=== PATIENT | male | born 1940 | race Caucasian/White ===

== ENCOUNTER → 2019-09-29 12:09 | Outpatient (BNVA) | payer MEDICARE, MEDICAID, SELFPAY | PROVIDERS: Family Provider Nurse Practitioner; PCP Nurse Practitioner; Visit Provider Nurse Practitioner | DX: E11.9 Type 2 diabetes mellitus without complications (principal); F41.9 Anxiety disorder, unspecified; I10 Essential (primary) hypertension; R39.11 Hesitancy of micturition; E61.1 Iron deficiency; E03.8 Other specified hypothyroidism; I73.9 Peripheral vascular disease, unspecified; L03.90 Cellulitis, unspecified | CPT/HCPCS: 80053; 81003; 83036; 85025 ==

== ENCOUNTER 2019-10-03 17:46 | Observation (INO) | payer MEDICARE, MEDICAID, SELFPAY ==
[2019-10-03 18:02] VITALS: BP 163/80; PULSE 81; RESP 18; TEMP 36.2; O2SAT 100; BMI 29.2
--- NOTE | 2019-10-03 18:13 | W.ED.ABDPA2 ---
HPI - Abdominal Pain General: Chief Complaint: Abdominal Pain Stated Complaint: vomiting Time Seen by Provider: 10/03/19 18:11 Source: patient Mode of arrival: ambulatory Limitations: no limitations History of Present Illness: HPI narrative: Patient comes in today with 12-hour episode of nausea and vomiting with some centralized abdominal pain. Patient is bringing up bilious emesis. Patient reports no history of gallbladder issues. Patient has a history of diabetes and heart disease. Patient denies any chest pain or shortness of breath. Patient looks unwell. Patient looks and mild to moderate pain. Associated Symptoms: Reports nausea and vomiting (bile) Review of Systems General: Reports: 10 or more systems reviewed and unremarkable except in HPI and below GI: Reports: nausea and vomiting (bile) PFSH ED PFSH: Statuses (acute, chronic, etc) shown below reflect problem list status as previously entered and may not be historically accurate Medical History (Updated 10/03/19 @ 21:39 by KLAUS Smith) Adult onset hypothyroidism (Chronic) Anxiety and depression (Chronic) B12 deficiency (Acute) CKD (chronic kidney disease) (Acute) Controlled diabetes mellitus (Chronic) Cyst, dermoid, trunk (Chronic) HTN, goal below 130/80 (Chronic) Hyperlipidemia, unspecified (Chronic) Iron deficiency (Acute) PVD (peripheral vascular disease) (Chronic) Urinary hesitancy (Chronic) Vitamin D deficiency (Chronic) Surgical History (Updated 09/29/19 @ 12:07 by KLAUS Fortune-C) History of knee replacement (Acute) right 2014 History of knee surgery (Acute) right 2006 left 2002 History of rhinoplasty (Acute) 1973 History of shoulder surgery (Acute) Left 2016 S/P CABG (coronary artery bypass graft) (Acute) 2002 Social History Smoking and tobacco status: former smoker Smoking risk assessment/counseling performed?: No Alcohol intake: never Desire information about alcohol rehabilitation?: No Counseling given: No Desire information about substance/drug rehabilitation?: No Counseling given: No Adopted: No Caregiver/support person: No Lives independently: Yes Household members: none Housing: House Marital status: / service: Yes Current occupational status: retired Current occupational exposures/hazards: No Pets and animals: No History of recent travel: No Current gender identity: Male Physical Exam Const: COMMON NORMALS: no apparent distress and oriented x3 GENERAL APPEARANCE: cooperative HENMT: COMMON NORMALS: normocephalic, external ears normal, EAC's normal, TM's normal bilaterally and external nose normal HEAD & SCALP: normal to inspection and normocephalic FACE & SINUS: normal facial exam NOSE: external nose normal GENERAL EAR: hearing not grossly impaired EXTERNAL EAR: Yes external ears normal EXTERNAL AUDITORY CANAL: EAC's normal TYMPANIC MEMBRANE: TM's normal bilaterally MOUTH: oral and palatal mucosa normal THROAT: posterior oropharynx normal Eye: COMMON NORMALS: PERRL and EOMs intact bilaterally PUPIL: Yes PERRL Neck/C-Spine: COMMON NORMALS: full ROM and no lymphadenopathy Lymph: LYMPHATIC: no lymphedema noted Chest: COMMONS NORMALS: inspection of chest normal and palpation of chest normal Resp: COMMON NORMALS: normal respiratory effort and clear to auscultation bilaterally AUSCULTATION: clear to auscultation bilaterally Cardio: COMMON NORMALS: regular rate and regular rhythm RATE: regular rate RHYTHM: regular rhythm GI: COMMON NORMALS: normal to inspection, nondistended, normoactive bowel sounds PALPATION: Yes tender (diffuse, rotund, no guarding or rebound tenderness) : COMMON NORMALS: Yes no CVA tenderness BLADDER/KIDNEY EXAM: Yes no CVA tenderness Back/Pelvis: COMMON NORMALS: no CVA tenderness and thoracic and lumbar spine normal to inspection Extremity: COMMON NORMALS: normal to inspection GENERAL: No edema Neuro: COMMON NORMALS: oriented x3, moves all extremities and no focal motor deficits Psych: COMMON NORMALS: mental status grossly normal and cooperative Skin: COMMON NORMALS: no rashes or lesions noted GENERAL SKIN EXAM: no rashes or lesions noted Course ED course: 2044, Discussed with Dr. Allred about cholecystitis. and elevated lactate. agreed to plan will talk to Dr. Harrell surgeon about further treatment and probable admission. Vital Signs: Vital signs: Vital Signs Temperature 97.2 F L 10/03/19 18:02 Pulse Rate 82 10/03/19 23:56 Respiratory Rate 18 10/03/19 23:56 Blood Pressure 191/101 10/03/19 23:56 Pulse Oximetry 98 10/03/19 23:56 MDM - Abdominal Pain MDM Narrative: Medical decision making narrative: Patient came in tonight for complaints of persistent nausea and vomiting starting this morning. Patient was unable to hold down any medication for his blood pressure any of his other routine medicines. Patient reports chills last night. Exam notes abdomen is tender in the epigastric area. Respirations were even lungs were clear to auscultation. Skin was warm and dry color is pink. Differential diagnosis includes gastroenteritis, gastritis, cholecystitis, pancreatitis, bowel obstruction. Laboratory values were significant for some renal insufficiency at 1.8 creatinine, white blood cell count was 8.1, lactate was 3.0. Ultrasound of the gallbladder showed gallbladder wall thickening with sludge. CT scan noted no abnormalities. Patient was treated with IV fluids started on 4.[address] Allred was consulted who agreed to plan and recommended admission. Dr. Allred talk to Dr. Harrell surgeon cathodic protection technician who agreed to admission. Patient will be placed into med surgical floor for continuation of IV fluids and medication with consult for further treatment with surgery. Patient was agreeable to plan. Patient needs admission for IV fluids and antibiotics and further treatment with surgery. Lab Data: Labs: Lab Results 10/03/19 10/03/19 10/03/19 Range/Units 18:25 18:25 18:25 WBC 8.1 (4.0-10.0) 10^3/ uL RBC 3.96 L (4.1-5.3) 10^6/u L Hgb 11.4 L (11.7-16.6) g/dL Hct 36.3 L (42.0-52.0) % MCV 91.7 (80-94) fL MCH 28.8 (28.0-34.0) pg MCHC 31.4 (30.0-36.0) g/dL RDW 14.6 (12.1-15.1) % Plt Count 237 (130-400) 10^3/c mm MPV 11.5 H (7.4-10.4) fL Neut % (Auto) 88.4 % Lymph % (Auto) 7.4 % [place] % (Auto) 3.8 % Eos % (Auto) 0.1 % Baso % (Auto) 0.1 % Neut # (Auto) 7.2 (1.8-7.7) 10^3/u L Lymph # (Auto) 0.6 L (0.8-4.8) 10^3/u L [place] # (Auto) 0.3 (0.2-0.9) 10^3/u L Eos # (Auto) 0.0 (0.0-0.8) 10^3/u L Baso # (Auto) 0.0 (0.0-0.1) 10^3/u L Nucleated RBC % (a uto) 0 % Nucleated RBCs # 0.0 /100WBC Sodium 139 (136-145) mmol/L Potassium 4.1 (3.5-5.1) mmol/L Chloride 103 (98-107) mmol/L Carbon Dioxide 20 L (22-29) mmol/L Anion Gap 20.1 H (5-19) BUN 26 H (8-23) mg/dL Creatinine 1.8 H (0.7-1.2) mg/dL Glucose 158 H (74-106) mg/dL Lactic Acid 3.0 H (0.5-2.2) mmol/L Lactic Acid (Sepsi s) (0.5-2.2) mmol/L Calcium 10.1 (8.5-10.5) mg/dL Total Bilirubin 0.5 (0.15-1.2) mg/dL AST 19 (0-40) U/L ALT 12 (0-41) U/L Alkaline Phosphata se 84 (40-130) IU/L Total Protein 8.2 (6.6-8.7) g/dL Albumin 4.2 (3.5-5.2) g/dL Globulin 4.0 (1.3-4.6) g/dL Lipase 15 (13-60) U/L Urine Color (Yellow) Urine Appearance (CLEAR) Urine pH (5-7) Ur Specific Gravit y (1.005-1.030) Urine Protein (Negative) Urine Glucose (UA) (Normal) Urine Ketones (Negative) Urine Occult Blood (Negative) Urine Nitrate (Negative) Urine Bilirubin (NEGATIVE) Prot Sulfosalicyli c Acd Urine Urobilinogen (Negative) mg/dL Ur Leukocyte Jade ase (Negative) Urine RBC (0-2) /hpf Urine WBC (0-5) /hpf Ur Squamous Epith Cells (0-5) Urine Bacteria (NONE) Urine Mucus 10/03/19 10/03/19 Range/Units 20:10 21:16 WBC (4.0-10.0) 10^3/ uL RBC (4.1-5.3) 10^6/u L Hgb (11.7-16.6) g/dL Hct (42.0-52.0) % MCV (80-94) fL MCH (28.0-34.0) pg MCHC (30.0-36.0) g/dL RDW (12.1-15.1) % Plt Count (130-400) 10^3/c mm MPV (7.4-10.4) fL Neut % (Auto) % Lymph % (Auto) % [place] % (Auto) % Eos % (Auto) % Baso % (Auto) % Neut # (Auto) (1.8-7.7) 10^3/u L Lymph # (Auto) (0.8-4.8) 10^3/u L [place] # (Auto) (0.2-0.9) 10^3/u L Eos # (Auto) (0.0-0.8) 10^3/u L Baso # (Auto) (0.0-0.1) 10^3/u L Nucleated RBC % (a uto) % Nucleated RBCs # /100WBC Sodium (136-145) mmol/L Potassium (3.5-5.1) mmol/L Chloride (98-107) mmol/L Carbon Dioxide (22-29) mmol/L Anion Gap (5-19) BUN (8-23) mg/dL Creatinine (0.7-1.2) mg/dL Glucose (74-106) mg/dL Lactic Acid (0.5-2.2) mmol/L Lactic Acid (Sepsi s) 1.7 (0.5-2.2) mmol/L Calcium (8.5-10.5) mg/dL Total Bilirubin (0.15-1.2) mg/dL AST (0-40) U/L ALT (0-41) U/L Alkaline Phosphata se (40-130) IU/L Total Protein (6.6-8.7) g/dL Albumin (3.5-5.2) g/dL Globulin (1.3-4.6) g/dL Lipase (13-60) U/L Urine Color Yellow (Yellow) Urine Appearance Clear (CLEAR) Urine pH 8 H (5-7) Ur Specific Gravit y 1.010 (1.005-1.030) Urine Protein Trace (Negative) Urine Glucose (UA) Norm (Normal) Urine Ketones Negative (Negative) Urine Occult Blood Neg (Negative) Urine Nitrate Negative (Negative) Urine Bilirubin Neg (NEGATIVE) Prot Sulfosalicyli c Acd Trace Urine Urobilinogen Norm (Negative) mg/dL Ur Leukocyte Jade ase Negative (Negative) Urine RBC None (0-2) /hpf Urine WBC Rare (0-5) /hpf Ur Squamous Epith Cells None (0-5) Urine Bacteria Trace (NONE) Urine Mucus Trace Discharge Plan Discharge Patient Disposition: Admitted As Inpatient Admit Provider: Aaron Harrell Clinical Impression: Cholecystitis Condition: Stable Referrals: Mary Dior FNP-C [Primary Care Provider] - Discharge Date/Time: 10/03/19 23:57 Coding Level of Care Code ED Cushion Cover Inspector for Chg Fwd Exam Problem Focused
--- NOTE | 2019-10-03 18:25 | USR_ITS ---
PROCEDURE INFORMATION: Exam: US Abdomen Limited, Right Upper Quadrant Exam date and time: 10/03/2019 7:01 PM Age: 78 years old Clinical indication: Abdominal pain; Tenderness; Right upper quadrant (ruq); Patient HX: N/v since 5am today. Npo since then. ; Additional info: Bile emesis TECHNIQUE: Imaging protocol: Real-time ultrasound of the abdomen with image documentation. Examination was focused on the right upper quadrant. COMPARISON: US Renal Kidney Structu* [id number] 04/18/2017 2:52 PM FINDINGS: Liver: The liver is unremarkable measuring 16 cm in length. Gallbladder: The gallbladder wall is thickened measuring 3.4 mm. There is sludge in the gallbladder. No definite stones. There is a positive sonographic Song sign however the patient is tender throughout the entire abdomen. Common bile duct: The common bowel duct is dilated measuring 7.8 mm. Pancreas: Pancreatic duct is dilated measuring 3.5 mm. The visualized pancreas is otherwise unremarkable on the are most completely obscured by the bowel gas artifact. Right kidney: Two right renal cortical cysts are unchanged compared to the prior exam with a larger cyst measuring 5.1 x 5.5 cm in size. There is no hydronephrosis. Bladder: Urinary bladder is unremarkable with a volume of 263.5 mL. Bladder appears partially collapsed in the wall slightly thickened but otherwise unremarkable. US/US gall bladder [id number] IMPRESSION: Thick-walled gallbladder with dilated common bile duct and pancreatic duct concerning for early cholecystitis. There is sludge in the gallbladder.
[2019-10-03 18:32] LABS: Basophils % 0.1 %; Eosinophils % 0.1 %; Hematocrit 36.3 % (42.0-52.0); Hemoglobin 11.4 g/dL (11.7-16.6); Lymphocytes # 0.6 10^3/uL (0.8-4.8); Lymphocytes % 7.4 %; Mean Corpuscular HGB Conc 31.4 g/dL (30.0-36.0); Mean Corpuscular Hemoglobin 28.8 pg (28.0-34.0); Mean Corpuscular Volume 91.7 fL (80-94); Mean Platelet Volume 11.5 fL (7.4-10.4); Monocytes # 0.3 10^3/uL (0.2-0.9); Monocytes % 3.8 %; Neutrophils # 7.2 10^3/uL (1.8-7.7); Neutrophils % 88.4 %; Nucleated Red Blood Cells % 0 %; Platelet Count 237 10^3/cmm (130-400); Red Blood Count 3.96 10^6/uL (4.1-5.3); Red Cell Distribution Width 14.6 % (12.1-15.1); White Blood Count 8.1 10^3/uL (4.0-10.0)
[2019-10-03] MEDS: ondansetron 2 mg/ML SDV 2 mL 4 MG IVP ×2 (18:35→22:12)
[2019-10-03] MEDS: sodium chloride 0.9% 500 ML 999 ML IV (18:36)
[2019-10-03 18:39] VITALS: RESP 18; O2SAT 96
[2019-10-03] MEDS: morphine 4 mg/mL SDV 1 mL 2 MG IVP ×2 (18:39→22:05)
[2019-10-03 18:56] LABS: Alanine Aminotransferase 12 U/L (0-41); Albumin Level 4.2 g/dL (3.5-5.2); Alkaline Phosphatase 84 IU/L (40-130); Anion Gap 20.1 (5-19); Aspartate Amino Transferase 19 U/L (0-40); Blood Urea Nitrogen 26 mg/dL (8-23); Calcium 10.1 mg/dL (8.5-10.5); Carbon Dioxide 20 mmol/L (22-29); Chloride 103 mmol/L (98-107); Glucose 158 mg/dL (74-106); Lipase 15 U/L (13-60); Potassium 4.1 mmol/L (3.5-5.1); Sodium 139 mmol/L (136-145); Total Bilirubin 0.5 mg/dL (0.15-1.2); Total Protein 8.2 g/dL (6.6-8.7)
--- NOTE | 2019-10-03 19:50 | CTR_ITS ---
PROCEDURE INFORMATION: Exam: CT Abdomen And Pelvis Without Contrast Exam date and time: 10/03/2019 8:06 PM Age: 78 years old Clinical indication: Patient HX: Nausea and vomiting since 5 am; Additional info: N/v/d, renal insuff TECHNIQUE: Imaging protocol: Computed tomography of the abdomen and pelvis without contrast. Total DLP: 894.61 mGy-cm Radiation optimization: All CT scans at this facility use at least one of these dose optimization techniques: automated exposure control; mA and/or kV adjustment per patient size (includes targeted exams where dose is matched to clinical indication); or iterative reconstruction. COMPARISON: CT abdomen pelvis wo con [id number] 02/03/2019 7:02 PM FINDINGS: Lungs: There is subpleural atelectasis of the dependent portions of the lungs. Mediastinum: A small hiatal hernia is present. Liver: Unchanged hypodensities are noted in the liver with the largest measuring 1.5 cm in size image 12. This may be an unchanged cyst. Gallbladder and bile ducts: Normal. No calcified stones. No ductal dilation. Pancreas: Normal. No ductal dilation. Spleen: Normal. No splenomegaly. Adrenals: There is an unchanged 1.5 cm right adrenal nodule containing macroscopic fat compatible with a myelolipoma. The left adrenal gland is unremarkable. Kidneys and ureters: There is bilateral punctate nephrolithiasis. There is a unchanged 12 mm hyperdense lesion lower pole right kidney. Bilateral fluid density renal cysts are noted with the largest on the left measuring 3.8 cm in size and the largest on the right measuring 7.3 cm in size. No hydronephrosis. Stomach and bowel: Extensive diverticulosis is present in the distal colon. No bowel thickening or inflammatory changes. No ileus or obstruction. Appendix: A normal appendix is identified. Intraperitoneal space: Unremarkable. No free air. No significant fluid collection. Vasculature: Sternotomy wires and mediastinal surgical clips are present, consistent with previous coronary arterial bypass grafting. Moderate atherosclerotic changes are noted in the aorta. Lymph nodes: Unremarkable.No enlarged lymph nodes. Bladder: Unremarkable as visualized. Reproductive: The prostate demonstrates nonspecific parenchymal calcifications. The prostate demonstrates moderate nonspecific enlargement. The seminal vesicles are normal. Bones/joints: Unremarkable. No acute fracture. Soft tissues: There is a nonobstructing left inguinal hernia. CT/CT abdomen pelvis wo con [id number] IMPRESSION: 1. No acute abnormality or inflammatory changes. Probable liver cysts. Unchanged renal cysts and indeterminate hyperdense lesion lower pole right kidney. 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 Diverticulosis without diverticulitis. Additional incidental findings are noted as above. 2. Unchanged 12 mm hyperdense lesion lower pole right kidney.Recommend MR without and with contrast or CT without and with contrast within 6-12 months. MR is preferred for masses under 1.5 cm. Radiation Dose CTDIVOL = (mGy): DLP = 894.61 (mGy-cm)
[2019-10-03 20:16] LABS: Reflex Lactate Order REFLEX LACTIC ORDERD
[2019-10-03] MEDS: piperacillin-tazobactam 4.5 GM in sodium chloride 0.9% (plus) 50 ML IV (20:48)
[2019-10-03 21:16] LABS: Bilirubin Urine Neg (NEGATIVE); Blood Urine Neg (Negative); Glucose Urine UA Norm (Normal); Ketones Urine Negative (Negative); Nitrate Urine Negative (Negative); Protein Urine Trace (Negative); Urine Appearance Clear (CLEAR); Urine Color Yellow (Yellow); pH Urine 8 (5-7)
[2019-10-03 21:17] LABS: Add Urine Culture? No; Bacteria Urine TRACE; Leukocyte Esterase Urine Negative (Negative); Mucus Urine TRACE; Sulfosalicylic Acid Urine Trace; Urobilinogen Urine Norm (Negative); WBC Urine RARE /hpf (0-5)
[2019-10-03 21:45] LABS: Lactic Acid level (Lactate) 1.7 mmol/L (0.5-2.2)
[2019-10-03 22:05] VITALS: RESP 18; O2SAT 98
[2019-10-03] MEDS: sodium chloride 0.9% 1,000 ML 999 ML IV (22:12)
[2019-10-03] MEDS: cloNIDine 0.1 mg Tablet PO (22:12)
[2019-10-03 23:56] VITALS: BP 191/101; PULSE 82; RESP 18; O2SAT 98
[2019-10-04] VITALS (14 sets, daily range): BP systolic 125–196; BP diastolic 58–76; PULSE 59–79; RESP 18–20; TEMP 36.2–37.1; O2SAT 93–100
[2019-10-04 06:20] LABS: Basophils % 0.1 %; Eosinophils # 0.1 10^3/uL (0.0-0.8); Eosinophils % 0.6 %; Hematocrit 32.8 % (42.0-52.0); Hemoglobin 10.3 g/dL (11.7-16.6); Lymphocytes # 1.5 10^3/uL (0.8-4.8); Lymphocytes % 14.2 %; Mean Corpuscular HGB Conc 31.4 g/dL (30.0-36.0); Mean Corpuscular Hemoglobin 28.8 pg (28.0-34.0); Mean Corpuscular Volume 91.6 fL (80-94); Mean Platelet Volume 11.6 fL (7.4-10.4); Monocytes # 1.1 10^3/uL (0.2-0.9); Monocytes % 10.2 %; Neutrophils # 7.8 10^3/uL (1.8-7.7); Neutrophils % 74.7 %; Nucleated Red Blood Cells % 0 %; Platelet Count 222 10^3/cmm (130-400); Red Blood Count 3.58 10^6/uL (4.1-5.3); White Blood Count 10.5 10^3/uL (4.0-10.0)
[2019-10-04 06:50] LABS: Alanine Aminotransferase 10 U/L (0-41); Albumin Level 3.6 g/dL (3.5-5.2); Alkaline Phosphatase 71 IU/L (40-130); Anion Gap 13.5 (5-19); Aspartate Amino Transferase 21 U/L (0-40); Blood Urea Nitrogen 26 mg/dL (8-23); Calcium 9.3 mg/dL (8.5-10.5); Carbon Dioxide 25 mmol/L (22-29); Chloride 108 mmol/L (98-107); Globulin 3.3 g/dL (1.3-4.6); Glucose 109 mg/dL (74-106); Potassium 4.5 mmol/L (3.5-5.1); Sodium 142 mmol/L (136-145); Total Bilirubin 0.5 mg/dL (0.15-1.2); Total Protein 6.9 g/dL (6.6-8.7)
[2019-10-04 09:14] LABS: Basophils % 0.1 %; Eosinophils # 0.1 10^3/uL (0.0-0.8); Eosinophils % 0.5 %; Hematocrit 33.2 % (42.0-52.0); Hemoglobin 10.5 g/dL (11.7-16.6); Lymphocytes # 1.5 10^3/uL (0.8-4.8); Lymphocytes % 15.6 %; Mean Corpuscular HGB Conc 31.6 g/dL (30.0-36.0); Mean Corpuscular Volume 91.7 fL (80-94); Mean Platelet Volume 11.4 fL (7.4-10.4); Monocytes # 0.8 10^3/uL (0.2-0.9); Monocytes % 8.6 %; Neutrophils % 74.9 %; Nucleated Red Blood Cells % 0 %; Platelet Count 227 10^3/cmm (130-400); Red Blood Count 3.62 10^6/uL (4.1-5.3); Red Cell Distribution Width 15.1 % (12.1-15.1); White Blood Count 9.3 10^3/uL (4.0-10.0)
[2019-10-04 09:29] LABS: Alanine Aminotransferase 10 U/L (0-41); Albumin Level 3.8 g/dL (3.5-5.2); Alkaline Phosphatase 73 IU/L (40-130); Anion Gap 13.8 (5-19); Aspartate Amino Transferase 22 U/L (0-40); Blood Urea Nitrogen 25 mg/dL (8-23); Calcium 9.5 mg/dL (8.5-10.5); Carbon Dioxide 24 mmol/L (22-29); Chloride 108 mmol/L (98-107); Globulin 3.4 g/dL (1.3-4.6); Glucose 111 mg/dL (74-106); Lactic Acid 0.8 mmol/L (0.5-2.2); Osmolality Calculated 292 mOsm/kg (285-295); Potassium 3.8 mmol/L (3.5-5.1); Sodium 142 mmol/L (136-145); Total Bilirubin 0.6 mg/dL (0.15-1.2); Total Protein 7.2 g/dL (6.6-8.7)
--- NOTE | 2019-10-04 10:23 | P.HP_ITS ---
Providers/Chief Complaint Admitting Physician: Aaron Harrell MD Primary Care Provider: MILEY FortuneP-C Chief Complaint: acute cholecysitis History of Present Illness Abiel Andres is a 78 year old male who presented to the ER last night with severe abdominal pain associated nausea and vomiting. The pain is mainly localized in the right upper quadrant, no aggravating or relieving factors. Does not radiate. Patient states that he has had any similar episodes in the past. He has history of acid reflux but denies any peptic ulcer disease. Patient denies any constipation diarrhea, fevers or chills. 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 Review of Systems Const: Denies: fever, chills, change in weight or fatigue Eyes: Denies: change in vision ENMT: Denies: painful swallowing Card: Denies: chest pain Resp: Denies: shortness of breath : Denies: painful urination Skin/Breast: Denies: rash, nipple discharge or breast mass/lump Neuro: Denies: seizure-like activity [place]/Lymph: Denies: easy bruising Medications/Allergies Allergies Allergy/AdvReac Type Severity Reaction Status Date / Time fish oil Allergy rash Verified 09/29/19 11:03 PFSH Acute PFSH: Statuses (acute, chronic, etc) shown below reflect problem list status as previously entered and may not be historically accurate Medical History Adult onset hypothyroidism (Chronic) Anxiety and depression (Chronic) B12 deficiency (Acute) CKD (chronic kidney disease) (Acute) Controlled diabetes mellitus (Chronic) Cyst, dermoid, trunk (Chronic) Hyperlipidemia, unspecified (Chronic) Iron deficiency (Acute) PVD (peripheral vascular disease) (Chronic) Vitamin D deficiency (Chronic) Surgical History History of knee replacement (Acute) right 2014 History of knee surgery (Acute) right 2006 left 2002 History of rhinoplasty (Acute) 1973 History of shoulder surgery (Acute) Left 2016 S/p bilateral carotid endarterectomy (Acute) S/P CABG (coronary artery bypass graft) (Acute) 2002 Status post colonoscopy (Acute) Family History Other CAD (coronary artery disease) Heart disease Hypertension Social History Smoking and tobacco status: former smoker Smoking risk assessment/counseling performed?: No Alcohol intake: never Desire information about alcohol rehabilitation?: No Counseling given: No Desire information about substance/drug rehabilitation?: No Counseling given: No Adopted: No Caregiver/support person: No Lives independently: Yes Household members: none Housing: House Marital status: / service: Yes Current occupational status: retired Current occupational exposures/hazards: No Pets and animals: No History of recent travel: No Current gender identity: Male Vitals/I&O/Wt Last Vital Signs Temp 98.3 F 10/04/19 07:32 Pulse 68 10/04/19 07:32 Resp 18 10/04/19 07:32 BP 125/67 10/04/19 07:32 Pulse Ox 96 10/04/19 07:32 10/03/19 10/04/19 10/04/19 22:59 06:59 14:59 Output Total 200 / 200 250 / 250 Balance -200 / -200 -250 / -250 Weight last 48 hrs Weight 204 lb Physical Exam Narrative: EXAM NARRATIVE: HEENT: Normocephalic, bilateral well-healed carotid endarterectomy scar Eye: Sclera /conjunctiva normal Respiratory and chest: Bilateral clear breath sounds on auscultation Cardiovascular: Normal S1 and S2 heart sounds Abdomen: Soft to palpation, tender right upper quadrant, Song sign positive Neurological: Oriented to place person and time Skin: Intact, no lesions appreciated on gross exam Data : 10/04/19 08:54 10/04/19 08:54 Micro: Microbiology 10/03/19 18:25 Blood Culture - Preliminary Blood SPECIMEN COLLECTED US: Radiologist's impression: Thick-walled gallbladder with dilated common bile duct and pancreatic duct concerning for early cholecystitis. There is sludge in the gallbladder. A&P Assessment and plan (1) Acute cholecystitis: 78-year-old gentleman with right upper quadrant pain, positive Song sign and ultrasound showing findings suggestive of early acute cholecystitis. Plan for laparoscopic possible open cholecystectomy Procedure, risks, benefits and alternatives have been discussed with the patient who wishes to proceed with surgery. Status: Acute Code(s): K81.0 - Acute cholecystitis Attestations Medical Necessity Statement*: Acute cholecystitis requiring surgery Coding Level of Care Code Acute Research Animal Attendant for [facility] Fwd Diagnoses Acute cholecystitis K81.0
--- NOTE | 2019-10-04 10:23 | PC.NURSE ---
Pt to or via surgery cart.
--- NOTE | 2019-10-04 10:31 | P.ANESASSM_ITS ---
Pre-Anesthetic Assessment Pre-Anesthetic Assessment: Height/Weight: Height 1.78 m Weight 92.533 kg Temp Pulse Resp BP Pulse Ox 98.3 F 68 18 125/67 96 10/04/19 07:32 10/04/19 07:32 10/04/19 07:32 10/04/19 07:32 10/04/19 07:32 Preop Diagnosis: cholelithiasis Proposed Procedure: Operation Date: 10/04/19 11:20 Proposed Procedures p Laparoscopic Cholecystectomy(Not Applicable) - Aaron Harrell MD Familial anesthetic complications: Rivaroxaban 2 days ago No trouble Was Beta Cash taken within 24 hours: Yes Last intake: Social: Social History: No alcohol and No tobacco Exam: Pre-Anes Outpt Exam: alert, oriented x 3, clear to auscultation bilaterally and regular rate & rhythm Airway: Cervical ROM: WNL MP: 3 Additional comments: edntulous Pulmonary: Pulmonary: COPD CV/HEM: CV/HEM: HTN Comments: CABG 2002 : : Chronic renal Insufficiency Hepatic: Hepatic: None reported GI: GI: GERD Metabolic: Metabolic: DM and Hyperlipidemia Musc/skel: Musc/skel: OA/DJD Neuropsych: Neuropsych: TIA Comments: TIA 1999 - carotid surgeyr Anesthetic Plan: ASA status: III Anesthesia: General PFSH Anesthesia PFSH: Medical History (Updated 10/04/19 @ 10:26 by Aaron Harrell MD) Acute cholecystitis (Acute) Adult onset hypothyroidism (Chronic) Anxiety and depression (Chronic) B12 deficiency (Acute) CKD (chronic kidney disease) (Acute) Controlled diabetes mellitus (Chronic) Cyst, dermoid, trunk (Chronic) Hyperlipidemia, unspecified (Chronic) Iron deficiency (Acute) PVD (peripheral vascular disease) (Chronic) Vitamin D deficiency (Chronic) Surgical History History of knee replacement (Acute) right 2014 History of knee surgery (Acute) right 2006 left 2002 History of rhinoplasty (Acute) 1973 History of shoulder surgery (Acute) Left 2016 S/p bilateral carotid endarterectomy (Acute) S/P CABG (coronary artery bypass graft) (Acute) 2002 Status post colonoscopy (Acute) Family History Other CAD (coronary artery disease) Heart disease Hypertension Social History Smoking and tobacco status: former smoker Smoking risk assessment/counseling performed?: No Alcohol intake: never Desire information about alcohol rehabilitation?: No Counseling given: No Desire information about substance/drug rehabilitation?: No Counseling given: No Adopted: No Caregiver/support person: No Lives independently: Yes Household members: none Housing: House Marital status: / service: Yes Current occupational status: retired Current occupational exposures/hazards: No Pets and animals: No History of recent travel: No Current gender identity: Male Data Anesthesia CBC & Chem 7: 10/04/19 08:54 10/04/19 08:54 Other Labs: Laboratory Results - last 48 hr 10/03/19 10/03/19 10/03/19 18:25 18:25 18:25 WBC 8.1 RBC 3.96 L Hgb 11.4 L Hct 36.3 L MCV 91.7 MCH 28.8 MCHC 31.4 RDW 14.6 Plt Count 237 MPV 11.5 H Neut % (Auto) 88.4 Lymph % (Auto) 7.4 [place] % (Auto) 3.8 Eos % (Auto) 0.1 Baso % (Auto) 0.1 Neut # (Auto) 7.2 Lymph # (Auto) 0.6 L [place] # (Auto) 0.3 Eos # (Auto) 0.0 Baso # (Auto) 0.0 Nucleated RBC % (auto) 0 Nucleated RBCs # 0.0 Sodium 139 Potassium 4.1 Chloride 103 Carbon Dioxide 20 L Anion Gap 20.1 H BUN 26 H Creatinine 1.8 H Glucose 158 H Calculated Osmolality Lactic Acid 3.0 H Lactic Acid (Sepsis) Calcium 10.1 Total Bilirubin 0.5 Direct Bilirubin AST 19 ALT 12 Alkaline Phosphatase 84 Total Protein 8.2 Albumin 4.2 Globulin 4.0 Lipase 15 Urine Color Urine Appearance Urine pH Ur Specific [place] Urine Protein Urine Glucose (UA) Urine Ketones Urine Occult Blood Urine Nitrate Urine Bilirubin Prot Sulfosalicylic Acd Urine Urobilinogen Ur Leukocyte Esterase Urine RBC Urine WBC Ur Squamous Epith Cells Urine Bacteria Urine Mucus 10/03/19 10/03/19 10/04/19 20:10 21:16 05:51 WBC 10.5 H RBC 3.58 L Hgb 10.3 L Hct 32.8 L MCV 91.6 MCH 28.8 MCHC 31.4 RDW 15.0 Plt Count 222 MPV 11.6 H Neut % (Auto) 74.7 Lymph % (Auto) 14.2 [place] % (Auto) 10.2 Eos % (Auto) 0.6 Baso % (Auto) 0.1 Neut # (Auto) 7.8 H Lymph # (Auto) 1.5 [place] # (Auto) 1.1 H Eos # (Auto) 0.1 Baso # (Auto) 0.0 Nucleated RBC % (auto) 0 Nucleated RBCs # 0.0 Sodium Potassium Chloride Carbon Dioxide Anion Gap BUN Creatinine Glucose Calculated Osmolality Lactic Acid Lactic Acid (Sepsis) 1.7 Calcium Total Bilirubin Direct Bilirubin AST ALT Alkaline Phosphatase Total Protein Albumin Globulin Lipase Urine Color Yellow Urine Appearance Clear Urine pH 8 H Ur Specific [place] 1.010 Urine Protein Trace Urine Glucose (UA) Norm Urine Ketones Negative Urine Occult Blood Neg Urine Nitrate Negative Urine Bilirubin Neg Prot Sulfosalicylic Acd Trace Urine Urobilinogen Norm Ur Leukocyte Esterase Negative Urine RBC None Urine WBC Rare Ur Squamous Epith Cells None Urine Bacteria Trace Urine Mucus Trace 10/04/19 10/04/19 10/04/19 05:51 08:54 08:54 WBC 9.3 RBC 3.62 L Hgb 10.5 L Hct 33.2 L MCV 91.7 MCH 29.0 MCHC 31.6 RDW 15.1 Plt Count 227 MPV 11.4 H Neut % (Auto) 74.9 Lymph % (Auto) 15.6 [place] % (Auto) 8.6 Eos % (Auto) 0.5 Baso % (Auto) 0.1 Neut # (Auto) 7.0 Lymph # (Auto) 1.5 [place] # (Auto) 0.8 Eos # (Auto) 0.1 Baso # (Auto) 0.0 Nucleated RBC % (auto) 0 Nucleated RBCs # 0.0 Sodium 142 142 Potassium 4.5 3.8 Chloride 108 H 108 H Carbon Dioxide 25 24 Anion Gap 13.5 13.8 BUN 26 H 25 H Creatinine 1.7 H 1.6 H Glucose 109 H 111 H Calculated Osmolality 292 Lactic Acid Lactic Acid (Sepsis) Calcium 9.3 9.5 Total Bilirubin 0.5 0.6 Direct Bilirubin 0.20 AST 21 22 ALT 10 10 Alkaline Phosphatase 71 73 Total Protein 6.9 7.2 Albumin 3.6 3.8 Globulin 3.3 3.4 Lipase Urine Color Urine Appearance Urine pH Ur Specific [place] Urine Protein Urine Glucose (UA) Urine Ketones Urine Occult Blood Urine Nitrate Urine Bilirubin Prot Sulfosalicylic Acd Urine Urobilinogen Ur Leukocyte Esterase Urine RBC Urine WBC Ur Squamous Epith Cells Urine Bacteria Urine Mucus 10/04/19 08:54 WBC RBC Hgb Hct MCV MCH MCHC RDW Plt Count MPV Neut % (Auto) Lymph % (Auto) [place] % (Auto) Eos % (Auto) Baso % (Auto) Neut # (Auto) Lymph # (Auto) [place] # (Auto) Eos # (Auto) Baso # (Auto) Nucleated RBC % (auto) Nucleated RBCs # Sodium Potassium Chloride Carbon Dioxide Anion Gap BUN Creatinine Glucose Calculated Osmolality Lactic Acid 0.8 Lactic Acid (Sepsis) Calcium Total Bilirubin Direct Bilirubin AST ALT Alkaline Phosphatase Total Protein Albumin Globulin Lipase Urine Color Urine Appearance Urine pH Ur Specific [place] Urine Protein Urine Glucose (UA) Urine Ketones Urine Occult Blood Urine Nitrate Urine Bilirubin Prot Sulfosalicylic Acd Urine Urobilinogen Ur Leukocyte Esterase Urine RBC Urine WBC Ur Squamous Epith Cells Urine Bacteria Urine Mucus Micro: Microbiology 10/03/19 18:25 Blood Culture - Preliminary Blood SPECIMEN COLLECTED Cardiac Studies: No Data to Display
[2019-10-04] MEDS: amlodipine 5 mg Tablet PO (10:51)
[2019-10-04] MEDS: metoprolol tartrate 25 mg Tablet 12.5 MG PO (10:52)
[2019-10-04] MEDS: sodium chloride 0.9% 1,000 ML 30 ML IV (11:00)
--- NOTE | 2019-10-04 12:38 | SUR.PHASEI ---
1236 PT ON RA TRIAL TAKING OCC ICE CHIPS ABD SOFT WITH 4 SITES D/I
--- NOTE | 2019-10-04 12:41 | SUR.PHASEI ---
1236 PT SATS DOWN TO 94% PT PLACED ON 3LNC SAT UP TO 95% NO DISTRESS PT TAKING ICE CHIPS
--- NOTE | 2019-10-04 13:12 | P.OP_ITS ---
Operative Report Date of procedure: October 04, 2019 Pre-op Diagnosis: Acute cholecystitis Post-op diagnosis: same Procedure Done: Laparoscopic cholecystectomy Specimens removed/disposition: Gallbladder sent to pathology Surgeon: Aaron Harrell Anesthesia: General Estimated blood loss (mL): 10 Condition: stable Disposition: PACU Procedure: The patient was taken to the operating room and was intubated under general anesthesia. After the antibiotic had been administered, the abdomen was prepped and draped in a sterile manner. Using a #15 blade, a 1 centimeter infraumbilical curvilinear incision was made and using an open Hortencia technique the peritoneal cavity was entered. A 10 millimeter port was placed and 15 millimeters of pneumoperitoneum was created. A 10 millimeter, 30 degrees scope was then introduced. Three 5 millimeter ports were placed in the epigastric, midclavicular and the anterior axillary line two fingerbreadths below the costal margin on the right side under the direct visualization. The omentum was completely adherent to the body and fundus of the gallbladder and this was peeled away using electrocautery. Ratcheted forceps were introduced into the lateral most port and was used to retract the fundus of the gallbladder cephalad and using forceps the infundibulum of the gallbladder was retracted laterally. Using L-hook cautery the peritoneum overlying the Calot's triangle was opened m edially and laterally until the cystic duct and the cystic artery were skeletonized. Dissection was carried along the body of the gallbladder and after ensuring critical view of safety, 4 clips applied on the cystic duct and 3 clips applied on the cystic artery and cut leaving, 3 clips on the remaining portion of the duct and 2 clips on the remaining portion of the artery. The rest of the gallbladder was dissected off the liver using L-hook cautery. There was spillage of bile near the body of the gallbladder which was irrigated and suctioned out. There was no spillage of stones. There was no bleeding or bile leaking noted from the gallbladder fossa and the clips appeared to be in place. An EndoCatch bag was introduced to remove the gallbladder. All the ports were removed under direct visualization and there was no bleeding noted from the port sites. The fascia of the umbilicus was closed using [id number] 0 Vicryl sutures and the subcutaneous tissue was approximated using 3-0 Vicryl sutures. The skin at all four ports were closed using 4-0 Monocryl and Dermabond. A total of 10 millimeters of 0.5% Marcaine was infiltrated around the port sites. The patient was stable throughout the procedure.
--- NOTE | 2019-10-04 13:14 | P.DS_ITS ---
Discharge Providers Date of Admission: 10/03/19 22:28 Date of Discharge: Date of Discharge: October 04, 2019 Attending Provider at Admission: Aaron Harrell MD Attending Provider at Discharge: Aaron Harrell MD Primary Care Provider: CIERRA Fortune Diagnoses at Discharge Discharge Diagnosis (1) Acute cholecystitis: Status: Acute Reason for Visit Reason for Visit: Reason For Visit: acute cholecysitis Hospital Course Hospital Course: The patient was admitted to the hospital after he to the ER with abdominal pain nausea and vomiting and ultrasound showed acute cholecystitis. Patient underwent laparoscopic cholecystectomy. At time of discharge he was tolerating diet, his vital signs are stable and his pain was controlled with oral pain medications. Discharge Data Data Completed and Pending: Completed Studies During Hospitalization Category Date Time Status CT abdomen pelvis wo con [id number] Urge nt Cat Scan 10/03/19 19:50 Completed US gall bladder 7 [id number] Urgent Ultrasound 10/03/19 18:25 Completed Pending at discharge Category Date Time Status Blood Culture Sta t Lab 10/03/19 18:25 Results Labs from last 24 hours 10/04/19 10/04/19 10/04/19 08:54 08:54 08:54 WBC 9.3 RBC 3.62 L Hgb 10.5 L Hct 33.2 L MCV 91.7 MCH 29.0 MCHC 31.6 RDW 15.1 Plt Count 227 MPV 11.4 H Neut % (Auto) 74.9 Lymph % (Auto) 15.6 [place] % (Auto) 8.6 Eos % (Auto) 0.5 Baso % (Auto) 0.1 Neut # (Auto) 7.0 Lymph # (Auto) 1.5 [place] # (Auto) 0.8 Eos # (Auto) 0.1 Baso # (Auto) 0.0 Nucleated RBC % (a uto) 0 Nucleated RBCs # 0.0 Sodium 142 Potassium 3.8 Chloride 108 H Carbon Dioxide 24 Anion Gap 13.8 BUN 25 H Creatinine 1.6 H Glucose 111 H Calculated Osmolal ity 292 Lactic Acid 0.8 Lactic Acid (Sepsi s) Calcium 9.5 Total Bilirubin 0.6 Direct Bilirubin 0.20 AST 22 ALT 10 Alkaline Phosphata se 73 Total Protein 7.2 Albumin 3.8 Globulin 3.4 Lipase Urine Color Urine Appearance Urine pH Ur Specific [place] Urine Protein Urine Glucose (UA) Urine Ketones Urine Occult Blood Urine Nitrate Urine Bilirubin Prot Sulfosalicyli c Acd Urine Urobilinogen Ur Leukocyte Jade ase Urine RBC Urine WBC Ur Squamous Epith Cells Urine Bacteria Urine Mucus 10/04/19 10/04/19 10/03/19 05:51 05:51 21:16 WBC 10.5 H RBC 3.58 L Hgb 10.3 L Hct 32.8 L MCV 91.6 MCH 28.8 MCHC 31.4 RDW 15.0 Plt Count 222 MPV 11.6 H Neut % (Auto) 74.7 Lymph % (Auto) 14.2 [place] % (Auto) 10.2 Eos % (Auto) 0.6 Baso % (Auto) 0.1 Neut # (Auto) 7.8 H Lymph # (Auto) 1.5 [place] # (Auto) 1.1 H Eos # (Auto) 0.1 Baso # (Auto) 0.0 Nucleated RBC % (a uto) 0 Nucleated RBCs # 0.0 Sodium 142 Potassium 4.5 Chloride 108 H Carbon Dioxide 25 Anion Gap 13.5 BUN 26 H Creatinine 1.7 H Glucose 109 H Calculated Osmolal ity Lactic Acid Lactic Acid (Sepsi s) 1.7 Calcium 9.3 Total Bilirubin 0.5 Direct Bilirubin AST 21 ALT 10 Alkaline Phosphata se 71 Total Protein 6.9 Albumin 3.6 Globulin 3.3 Lipase Urine Color Urine Appearance Urine pH Ur Specific [place] Urine Protein Urine Glucose (UA) Urine Ketones Urine Occult Blood Urine Nitrate Urine Bilirubin Prot Sulfosalicyli c Acd Urine Urobilinogen Ur Leukocyte Jade ase Urine RBC Urine WBC Ur Squamous Epith Cells Urine Bacteria Urine Mucus 10/03/19 10/03/19 10/03/19 20:10 18:25 18:25 WBC RBC Hgb Hct MCV MCH MCHC RDW Plt Count MPV Neut % (Auto) Lymph % (Auto) [place] % (Auto) Eos % (Auto) Baso % (Auto) Neut # (Auto) Lymph # (Auto) [place] # (Auto) Eos # (Auto) Baso # (Auto) Nucleated RBC % (a uto) Nucleated RBCs # Sodium 139 Potassium 4.1 Chloride 103 Carbon Dioxide 20 L Anion Gap 20.1 H BUN 26 H Creatinine 1.8 H Glucose 158 H Calculated Osmolal ity Lactic Acid 3.0 H Lactic Acid (Sepsi s) Calcium 10.1 Total Bilirubin 0.5 Direct Bilirubin AST 19 ALT 12 Alkaline Phosphata se 84 Total Protein 8.2 Albumin 4.2 Globulin 4.0 Lipase 15 Urine Color Yellow Urine Appearance Clear Urine pH 8 H Ur Specific [place] 1.010 Urine Protein Trace Urine Glucose (UA) Norm Urine Ketones Negative Urine Occult Blood Neg Urine Nitrate Negative Urine Bilirubin Neg Prot Sulfosalicyli c Acd Trace Urine Urobilinogen Norm Ur Leukocyte Jade ase Negative Urine RBC None Urine WBC Rare Ur Squamous Epith Cells None Urine Bacteria Trace Urine Mucus Trace 10/03/19 18:25 WBC 8.1 RBC 3.96 L Hgb 11.4 L Hct 36.3 L MCV 91.7 MCH 28.8 MCHC 31.4 RDW 14.6 Plt Count 237 MPV 11.5 H Neut % (Auto) 88.4 Lymph % (Auto) 7.4 [place] % (Auto) 3.8 Eos % (Auto) 0.1 Baso % (Auto) 0.1 Neut # (Auto) 7.2 Lymph # (Auto) 0.6 L [place] # (Auto) 0.3 Eos # (Auto) 0.0 Baso # (Auto) 0.0 Nucleated RBC % (a uto) 0 Nucleated RBCs # 0.0 Sodium Potassium Chloride Carbon Dioxide Anion Gap BUN Creatinine Glucose Calculated Osmolal ity Lactic Acid Lactic Acid (Sepsi s) Calcium Total Bilirubin Direct Bilirubin AST ALT Alkaline Phosphata se Total Protein Albumin Globulin Lipase Urine Color Urine Appearance Urine pH Ur Specific [place] Urine Protein Urine Glucose (UA) Urine Ketones Urine Occult Blood Urine Nitrate Urine Bilirubin Prot Sulfosalicyli c Acd Urine Urobilinogen Ur Leukocyte Jade ase Urine RBC Urine WBC Ur Squamous Epith Cells Urine Bacteria Urine Mucus Vitals: Last Vital Signs Temp 98.1 F 10/04/19 12:45 Pulse 68 10/04/19 12:45 Resp 18 10/04/19 12:45 BP 173/66 10/04/19 12:45 Pulse Ox 99 10/04/19 12:45 Discharge Plan Discharge Patient Disposition: Home, Self-Care Condition: Stable Prescriptions: New [place] 5-325 mg tablet 1 tab PO Q6H 7 Days Qty: 28 RF: 0 docusate sodium [Colace] 100 mg capsule 100 mg PO BID Qty: 30 RF: 0 Continued aspirin 81 mg tablet,delayed release (DR/EC) 81 mg PO QDAY Qty: 30 RF: 2 chlorthalidone 25 mg tablet 25 mg PO QDAY Qty: 30 RF: 2 duloxetine [Cymbalta] 20 mg capsule,delayed release(DR/EC) 20 mg PO BID Qty: 60 RF: 2 ergocalciferol (vitamin D2) 50,000 unit capsule 50,000 unit PO .COMPLEX Qty: 2 RF: 2 famotidine 20 mg tablet 20 mg PO BID Qty: 60 RF: 2 ferrous sulfate 325 mg (65 mg iron) tablet 325 mg PO BID Qty: 60 RF: 2 levothyroxine 75 mcg capsule 75 mcg PO QDAY Qty: 30 RF: 2 lisinopril 40 mg tablet 40 mg PO QDAY Qty: 30 RF: 2 metoprolol succinate 25 mg tablet extended release 24 hr 12.5 mg PO QDAY Qty: 30 RF: 2 rosuvastatin [Crestor] 20 mg tablet 20 mg PO QDAY Qty: 30 RF: 2 Januvia 50 mg tablet 50 mg PO QDAY Qty: 30 RF: 2 tamsulosin 0.4 mg capsule 0.4 mg PO BID Qty: 60 RF: 2 dutasteride [Avodart] 0.5 mg capsule 0.5 mg PO QDAY Qty: 30 RF: 2 cephalexin [Keflex] 500 mg capsule 500 mg PO TID Qty: 30 RF: 0 amlodipine [Norvasc] 5 mg tablet 5 mg PO QDAY RF: 0 Held Xarelto 2.5 mg tablet 2.5 mg PO BID Qty: 60 RF: 2 Hold Instructions: Resume on 10/06/19. Restart on Sunday evening Discharge Orders: Discharge Order (Routine); Ordered 10/04/19 Ordered By: Aaron Harrell Referrals: Mary Dior FNP-C [Primary Care Provider] - Aaron Harrell MD [Physician] - 2 weeks Activity Restrictions/Additional Instructions: 1. Up and walking as tolerated. 2. Ok to shower in 48 hours after surgery. 3. Remove Dermabond dressing in 7-10 days. 4. Do not lift more than 10 pounds. 5. Do not operate heavy machinery or drive while using pain medications. 6. Advised to return to ER or contact my office if there are any signs of infection like, increasing pain, fevers, chills, redness or drainage of pus. Discharge Attestations Time Spent in Discharge Care*: less than 30 min Quality Metrics Clinical Quality Measures During this hospital stay, did patient experience: None Coding Level of Care Code Acute Windows Software Developer for Chg Fwd Diagnoses Acute cholecystitis K81.0
[2019-10-04] MEDS: HYDROcodone-acetaminophen 5-325 mg Tablet 1 TAB PO (13:55)
[2019-10-04] MEDS: sodium chloride 0.9% 1,000 ML 100 ML IV (13:57)
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
--- NOTE | 2019-10-04 15:09 | PC.CHAP ---
Pastoral Care Encounter/Spiritual Assessment Type of Contact [] Declined lead mobile developer visit [] Patient/Family/Request visit [] Outpatient visit [] Follow-up visit [] Physician referral [] Code/Alert [x] Routine visit [] Staff referral [] Actively dying [] Patient sleeping [] Family support [] [] Out of room [] Palliative care [] [] Receiving care in room [] Pre-surgical visit [] Trauma [] Long length of stay [] ICU visit [] Other: Relational/Emotional Strength [] Patient feels connected with others/family/visitors/staff [] Distress [] Loneliness/isolation [] Abandonment Spirituality of Patient [] Person of Rachel [] Attends Mormon of their Rachel [] Believes in Prayer [] Reads Bible or Pentecostal materials [] There are Spiritual issues to be addressed Title Checker Interventions [] Prayer [] Active listening [] Non-anxious presence [] Spiritual/emotional support [] Crisis/trauma care [] Spiritual counseling [] Bereavement support [] Provided bereavement packet [] Provided Bible/devotional materials [] Provided toy/stuffed animal, coloring book to patient or family member [] Provided Communion [] Anointing/[place] [] Salvation [] Completed spiritual assessment [] Other: Impact on Illness or Injury [] Angry [] Fearful [] Anxious [] Often cries [] Exhaustion [] Unable to work [] Unable to attend latter-day [] Unable to walk/stand [] Unable to read [] Unable to drive [] Unable to eat/drink [] Unable to sleep [] Unable to be with family [] Patient intubated [] Other: Summary Time spent with patient
--- NOTE | 2019-10-04 17:41 | SUR.PHASEI ---
1300 pt to floor moved self to bed pt alert family in room, abd soft bp 172/76, hr 85, resp 18, sats on 3lnc 98%
== END 2019-10-04 14:00 | disposition home or self-care (01) ==
LOC: ER 22:25 → MEDSURG 22:54
PROVIDERS: Nurse Practitioner Family; Admitting Provider Surgery; Emergency Provider Emergency Medicine; Family Provider Nurse Practitioner; PCP Nurse Practitioner; Visit Provider Surgery
PROC: 0FT44ZZ Resection of Gallbladder, Percutaneous Endoscopic Approach (ICD-10-PCS; CPT 47562; principal; 2019-10-04 11:00)
DX: K81.1 Chronic cholecystitis (principal); Z79.82 Long term (current) use of aspirin; Z79.4 Long term (current) use of insulin; J44.9 Chronic obstructive pulmonary disease, unspecified; Z95.1 Presence of aortocoronary bypass graft; K21.9 Gastro-esophageal reflux disease without esophagitis; E78.5 Hyperlipidemia, unspecified; M19.90 Unspecified osteoarthritis, unspecified site; Z86.73 Personal history of transient ischemic attack (TIA), and cerebral infarction without residual deficits; E03.9 Hypothyroidism, unspecified; F41.9 Anxiety disorder, unspecified; F32.9 Major depressive disorder, single episode, unspecified; E11.22 Type 2 diabetes mellitus with diabetic chronic kidney disease; I12.9 Hypertensive chronic kidney disease with stage 1 through stage 4 chronic kidney disease, or unspecified chronic kidney disease; N18.9 Chronic kidney disease, unspecified; Z82.49 Family history of ischemic heart disease and other diseases of the circulatory system
CPT/HCPCS: 47562; 12345; 36415; 74176; 76705; 80048; 80053; 80076; 81001; 83605; 83690; 85025; 87040; 88304; 96365; 96374; 96375; 96376; 99282; 99285; A9270; G0378; J0690; J2001; J2270; J2405; J2543; J2704; J2710; J3010; J3490; J7030; J7040

== ENCOUNTER → 2019-10-09 12:08 | Outpatient (BNVA) | payer MEDICARE, MEDICAID, SELFPAY | PROVIDERS: Family Provider Nurse Practitioner; PCP Nurse Practitioner; Visit Provider Nurse Practitioner | DX: J98.01 Acute bronchospasm (principal); E11.9 Type 2 diabetes mellitus without complications | CPT/HCPCS: 80048 ==

== ENCOUNTER → 2019-12-15 13:22 | Outpatient (BNVA) | payer MEDICARE, MEDICAID, SELFPAY | PROVIDERS: Family Provider Nurse Practitioner; PCP Nurse Practitioner; Visit Provider Nurse Practitioner | DX: E11.22 Type 2 diabetes mellitus with diabetic chronic kidney disease (principal); N18.2 Chronic kidney disease, stage 2 (mild); E03.8 Other specified hypothyroidism; E11.9 Type 2 diabetes mellitus without complications; I10 Essential (primary) hypertension; E61.1 Iron deficiency; I25.10 Atherosclerotic heart disease of native coronary artery without angina pectoris; R39.11 Hesitancy of micturition; F41.9 Anxiety disorder, unspecified | CPT/HCPCS: 80053; 83036; 84443 ==

== ENCOUNTER → 2020-04-15 09:07 | Outpatient (BNVA) | payer MEDICARE, MEDICAID, SELFPAY | PROVIDERS: Family Provider Nurse Practitioner; PCP Nurse Practitioner; Visit Provider Nurse Practitioner | DX: E11.22 Type 2 diabetes mellitus with diabetic chronic kidney disease (principal); E78.2 Mixed hyperlipidemia; N18.2 Chronic kidney disease, stage 2 (mild) | CPT/HCPCS: 80053; 80061; 83036; 85025 ==

== ENCOUNTER → 2020-06-17 12:18 | Outpatient (BNVA) | payer MEDICARE, MEDICAID, SELFPAY | PROVIDERS: Family Provider Nurse Practitioner; PCP Nurse Practitioner; Visit Provider Nurse Practitioner | DX: E11.22 Type 2 diabetes mellitus with diabetic chronic kidney disease (principal); N18.2 Chronic kidney disease, stage 2 (mild); Z23 Encounter for immunization; E55.9 Vitamin D deficiency, unspecified | CPT/HCPCS: 80053; 81000; 82607; 83036; 85025 ==

== ENCOUNTER → 2020-09-16 14:22 | Outpatient (BNVA) | payer MEDICARE, MEDICAID, SELFPAY | PROVIDERS: Family Provider Nurse Practitioner; PCP Nurse Practitioner; Visit Provider Nurse Practitioner | DX: E53.8 Deficiency of other specified B group vitamins (principal); E03.8 Other specified hypothyroidism; I10 Essential (primary) hypertension; F41.9 Anxiety disorder, unspecified; F32.9 Major depressive disorder, single episode, unspecified; M16.9 Osteoarthritis of hip, unspecified | CPT/HCPCS: 80053; 82607; 84443; 85025 ==

== ENCOUNTER → 2020-10-08 10:40 | Outpatient (BNVA) | payer MEDICARE, MEDICAID, SELFPAY | PROVIDERS: Family Provider Nurse Practitioner; PCP Nurse Practitioner; Visit Provider Nurse Practitioner | DX: D64.9 Anemia, unspecified (principal); I10 Essential (primary) hypertension | CPT/HCPCS: 85025 ==

== ENCOUNTER → 2020-12-06 13:44 | Outpatient (BNVA) | payer MEDICARE, MEDICAID, SELFPAY | PROVIDERS: Family Provider Nurse Practitioner; PCP Nurse Practitioner; Visit Provider Nurse Practitioner | DX: N18.2 Chronic kidney disease, stage 2 (mild) (principal); E11.22 Type 2 diabetes mellitus with diabetic chronic kidney disease; D64.9 Anemia, unspecified | CPT/HCPCS: 80053; 82270; 82607; 83036 ==

== ENCOUNTER 2020-12-22 11:40 | Emergency (ER) | payer MEDICARE, MEDICAID, SELFPAY ==
[2020-12-22 11:58] VITALS: BP 110/56; PULSE 114; RESP 16; TEMP 36.6; O2SAT 99; BMI 28.4
[2020-12-22 13:03] VITALS: BP 163/70; PULSE 68; RESP 18; O2SAT 100
--- NOTE | 2020-12-22 13:31 | ED_ITS ---
HPI - Extremity Problem General: Chief complaint: Extremity Problem,Nontraumatic Stated complaint: BACK AND LEG PAIN Time Seen by Provider: 12/22/20 13:03 History of Present Illness: HPI Narrative: Patient is an 80-year-old male comes to the ED with lower back pain. Symptoms started approximately 3 weeks ago when he says they have since progressed and gotten worse. He says his pain is a 10 out of 10 and he describes having sharp pain shooting down both right and left lower extremities. Denies any acute injury or trauma to cause pain. Patient says about 2-1/2 weeks ago he saw his primary care physician and they gave him a couple lidocaine shots to help with symptoms. He says it helped for a day and then his lower back pain and pain radiating down the legs progressed. Patient says he has been ambulating with a cane to help. He denies any bladder or bowel symptoms, pelvic anesthesia. Associated symptoms: Deny chest pain, fever(s) or rash Review of Systems Const: Denies: fever(s), chills or fatigue Eyes: Denies: change in vision or eye discomfort ENMT: Denies: throat pain, odynophagia, nasal discharge or nasal congestion Card: Denies: chest pain, palpitations, edema, swelling of feet/ankles, dyspnea on exertion or orthopnea Resp: Denies: dyspnea, productive cough or non-productive cough GI: Denies: abdominal pain, nausea, vomiting, diarrhea, constipation or hematochezia : Denies: flank pain, difficulty urinating, dysuria or hematuria Musc: Reports: back pain; Denies: neck pain or extremity swelling Skin/Breast: Denies: rash or new lesions Neuro: Denies: headache(s), numbness in extremities or weakness in extremities PFS ED PFSH: Medical History Adult onset hypothyroidism Anxiety and depression B12 deficiency BPH NOS w ur obs/LUTS Chronic progressive LUTS secondary to BPH/obstruction with good response to dual medical therapy. CAD (coronary artery disease) Carotid stenosis Chronic back pain CKD (chronic kidney disease) Controlled diabetes mellitus Cyst, dermoid, trunk Erectile dysfunction Multifactorial. 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 Declined Trimix Gastric reflux Hyperlipidemia, unspecified Iron deficiency OA (osteoarthritis) of hip PVD (peripheral vascular disease) Urolithiasis 6 mm RIGHT distal ureteral stone spontaneously passed 2017. Vitamin D deficiency Surgical History History of knee replacement right 2014 History of knee surgery right 2007 left 2003 History of rhinoplasty 1973 History of shoulder surgery Left 2016 S/p bilateral carotid endarterectomy S/P CABG (coronary artery bypass graft) 2003 Status post colonoscopy Status post laparoscopic cholecystectomy 10/04/2019 Family History Other CAD (coronary artery disease) Heart disease Hypertension Social History Smoking and tobacco status: former smoker Smoking risk assessment/counseling performed?: No Alcohol intake: never Desire information about alcohol rehabilitation?: No Counseling given: No Desire information about substance/drug rehabilitation?: No Counseling given: No Adopted: No Caregiver/support person: No Lives independently: Yes Household members: none Housing: House Marital status: / service: Yes status: Retired branch: [employer] Current occupational status: retired Current occupational exposures/hazards: No Pets and animals: No History of recent travel: No Current gender identity: Male Physical Exam Const: COMMON NORMALS: patient oriented x3 and alert GENERAL APPEARANCE: cooperative; not comfortable (Patient appears uncomfortable due to pain.) HENMT: COMMON NORMALS: normocephalic HEAD & SCALP: normocephalic MOUTH: Normal oral and palatal mucosa present THROAT: posterior oropharynx normal and uvula midline Neck/C-Spine: COMMON NORMALS: supple GENERAL: Yes normal visual inspection Resp: COMMON NORMALS: normal respiratory effort, No retractions, No use of accessory muscles and clear to auscultation bilaterally AUSCULTATION: clear to auscultation bilaterally Cardio: COMMON NORMALS: regular rate, regular rhythm, S1 normal heart sound present, S2 normal heart sound present, No gallops present (Cardio), No clicks present (Cardio), No murmurs present (Cardio) and Peripheral pulses 2+ throughout RATE: regular rate RHYTHM: regular rhythm HEART SOUNDS: S1 normal heart sound present and S2 normal heart sound present PERIPHERAL PULSES: Peripheral pulses 2+ throughout GI: COMMON NORMALS: Normal to inspection, nondistended, normoactive bowel sounds present, Soft to palpation, non-tender and no masses PALPATION: Yes Soft to palpation : COMMON NORMALS: Yes no CVA tenderness BLADDER/KIDNEY EXAM: Yes no CVA tenderness Back/Pelvis: COMMON NORMALS: no CVA tenderness LUMBAR SPINE/LOWER BACK: Yes pain with ROM, Yes paraspinal muscle tenderness, Yes straight leg raise positive right and Yes straight leg raise positive left Extremity: COMMON NORMALS: normal to inspection Neuro: COMMON NORMALS: patient oriented x3 and moves all extremities Skin: GENERAL SKIN EXAM: dry skin Course Vital Signs: Vital signs: Vital Signs Temperature 97.9 F 12/22/20 11:58 Pulse Rate 68 12/22/20 13:03 Respiratory Rate 18 12/22/20 13:03 Blood Pressure 163/70 12/22/20 13:03 Pulse Oximetry 100 12/22/20 13:03 MDM - Extremity (Nontraumatic) MDM Narrative: Medical decision making narrative: Patient is a an 80-year-old male comes to the ED with lower back pain that radiates down both right and left lower legs. Patient says symptoms have been going on for 3 weeks. Exam findings remarkable for a positive right and left straight leg test and lumbar paraspinal muscle tenderness. Patient denies any cauda equina symptoms. I placed an order with case management for patient be referred to Dr. Villafuerte the orthospine doctor for further evaluation. Patient was given a dose of Solu- Medrol while here in the ED. Patient diagnosed with lumbar radiculopathy and discharged home with Medrol Dosepak and a written prescription for hydrocodone as needed for any acute pain. Return to ED precautions given. I told patient correctional case manager will be contacting the next several days set up appoint with the orthospine doctor. Patient stood agree with plan. Discharge Plan Discharge Patient Disposition: Home Clinical Impression: Lumbar radiculopathy Condition: Stable Prescriptions: New methylprednisolone 4 mg tablets,dose pack See Rx Instructions .ROUTE .COMPLEX Qty: 21 RF: 0 No Action aspirin 81 mg tablet,delayed release (DR/EC) 81 mg PO QDAY Qty: 30 RF: 2 fenofibrate nanocrystallized 145 mg tablet 145 mg PO DAILY Qty: 30 RF: 2 Hold Instructions: Order Change acetaminophen [Tylenol 8 Hour] 650 mg tablet extended release 650 mg PO Q12H Qty: 60 RF: 0 duloxetine [Cymbalta] 60 mg capsule,delayed release(DR/EC) 60 mg PO BID Qty: 180 RF: 1 zonisamide 50 mg capsule 50 mg PO BID Qty: 180 RF: 1 amlodipine [Norvasc] 5 mg tablet 5 mg PO QDAY Qty: 90 RF: 1 chlorthalidone 25 mg tablet 25 mg PO QDAY Qty: 90 RF: 1 dutasteride [Avodart] 0.5 mg capsule 0.5 mg PO QDAY Qty: 90 RF: 1 ergocalciferol (vitamin D2) 1,250 mcg (50,000 unit) capsule 50,000 unit PO .COMPLEX Qty: 6 RF: 1 ferrous sulfate 325 mg (65 mg iron) tablet 325 mg PO BID Qty: 180 RF: 1 hydralazine 25 mg tablet 25 mg PO Q12H Qty: 180 RF: 1 levothyroxine 75 mcg tablet 75 mcg PO DAILY Qty: 90 RF: 1 lisinopril 40 mg tablet 40 mg PO QDAY Qty: 90 RF: 1 Xarelto 2.5 mg tablet 2.5 mg PO BID Qty: 180 RF: 1 Hold Instructions: Resume on 10/06/19. Restart on Sunday evening rosuvastatin [Crestor] 20 mg tablet 20 mg PO QDAY Qty: 90 RF: 1 Januvia 50 mg tablet 50 mg PO QDAY Qty: 90 RF: 1 sucralfate [Carafate] 1 gram tablet 1 g PO BID Qty: 180 RF: 1 tamsulosin 0.4 mg capsule 0.4 mg PO BID Qty: 180 RF: 1 cyanocobalamin (vitamin B-12) 1,000 mcg/mL solution 1,000 mcg IM .MONTHLY Qty: 1 RF: 2 Discharge Orders: Discharge ED (Routine); Ordered 12/22/20 Ordered By: Fausto Gomez Referrals: Mary Dior, [employer] [Primary Care Provider] - Discharge Diet: Regular Discharge Activity: Increase activity as tolerated Patient Instructions: Lumbar Radiculopathy (ED), Opioid Safety Activity Restrictions/Additional Instructions: Follow-up with medical provider as directed. Case management will be contacting you the next several days to set up an appointment with Dr. Villafuerte the orthopedic spine doctor. Take medications as prescribed. Return to the ER or your medical provider if condition worsens. Please read and understand discharge instructions. If any questions, please ask. Coding Level of Care Code ED Administrative Aide for Chg Fwd Exam Comprehensive
--- NOTE | 2020-12-22 14:35 | DCPLANNER ---
public events facilities rental manager was asked to schedule a follow up appointment for patient with Dr. Villafuerte at the ortho clinic. public events facilities rental manager called the ortho clinic, spoke with Carline, gave clinic patients information. public events facilities rental manager was told that patients information will be printed and reviewed. Clinic will call patient with appointment information.
--- NOTE | 2020-12-24 13:45 | DCPLANNER ---
Patient has a follow up appointment scheduled for Monday, December 28, 2020 at 1:[address] Villafuerte at ortho. Clinic will contact patient with appointment information.
--- NOTE | 2020-12-29 11:03 | DCPLANNER ---
Patient had a follow up appointment scheduled for 12.28.[address] Villafuerte at [facility] - patient did attend appointment.
== END 2020-12-22 13:56 | disposition home or self-care (01) ==
PROVIDERS: Emergency Provider Physician Assistant; PCP Nurse Practitioner
DX: M54.16 Radiculopathy, lumbar region (principal); Z79.82 Long term (current) use of aspirin; I25.10 Atherosclerotic heart disease of native coronary artery without angina pectoris; E11.9 Type 2 diabetes mellitus without complications; E78.5 Hyperlipidemia, unspecified; Z95.1 Presence of aortocoronary bypass graft; Z87.891 Personal history of nicotine dependence
CPT/HCPCS: 96372; 99283; J2930

== ENCOUNTER → 2020-12-28 13:05 | Outpatient (BNVA) | payer MEDICARE, MEDICAID, SELFPAY | PROVIDERS: PCP Nurse Practitioner; Visit Provider Orthopaedic Surgery | DX: M54.5 Low back pain (principal); M54.16 Radiculopathy, lumbar region | CPT/HCPCS: 72110 ==

== ENCOUNTER 2021-01-07 14:33 | Outpatient (CLI) | payer MEDICARE, MEDICAID, SELFPAY ==
--- NOTE | 2021-01-07 15:15 | MR_ITS ---
WS: [id number] MRI LUMBAR SPINE NONCONTRAST HISTORY: M54.16 - Radiculopathy, lumbar region COMPARISON: None available. TECHNIQUE: Sagittal and axial multisequence imaging is submitted. Partial fusion across the C3-4 disc spaces. Reversal of normal cervical lordosis. Increase in thoraci c kyphosis. Straightening of the normal lumbar lordosis. Severe degenerative disc disease and narrowing at L4-5. No fracture or marrow edema. Disc desiccation throughout the lumbar spine. Conus terminates normally at L1-2 disc level. L1-L2: Mild bilateral facet joint arthritis without stenosis. L2-L3: Mild annular disc bulging with facet and ligamentum flavum hypertrophy. L3-L4: Moderate annular disc bulging. There is also marked ligamentum flavum hypertrophy and facet ar thritis contributing to mild central with moderate bilateral subarticular recess stenosis. Mild bilat eral foraminal stenosis. L4-L5: Moderate annular disc bulging with osteophytic ridging. Asymmetric ligamentum flavum hypertrop hy greatest on the LEFT. There is disc osteophyte encroachment into the LEFT subarticular recess. Mil d central stenosis with moderate to severe bilateral subarticular recess stenosis, greatest on the LE FT. Mild LEFT foraminal stenosis. L5-S1: Mild asymmetric disc bulging and osteophytic ridging. There is a shallow central disc osteophy te complex. Mild bilateral subarticular recess and foraminal stenosis. There is very minimal disc ost eophyte encroachment upon the S1 nerve roots bilaterally, LEFT greater than RIGHT. Incompletely visualized bilateral renal cysts. Moderate atherosclerosis aorta. MR/MR lumbar spine wo con* [id number] IMPRESSION: 1. Multilevel stenoses throughout the lumbar spine. 2. Moderate to severe bilateral subarticular recess stenosis, greatest on the LEFT at L4-5. 3. Mild central and LEFT foraminal stenosis at L4-5. 4. Mild central with moderate bilateral subarticular recess and mild bilateral foraminal stenosis at L3-4. 5. Disc osteophyte encroachment centrally and into the subarticular recesses a nd foramina at L5-S1. Mild bilateral subarticular recess stenosis and foraminal stenosis. There is very mild disc osteophyte encroachment into the lateral rec esses contacting the S1 nerve roots.
== END 2021-01-07 14:34 | disposition home or self-care (01) ==
PROVIDERS: PCP Nurse Practitioner; Visit Provider Orthopaedic Surgery
DX: M54.16 Radiculopathy, lumbar region (principal); M48.061 Spinal stenosis, lumbar region without neurogenic claudication; M48.07 Spinal stenosis, lumbosacral region
CPT/HCPCS: 72148

== ENCOUNTER → 2021-02-18 10:43 | Outpatient (BNVA) | payer MEDICARE, MEDICAID, SELFPAY | PROVIDERS: PCP Nurse Practitioner; Visit Provider Orthopaedic Surgery | DX: Z01.812 Encounter for preprocedural laboratory examination (principal); Z20.822 Contact with and (suspected) exposure to COVID-19 | CPT/HCPCS: 87635 ==

== ENCOUNTER 2021-02-23 08:23 | Day surgery (SDC) | payer MEDICARE, MEDICAID, SELFPAY ==
[2021-02-22 17:07] VITALS: BMI 27.5
[2021-02-23] VITALS (12 sets, daily range): BP systolic 101–177; BP diastolic 51–98; PULSE 73–89; RESP 16–20; TEMP 36.1–36.6; O2SAT 95–100
--- NOTE | 2021-02-23 | XR_ITS ---
WS: [id number] Lumbar spine, C-arm fluoroscopy view, 02/23/2021 Clinical Data: Decompression. or pics Comparison: Lumbar spine, 12/28/2020. Findings: Dr. Villafuerte performed decompression of the L3-L4 and L4-L5 disks. XR/XR lumbar spine 1V [id number] Impression: L3-L4 and L4-L5 disc decompression.
[2021-02-23 09:10] LABS: Glucose Point of Care 117 mg/dL (70-110)
[2021-02-23] MEDS: sodium chloride 0.9% 1,000 ML 30 ML IV (09:10)
--- NOTE | 2021-02-23 09:11 | W.PM.OPSUD ---
Surgery/Procedure H&P Update DATE OF PROCEDURE: February 23, 2021 DATE H&P PERFORMED: 02/23/21 PREOP DIAGNOSIS: Acute cholecystitis PLANNED PROCEDURE: Operation Date: 02/23/21 10:10 Proposed Procedures p L3/4 4/5 Decompression [id number] M48.062(Not Applicable) - Kolby Villafuerte DO
--- NOTE | 2021-02-23 09:11 | ANES.PREANE2 ---
Pre-Anesthetic Assessment Pre-Anesthetic Assessment: Height/Weight: Height 1.78 m Weight 87.09 kg Temp Pulse Resp BP Pulse Ox 97.4 F L 81 16 149/98 100 02/23/21 08:53 02/23/21 08:53 02/23/21 08:53 02/23/21 08:53 02/23/21 08:53 Preop Diagnosis: Acute cholecystitis Proposed Procedure: Operation Date: 02/23/21 10:10 Proposed Procedures p L3/4 4/5 Decompression 21405 [id number] M48.062(Not Applicable) - DO Santos Isaacs anesthetic complications: none Was Beta Cash taken within 24 hours: N/A Was Clonidine taken within 24 hours: N/A Last intake: Intake Last Liquid Date 02/22/21 Last Liquid Time 17:30 Last Solid Date 02/22/21 Last Solid Time 17:30 Social: Social History: No alcohol and No tobacco Exam: Pre-Anes Outpt Exam: alert, oriented x 3, clear to auscultation bilaterally and regular rate & rhythm Airway: Cervical ROM: WNL MP: 2 Dentition: False Pulmonary: Pulmonary: COPD and [place] CV/HEM: CV/HEM: CAD (CABG 2002) : : Chronic renal Insufficiency Metabolic: Metabolic: DM and Hyperlipidemia Neuropsych: Neuropsych: CVA Comments: B/L CEAs Anesthetic Plan: ASA status: 4 PFSH Anesthesia PFSH: Medical History Adult onset hypothyroidism Anxiety and depression B12 deficiency BPH NOS w ur obs/LUTS Chronic progressive LUTS secondary to BPH/obstruction with good response to dual medical therapy. CAD (coronary artery disease) Carotid stenosis Chronic back pain CKD (chronic kidney disease) Controlled diabetes mellitus Cyst, dermoid, trunk Erectile dysfunction Multifactorial. 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 Declined Trimix Gastric reflux Hyperlipidemia, unspecified Iron deficiency OA (osteoarthritis) of hip PVD (peripheral vascular disease) Urolithiasis 6 mm RIGHT distal ureteral stone spontaneously passed 2016. Vitamin D deficiency Surgical History History of knee replacement right 2014 History of knee surgery right 2007 left 2003 History of rhinoplasty 1973 History of shoulder surgery Left 2016 S/p bilateral carotid endarterectomy S/P CABG (coronary artery bypass graft) 2003 Status post colonoscopy Status post laparoscopic cholecystectomy 10/04/2019 Family History Other CAD (coronary artery disease) Heart disease Hypertension Social History Smoking and tobacco status: former smoker Smoking risk assessment/counseling performed?: No Alcohol intake: never Desire information about alcohol rehabilitation?: No Counseling given: No Desire information about substance/drug rehabilitation?: No Counseling given: No Adopted: No Caregiver/support person: No Lives independently: Yes Household members: none Housing: House Marital status: / service: Yes status: Retired branch: [employer] Current occupational status: retired Current occupational exposures/hazards: No Pets and animals: No History of recent travel: No Current gender identity: Male Data Anesthesia Other Labs: Laboratory Results - last 48 hr 02/23/21 09:08 POC Glucose 117 H Cardiac Studies: No Data to Display
--- NOTE | 2021-02-23 09:13 | P.HP_ITS ---
Providers/Chief Complaint Primary Care Provider: CRYSTAL [employer] Chief Complaint: L3/4 4/5 Decompression [id number] History of Present Illness Abiel Andres is a 80 year old male Details: Established 80 year old male here to review MRI. He does not feel he would benefit from injections. He is using a walking cane at this visit. Onset: 11/29/20 No injury Duration:6 weeks ago Characteristics: Sharp, pain is getting worse Severity: 04/12 Location: Lumbar region Radiating symptoms:bilateral anterior lower extremities into to his feet, tingling to left foot Aggravating factors: moving from sit to stand positions, Alleviating factors: Sitting still, frequent position changes Neuro deficits: Patient weakness, incontinence of bowel/bladder, saddle anesthesia. Prior tx: [facility] Emergency room on 12/23/20, Trigger point injections Review of Systems Narrative: General ROS: negative for weight changes, fever ENT ROS: negative for nasal congestion, drainage or bleeding, sore throat, dysphagia or ear pain Eyes: PERRL Hematological and Lymphatic ROS: negative for swollen glands or abnormal bleeding Endocrine ROS: negative for polyuria/polydpsia or new changes in weight Respiratory ROS: negative for cough, shortness of breath, or wheezing Cardiovascular ROS: negative for chest pain or dyspnea on exertion Gastrointestinal ROS: negative for reflux, abdominal pain, change in bowel habits, or black or bloody stools Musculoskeletal ROS: negative for back pain, neck pain, or joint pain or swelling except for current problem Neurological ROS: negative for TIA or stoke symptoms Skin: no rashes Medications/Allergies Home Medications Medication Instructions Recorded Confirmed Last Taken Type aspirin 81 mg tablet,delayed 81 mg PO QDAY #30 tab 12/15/19 02/23/21 02/22/21 Rx release fenofibrate nanocrystallized 145 145 mg PO DAILY #30 tab 12/15/19 02/22/21 Unknown Rx mg tablet cyanocobalamin (vitamin B-12) 1,000 mcg IM .MONTHLY #1 ml 07/15/20 02/23/21 02/22/21 Rx 1,000 mcg/mL injection solution acetaminophen 650 mg 650 mg PO Q12H #60 tab 09/16/20 02/22/21 Unknown Rx tablet,extended release amlodipine 5 mg tablet 5 mg PO QDAY #90 tab 12/06/20 02/23/21 02/22/21 Rx chlorthalidone 25 mg tablet 25 mg PO QDAY #90 tab 12/06/20 02/23/21 02/22/21 Rx duloxetine 60 mg capsule,delayed 60 mg PO BID #180 cap 12/06/20 02/23/21 02/22/21 Rx release dutasteride 0.5 mg capsule 0.5 mg PO QDAY #90 cap 12/06/20 02/23/21 02/22/21 Rx ergocalciferol (vitamin D2) 1,250 50,000 unit PO .COMPLEX #6 cap 12/06/20 02/23/21 02/16/21 Rx mcg (50,000 unit) capsule ferrous sulfate 325 mg (65 mg 325 mg PO BID #180 tab 12/06/20 02/22/21 Unknown Rx iron) tablet hydralazine 25 mg tablet 25 mg PO Q12H #180 tab 12/06/20 02/22/21 Unknown Rx levothyroxine 75 mcg tablet 75 mcg PO DAILY #90 tab 12/06/20 02/22/21 Unknown Rx lisinopril 40 mg tablet 40 mg PO QDAY #90 tab 12/06/20 02/22/21 Unknown Rx rivaroxaban 2.5 mg tablet 2.5 mg PO BID #180 tab 12/06/20 02/23/21 02/21/21 Rx rosuvastatin 20 mg tablet 20 mg PO QDAY #90 tab 12/06/20 02/23/21 02/22/21 Rx sitagliptin 50 mg tablet 50 mg PO QDAY #90 tab 12/06/20 02/23/21 02/22/21 Rx sucralfate 1 gram tablet 1 g PO BID #180 tab 12/06/20 02/23/21 02/22/21 Rx tamsulosin 0.4 mg capsule 0.4 mg PO BID #180 cap 12/06/20 02/23/21 02/22/21 Rx zonisamide 50 mg capsule 50 mg PO BID #180 cap 12/06/20 02/23/21 02/22/21 Rx Allergies Allergy/AdvReac Type Severity Reaction Status Date / Time fish oil Allergy rash Verified 01/13/21 08:55 PFSH Acute PFSH: Medical History Adult onset hypothyroidism Anxiety and depression B12 deficiency BPH NOS w ur obs/LUTS Chronic progressive LUTS secondary to BPH/obstruction with good response to dual medical therapy. CAD (coronary artery disease) Carotid stenosis Chronic back pain CKD (chronic kidney disease) Controlled diabetes mellitus Cyst, dermoid, trunk Erectile dysfunction Multifactorial. 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 Declined Trimix Gastric reflux Hyperlipidemia, unspecified Iron deficiency OA (osteoarthritis) of hip PVD (peripheral vascular disease) Urolithiasis 6 mm RIGHT distal ureteral stone spontaneously passed 2016. Vitamin D deficiency Surgical History History of knee replacement right 2014 History of knee surgery right 2007 left 2003 History of rhinoplasty 1973 History of shoulder surgery Left 2016 S/p bilateral carotid endarterectomy S/P CABG (coronary artery bypass graft) 2002 Status post colonoscopy Status post laparoscopic cholecystectomy 10/04/2019 Family History Other CAD (coronary artery disease) Heart disease Hypertension Social History Smoking and tobacco status: former smoker Smoking risk assessment/counseling performed?: No Alcohol intake: never Desire information about alcohol rehabilitation?: No Counseling given: No Desire information about substance/drug rehabilitation?: No Counseling given: No Adopted: No Caregiver/support person: No Lives independently: Yes Household members: none Housing: House Marital status: / service: Yes status: Retired branch: [employer] Current occupational status: retired Current occupational exposures/hazards: No Pets and animals: No History of recent travel: No Current gender identity: Male Vitals/I&O/Wt Last Vital Signs Temp 97.4 F L 02/23/21 08:53 Pulse 81 02/23/21 08:53 Resp 16 02/23/21 08:53 BP 149/98 02/23/21 08:53 Pulse Ox 100 02/23/21 08:53 Weight last 48 hrs Weight 192 lb Physical Exam Narrative: EXAM NARRATIVE: CONSTITUTIONAL: The patient is a normal appearing [] in no apparent distress. GENERAL: Patient in no acute distress. CARDIAC: Regular rate and rhythm. CHEST: Normal inspiratory effort, normal respiratory rate. ABDOMEN: Soft and nontender. SKIN: Clear, warm and intact. NEURO?PSYCH: The patient is alert and oriented to person, place and time. Sensorv /SILT Motor StrengthShoulder abduction C5 5/5Wrist extension C6 5/5Elbow extension C7 5/5Hand Associate Professor Of Mathematics C8 5/5Finger abduction T15/5 Radial/ Ulnar/ Median n intact LowerSensory (SILT)Motor StrengthHin flexion L2/3Ant/inner thigh 5/5Hip adduction L2/3 5/5Knee extension L4 Lat thigh, 5/5Toe dorsiflexion L5 5/5Ankle dorsiflexion L5/ W27Hfvnqiv flexion S1 5/5 DTRBleeps 2+Triceps 2+Brachioradialis 2+Patellar 2+Achilles 2+ MUSCULOSKELETAL: [] UPPEREXTREMITIES: The patient had full active ROM in fingers, wrist, elbow, and shoulder. The patient demonstrated ability to fully flex/extend/abduct/adduct fingers, make ok sign, cross 2nd/3rd digits, extend 1st digit fully.. Radial pulse 2+, CR<2 seconds. LOWER EXTREMITIES: Pt has full, active ROM of toes, ankle, knee, and hip. Dorsalis pedis/posterior tibialis pulses 2+, CR<2 seconds. SPINE: Skin warm, dry, intact. A&P Assessment and plan (1) Lumbar pain with radiation down both legs: MIS decompression Status: Chronic Attestations Medical Necessity Statement*: failed conservative tx Coding Level of Care Code Acute Executive Pastry Chef for Chg Fwd Diagnoses Lumbar pain with radiation down both legs M54.5
--- NOTE | 2021-02-23 09:13 | ECG_ITS ---
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 Measurements Intervals [place] Rate: 66 P: 18 [place]: 199 QRS: -14 QRSD: 125 T: 29 QT: 419 QTc: 439 Interpretive Statements SINUS RHYTHM LEFT VENTRICULAR HYPERTROPHY AND ST-T CHANGE [VOLTAGE CRITERIA PLUS ST/T ABNORMALITY] Compared to ECG 02/09/2017 12:00:11 ST (T wave) deviation now present Sinus bradycardia no longer present Ventricular premature complex(es) no longer present Intraventricular conduction delay no longer present Electronically Signed On 02-23-2021 20:11:27 CDT by Jay Jay Sutherland M.D. [email or web address]
--- NOTE | 2021-02-23 11:00 | PM.OP ---
Operative Report Date of procedure: February 23, 2021 Pre-op Diagnosis: Lumbar stenosis Post-op diagnosis: same Procedure Done: 1. Bilateral L3/4 laminectomy with partial facetectomies 2. Bilateral L4/5 laminectomy with partial facetectomies Surgeon: Kolby Villafuerte Anesthesia: General Estimated blood loss (mL): 10 Condition: stable Disposition: PACU
--- NOTE | 2021-02-23 11:02 | P.OP_ITS ---
Operative Report Date of procedure: February 23, 2021 Pre-op Diagnosis: lumbar steosis Procedure Done: 1. Bilateral L3/4 laminectomy with partial facetectomies 2. Bilateral L4/5 laminectomy with partial facetectomies Surgeon: Kolby Villafuerte Anesthesia: General Estimated blood loss (mL): 10 Condition: stable Disposition: PACU Procedure: 1. Bilateral L3/4 laminectomy with partial facetectomies 2. Bilateral L4/5 laminectomy with partial facetectomies Patient is brought to the operative suite. After undergoing anesthesia they are placed in the supine position. All areas of impingement are well padded. Patient is then prepped and draped in the normal sterile fashion. A skin incision is made over the L4/5 level. This is confirmed under c-arm guidance. A series of dilators are passed and the tubular retractor is docked on the L4 lamina. A bovie is used to clear the soft tissue off the lamina and the L 4/5 facet joint. A high speed kaila is then used to perform the laminectomy and take down the medial aspect of the L 4/5 facet joint. A kerrison rongeure was then used to take down the remaining lamina and smooth the edged of the laminectomy up to the point where the ligamentum flavum attaches. Attention was then brought to the medial aspect of the facet joint. The remaining medial aspect of the superior and inferior aspect of the facet joint were taken down with the kerrison from the pedicle of L4 to L 5. The facet joint had significant hypertrophy. Attention was then brought to the Ligamentum Flavum. The ligament was taken down from the lamina of L4 to L5 and out medially to the remaining facet joint. The ligament was thick. The dura was then exposed. The dura was in good repair. The L4 nerve was then traced with a curette out the L4/5 foramen and found to be adequately decompressed. The L5 nerve was traced with a curette around the L5 pedicle. The lateral recess was opened with a kerrison helping to further decompress the L5 nerve. The tubular retractor was then tilted to the contralateral side. The bovie was used to take down the soft tissue on the spinous process. The high speed kaila was used to take down the spinous process and then the contralateral lamina of L4. The kerrison rongeur was used to take down the remaining lamina to the point where the ligamentum flavum attached and the ligamentum flavum was taken down from L4 to L5. The kerrison rongeur was then used to reach across and take down the medial aspect of the contralateral L4/5 facet joint.The currete was used to trace the contralateral L4 nerve out the L4/5 foramen to make sure it was decompressed adequatesly and the L5 was traced around the L5 pedicle. The lateral recess was opened further with the kerrison to ensure the L5 is adequately decompressed. Wound is then irrigated copiously with saline and surgiflo is used to stop any bleeding. The tubular retractor is removed A skin incision is made over the L3/4 level. This is confirmed under c-arm guidance. A series of dilators are passed and the tubular retractor is docked on the L3 lamina. A bovie is used to clear the soft tissue off the lamina and the L 3/4 facet joint. A high speed kaila is then used to perform the laminectomy and take down the medial aspect of the L 3/4 facet joint. A kerrison rongeure was then used to take down the remaining lamina and smooth the edged of the laminectomy up to the point where the ligamentum flavum attaches. Attention was then brought to the medial aspect of the facet joint. The remaining medial aspect of the superior and inferior aspect of the facet joint were taken down with the kerrison from the pedicle of L3 to L 4. The facet joint had significant hypertrophy. Attention was then brought to the Ligamentum Flavum. The ligament was taken down from the lamina of L3 to L4 and out medially to the remaining facet joint. The ligament was thicke. The dura was then exposed. The dura was in good repair. The L3 nerve was then traced with a curette out the L3/4 foramen and found to be adequately decompressed. The L4 nerve was traced with a curette around the L4 pedicle. The lateral recess was opened with a kerrison helping to further decompress the L4 nerve. The tubular retractor was then tilted to the contralateral side. The bovie was used to take down the soft tissue on the spinous process. The high speed kaila was used to take down the spinous process and then the contralateral lamina of L3. The kerrison rongeur was used to take down the remaining lamina to the point where the ligamentum flavum attached and the ligamentum flavum was taken down from L3 to L4. The kerrison rongeur was then used to reach across and take down the medial aspect of the contralateral L3/4 facet joint.The currete was used to trace the contralateral L3 nerve out the L3/4 foramen to make sure it was decompressed adequatesly and the L4 was traced around the L4 pedicle. The lateral recess was opened further with the kerrison to ensure the L4 is adequately decompressed. Wound is then irrigated copiously with saline and surgiflo is used to stop any bleeding. The tubular retractor is removed and the wound is closed with vicryl and monocryl suture. Glue is then used to protect the wound. A sterile dressing is then placed. Patient was then placed i n the supine position and transferred to the PACU in stable condition. L
[2021-02-23] MEDS: HYDROmorphone 1 mg/mL INJ 1 mL 0.5 MG IVP ×2 (11:03→11:13)
[2021-02-23] MEDS: HYDROcodone-acetaminophen 5-325 mg Tablet 1 TAB PO (11:55)
--- NOTE | 2021-02-23 15:43 | ANE.PACU2 ---
Inpatient post-anesthesia follow up: Airway intact: Yes Vital signs: Temperature 97.9 F Pulse Rate 75 Respiratory Rate 16 Blood Pressure 142/51 Pulse Oximetry 100 Oxygen Delivery Me thod Room Air Oxygen Flow Rate 8 Fraction of Inspir ed Oxygen Hydration adequate: Yes Nausea and vomiting: No Pain level: 3 Mental status: Baseline
== END 2021-02-23 12:35 | disposition home or self-care (01) ==
PROVIDERS: PCP Nurse Practitioner; Visit Provider Orthopaedic Surgery
PROC: (CPT 63005; principal; 2021-02-23 09:50)
DX: M48.061 Spinal stenosis, lumbar region without neurogenic claudication (principal); Z79.82 Long term (current) use of aspirin; E03.9 Hypothyroidism, unspecified; N40.1 Benign prostatic hyperplasia with lower urinary tract symptoms; N13.8 Other obstructive and reflux uropathy; E78.5 Hyperlipidemia, unspecified; E11.22 Type 2 diabetes mellitus with diabetic chronic kidney disease; N18.9 Chronic kidney disease, unspecified; M16.10 Unilateral primary osteoarthritis, unspecified hip; Z87.891 Personal history of nicotine dependence; J44.9 Chronic obstructive pulmonary disease, unspecified; Z95.1 Presence of aortocoronary bypass graft; E11.9 Type 2 diabetes mellitus without complications; Z86.73 Personal history of transient ischemic attack (TIA), and cerebral infarction without residual deficits
CPT/HCPCS: 63047; 63048; 36416; 72020; 82962; 93005; J0690; J1170; J2370; J2405; J2704; J2710; J3010; J3490; J7030

== ENCOUNTER → 2021-03-14 15:53 | Outpatient (BNVA) | payer MEDICARE, MEDICAID, SELFPAY | PROVIDERS: PCP Nurse Practitioner; Visit Provider Nurse Practitioner | DX: E55.9 Vitamin D deficiency, unspecified (principal); E61.1 Iron deficiency; E11.22 Type 2 diabetes mellitus with diabetic chronic kidney disease; E53.8 Deficiency of other specified B group vitamins; E03.8 Other specified hypothyroidism; N18.2 Chronic kidney disease, stage 2 (mild); M54.5 Low back pain | CPT/HCPCS: 80053; 80061; 82607; 83036; 83540; 84443; 85025 ==

== ENCOUNTER → 2021-03-30 12:55 | Outpatient (BNVA) | payer MEDICARE, MEDICAID, SELFPAY | PROVIDERS: PCP Nurse Practitioner; Visit Provider Nurse Practitioner Family | DX: N40.1 Benign prostatic hyperplasia with lower urinary tract symptoms (principal); N52.9 Male erectile dysfunction, unspecified | CPT/HCPCS: 81003 ==

== ENCOUNTER 2021-03-31 07:50 | Outpatient (CLI) | payer MEDICARE, MEDICAID, SELFPAY ==
[2021-03-31] MEDS: iohexol 300 mg/mL 50 mL Btl PO (08:35)
--- NOTE | 2021-03-31 09:30 | CT_ITS ---
WS: [id number] Exam: CT chest abd pel wo con Date/Time of Exam: 03/31/2021 9:30 AM Reason For Exam: D64.9 - Anemia, unspecified DLP: 1823.[address] scans at [facility] use at least one of these dose optimization techniques: automat ed exposure control; mA and/or kV adjustment per patient size (includes targeted exams where dose is matched to clinical indication); or iterative reconstruction. Comparison 10/03/2019. CT scan of the chest without contrast. The lungs are fully expanded. Mild emphysematous changes are n oted. No infiltrates. No pleural or pericardial effusion. The airway is patent. The thoracic aorta is normal in caliber. Triple vessel coronary artery calcifications are seen. Mild mediastinal lymphaden opathy. No nodes exceed 1 cm greatest short axis dimension. Signs of median sternotomy. No destructiv e bone lesions are seen. Mild cardiac enlargement. Bilateral shoulder prostheses. CT/CT chest abd pel wo con IMPRESSION: 1. Pulmonary hyperinflation with emphysematous changes. Mild cardiac enlargemen t. 2. No pulmonary mass. Mild mediastinal lymphadenopathy. No nodes exceed 1 cm gr eatest short axis dimension. 3. Additional nonacute findings as detailed above. CT scan of the abdomen and pelvis with oral contrast. Several small cysts in th e liver. The liver is otherwise unremarkable. The gallbladder surgically absent . Small hiatal hernia. There appears to be some gastric wall thickening which m ay indicate gastritis. The spleen is not enlarged. The pancreas is unremarkable . Extensive atherosclerotic plaquing of the abdominal aorta and iliac bifurcati on. No aortic aneurysm. The IVC is unremarkable in appearance. 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 Normal left adrenal gland. Stable bilateral renal cysts are noted. The largest cyst is at the lower pole the right kidney measures 7.2 cm at greatest diameter. There is also a stable appearing hyperdense cyst at the lower pole of the right kidn ey measuring slightly over a centimeter greatest diameter. This is probably a p roteinaceous or hemorrhagic cyst. There is also an exophytic indeterminate 12 m m nodule at the lower pole of the left kidney. This could be a solid nodule. Va scular calcifications in the left kidney. There may be a pinpoint nonobstructin g stone in the lower pole the right kidney. Small bowel loops are normal in brandon iber. No lymphadenopathy. No free air. No sign of acute appendix. There is mode rately advanced diverticulosis of the sigmoid and lower descending colon. No si gn of acute diverticulitis. No mass or adenopathy in the pelvis. The urinary bl adder is intact. Prostatomegaly. Small fat filled left inguinal hernia. Partial ly visualized hydrocele. No destructive bone lesions IMPRESSION: 1. Indeterminate exophytic nodule at the lower pole of the left kidney. This is probably a change since the previous study. Renal cell carcinoma not excluded. Ultrasound recommended for further workup. 2. Additional bilateral renal cysts which are otherwise stable in appearance 3. 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 4. Small hiatal hernia, small left inguinal hernia. 5. Diverticulosis Additional minor findings as above.
== END 2021-03-31 07:51 | disposition home or self-care (01) ==
PROVIDERS: PCP Nurse Practitioner; Visit Provider Nurse Practitioner
DX: D64.9 Anemia, unspecified (principal)
CPT/HCPCS: 71250; 74176; Q9967

== ENCOUNTER 2021-04-07 15:54 | Outpatient (CLI) | payer MEDICARE, MEDICAID, SELFPAY | END 2021-04-07 15:55 | disposition home or self-care (01) | LOC: LAB 16:00 | PROVIDERS: PCP Nurse Practitioner; Visit Provider Nurse Practitioner | DX: D64.9 Anemia, unspecified (principal) | CPT/HCPCS: 85025; 86850; 86900; 86920 ==

== ENCOUNTER → 2021-04-08 06:44 | Day surgery (SDC) | payer MEDICARE, MEDICAID, SELFPAY ==
[2021-04-08] VITALS (9 sets, daily range): BP systolic 135–202; BP diastolic 61–83; PULSE 64–72; RESP 18; TEMP 36.1–36.4; O2SAT 97–100
[2021-04-08] MEDS: sodium chloride 0.9% (100 ml) 100 ML 10 ML ×2 (07:37→09:30)
== END ==
LOC: OPS 06:47 → GILAB 06:48
PROVIDERS: PCP Nurse Practitioner; Visit Provider Nurse Practitioner
DX: D64.9 Anemia, unspecified (principal)
CPT/HCPCS: 36430; 86850; 86900; 86920; P9016

== ENCOUNTER 2021-04-15 07:36 | Outpatient (CLI) | payer MEDICARE, MEDICAID, SELFPAY ==
--- NOTE | 2021-04-15 08:00 | US_ITS ---
WS: [id number] RENAL ULTRASOUND HISTORY: N28.89 - Other specified disorders of kidney and ureter COMPARISON: 04/18/2017, CT 03/31/2021 TECHNIQUE: 2-D and color Doppler imaging of the kidney submitted. Right kidney: 11.0 cm x 4.9 cm x 5.3 cm. Normal size kidney. Mild diffuse cortical thinning. Large simple cyst exophytic from the lower pole m easures 6.4 x 7.3 x 5.6 cm. Additional smaller cysts within the kidney. No obstruction. Left kidney: 11.4 cm x 6.4 cm x 4.2 cm. Normal size kidney. Exophytic cyst from the upper pole measures 3.9 x 3.6 x 4.2 cm. Indeterminate mas s described at the lower pole on recent CT is not identified. Aorta: Normal. Urinary Bladder: Prostate gland is markedly enlarged encroaching into the urinary bladder. Mild diffu se thickening of the bladder wall. US/US renal BI* [id number] IMPRESSION: 1. Indeterminate LEFT renal mass recently described by CT is not identified by ultrasound. Consider six-month follow-up CT evaluation or MRI to document stab ility. With contrast examination would be most helpful. 2. Bilateral renal cysts. 3. Mild diffuse thinning of the RIGHT renal cortex. 4. Marked enlargement of prostate gland.
== END 2021-04-15 07:37 | disposition home or self-care (01) ==
PROVIDERS: PCP Nurse Practitioner; Visit Provider Nurse Practitioner
DX: N28.89 Other specified disorders of kidney and ureter (principal); N40.0 Benign prostatic hyperplasia without lower urinary tract symptoms; Q61.02 Congenital multiple renal cysts
CPT/HCPCS: 76770

== ENCOUNTER → 2021-04-21 10:18 | Outpatient (BNVA) | payer MEDICARE, MEDICAID, SELFPAY | PROVIDERS: PCP Nurse Practitioner; Visit Provider Nurse Practitioner | DX: D64.9 Anemia, unspecified (principal); K21.9 Gastro-esophageal reflux disease without esophagitis | CPT/HCPCS: 85025 ==

== ENCOUNTER → 2021-04-25 07:44 | Outpatient (BNVA) | payer MEDICARE, MEDICAID, SELFPAY | PROVIDERS: PCP Nurse Practitioner; Visit Provider Surgery | DX: Z01.812 Encounter for preprocedural laboratory examination (principal); Z20.822 Contact with and (suspected) exposure to COVID-19 | CPT/HCPCS: 87635 ==

== ENCOUNTER 2021-04-28 10:40 | Day surgery (SDC) | payer MEDICARE, MEDICAID, SELFPAY ==
[2021-04-27 12:11] VITALS: BMI 27.9
[2021-04-28 11:32] VITALS: BP 151/71; PULSE 79; RESP 18; TEMP 36.1; O2SAT 100
--- NOTE | 2021-04-28 11:34 | W.PM.OPSFHP ---
Same Day Surgery H&P Indication for Procedure/HPI DATE OF PROCEDURE: April 28, 2021 CHIEF COMPLAINT/INDICATIONFOR SURGICAL PROCEDURE: anemia PREOP DIAGNOSIS: panendoscopy PLANNED PROCEDRUE: Operation Date: 04/28/21 12:00 Proposed Procedures p EGD/colon 41670 03996 D50.9(Not Applicable) - Aaron Harrell MD s Colonoscopy(Not Applicable) - Aaron Harrell MD Medications/Allergies* Allergies/Adverse Reactions Allergy/AdvReac Type Severity Reaction Status Date / Time fish oil Allergy rash Verified 04/19/21 09:00 Pertinent History/Comorbid Conditions* Medical History (Updated 04/26/21 @ 08:21 by Harish Aguayo MD) Adult onset hypothyroidism Anxiety and depression B12 deficiency BPH NOS w ur obs/LUTS Chronic progressive LUTS secondary to BPH/obstruction with good response to dual medical therapy. CAD (coronary artery disease) Carotid stenosis Chronic back pain CKD (chronic kidney disease) Controlled diabetes mellitus Cyst, dermoid, trunk Erectile dysfunction Multifactorial. 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 Declined Trimix Gastric reflux Hyperlipidemia, unspecified Iron deficiency OA (osteoarthritis) of hip PVD (peripheral vascular disease) Urolithiasis 6 mm RIGHT distal ureteral stone spontaneously passed 2016. Vitamin D deficiency Surgical History (Updated 04/19/21 @ 09:23 by Aaron Harrell MD) History of back surgery History of knee replacement right 2014 History of knee surgery right 2007 left 2003 History of rhinoplasty 1973 History of shoulder surgery Left 2016 S/p bilateral carotid endarterectomy S/P CABG (coronary artery bypass graft) 2002 Status post colonoscopy Status post laparoscopic cholecystectomy 10/04/2019 Family History (Updated 03/30/21 @ 13:05 by Esther So LPN) Father, at age 75 Mother, at age 81 CAD (coronary artery disease) Father Heart disease Hypertension Stroke Mother Social History Second hand smoke exposure: No Smoking risk assessment/counseling performed?: No Alcohol intake: never Desire information about alcohol rehabilitation?: No Counseling given: No Desire information about substance/drug rehabilitation?: No Counseling given: No Adopted: No Caregiver/support person: No Lives independently: Yes Household members: none Housing: House Marital status: / service: Yes status: Retired branch: [employer] Current occupational status: retired Current occupational exposures/hazards: No Pets and animals: No History of recent travel: No Current gender identity: Male Special tommie needs: No Pertinent Exam Findings alert, oriented x 3 and regular rate & rhythm Recommendations Surgery/Procedure today Coding Level of Care Code Acute 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
--- NOTE | 2021-04-28 11:41 | ANES.PREANE2 ---
Pre-Anesthetic Assessment Pre-Anesthetic Assessment: Height/Weight: Height 1.78 m Weight 88.451 kg Temp Pulse Resp BP Pulse Ox 97 F L 79 18 151/71 100 04/28/21 11:32 04/28/21 11:32 04/28/21 11:32 04/28/21 11:32 04/28/21 11:32 Preop Diagnosis: panendoscopy Proposed Procedure: Operation Date: 04/28/21 12:00 Proposed Procedures p EGD/colon 21457 26210 D50.9(Not Applicable) - Aaron Harrell MD s Colonoscopy(Not Applicable) - Aaron Harrell MD Was Beta Cash taken within 24 hours: N/A Was Clonidine taken within 24 hours: N/A Last intake: Intake Last Liquid Date 04/27/21 Last Liquid Time 22:00 Last Solid Date 04/26/21 Last Solid Time 19:00 Social: Social History: No alcohol and No tobacco Exam: Pre-Anes Outpt Exam: alert, oriented x 3, clear to auscultation bilaterally and regular rate & rhythm Airway: Submandibular: WNL Cervical ROM: WNL MP: 2 Dentition: False CV/HEM: CV/HEM: Anemia, CAD (CABG), HTN and PVD : : Chronic renal Insufficiency Metabolic: Metabolic: DM and Hyperlipidemia Anesthetic Plan: ASA status: 3 Anesthesia: MAC Risk of > 500 ml blood loss (7ml/kg in children): No PFSH Anesthesia PFSH: Medical History (Updated 04/26/21 @ 08:21 by Harish Aguayo MD) Adult onset hypothyroidism Anxiety and depression B12 deficiency BPH NOS w ur obs/LUTS Chronic progressive LUTS secondary to BPH/obstruction with good response to dual medical therapy. CAD (coronary artery disease) Carotid stenosis Chronic back pain CKD (chronic kidney disease) Controlled diabetes mellitus Cyst, dermoid, trunk Erectile dysfunction Multifactorial. 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 Declined Trimix Gastric reflux Hyperlipidemia, unspecified Iron deficiency OA (osteoarthritis) of hip PVD (peripheral vascular disease) Urolithiasis 6 mm RIGHT distal ureteral stone spontaneously passed 2016. Vitamin D deficiency Surgical History History of back surgery History of knee replacement right 2014 History of knee surgery right 2007 left 2003 History of rhinoplasty 1973 History of shoulder surgery Left 2016 S/p bilateral carotid endarterectomy S/P CABG (coronary artery bypass graft) 2002 Status post colonoscopy Status post laparoscopic cholecystectomy 10/04/2019 Family History Father , at age 75 CAD (coronary artery disease) Mother , at age 81 Stroke Other Heart disease Hypertension Social History Second hand smoke exposure: No Smoking risk assessment/counseling performed?: No Alcohol intake: never Desire information about alcohol rehabilitation?: No Counseling given: No Desire information about substance/drug rehabilitation?: No Counseling given: No Adopted: No Caregiver/support person: No Lives independently: Yes Household members: none Housing: House Marital status: / service: Yes status: Retired branch: [employer] Current occupational status: retired Current occupational exposures/hazards: No Pets and animals: No History of recent travel: No Current gender identity: Male Special tommie needs: No Data Anesthesia Cardiac Studies: No Data to Display
[2021-04-28] MEDS: sodium chloride 0.9% 1,000 ML 30 ML IV (11:47)
[2021-04-28 11:48] LABS: Glucose Point of Care 106 mg/dL (70-110)
[2021-04-28 12:53] VITALS: BP 111/53; PULSE 64; RESP 16; TEMP 36.1; O2SAT 100
[2021-04-28 13:05] VITALS: BP 117/62; PULSE 74; RESP 18; O2SAT 99
--- NOTE | 2021-04-28 16:18 | ANE.PACU2 ---
Inpatient post-anesthesia follow up: Airway intact: Yes Vital signs: Temperature 97 F Pulse Rate 74 Respiratory Rate 18 Blood Pressure 117/62 Pulse Oximetry 99 Oxygen Delivery Me thod Room Air Oxygen Flow Rate 2 Fraction of Inspir ed Oxygen Hydration adequate: Yes Nausea and vomiting: No Pain level: 1 Mental status: Baseline
== END 2021-04-28 13:20 | disposition home or self-care (01) ==
PROVIDERS: PCP Nurse Practitioner; Visit Provider Surgery
PROC: 0DJ08ZZ Inspection of Upper Intestinal Tract, Via Natural or Artificial Opening Endoscopic (ICD-10-PCS; CPT 43235; principal; 2021-04-28 12:00)
PROC: 0DJD8ZZ Inspection of Lower Intestinal Tract, Via Natural or Artificial Opening Endoscopic (ICD-10-PCS; CPT 45378; 2021-04-28 12:00)
DX: D50.9 Iron deficiency anemia, unspecified (principal); Q27.33 Arteriovenous malformation of digestive system vessel; K22.2 Esophageal obstruction; K57.30 Diverticulosis of large intestine without perforation or abscess without bleeding; E03.9 Hypothyroidism, unspecified; F41.9 Anxiety disorder, unspecified; F32.9 Major depressive disorder, single episode, unspecified; N40.1 Benign prostatic hyperplasia with lower urinary tract symptoms; N13.8 Other obstructive and reflux uropathy; E78.5 Hyperlipidemia, unspecified; M19.90 Unspecified osteoarthritis, unspecified site; E55.9 Vitamin D deficiency, unspecified; I12.9 Hypertensive chronic kidney disease with stage 1 through stage 4 chronic kidney disease, or unspecified chronic kidney disease; E11.22 Type 2 diabetes mellitus with diabetic chronic kidney disease; N18.9 Chronic kidney disease, unspecified; I25.10 Atherosclerotic heart disease of native coronary artery without angina pectoris; Z95.1 Presence of aortocoronary bypass graft
CPT/HCPCS: 36416; 43255; 45378; 82962; 88305; J2704; J7030

== ENCOUNTER → 2021-05-23 12:51 | Outpatient (BNVA) | payer MEDICARE, MEDICAID, SELFPAY | PROVIDERS: PCP Nurse Practitioner; Visit Provider Nurse Practitioner | DX: D64.9 Anemia, unspecified (principal); I10 Essential (primary) hypertension | CPT/HCPCS: 80048; 85025 ==

== ENCOUNTER → 2021-05-30 09:23 | Outpatient (BNVA) | payer MEDICARE, MEDICAID, SELFPAY | PROVIDERS: PCP Nurse Practitioner; Visit Provider Nurse Practitioner | DX: D64.9 Anemia, unspecified (principal) | CPT/HCPCS: 80053; 85025 ==

== ENCOUNTER → 2021-06-13 09:05 | Outpatient (BNVA) | payer MEDICARE, MEDICAID, SELFPAY | PROVIDERS: PCP Nurse Practitioner; Visit Provider Nurse Practitioner | DX: E87.1 Hypo-osmolality and hyponatremia (principal) | CPT/HCPCS: 80048 ==

== ENCOUNTER → 2021-06-27 09:18 | Outpatient (BNVA) | payer MEDICARE, MEDICAID, SELFPAY | PROVIDERS: PCP Nurse Practitioner; Visit Provider Nurse Practitioner | DX: E03.8 Other specified hypothyroidism (principal); E11.22 Type 2 diabetes mellitus with diabetic chronic kidney disease; E55.9 Vitamin D deficiency, unspecified; N18.2 Chronic kidney disease, stage 2 (mild) | CPT/HCPCS: 80053; 80061; 82306; 83036; 84443; 85025 ==

== ENCOUNTER 2021-08-22 13:39 | Outpatient (CLI) | payer MEDICARE, MEDICAID, SELFPAY ==
[2021-08-22 14:10] LABS: Basophils % 0.4 %; Eosinophils # 0.2 10^3/uL (0.0-0.8); Eosinophils % 3.9 %; Hematocrit 29.3 % (42.0-52.0); Hemoglobin 9.2 g/dL (11.7-16.6); Lymphocytes # 1.2 10^3/uL (0.8-4.8); Lymphocytes % 20.6 %; Mean Corpuscular HGB Conc 31.4 g/dL (30.0-36.0); Mean Corpuscular Hemoglobin 30.4 pg (28.0-34.0); Mean Corpuscular Volume 96.7 fl (80-94); Mean Platelet Volume 10.5 fL (7.4-10.4); Monocytes # 0.6 10^3/uL (0.2-0.9); Neutrophils # 3.59 10^3/uL (1.8-7.7); Neutrophils % 63.9 %; Nucleated Red Blood Cells % 0 %; Platelet Count 237 10^3/cmm (130-400); Red Blood Count 3.03 10^6/uL (4.1-5.3); Red Cell Distribution Width 14.7 % (12.1-15.1); Reticulocyte % 1.8 % (0.5-2.0); White Blood Count 5.6 10^3/uL (4.0-10.0)
[2021-08-22 14:49] LABS: Ferritin 65 ng/mL (30-400); Iron 39 ug/dL (59-158); Total Iron Binding Capacity 277 mcg/dl; Unsaturated Iron Binding 238 ug/dL (112-347); Vitamin B12 197 pg/mL (232-1245)
--- NOTE | 2021-08-22 15:58 | ONC CON_ITS ---
Dr. Davila New Patient Note Patient: Abiel Andres Unit #: [id number]: [id number] Dicatated By: Amanda Davila M.D.Date of Visit: Aug 22, 2021 Onc MED New Patient/Consult Referring Physician: Nidia Robins History of Present Illness: Mr. 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 Patient was also found to have Schatzki's ring at GE junction and biopsy was was done and final pathology report came back squamocolumnar mucosa with chronic inflammation and reactive atypia consistent with Schatzki's ring. Patient was started on oral iron in April 2021, tolerating well except constipation. Denies any night sweats denies any recurrent fever but weight loss, generalized weakness and fatigue, dyspnea on exertion. 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 Denies any jaundice. Denies smoking or alcohol use Patient is noncompliant with oral iron, last dose he was taking about 2 weeks ago as he ran out of his medication, but has prescription sent to [facility], is planning to pick it up today Past Medical History: Mr. Andres's medical history consists of anxiety, BPH, carotid stenosis, chronic back pain, chronic kidney disease, coronary artery disease, depression, gastroesophageal reflux disease, hyperlipidemia, hypothyroidism, osteoarthritis, peripheral vascular disease, type II diabetes, urolithiasis, vitamin B12 deficiency, and vitamin D deficiency. Past Surgical History: Mr. Camacho surgical/procedural history consists of back surgery, bilateral carotid endarterecomy, coronary artery bypass, colonoscopy in 2020, cholecystectomy in 2019, left shoulder surgery in 2015, right knee replacement in 2013, right knee surgery in 2006, left knee surgery in 2002, and rhinoplasty in 1972. Medications: amLODIPine Besylate 1 Tablet (of 5 mg) Oral daily, Aspirin 1 Tablet (of 81 mg) Tablet, enteric coated Oral daily, Chlorthalidone 1 Tablet (of 25 mg) Oral daily, DULoxetine HCl 1 Capsule (of 60 mg) Capsule Delayed Release Particles Oral b.i.d., Dutasteride 1 Capsule (of 0.5 mg) Oral daily, Ergocalciferol 1 Capsule (of [address] International Unit(s)) Oral daily, Fenofibrate 1 Tablet (of 145 mg) Oral daily, Ferrous Sulfate 1 Tablet (of 325 (65 fe) mg) Oral b.i.d., hydrALAZINE HCl 1 Tablet (of 25 mg) Oral q 12 hours, HYDROcodone-Acetaminophen 1 - 2 Tablet (of 5-325 mg) Oral q 4 hours PRN, Levo-T 1 Tablet (of 75 mcg) Oral every am, Lisinopril 1 Tablet (of 40 mg) Oral daily, Pantoprazole Sodium 1 Tablet (of 20 mg) Tablet, enteric coated Oral daily, Rivaroxaban 1 Tablet (of 2.5 mg) Oral b.i.d., Rosuvastatin Calcium 1 Tablet (of 20 mg) Oral daily, SITagliptin Phosphate 1 Tablet Oral daily, Sucralfate 1 Tablet (of 1 g) Oral four times a day, Tamsulosin HCl 1 Capsule (of 0.4 mg) Oral b.i.d. Allergies: Fish Oil Social History: Mr. Andres is and he is a retired [employer]. Mr. Andres has never smoked. He has no history of drinking. Mr. Andres reports the following support systems: lives alone and lives in own house. Family History: Mr. Gómezs mother at age 81: stroke. Mr. Cook's father at age 75: coronary artery disease. Review Of Symptoms: Review of Systems is not available for this patient. Vital Signs: Performed on Aug 22, 2021 14:58: 5, 0, 26.75, 2.03 sq.m, 70 in, 97 %, 74 /min, 18 /min, 140/65 mm(hg), 98.3 F (LOW), and 186.4 lbs (HIGH). Performance Status: 1 - No physically strenuous activity, but ambulatory and able to carry out light or sedentary work (e.g. office work, light house work). (ECOG) Physical Examination: ENMT - No mouth sores, no thrush, no jaundice, no cervical lymphadenopathy, Respiratory - Lungs are clear to auscultation, Abdomen - Soft, bowel sounds present, Extremities - Trace edema bilaterally. Lab/Imaging: Most recent lab results are not available for this patient. Impression: Normocytic/normochromic anemia, etiology probably multifactorial including nutritional, combined iron/B12 deficiency, or due to chronic blood loss, or considering his age underlying myelodysplasia cannot be ruled out. History of hypothyroidism History of B12 deficiency Chronic back pain status post surgery for stenosis Peripheral vascular disease Chronic renal disease Plan: Discussed with patient regarding his labs white blood count 5.6 hemoglobin 9.2 hematocrit 29.3 platelets 237,000 iron saturation 14% ferritin 65 iron 39 TIBC 277 B12 197 normal being 232 to 1245 Clinically, patient is doing reasonably well follow-up CBC done today shows persistent mild/moderate anemia, mild symptoms related to anemia, patient is supposed to be on oral iron but did not take since last 2 weeks as he ran out of his prescription. Patient also has history of B12 deficiency, was on B12 supplement till about 9 months ago. As his lab work-up done today shows persistent B12 deficiency, will consider B12 supplement 1000 mcg IM weekly x4 days loading dose and then every month, patient was advised to continue with oral iron as recommended by PMD and then repeat CBC iron studies B12, folic acid in 1 month, if it shows progressive iron deficiency which could be due to chronic blood loss, may consider small bowel endoscopy to rule out small bowel AVM and other possibility could be iron malabsorption as sometime B12 deficiency coexist with iron malabsorption, in that case, we will may consider parenteral iron while continue with B12 supplement, He will return to clinic in 1 month with CBC, iron studies and B12 level and will plan accordingly, on the other hand if his follow-up CBC shows persistent anemia but normalization of B12 and iron supplement, then he may have underlying myelodysplasia, may consider bone marrow evaluation. Return to clinic in 1 month as mentioned above. Patient was advised to start taking oral iron and B12 supplement as planned. And be compliant Signed By: Amanda Davila M.D. <<Signature on File>>
[2021-08-22] MEDS: cyanocobalamin 1,000 mcg/mL SDV 1000 MCG SUBCUT (16:00)
== END 2021-08-22 13:40 | disposition home or self-care (01) ==
LOC: ONCMED 13:45
PROVIDERS: PCP Nurse Practitioner; Visit Provider Internal Medicine Hematology & Oncology
DX: E61.1 Iron deficiency (principal); D51.9 Vitamin B12 deficiency anemia, unspecified; K29.01 Acute gastritis with bleeding; Z48.89 Encounter for other specified surgical aftercare; N28.89 Other specified disorders of kidney and ureter; M16.9 Osteoarthritis of hip, unspecified; K21.9 Gastro-esophageal reflux disease without esophagitis; Z95.1 Presence of aortocoronary bypass graft; N52.9 Male erectile dysfunction, unspecified; N20.9 Urinary calculus, unspecified; N40.1 Benign prostatic hyperplasia with lower urinary tract symptoms; N18.9 Chronic kidney disease, unspecified; I65.29 Occlusion and stenosis of unspecified carotid artery; I25.10 Atherosclerotic heart disease of native coronary artery without angina pectoris; D23.5 Other benign neoplasm of skin of trunk; I10 Essential (primary) hypertension; E78.5 Hyperlipidemia, unspecified; E11.9 Type 2 diabetes mellitus without complications; I73.9 Peripheral vascular disease, unspecified; F41.9 Anxiety disorder, unspecified; E03.8 Other specified hypothyroidism
CPT/HCPCS: 36415; 82607; 82728; 83540; 83550; 85025; 85045; 96372; 99205; J3420

== ENCOUNTER → 2021-09-01 11:47 | Outpatient (BNVA) | payer MEDICARE, MEDICAID, SELFPAY | PROVIDERS: PCP Nurse Practitioner; Visit Provider Orthopaedic Surgery | DX: M47.817 Spondylosis without myelopathy or radiculopathy, lumbosacral region (principal) | CPT/HCPCS: 72100 ==

== ENCOUNTER 2021-09-22 08:50 | Outpatient (CLI) | payer MEDICARE, MEDICAID, SELFPAY ==
[2021-09-22 09:16] LABS: Basophils % 0.2 %; Eosinophils # 0.3 10^3/uL (0.0-0.8); Eosinophils % 4.8 %; Hematocrit 30.9 % (42.0-52.0); Hemoglobin 9.8 g/dL (11.7-16.6); Lymphocytes # 1.1 10^3/uL (0.8-4.8); Mean Corpuscular HGB Conc 31.7 g/dL (30.0-36.0); Mean Corpuscular Hemoglobin 30.7 pg (28.0-34.0); Mean Corpuscular Volume 96.9 fl (80-94); Mean Platelet Volume 11.4 fL (7.4-10.4); Monocytes # 0.6 10^3/uL (0.2-0.9); Monocytes % 10.4 %; Neutrophils # 3.92 10^3/uL (1.8-7.7); Neutrophils % 65.4 %; Nucleated Red Blood Cells % 0 %; Platelet Count 181 10^3/cmm (130-400); Red Blood Count 3.19 10^6/uL (4.1-5.3); Red Cell Distribution Width 14.9 % (12.1-15.1)
[2021-09-22 09:17] LABS: Reticulocyte % 1.6 % (0.5-2.0)
[2021-09-22 09:41] LABS: Ferritin 58 ng/mL (30-400); Iron 37 ug/dL (59-158); Percent Saturation 13.4 % (20-50); Total Iron Binding Capacity 276 mcg/dl; Unsaturated Iron Binding 239 ug/dL (112-347)
[2021-09-22 09:57] LABS: Folate Level 10.3 ng/mL (4.5-32.2)
[2021-09-22 09:58] LABS: Vitamin B12 890 pg/mL (232-1245)
--- NOTE | 2021-09-22 10:40 | ONC FU_ITS ---
Dr. Davila follow up note Patient: Abiel Andres Unit #: [id number]: [id number] Dicatated By: Amanda Davila M.D.Date of Visit:Sep 22, 2021 Onc Med Follow-up/Prog Note History of Present Illness: Mr. 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 Patient was also found to have Schatzki's ring at GE junction and biopsy was was done and final pathology report came back squamocolumnar mucosa with chronic inflammation and reactive atypia consistent with Schatzki's ring. Patient was started on oral iron in April 2021, tolerating well except constipation. Denies any night sweats denies any recurrent fever but weight loss, generalized weakness and fatigue, dyspnea on exertion. 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 Denies any jaundice. Denies smoking or alcohol use Came for follow-up, denies any specific complaint except generalized weakness and fatigue, off and on indigestion and mild nausea since on oral iron 2 tablets p.o. daily, as per patient he is compliant. Also taking B12 shots, tolerating well. As per patient he was recently found to have left kidney mass on CT scan of abdomen now MRI scan of the abdomen with special attention to kidneys pending. Denies any melena or hematochezia denies any hemoptysis hematemesis denies any jaundice, denies any palpitation or shortness of breath at rest Medications: amLODIPine Besylate 1 Tablet (of 5 mg) Oral daily, Aspirin 1 Tablet (of 81 mg) Tablet, enteric coated Oral daily, Chlorthalidone 1 Tablet (of 25 mg) Oral daily, DULoxetine HCl 1 Capsule (of 60 mg) Capsule Delayed Release Particles Oral b.i.d., Dutasteride 1 Capsule (of 0.5 mg) Oral daily, Ergocalciferol 1 Capsule (of 85697 International Unit(s)) Oral daily, Fenofibrate 1 Tablet (of 145 mg) Oral daily, Ferrous Sulfate 1 Tablet (of 325 (65 fe) mg) Oral b.i.d., hydrALAZINE HCl 1 Tablet (of 25 mg) Oral q 12 hours, HYDROcodone-Acetaminophen 1 - 2 Tablet (of 5-325 mg) Oral q 4 hours PRN, Levo-T 1 Tablet (of 75 mcg) Oral every am, Lisinopril 1 Tablet (of 40 mg) Oral daily, Pantoprazole Sodium 1 Tablet (of 20 mg) Tablet, enteric coated Oral daily, Rivaroxaban 1 Tablet (of 2.5 mg) Oral b.i.d., Rosuvastatin Calcium 1 Tablet (of 20 mg) Oral daily, SITagliptin Phosphate 1 Tablet Oral daily, Sucralfate 1 Tablet (of 1 g) Oral four times a day, Tamsulosin HCl 1 Capsule (of 0.4 mg) Oral b.i.d. Allergies: Fish Oil Review of Systems: Review of Systems is not available for this patient. Vital Signs: Performed on Sep 22, 2021 10:30 Height - 70.00 in Weight - 190.2 lbs (HIGH) BSA - 2.04 sq.m BMI - 27.29 Temperature - 98.9 F (HIGH) Pulse - 75 /min Respiration - 18 /min BP - 127/67 mm(hg) O2 Sat - 95 % (LOW) Pain - 0 Fatigue - 5 Performance Status: 1 - No physically strenuous activity, but ambulatory and able to carry out light or sedentary work (e.g. office work, light house work). (ECOG) Physical Examination: ENMT - No mouth sores, no thrush, no jaundice, Respiratory - Lungs are clear to auscultation, Cardiovascular - Regular rate and rhythm of heart, Abdomen - Soft, bowel sounds present, Extremities - No visible edema. Lab/Imaging: Most recent lab results are not available for this patient. Impression: Normocytic/normochromic anemia, etiology probably multifactorial including nutritional, combined iron/B12 deficiency, or due to chronic blood loss, or considering his age underlying myelodysplasia cannot be ruled out. History of hypothyroidism History of B12 deficiency Chronic back pain status post surgery for stenosis Peripheral vascular disease Chronic renal disease Plan: Discussed with patient regarding his labs white blood count 6 hemoglobin 9.8 compared to 9.2 previously hematocrit 30.9 platelets 181,000 iron saturation 13.4% iron 37, both are low and ferritin 58 compared to 65 previously TIBC 276 B12 890 compared to 197 prior to B12 supplement reticulocyte count 1.6 Clinically, patient doing reasonably well, his follow-up lab work-up shows persistent iron deficiency, patient is on oral iron, confirmed compliance, now it appears patient may may have iron malabsorption, which is common and B12 deficiency. Patient was advised to discontinue oral iron as his mild nausea and indigestion could be due to oral iron, moreover, as mentioned above, he may have iron malabsorption too., We will consider, parenteral iron, Injectafer 750 mg weekly x2, while continue with monthly B12 supplement and patient return to clinic in 1 month after second Injectafer infusion with CBC and iron studies., Signed By: Amanda Davila M.D. <<Signature on File>>
== END 2021-09-22 08:51 | disposition home or self-care (01) ==
LOC: ONCMED 08:53
PROVIDERS: PCP Nurse Practitioner; Visit Provider Internal Medicine Hematology & Oncology
DX: D51.3 Other dietary vitamin B12 deficiency anemia (principal); D50.9 Iron deficiency anemia, unspecified; E03.9 Hypothyroidism, unspecified; I73.9 Peripheral vascular disease, unspecified; N18.9 Chronic kidney disease, unspecified; Z79.899 Other long term (current) drug therapy
CPT/HCPCS: 36415; 82607; 82728; 82746; 83540; 83550; 85025; 85045; 99214

== ENCOUNTER → 2021-10-04 13:30 | Outpatient (BNVA) | payer MEDICARE, MEDICAID, SELFPAY | PROVIDERS: PCP Nurse Practitioner; Visit Provider Nurse Practitioner | DX: N18.2 Chronic kidney disease, stage 2 (mild) (principal); I10 Essential (primary) hypertension; E11.22 Type 2 diabetes mellitus with diabetic chronic kidney disease; N40.1 Benign prostatic hyperplasia with lower urinary tract symptoms; E55.9 Vitamin D deficiency, unspecified; E78.2 Mixed hyperlipidemia; E03.8 Other specified hypothyroidism; I73.9 Peripheral vascular disease, unspecified; N28.89 Other specified disorders of kidney and ureter | CPT/HCPCS: 80053; 82306; 83036 ==

== ENCOUNTER 2021-10-14 08:50 | Outpatient (CLI) | payer MEDICARE, MEDICAID, SELFPAY ==
[2021-10-14] MEDS: sodium chloride 0.9% 100 mL Bag IV (09:44)
[2021-10-14] MEDS: ferric carboxy (PYXIS) 750 mg/15 mL INJ IV (09:44)
[2021-10-14] MEDS: cyanocobalamin 1,000 mcg/mL SDV 1000 MCG SUBCUT (10:22)
== END 2021-10-14 08:51 | disposition home or self-care (01) ==
PROVIDERS: PCP Nurse Practitioner; Visit Provider Internal Medicine Hematology & Oncology
DX: D50.9 Iron deficiency anemia, unspecified (principal); E53.8 Deficiency of other specified B group vitamins
CPT/HCPCS: 96365; 96372; J1439; J3420

== ENCOUNTER 2021-10-21 08:44 | Outpatient (CLI) | payer MEDICARE, MEDICAID, SELFPAY ==
[2021-10-21] MEDS: ferric carboxy (IVPB) 750 MG in sodium chloride 0.9% (100 ml) 100 ML 345 MG IV (09:20)
== END 2021-10-21 08:45 | disposition home or self-care (01) ==
PROVIDERS: PCP Nurse Practitioner; Visit Provider Internal Medicine Medical Oncology
DX: D50.9 Iron deficiency anemia, unspecified (principal); Z79.899 Other long term (current) drug therapy
CPT/HCPCS: 96365; J1439

== ENCOUNTER 2021-10-25 08:08 | Outpatient (CLI) | payer MEDICARE, MEDICAID, SELFPAY ==
--- NOTE | 2021-10-25 08:25 | US_ITS ---
WS: [id number] ULTRASOUND RENAL TECHNIQUE: Ultrasound examination of both kidneys. CLINICAL INFORMATION: LEFT RENAL MASS COMPARISON: April 15, 2021 FINDINGS: Bilateral simple renal cysts are stable since April 15, 2021 RIGHT: Right kidney is normal in size and appearance. Echogenicity: Normal. Cortical thickness: 0.8 cm; Normal. Hydronephrosis: None. Perinephric fluid: None. Right kidney measures: 9.4 cm x 5.4 cm x 3.7 cm. LEFT: Left kidney is normal in size and appearance. Echogenicity: Normal. Cortical thickness: 0.6 cm; Normal. Hydronephrosis: None. Perinephric fluid: None. Left kidney measures: 10.9 cm x 5.3 cm x 4.1 cm. Normal visualized aorta. Prevoid bladder volume 137 cc. Mild diffuse bladder wall thickening likely d ue to bladder outlet obstruction. Enlarged prostate. Recommend correlation PSA. Prostate measures 4.6 x 4.9 x 4.3 cm US/US renal BI* [id number] IMPRESSION: 1. No hydronephrosis in either kidney. 2. Bilateral simple renal cysts largest RIGHT lower pole measuring 6.6 x 7.2 x 6.1 cm 3. Largest simple cyst LEFT kidney measures 3.7 x 3.1 x 4.4 cm 4. Previously described indeterminant small nodule lower pole LEFT kidney seen on the CT March 31, 2021 not identified on this study today likely due to small size. This can be followed up with contrast-enhanced CT or MRI. 5. Diffuse bladder wall thickening likely due to bladder outlet obstruction. 6. Enlarged prostate. Recommend correlation PSA.
== END 2021-10-25 08:09 | disposition home or self-care (01) ==
LOC: RAD 08:15
PROVIDERS: Visit Provider Urology
DX: N28.89 Other specified disorders of kidney and ureter (principal); Q61.02 Congenital multiple renal cysts; N40.0 Benign prostatic hyperplasia without lower urinary tract symptoms
CPT/HCPCS: 76770; 81003

== ENCOUNTER 2021-11-11 08:41 | Outpatient (CLI) | payer MEDICARE, MEDICAID, SELFPAY ==
[2021-11-11] MEDS: cyanocobalamin 1,000 mcg/mL SDV 1000 MCG SUBCUT (09:16)
[2021-11-11 09:19] LABS: Basophils % 0.4 %; Eosinophils # 0.3 10^3/uL (0.0-0.8); Eosinophils % 6.4 %; Hematocrit 32.6 % (42.0-52.0); Hemoglobin 10.2 g/dL (11.7-16.6); Lymphocytes # 0.9 10^3/uL (0.8-4.8); Lymphocytes % 17.9 %; Mean Corpuscular HGB Conc 31.3 g/dL (30.0-36.0); Mean Corpuscular Hemoglobin 29.9 pg (28.0-34.0); Mean Corpuscular Volume 95.6 fl (80-94); Mean Platelet Volume 11.3 fL (7.4-10.4); Monocytes # 0.6 10^3/uL (0.2-0.9); Monocytes % 11.7 %; Neutrophils # 3.26 10^3/uL (1.8-7.7); Neutrophils % 63.4 %; Nucleated Red Blood Cells % 0 %; Platelet Count 166 10^3/cmm (130-400); Red Blood Count 3.41 10^6/uL (4.1-5.3); Red Cell Distribution Width 15.9 % (12.1-15.1); White Blood Count 5.1 10^3/uL (4.0-10.0)
[2021-11-11 09:41] LABS: Ferritin 664 ng/mL (30-400); Iron 59 ug/dL (59-158); Percent Saturation 20.4 % (20-50); Total Iron Binding Capacity 289 mcg/dl; Unsaturated Iron Binding 230 ug/dL (112-347)
[2021-11-11 09:55] LABS: Vitamin B12 441 pg/mL (232-1245)
[2021-11-11 10:03] LABS: Folate Level 8.8 ng/mL (4.5-32.2)
--- NOTE | 2021-11-11 10:20 | ONC FU_ITS ---
Erica Us Progress Note Patient: Abiel Andres Unit #: [id number]: [id number] Dicatated By: Erica Us N.P.Date of Visit:Nov 11, 2021 Onc MED Follow-up/Prog Note Chief Complaint: Anemia History of Present Illness: Mr. 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 Patient was also found to have Schatzki's ring at GE junction and biopsy was was done and final pathology report came back squamocolumnar mucosa with chronic inflammation and reactive atypia consistent with Schatzki's ring. Patient was started on oral iron in April 2021, tolerating well except constipation. Denies any night sweats denies any recurrent fever but weight loss, generalized weakness and fatigue, dyspnea on exertion. 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 Denies any jaundice. Denies smoking or alcohol use Patient presents today for follow-up. He states he is feeling well. He denies weakness or fatigue. He denies fever, chills, night sweats his appetite has been fair. No shortness of breath, cough, chest pain. He had some nausea with his Injectafer infusion on October 14 and October 21 but otherwise no other GI symptoms. He denies joint or bone pain. No headache or dizziness. Review Of Symptoms:see above. Past Medical History: Anxiety BPH Carotid stenosis Chronic back pain Chronic kidney disease Coronary artery disease Depression Gastroesophageal reflux disease Hyperlipidemia Hypothyroidism Osteoarthritis Peripheral vascular disease Type II diabetes Urolithiasis Vitamin B12 deficiency Vitamin D deficiency Past Surgical History: Back surgery Bilateral carotid endarterecomy Coronary artery bypass Colonoscopy in 2020 Cholecystectomy in 2019 Left shoulder surgery in 2015 Right knee replacement in 2013 Right knee surgery in 2006 Left knee surgery in 2002 Rhinoplasty in 1972 Allergies: Fish Oil Medications: amLODIPine Besylate 1 Tablet (of 5 mg) Oral daily Aspirin 1 Tablet (of 81 mg) Tablet, enteric coated Oral daily Chlorthalidone 1 Tablet (of 25 mg) Oral daily DULoxetine HCl 1 Capsule (of 60 mg) Capsule Delayed Release Particles Oral b.i.d. Dutasteride 1 Capsule (of 0.5 mg) Oral daily Ergocalciferol 1 Capsule (of 71170 International Unit(s)) Oral daily Fenofibrate 1 Tablet (of 145 mg) Oral daily Ferrous Sulfate 1 Tablet (of 325 (65 fe) mg) Oral b.i.d. hydrALAZINE HCl 1 Tablet (of 25 mg) Oral q 12 hours HYDROcodone-Acetaminophen 1 - 2 Tablet (of 5-325 mg) Oral q 4 hours PRN Levo-T 1 Tablet (of 75 mcg) Oral every am Lisinopril 1 Tablet (of 40 mg) Oral daily Pantoprazole Sodium 1 Tablet (of 20 mg) Tablet, enteric coated Oral daily Rivaroxaban 1 Tablet (of 2.5 mg) Oral b.i.d. Rosuvastatin Calcium 1 Tablet (of 20 mg) Oral daily SITagliptin Phosphate 1 Tablet Oral daily Sucralfate 1 Tablet (of 1 g) Oral four times a day Tamsulosin HCl 1 Capsule (of 0.4 mg) Oral b.i.d. Family History: Mr. Andres's mother at age 81: stroke. Mr. Andres's father at age 75: coronary artery disease. Social History: Mr. Andres is and he is a retired [employer]. Mr. Andres has never smoked. He has no history of drinking. Mr. Andres reports the following support systems: lives alone and lives in own house. Physical Examination: Performed on Nov 11, 2021 09:50: Height - 70.00 in, Weight - 193.4 lbs (HIGH), BSA - 2.06 sq.m, BMI - 27.75, Temperature - 97.8 F (LOW), Pulse - 72 /min, Respiration - 16 /min, BP - 137/60 mm(hg), O2 Sat - 98 %, Pain - 0, and Fatigue - 5. Performance Status: 1 - No physically strenuous activity, but ambulatory and able to carry out light or sedentary work (e.g. office work, light house work). (ECOG) Constitutional Alert, cooperative, oriented. Mood and affect appropriate. Appears close to chronological age. Well nourished. Well developed. Head Normocephalic; no scars. Respiratory Lungs are clear to auscultation without rhonchi or wheezing. Cardiovascular Regular rate and rhythm of heart without murmurs, gallops or rubs. Abdomen Non-tender, non-distended, no masses, ascites or hepatosplenomegaly. Good bowel sounds. No guarding or rebound tenderness. Extremities No visible deformities, no cyanosis, clubbing or edema. Psychiatric Alert and oriented times three. Coherent speech. Verbalizes understanding of our discussions today. Laboratory: Test performed on Nov 11, 2021 09:06 Ferritin 664 ng/mL Folate, Serum 8.8 ng/mL Iron 59 mcg/dL Vitamin B12 441 pg/mL Iron Binding Capacity (TIBC) 289 mcg/dl % Iron Saturation 20.4 % UIBC 230 mcg/dL WBC 5.1 10 3/uL RBC 3.41 10 6/uL HGB 10.2 g/dL HCT 32.6 % MCV 95.6 fl MCH 29.9 pg MCHC 31.3 g/dL RDW 15.9 % Platelet Count 166 10 3/cmm MPV 11.3 fL Neutrophils 3.26 10 3/uL Lymphocytes 0.9 10 3/uL Monocytes 0.6 10 3/uL Eosinophils 0.3 10 3/uL Basophils 0.0 10 3/uL Neutrophil % 63.4 % Lymphocyte % 17.9 % Monocyte % 11.7 % Eosinophil % 6.4 % Basophils % 0.4 % NRBC % 0 % Impression: Normocytic/normochromic anemia, etiology probably multifactorial including nutritional, combined iron/B12 deficiency, or due to chronic blood loss, or considering his age underlying myelodysplasia cannot be ruled out. History of hypothyroidism History of B12 deficiency Chronic back pain status post surgery for stenosis Peripheral vascular disease Chronic renal disease Plan: Labs were reviewed with patient WBC 5.1, hemoglobin 10.2, hematocrit 32.6, neutrophil 2 6, platelets 166,000. His iron studies percent saturation 20.4, ferritin 664, iron at 59 and vitamin B12 441. Patient received Injectafer x2 doses on October 14 and October 21. Tolerated infusions well other than some mild nausea. There has been improvement in anemia. He will continue with the vitamin B12 injections monthly and return to clinic in 3 months. We will obtain iron studies and CBC at that time. If there is no further improvement in hemoglobin and iron studies then will consider checking copper and zinc. If those are within normal limits bone marrow may be considered. Signed By: Erica Us N.Vance. <<Signature on File>>
== END 2021-11-11 08:42 | disposition home or self-care (01) ==
PROVIDERS: PCP Nurse Practitioner; Visit Provider Nurse Practitioner Family
DX: D51.9 Vitamin B12 deficiency anemia, unspecified (principal); I25.10 Atherosclerotic heart disease of native coronary artery without angina pectoris; F32.A Depression, unspecified; E78.5 Hyperlipidemia, unspecified; E03.9 Hypothyroidism, unspecified; E11.9 Type 2 diabetes mellitus without complications; E55.9 Vitamin D deficiency, unspecified; N40.0 Benign prostatic hyperplasia without lower urinary tract symptoms; N18.9 Chronic kidney disease, unspecified; Z79.899 Other long term (current) drug therapy
CPT/HCPCS: 36415; 82607; 82728; 82746; 83540; 83550; 85025; 96372; 99214; J3420

== ENCOUNTER 2021-12-05 14:40 | Outpatient (CLI) | payer MEDICARE, MEDICAID, SELFPAY ==
--- NOTE | 2021-12-05 16:00 | MR_ITS ---
WS: [id number] MRI ABDOMEN without CONTRAST. COMPARISON: Renal ultrasound 10/25/[address] 03/31/2021 Multiplanar, multisequence imaging is performed without contrast. History: Kidney problems for 2 to 3 years. RIGHT kidney: 10.5 cm in length. No hydronephrosis. No significant cortical thinning. There are multi ple cysts within the RIGHT kidney. The largest cyst is lateral from the lower pole measuring 6.6 x 6. 1 cm. Without IV contrast solid mass cannot be excluded but there are no solid appearing masses ident ified. Cyst follows fluid signal on all sequences. LEFT kidney: LEFT kidney measures 9.8 cm in length. No significant cortical thinning. There are multi ple small cysts identified. The largest cyst extends lateral from the mid kidney measuring 4.4 x 3.5 cm. Previously described indeterminate nodule from the lower pole is identified and follows simple fl uid on all sequences. This lower pole nodule measures 1.0 x 1.1 cm. No solid mass identified within e ither kidney. No pleural effusions at the lung bases. Adrenal glands are normal. The gallbladder is not identified and has likely been surgically removed although that history was not provided. Surgically absent on a prior CT of 03/31/2021. Spleen and liver are normal size. No pancreatic abnormality is identified alt cristin this organ is limited by motion artifact. Ascites or adenopathy. Mild diffuse atherosclerotic p laque within the abdominal aorta. MR/MR abdomen wo con [id number] IMPRESSION: 1. Study is limited to evaluate for solid renal masses without IV contrast. 2. Bilateral fluid containing masses within each kidney. These are likely cyst s as a follow fluid signal on all sequences. The indeterminate nodule in the lo wer pole LEFT kidney that was previously described also follows fluid signal on all sequences consistent with a cyst. 3. No hydronephrosis. 4. Prior cholecystectomy.
== END 2021-12-05 14:41 | disposition home or self-care (01) ==
LOC: RAD 14:43
PROVIDERS: PCP Nurse Practitioner; Visit Provider Nurse Practitioner
DX: N28.89 Other specified disorders of kidney and ureter (principal); Z90.49 Acquired absence of other specified parts of digestive tract
CPT/HCPCS: 74181; 82565

== ENCOUNTER 2021-12-12 14:02 | Outpatient (CLI) | payer MEDICARE, MEDICAID, SELFPAY ==
[2021-12-12] MEDS: cyanocobalamin 1,000 mcg/mL SDV 1000 MCG SUBCUT (14:22)
== END 2021-12-12 14:03 | disposition home or self-care (01) ==
LOC: ONCMED 14:03
PROVIDERS: PCP Nurse Practitioner; Visit Provider Internal Medicine Hematology & Oncology
DX: D64.9 Anemia, unspecified (principal); E53.8 Deficiency of other specified B group vitamins
CPT/HCPCS: 96372; J3420

== ENCOUNTER → 2021-12-27 13:34 | Outpatient (BNVA) | payer MEDICARE, MEDICAID, SELFPAY | PROVIDERS: PCP Nurse Practitioner; Visit Provider Nurse Practitioner | DX: E11.22 Type 2 diabetes mellitus with diabetic chronic kidney disease (principal); N18.2 Chronic kidney disease, stage 2 (mild); E03.8 Other specified hypothyroidism; E11.9 Type 2 diabetes mellitus without complications; J44.9 Chronic obstructive pulmonary disease, unspecified; R63.4 Abnormal weight loss; K21.9 Gastro-esophageal reflux disease without esophagitis | CPT/HCPCS: 80053; 80061; 83036; 84443; 85025 ==

== ENCOUNTER 2022-01-11 13:56 | Oncology outpatient (recurring) (ONCR) | payer MEDICARE, MEDICAID, SELFPAY ==
[2022-01-11] MEDS: cyanocobalamin 1,000 mcg/mL SDV 1000 MCG IM (15:10)
[2022-01-11 15:22] VITALS: BP 186/66; PULSE 66; RESP 18; TEMP 36.6; O2SAT 97
== END 2022-01-31 23:59 | disposition home or self-care (01) ==
LOC: ONCMED 14:00
PROVIDERS: PCP Nurse Practitioner; Visit Provider Internal Medicine Hematology & Oncology
DX: D51.9 Vitamin B12 deficiency anemia, unspecified (principal); Z79.899 Other long term (current) drug therapy
CPT/HCPCS: 96372; J3420

== ENCOUNTER 2022-01-18 14:11 | Outpatient (CLI) | payer MEDICARE, MEDICAID, SELFPAY ==
--- NOTE | 2022-01-18 14:30 | CT_ITS ---
WS: [id number] CT CHEST WITHOUT INTRAVENOUS CONTRAST HISTORY: E11.9 - Type 2 diabetes mellitus without complications TECHNIQUE: Contiguous 5 mm axial imaging performed on the thorax. Coronal and sagittal reformats are submitted. All CT scans at [facility] use at least one of these dose optimization techniques: automated exposure control; mA and/or kV adjustment per patient size (includes targeted exams where dose is matched to clinical indication); or iterative reconstruction. CONTRAST: None DLP: 820.45 mGy.cm COMPARISON: 03/31/2021 Lungs and central airway: Pulmonary hyperexpansion from emphysema. Bilateral upper lobe pulmonary nod ules unchanged since 03/31/2021. No mass. Pleura: Normal. No pleural effusion. Heart and pericardium: Markedly enlarged heart. No pericardial effusion. Mediastinum and mark: Mediastinal and hilar lymph nodes. These lymph nodes are relatively stable. No enlargement or increase in number. Vessels: Extensive atherosclerosis in the thoracic aorta and proximal great vessels. Mild pulmonary a rtery enlargement. Extensive calcification in the [place] coronary arteries. Prior CABG. Chest wall and lower neck: Prior CABG. Upper abdomen: Mild renal atrophy and cortical thinning. Lobulated low-attenuation mass incompletely visualized from the upper pole RIGHT kidney. A cyst has been described in this location on the prior study. Extensive atherosclerosis in the suprarenal aorta. There is a large amount of plaque extending into the SMA and celiac axis and renal arteries placing the patient at risk for ischemia. Prior chol ecystectomy. Scattered low-attenuation nodules in the liver are probably cysts. The largest in the LE FT lobe measures 1.7 cm. Moderate size hiatal hernia. Osseous structures: Bilateral humeral head prostheses. CT/CT chest wo con [id number] IMPRESSION: 1. Chronic emphysema with stable bilateral upper lobe nodule since 03/31/2021. Consider [address] follow-up. 2. Prior CABG with heavy [place] coronary artery calcification. 3. Extensive atherosclerosis thoracic and suprarenal aorta. Large amount calci fication in the mesenteric arteries placement patient at increased risk for isc hemia. 4. Cardiomegaly. The heart does appear to have increased in size since 03/31/20 21. 5. Stable mediastinal and hilar lymph nodes.
== END 2022-01-18 14:12 | disposition home or self-care (01) ==
LOC: RAD 14:13
PROVIDERS: PCP Nurse Practitioner; Visit Provider Nurse Practitioner
DX: E11.9 Type 2 diabetes mellitus without complications (principal); J44.9 Chronic obstructive pulmonary disease, unspecified; R63.4 Abnormal weight loss
CPT/HCPCS: 71250

== ENCOUNTER → 2022-01-24 09:30 | Outpatient (BNVA) | payer MEDICARE, MEDICAID, SELFPAY | PROVIDERS: PCP Nurse Practitioner; Visit Provider Nurse Practitioner | DX: N18.9 Chronic kidney disease, unspecified (principal); I10 Essential (primary) hypertension | CPT/HCPCS: 80053; 81000; 85025 ==

== ENCOUNTER 2022-02-13 12:34 | Oncology outpatient (recurring) (ONCR) | payer MEDICARE, MEDICAID, SELFPAY | END 2022-03-02 23:59 | disposition home or self-care (01) | PROVIDERS: PCP Nurse Practitioner; Visit Provider Internal Medicine Hematology & Oncology | DX: N18.9 Chronic kidney disease, unspecified (principal); D63.1 Anemia in chronic kidney disease; I73.9 Peripheral vascular disease, unspecified | CPT/HCPCS: 82728; 83540; 83550; 85025; 99214 ==

== ENCOUNTER 2022-03-13 10:40 | Oncology outpatient (recurring) (ONCR) | payer MEDICARE, MEDICAID, SELFPAY ==
[2022-03-13 11:13] LABS: Basophils % 0.2 %; Eosinophils # 0.3 10^3/uL (0.0-0.8); Eosinophils % 5.3 %; Hematocrit 30.5 % (42.0-52.0); Hemoglobin 9.8 g/dL (11.7-16.6); Lymphocytes # 1.2 10^3/uL (0.8-4.8); Lymphocytes % 21.3 %; Mean Corpuscular HGB Conc 32.1 g/dL (30.0-36.0); Mean Corpuscular Hemoglobin 31.4 pg (28.0-34.0); Mean Corpuscular Volume 97.8 fl (80-94); Mean Platelet Volume 11.6 fL (7.4-10.4); Monocytes # 0.6 10^3/uL (0.2-0.9); Monocytes % 10.5 %; Neutrophils # 3.51 10^3/uL (1.8-7.7); Neutrophils % 62.3 %; Nucleated Red Blood Cells % 0 %; Platelet Count 176 10^3/cmm (130-400); Red Blood Count 3.12 10^6/uL (4.1-5.3); Red Cell Distribution Width 13.9 % (12.1-15.1); Reticulocyte % 1.7 % (0.5-2.0); White Blood Count 5.6 10^3/uL (4.0-10.0)
[2022-03-13 11:36] LABS: Ferritin 285 ng/mL (30-400); Iron 49 ug/dL (59-158); Percent Saturation 23.4 % (20-50); Total Iron Binding Capacity 209 mcg/dl; Unsaturated Iron Binding 160 ug/dL (112-347)
[2022-03-13 11:52] LABS: Vitamin B12 596 pg/mL (232-1245)
== END 2022-04-02 23:59 | disposition home or self-care (01) ==
PROVIDERS: PCP Nurse Practitioner; Visit Provider Internal Medicine Hematology & Oncology
DX: D64.9 Anemia, unspecified (principal); E53.9 Vitamin B deficiency, unspecified; Z79.899 Other long term (current) drug therapy
CPT/HCPCS: 36415; 82607; 82728; 83540; 83550; 85025; 85045; 99214

== ENCOUNTER → 2022-03-21 14:24 | Outpatient (BNVA) | payer MEDICARE, MEDICAID, SELFPAY | PROVIDERS: PCP Nurse Practitioner; Visit Provider Nurse Practitioner | DX: E53.8 Deficiency of other specified B group vitamins (principal); E11.9 Type 2 diabetes mellitus without complications; E55.9 Vitamin D deficiency, unspecified; D64.9 Anemia, unspecified; N18.9 Chronic kidney disease, unspecified | CPT/HCPCS: 80053; 81000; 82306; 82607; 82728; 83036; 83550; 85025 ==

== ENCOUNTER 2022-04-13 14:45 | Oncology outpatient (recurring) (ONCR) | payer MEDICARE, MEDICAID, SELFPAY ==
[2022-04-13 15:23] LABS: Eosinophils # 0.2 10^3/uL (0.0-0.8); Eosinophils % 4.1 %; Hematocrit 34.2 % (42.0-52.0); Hemoglobin 10.8 g/dL (11.7-16.6); Lymphocytes # 1.1 10^3/uL (0.8-4.8); Lymphocytes % 24.2 %; Mean Corpuscular HGB Conc 31.6 g/dL (30.0-36.0); Mean Corpuscular Hemoglobin 31.2 pg (28.0-34.0); Mean Corpuscular Volume 98.8 fl (80-94); Mean Platelet Volume 12.3 fL (7.4-10.4); Monocytes # 0.7 10^3/uL (0.2-0.9); Monocytes % 15.4 %; Neutrophils # 2.59 10^3/uL (1.8-7.7); Neutrophils % 56.1 %; Nucleated Red Blood Cells % 0 %; Platelet Count 155 10^3/cmm (130-400); Red Blood Count 3.46 10^6/uL (4.1-5.3); Red Cell Distribution Width 13.8 % (12.1-15.1); White Blood Count 4.6 10^3/uL (4.0-10.0)
[2022-04-13 15:49] LABS: Alanine Aminotransferase 12 U/L (0-41); Alkaline Phosphatase 52 IU/L (40-130); Anion Gap 14.5 (5-19); Aspartate Amino Transferase 22 U/L (0-40); Blood Urea Nitrogen 37 mg/dL (8-23); Calcium 9.5 mg/dL (8.5-10.5); Carbon Dioxide 25 mmol/L (22-29); Chloride 106 mmol/L (98-107); Ferritin 430 ng/mL (30-400); Glucose 106 mg/dL (65-115); Iron 38 ug/dL (59-158); Osmolality Calculated 301 mOsm/kg (285-295); Percent Saturation 14.4 % (20-50); Potassium 4.5 mmol/L (3.5-5.1); Sodium 141 mmol/L (136-145); Total Bilirubin 0.2 mg/dL (0.15-1.2); Total Iron Binding Capacity 263 mcg/dl; Unsaturated Iron Binding 225 ug/dL (112-347)
[2022-04-13 16:05] LABS: Vitamin B12 427 pg/mL (232-1245)
== END 2022-05-03 23:59 | disposition home or self-care (01) ==
PROVIDERS: Nurse Practitioner Family; PCP Nurse Practitioner; Visit Provider Internal Medicine Hematology & Oncology
DX: D64.9 Anemia, unspecified (principal); E53.9 Vitamin B deficiency, unspecified
CPT/HCPCS: 36415; 80053; 82607; 82728; 83540; 83550; 85025

== ENCOUNTER 2022-05-17 09:14 | Oncology outpatient (recurring) (ONCR) | payer MEDICARE, MEDICAID, SELFPAY ==
[2022-05-17 09:35] LABS: Basophils % 0.3 %; Eosinophils # 0.3 10^3/uL (0.0-0.8); Eosinophils % 4.9 %; Hematocrit 31.4 % (42.0-52.0); Hemoglobin 9.9 g/dL (11.7-16.6); Lymphocytes # 1.1 10^3/uL (0.8-4.8); Lymphocytes % 17.3 %; Mean Corpuscular HGB Conc 31.5 g/dL (30.0-36.0); Mean Corpuscular Hemoglobin 30.7 pg (28.0-34.0); Mean Corpuscular Volume 97.2 fl (80-94); Mean Platelet Volume 12.1 fL (7.4-10.4); Monocytes # 0.7 10^3/uL (0.2-0.9); Monocytes % 11.1 %; Neutrophils # 4.36 10^3/uL (1.8-7.7); Neutrophils % 66.2 %; Nucleated Red Blood Cells % 0 %; Platelet Count 199 10^3/cmm (130-400); Red Blood Count 3.23 10^6/uL (4.1-5.3); Red Cell Distribution Width 14.7 % (12.1-15.1); White Blood Count 6.6 10^3/uL (4.0-10.0)
[2022-05-17 10:02] LABS: Alanine Aminotransferase 10 U/L (0-41); Albumin Level 3.7 g/dL (3.5-5.2); Alkaline Phosphatase 54 U/L (40-130); Anion Gap 14.1 (5-19); Aspartate Amino Transferase 17 U/L (0-40); Blood Urea Nitrogen 47 mg/dL (8-23); Calcium 9.1 mg/dL (8.5-10.5); Carbon Dioxide 24 mmol/L (22-29); Chloride 105 mmol/L (98-107); Ferritin 361 ng/mL (30-400); Globulin 3.2 g/dL (1.3-4.6); Glucose 109 mg/dL (65-115); Iron 64 ug/dL (59-158); Osmolality Calculated 301 mOsm/kg (285-295); Percent Saturation 20.7 % (20-50); Potassium 4.1 mmol/L (3.5-5.1); Sodium 139 mmol/L (136-145); Total Bilirubin 0.2 mg/dL (0.15-1.2); Total Iron Binding Capacity 308 mcg/dl; Total Protein 6.9 g/dL (6.6-8.7); Unsaturated Iron Binding 244 ug/dL (112-347)
[2022-05-17 10:18] LABS: Vitamin B12 555 pg/mL (232-1245)
== END 2022-06-02 23:59 | disposition home or self-care (01) ==
PROVIDERS: Nurse Practitioner Family; PCP Nurse Practitioner; Visit Provider Internal Medicine Hematology & Oncology
DX: D64.9 Anemia, unspecified (principal); Z87.891 Personal history of nicotine dependence; N18.9 Chronic kidney disease, unspecified; E53.8 Deficiency of other specified B group vitamins
CPT/HCPCS: 36415; 80053; 82607; 82728; 83540; 83550; 85025; 99214

== ENCOUNTER → 2022-05-25 13:30 | Outpatient (BNVA) | payer MEDICARE, MEDICAID, SELFPAY | PROVIDERS: PCP Nurse Practitioner; Visit Provider Urology | DX: N40.1 Benign prostatic hyperplasia with lower urinary tract symptoms (principal); N20.9 Urinary calculus, unspecified; N52.9 Male erectile dysfunction, unspecified | CPT/HCPCS: 51798; 99213 ==

== ENCOUNTER → 2022-05-29 09:27 | Outpatient (BNVA) | payer MEDICARE, MEDICAID, SELFPAY | PROVIDERS: PCP Nurse Practitioner; Visit Provider Urology | DX: N40.1 Benign prostatic hyperplasia with lower urinary tract symptoms (principal); N20.9 Urinary calculus, unspecified; N52.9 Male erectile dysfunction, unspecified | CPT/HCPCS: 81003 ==

== ENCOUNTER → 2022-06-01 09:05 | Outpatient (BNVA) | payer MEDICARE, MEDICAID, SELFPAY | PROVIDERS: PCP Nurse Practitioner; Visit Provider Nurse Practitioner | DX: D64.9 Anemia, unspecified (principal); Z87.19 Personal history of other diseases of the digestive system; N18.9 Chronic kidney disease, unspecified; I10 Essential (primary) hypertension; E55.9 Vitamin D deficiency, unspecified; E11.9 Type 2 diabetes mellitus without complications | CPT/HCPCS: 80053; 82306; 82542; 84100 ==

== ENCOUNTER → 2022-06-12 13:21 | Outpatient (BNVA) | payer MEDICARE, MEDICAID, SELFPAY | PROVIDERS: PCP Nurse Practitioner; Visit Provider Surgery | DX: E61.1 Iron deficiency (principal) | CPT/HCPCS: 99213 ==

== ENCOUNTER 2022-06-16 08:55 | Oncology outpatient (recurring) (ONCR) | payer MEDICARE, MEDICAID, SELFPAY ==
[2022-06-16 09:09] LABS: Basophils % 0.3 %; Eosinophils # 0.6 10^3/uL (0.0-0.8); Eosinophils % 8.5 %; Hematocrit 30.4 % (42.0-52.0); Hemoglobin 9.8 g/dL (11.7-16.6); Lymphocytes # 1.2 10^3/uL (0.8-4.8); Lymphocytes % 17.5 %; Mean Corpuscular HGB Conc 32.2 g/dL (30.0-36.0); Mean Corpuscular Hemoglobin 31.2 pg (28.0-34.0); Mean Corpuscular Volume 96.8 fl (80-94); Mean Platelet Volume 10.8 fL (7.4-10.4); Monocytes # 0.7 10^3/uL (0.2-0.9); Monocytes % 10.8 %; Neutrophils # 4.21 10^3/uL (1.8-7.7); Neutrophils % 62.6 %; Nucleated Red Blood Cells % 0 %; Platelet Count 241 10^3/cmm (130-400); Red Blood Count 3.14 10^6/uL (4.1-5.3); Red Cell Distribution Width 14.4 % (12.1-15.1); White Blood Count 6.7 10^3/uL (4.0-10.0)
[2022-06-16 09:53] LABS: Vitamin B12 875 pg/mL (232-1245)
== END 2022-07-03 23:59 | disposition home or self-care (01) ==
PROVIDERS: PCP Nurse Practitioner; Visit Provider Internal Medicine Hematology & Oncology
DX: D64.9 Anemia, unspecified (principal); Z87.891 Personal history of nicotine dependence; E53.8 Deficiency of other specified B group vitamins; R11.10 Vomiting, unspecified
CPT/HCPCS: 82607; 85025; 99214

== ENCOUNTER → 2022-07-20 14:30 | Outpatient (BNVA) | payer MEDICARE, MEDICAID, SELFPAY | PROVIDERS: PCP Nurse Practitioner; Visit Provider Nurse Practitioner | DX: I10 Essential (primary) hypertension (principal); N18.9 Chronic kidney disease, unspecified; E55.9 Vitamin D deficiency, unspecified; E78.2 Mixed hyperlipidemia; K21.9 Gastro-esophageal reflux disease without esophagitis; E03.8 Other specified hypothyroidism; E11.22 Type 2 diabetes mellitus with diabetic chronic kidney disease; N18.2 Chronic kidney disease, stage 2 (mild) | CPT/HCPCS: 81000 ==

== ENCOUNTER 2022-07-21 08:18 | Oncology outpatient (recurring) (ONCR) | payer MEDICARE, MEDICAID, SELFPAY ==
[2022-07-21 09:07] LABS: Alanine Aminotransferase 12 U/L (0-41); Albumin Level 3.4 g/dL (3.5-5.2); Alkaline Phosphatase 69 U/L (40-130); Anion Gap 13.8 (5-19); Aspartate Amino Transferase 16 U/L (0-40); Blood Urea Nitrogen 31 mg/dL (8-23); Calcium 9.2 mg/dL (8.5-10.5); Carbon Dioxide 23 mmol/L (22-29); Chloride 102 mmol/L (98-107); Chol HDL Ratio 2.33 mg/dL (1.0-5.00); Cholesterol 154 mg/dL (0-200); Globulin 3.1 g/dL (1.3-4.6); Glucose 104 mg/dL (65-115); HDL Cholesterol 66 mg/dL (60-100); LDL Cholesterol Calculated 77 mg/dL (50-129); Osmolality Calculated 287 mOsm/kg (285-295); Potassium 3.8 mmol/L (3.5-5.1); Sodium 135 mmol/L (136-145); Total Bilirubin 0.3 mg/dL (0.15-1.2); Total Protein 6.5 g/dL (6.6-8.7); Triglycerides 55 mg/dL (0-150); VLDL Cholestrol Calculation 11 mg/dL (0-30)
[2022-07-21 09:17] LABS: Estmated Average Glucose 80; Hemoglobin A1C 4.4 % (4.0-6.0)
[2022-07-21 09:41] LABS: Basophils % 0.3 %; Eosinophils # 0.3 10^3/uL (0.0-0.8); Hematocrit 30.8 % (42.0-52.0); Hemoglobin 9.8 g/dL (11.7-16.6); Lymphocytes # 1.1 10^3/uL (0.8-4.8); Lymphocytes % 18.8 %; Mean Corpuscular HGB Conc 31.8 g/dL (30.0-36.0); Mean Corpuscular Hemoglobin 31.7 pg (28.0-34.0); Mean Corpuscular Volume 99.7 fl (80-94); Mean Platelet Volume 11.3 fL (7.4-10.4); Monocytes # 0.5 10^3/uL (0.2-0.9); Monocytes % 8.2 %; Neutrophils # 3.94 10^3/uL (1.8-7.7); Neutrophils % 67.5 %; Nucleated Red Blood Cells % 0 %; Platelet Count 242 10^3/cmm (130-400); Red Blood Count 3.09 10^6/uL (4.1-5.3); Red Cell Distribution Width 14.1 % (12.1-15.1); White Blood Count 5.8 10^3/uL (4.0-10.0)
[2022-07-21 09:50] LABS: Ferritin 278 ng/mL (30-400); Iron 52 ug/dL (59-158); Percent Saturation 22.4 % (20-50); Total Iron Binding Capacity 232 mcg/dl; Unsaturated Iron Binding 180 ug/dL (112-347)
[2022-07-21 10:06] LABS: Vitamin B12 415 pg/mL (232-1245)
== END 2022-08-02 23:59 | disposition home or self-care (01) ==
PROVIDERS: PCP Nurse Practitioner; Visit Provider Internal Medicine Hematology & Oncology
DX: D51.9 Vitamin B12 deficiency anemia, unspecified (principal); D50.9 Iron deficiency anemia, unspecified; Z79.899 Other long term (current) drug therapy; Z87.891 Personal history of nicotine dependence
CPT/HCPCS: 36415; 80053; 80061; 82607; 82728; 83036; 83540; 83550; 85025; 99214

== ENCOUNTER 2022-08-07 07:45 | Day surgery (SDC) | payer MEDICARE, MEDICAID, SELFPAY ==
[2022-08-04 08:34] VITALS: BMI 25.8
[2022-08-07 08:05] VITALS: BP 171/61; PULSE 79; RESP 16; TEMP 36.4; O2SAT 98
[2022-08-07] MEDS: sodium chloride 0.9% 1,000 ML 30 ML IV (08:14)
[2022-08-07 08:19] LABS: Glucose Point of Care 92 mg/dL (70-110)
--- NOTE | 2022-08-07 09:17 | P.HP_ITS ---
Same Day Surgery H&P Indication for Procedure/HPI DATE OF PROCEDURE: August 07, 2022 CHIEF COMPLAINT/INDICATIONFOR SURGICAL PROCEDURE: Anemia PREOP DIAGNOSIS: Iron deficiency anemia PLANNED PROCEDURE: Operation Date: 08/07/22 09:45 Proposed Procedures p Colonoscopy 01596 egd 38043,D50.9(Not Applicable) - Aly Haley MD s EGD(Not Applicable) - Aly Haley MD 06/12/2022 This is a pleasant 81 years old gentleman referred to my practice with history of iron deficiency anemia.? 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 Currently patient continues to have anemia and was referred to me for consideration of repeat endoscopies.? No obvious bleeding per orifices 08/07/2022 Patient comes today for diagnostic EGD and colonoscopy ROS All systems have been reviewed negative except as for the above or per problem list. Medications/Allergies* Home Medications Medication Instructions Recorded Confirmed Type dutasteride 0.5 mg capsule 5 mg PO DAILY 08/04/22 08/07/22 History melatonin 5 mg tablet 5 mg PO BEDTIME 08/04/22 08/07/22 History Allergies/Adverse Reactions Allergy/AdvReac Type Severity Reaction Status Date / Time fish oil Allergy rash Verified 08/07/22 09:18 Current Medications: Generic Name Dose Route Start Last Admin Trade Name Freq PRN Reason Stop Dose Admin Sodium Chloride 1,000 mls @ 30 mls/hr 08/07/22 08:00 08/07/22 08:14 Sodium Chloride 0.9% IV 30 mls/hr .Q24H KELSEY Administration Pertinent History/Comorbid Conditions* Medical History (Updated 06/04/22 @ 21:51 by KLAUS Fortune-Bravo) Adult onset hypothyroidism Anxiety and depression B12 deficiency BPH NOS w ur obs/LUTS Chronic progressive LUTS secondary to BPH/obstruction with good response to dual medical therapy. CAD (coronary artery disease) Carotid stenosis Chronic back pain CKD (chronic kidney disease) Controlled diabetes mellitus Cyst, dermoid, trunk Erectile dysfunction Multifactorial. 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 Declined Trimix Gastric reflux Hyperlipidemia, unspecified Iron deficiency OA (osteoarthritis) of hip PVD (peripheral vascular disease) Urolithiasis 6 mm RIGHT distal ureteral stone spontaneously passed 2016. Vitamin D deficiency Surgical History (Updated 04/19/21 @ 09:23 by Aaron Harrell MD) History of back surgery History of knee replacement right 2014 History of knee surgery right 2007 left 2003 History of rhinoplasty 1973 History of shoulder surgery Left 2016 S/p bilateral carotid endarterectomy S/P CABG (coronary artery bypass graft) 2002 Status post colonoscopy Status post laparoscopic cholecystectomy 10/04/2019 Family History (Updated 03/30/21 @ 13:05 by Esther So LPN) Father, at age 75 Mother, at age 81 CAD (coronary artery disease) Father Heart disease Hypertension Stroke Mother Social History Smoking and tobacco status: former smoker (smoked x 40+ years) Second hand smoke exposure: No Smoking risk assessment/counseling performed?: No Alcohol intake: never Desire information about alcohol rehabilitation?: No Counseling given: No Desire information about substance/drug rehabilitation?: No Counseling given: No Adopted: No Caregiver/support person: No Lives independently: Yes Household members: none Housing: House Marital status: / service: Yes status: Retired branch: [employer] Current occupational status: retired Current occupational exposures/hazards: No Pets and animals: No History of recent travel: No Current gender identity: Male Special tommie needs: No Pertinent Exam Findings alert, oriented x 3, regular rate & rhythm and procedure specific exam findings (Abdominal exam nontender nondistended soft) Recommendations Surgery/Procedure today (Diagnostic EGD and colonoscopy with possible biopsy) Coding Level of Care Code Acute Cathead Operator for Sami Cristina
--- NOTE | 2022-08-07 09:33 | ANES.PREANE2 ---
Pre-Anesthetic Assessment Height/Weight: Height 1.78 m Weight 81.647 kg Temp Pulse Resp BP Pulse Ox O2 Del Method 97.5 F L 79 16 171/61 98 08/07/22 08:05 08/07/22 08:05 08/07/22 08:05 08/07/22 08:05 08/07/22 08:05 08/07/22 08:05 Preop Diagnosis: Iron deficiency anemia Operation Date: 08/07/22 09:45 Proposed Procedures p Colonoscopy 26202 egd 70460,D50.9(Not Applicable) - Aly Haley MD s EGD(Not Applicable) - Aly Haley MD Was Beta Cash taken within 24 hours: Yes Last intake: Intake Last Liquid Date 08/06/22 Last Liquid Time 22:00 Last Solid Date 08/05/22 Last Solid Time 00:00 Social No alcohol and No tobacco Exam alert, oriented x 3, clear to auscultation bilaterally and regular rate & rhythm Airway Submandibular: within normal limits Cervical ROM: within normal limits Mallampati: Class II Dentition: false History/ROS No significant history except as noted and No significant complaints Pulmonary None reported CV/HEM Coronary Artery Disease, Hypertension, Myocardial Infarction and Peripheral Vascular Disease Chronic Renal Insufficiency Hepatic None reported GI AV malformation Metabolic Diabetes Mellitus and Thyroid Disease Musc/skel Lower Back Pain and Osteoarthritis/DJD Neuropsych Cerebrovascular Accident and Transient Ischemic Attack Anesthetic Plan ASA status: 4 Anesthesia: Anesthesia Evaluation and MAC Risk of > 500 ml blood loss (7ml/kg in children): No Medications/Allergies Home Medications Medication Instructions Recorded Confirmed Last Taken Type aspirin 81 mg tablet,delayed 81 mg PO QDAY #30 tabs 12/15/19 08/04/22 08/01/22 Rx release oxygen concentrator #1 ea 02/02/22 07/21/22 Unknown Rx rosuvastatin 20 mg tablet (Crestor) 20 mg PO QDAY #90 tabs 04/10/22 08/07/22 08/05/22 Rx tamsulosin 0.4 mg capsule 0.4 mg PO BID #180 caps 04/10/22 08/07/22 08/05/22 Rx sucralfate 1 gram tablet (Carafate) 1 g PO .4 times day #120 tabs 06/01/22 08/07/22 08/05/22 Rx amlodipine 10 mg tablet (Norvasc) 10 mg PO DAILY #90 tabs 07/20/22 08/07/22 08/07/22 Rx dapagliflozin 10 mg tablet 10 mg PO QAM #90 tabs 07/20/22 08/07/22 08/05/22 Rx (Farxiga) duloxetine 60 mg capsule,delayed 60 mg PO BID #180 caps 07/20/22 08/07/22 08/05/22 Rx release (Cymbalta) ergocalciferol (vitamin D2) 1,250 50,000 unit PO .COMPLEX #6 caps 07/20/22 08/07/22 08/05/22 Rx mcg (50,000 unit) capsule famotidine 40 mg tablet (Pepcid) 40 mg PO DAILY #90 tabs 07/20/22 08/07/22 08/05/22 Rx fenofibrate nanocrystallized 145 145 mg PO DAILY #90 tabs 07/20/22 08/07/22 08/05/22 Rx mg tablet hydralazine 25 mg tablet 25 mg PO Q12H #180 tabs 07/20/22 08/07/22 08/07/22 Rx levothyroxine 75 mcg tablet 75 mcg PO DAILY #90 tabs 07/20/22 08/07/22 08/05/22 Rx lisinopril 40 mg tablet 40 mg PO QDAY #90 tabs 07/20/22 08/07/22 08/05/22 Rx dutasteride 0.5 mg capsule 5 mg PO DAILY 08/04/22 08/07/22 08/05/22 History melatonin 5 mg tablet 5 mg PO BEDTIME 08/04/22 08/07/22 08/05/22 History Allergies Allergy/AdvReac Type Severity Reaction Status Date / Time fish oil Allergy rash Verified 08/07/22 09:18 Current Medications Generic Name Dose Route Start Last Admin Trade Name Freq PRN Reason Stop Dose Admin Sodium Chloride 1,000 mls @ 30 mls/hr 08/07/22 08:00 08/07/22 08:14 Sodium Chloride 0.9% IV 30 mls/hr .Q24H KELSEY Administration PFSH Anesthesia Medical History Adult onset hypothyroidism Anxiety and depression B12 deficiency BPH NOS w ur obs/LUTS Chronic progressive LUTS secondary to BPH/obstruction with good response to dual medical therapy. CAD (coronary artery disease) Carotid stenosis Chronic back pain CKD (chronic kidney disease) Controlled diabetes mellitus Cyst, dermoid, trunk Erectile dysfunction Multifactorial. 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 Declined Trimix Gastric reflux Hyperlipidemia, unspecified Iron deficiency OA (osteoarthritis) of hip PVD (peripheral vascular disease) Urolithiasis 6 mm RIGHT distal ureteral stone spontaneously passed 2016. Vitamin D deficiency Surgical History History of back surgery History of knee replacement right 2014 History of knee surgery right 2007 left 2003 History of rhinoplasty 1973 History of shoulder surgery Left 2016 S/p bilateral carotid endarterectomy S/P CABG (coronary artery bypass graft) 2003 Status post colonoscopy Status post laparoscopic cholecystectomy 10/04/2019 Family History Father , at age 75 CAD (coronary artery disease) Mother , at age 81 Stroke Other Heart disease Hypertension Social History Smoking and tobacco status: former smoker (smoked x 40+ years) Second hand smoke exposure: No Smoking risk assessment/counseling performed?: No Alcohol intake: never Desire information about alcohol rehabilitation?: No Counseling given: No Desire information about substance/drug rehabilitation?: No Counseling given: No Adopted: No Caregiver/support person: No Lives independently: Yes Household members: none Housing: House Marital status: / service: Yes status: Retired branch: [employer] Current occupational status: retired Current occupational exposures/hazards: No Pets and animals: No History of recent travel: No Current gender identity: Male Special tommie needs: No Data Anesthesia Cardiac Studies: No Data to Display
[2022-08-07 10:28] VITALS: BP 120/69; PULSE 65; RESP 20; TEMP 36.8; O2SAT 97
[2022-08-07 10:42] VITALS: BP 135/52; PULSE 76; RESP 18; O2SAT 96
--- NOTE | 2022-08-07 15:32 | ANE.PACU2 ---
Inpatient post-anesthesia follow up: Airway intact: Yes Vital signs: Temperature 98.2 F Pulse Rate 76 Respiratory Rate 18 Blood Pressure 135/52 Pulse Oximetry 96 Oxygen Delivery Me thod Room Air Oxygen Flow Rate 3 Fraction of Inspir ed Oxygen Hydration adequate: Yes Nausea and vomiting: No Pain level: 1 Mental status: Baseline
== END 2022-08-07 11:05 | disposition home or self-care (01) ==
PROVIDERS: PCP Nurse Practitioner; Visit Provider Surgery
PROC: 0DJD8ZZ Inspection of Lower Intestinal Tract, Via Natural or Artificial Opening Endoscopic (ICD-10-PCS; CPT 45378; principal; 2022-08-07 09:45)
PROC: 0DJ08ZZ Inspection of Upper Intestinal Tract, Via Natural or Artificial Opening Endoscopic (ICD-10-PCS; CPT 43235; 2022-08-07 09:45)
DX: D50.9 Iron deficiency anemia, unspecified (principal); K57.30 Diverticulosis of large intestine without perforation or abscess without bleeding; K29.50 Unspecified chronic gastritis without bleeding; B96.81 Helicobacter pylori [H. pylori] as the cause of diseases classified elsewhere; E03.9 Hypothyroidism, unspecified; N40.1 Benign prostatic hyperplasia with lower urinary tract symptoms; N13.8 Other obstructive and reflux uropathy; I25.10 Atherosclerotic heart disease of native coronary artery without angina pectoris; K21.9 Gastro-esophageal reflux disease without esophagitis; E78.5 Hyperlipidemia, unspecified; E11.22 Type 2 diabetes mellitus with diabetic chronic kidney disease; N18.9 Chronic kidney disease, unspecified; Z87.891 Personal history of nicotine dependence; K21.00 Gastro-esophageal reflux disease with esophagitis, without bleeding; K44.9 Diaphragmatic hernia without obstruction or gangrene
CPT/HCPCS: 36416; 43239; 45378; 82962; 88305; J2704; J7030

== ENCOUNTER → 2022-08-16 10:43 | Outpatient (BNVA) | payer MEDICARE, MEDICAID, SELFPAY | PROVIDERS: PCP Nurse Practitioner; Visit Provider Surgery | DX: K57.31 Diverticulosis of large intestine without perforation or abscess with bleeding (principal); K21.9 Gastro-esophageal reflux disease without esophagitis; A04.8 Other specified bacterial intestinal infections | CPT/HCPCS: 99212 ==

== ENCOUNTER → 2022-08-18 09:15 | Outpatient (BNVA) | payer MEDICARE, MEDICAID, SELFPAY | PROVIDERS: PCP Nurse Practitioner; Visit Provider Internal Medicine Cardiovascular Disease | DX: I25.10 Atherosclerotic heart disease of native coronary artery without angina pectoris (principal); I12.9 Hypertensive chronic kidney disease with stage 1 through stage 4 chronic kidney disease, or unspecified chronic kidney disease; E11.22 Type 2 diabetes mellitus with diabetic chronic kidney disease; N18.2 Chronic kidney disease, stage 2 (mild); Z87.891 Personal history of nicotine dependence; Z79.84 Long term (current) use of oral hypoglycemic drugs; E78.2 Mixed hyperlipidemia; I65.29 Occlusion and stenosis of unspecified carotid artery; Z95.1 Presence of aortocoronary bypass graft | CPT/HCPCS: 99214 ==

== ENCOUNTER 2022-08-26 01:21 | Inpatient (IN) | payer MEDICARE, MEDICAID, SELFPAY ==
[2022-08-26] VITALS (19 sets, daily range): BP systolic 147–172; BP diastolic 52–72; PULSE 61–74; RESP 16–28; TEMP 36–36.7; O2SAT 91–95; BMI 25.8
--- NOTE | 2022-08-26 01:35 | ECG_ITS ---
[facility] Test Date: 2022-08-26 Pat Name: Abiel Andres Department: Room: 269 Gender: Male [employer]: : 1940 Requested By: Clarence Lambert Order Number: [id number] Juliana MD: Denisse Goldstein M.D. Measurements Intervals [place] Rate: 66 P: 5 NV: 154 QRS: 16 QRSD: 125 T: 106 QT: 409 QTc: 429 Interpretive Statements SINUS RHYTHM MODERATE INTRAVENTRICULAR CONDUCTION DELAY ST DEVIATION AND MODERATE T-WAVE ABNORMALITY, CONSIDER LATERAL ISCHEMIA Compared to ECG 02/23/2021 09:23:23 Intraventricular conduction delay now present T-wave abnormality now present Possible ischemia now present Left ventricular hypertrophy no longer present ST (T wave) deviation no longer present Electronically Signed On 08-26-2022 10:55:44 PEDIATRIC NEUROPSYCHOLOGIST by Denisse Goldstein M.D. [email or web address]
--- NOTE | 2022-08-26 01:35 | XRR_ITS ---
PROCEDURE INFORMATION: Exam: XR Chest Exam date and time: 08/26/2022 2:13 AM Age: 81 years old Clinical indication: Shortness of breath; Prior surgery; Surgery date: 6+ months; Surgery type: Cabg; Additional info: SOB TECHNIQUE: Imaging protocol: Radiologic exam of the chest. Views: 1 view. COMPARISON: CT chest con [id number] 01/18/2022 2:22 PM FINDINGS: Lungs: Hazy ground-glass airspace opacities in the lower lungs bilaterally. Diffusely increased interstitial lung markings bilaterally. Pleural spaces: Probable small volume pleural effusions. Negative for pneumothorax. Heart/Mediastinum: Previous CABG. Moderate severity cardiomegaly. Bones/joints: Bilateral shoulder reverse arthroplasty. Negative for thoracic fracture. XR/XR chest 1V portable [id number] IMPRESSION: Fluid overload changes in the chest consistent with CHF.
[2022-08-26 01:43] LABS: Basophils % 0.1 %; Eosinophils # 0.1 10^3/uL (0.0-0.8); Eosinophils % 1.6 %; Hematocrit 29.8 % (42.0-52.0); Hemoglobin 9.5 g/dL (11.7-16.6); Lymphocytes # 0.6 10^3/uL (0.8-4.8); Lymphocytes % 8.5 %; Mean Corpuscular HGB Conc 31.9 g/dL (30.0-36.0); Mean Corpuscular Hemoglobin 31.5 pg (28.0-34.0); Mean Corpuscular Volume 98.7 fl (80-94); Mean Platelet Volume 11.5 fL (7.4-10.4); Monocytes # 0.6 10^3/uL (0.2-0.9); Monocytes % 8.2 %; Neutrophils # 5.52 10^3/uL (1.8-7.7); Neutrophils % 81.2 %; Nucleated Red Blood Cells % 0 %; Platelet Count 187 10^3/cmm (130-400); Red Blood Count 3.02 10^6/uL (4.1-5.3); Red Cell Distribution Width 13.7 % (12.1-15.1); White Blood Count 6.8 10^3/uL (4.0-10.0)
[2022-08-26] MEDS: ipratropium-albuterol 3 mL Neb INHALATION ×3 (01:51→21:56)
[2022-08-26 02:00] LABS: Lactic Sepsis W/Reflex 1.1 mmol/L (0.5-2.2)
[2022-08-26 02:10] LABS: Alanine Aminotransferase 9 U/L (0-41); Albumin Level 3.4 g/dL (3.5-5.2); Alkaline Phosphatase 49 U/L (40-130); Anion Gap 15.4 (5-19); Aspartate Amino Transferase 15 U/L (0-40); Blood Urea Nitrogen 61 mg/dL (8-23); Calcium 8.7 mg/dL (8.5-10.5); Carbon Dioxide 17 mmol/L (22-29); Chloride 107 mmol/L (98-107); Globulin 2.9 g/dL (1.3-4.6); Glucose 119 mg/dL (65-115); NT Pro B Type Natriuretic Pept 10124 pg/mL (0-450); Osmolality Calculated 298 mOsm/kg (285-295); Potassium 4.4 mmol/L (3.5-5.1); Sodium 135 mmol/L (136-145); Total Bilirubin 0.3 mg/dL (0.15-1.2); Total Protein 6.3 g/dL (6.6-8.7)
[2022-08-26 02:13] LABS: ABG PCO2 31.3 mmHg (35-45); ABG PH Result 7.37 (7.35-7.45); Arterial Blood Gas Hematocrit 28.7 % (42-52); Base Excess ABG -6.3 mmol/L (-2.0-2.0); Blood Gas Allen Test Pos; Blood Gas Sample Site Radial, right; Blood Gas Sample Type Arterial; Carboxyhemoglobin 0.6 %THgb (0.4-20.1); HCO3 ABG 18.1 mmol/L (22-26); HGB O2 Sat 90.8 % (95-100); Methemoglobin 1.4 % (0.4-1.5); PO2 ABG 64.6 mmHg (80.0-100.0); Total Hemoglobin 9.4 g/dL (14-18)
--- NOTE | 2022-08-26 02:16 | ED_ITS ---
HPI - SOB/Dyspnea General: Chief Complaint: Shortness of Breath/Dyspnea Stated Complaint: SOB Time Seen by Provider: 08/26/22 01:24 Source: patient History of Present Illness: HPI Narrative: 81-year-old male with a history of diabetes and coronary disease as well as chronic kidney disease and anemia. He presents with worsening shortness of breath for the last couple of days. Wears oxygen at home, but had to turn his oxygen up. Has noticed swelling to his lower extremities. He is also had a cough with some sputum production that is yellow. He denies fever. MD elicited complaint: shortness of breath Pertinent past history: other Onset (ago): day(s) Timing: constant and progressively worsening Severity: moderate Exacerbating factors: lying flat and exertion Relieving factors: oxygen Known history of: other Associated symptoms: Reports chest congestion, cough and nausea; Deny abdominal pain, chest pain, fever(s), syncope or vomiting Treatment prior to arrival: oxygen Review of Systems Const: Denies: fever(s) Card: Denies: chest pain or syncope Resp: Reports: dyspnea, productive cough and chest congestion GI: Reports: nausea; Denies: abdominal pain or vomiting [facility] ED PFSH: Medical History Adult onset hypothyroidism Anxiety and depression B12 deficiency BPH NOS w ur obs/LUTS Chronic progressive LUTS secondary to BPH/obstruction with good response to dual medical therapy. CAD (coronary artery disease) Carotid stenosis Chronic back pain CKD (chronic kidney disease) Controlled diabetes mellitus Cyst, dermoid, trunk Erectile dysfunction Multifactorial. 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 Declined Trimix Gastric reflux Hyperlipidemia, unspecified Iron deficiency OA (osteoarthritis) of hip PVD (peripheral vascular disease) Urolithiasis 6 mm RIGHT distal ureteral stone spontaneously passed 2016. Vitamin D deficiency Surgical History History of back surgery History of knee replacement right 2014 History of knee surgery right 2006 left 2003 History of rhinoplasty 1973 History of shoulder surgery Left 2016 S/p bilateral carotid endarterectomy S/P CABG (coronary artery bypass graft) 2002 Status post colonoscopy Status post laparoscopic cholecystectomy 10/04/2019 Family History Father , at age 75 CAD (coronary artery disease) Mother , at age 81 Stroke Other Heart disease Hypertension Social History Smoking and tobacco status: former smoker Second hand smoke exposure: No Smoking risk assessment/counseling performed?: No Alcohol intake: never Desire information about alcohol rehabilitation?: No Counseling given: No Desire information about substance/drug rehabilitation?: No Counseling given: No Adopted: No Caregiver/support person: No Lives independently: Yes Household members: none Housing: House Marital status: / service: Yes status: Retired branch: [email or web address] Current occupational status: retired Current occupational exposures/hazards: No Pets and animals: No History of recent travel: No Current gender identity: Male Special tommie needs: No Physical Exam Const: GENERAL APPEARANCE: cooperative, ill appearing and frail appearing HENMT: COMMON NORMALS: normocephalic and atraumatic HEAD & SCALP: normocephalic and atraumatic Eye: COMMON NORMALS: Equal, round and reactive pupils present and EOMs intact bilaterally PUPIL: Yes Equal, round and reactive pupils present Neck/C-Spine: GENERAL: Yes trachea midline Chest: CHEST: Yes Symmetrical chest wall rise Resp: EFFORT & INSPECTION: Yes tachypneic and Yes labored AUSCULTATION: diminished lung sounds Cardio: COMMON NORMALS: regular rate and regular rhythm RATE: regular rate RHYTHM: regular rhythm GI: COMMON NORMALS: Normal to inspection, nondistended, normoactive bowel sounds present Extremity: GENERAL: Yes edema (2+) Neuro: FAM COMA SCALE: document GCS findings Hasty coma scale eye opening: Spontaneous Fam coma scale verbal response: Orientated Hasty coma scale motor response: Obey commands Hasty coma scale total score: 15 Psych: COMMON NORMALS: cooperative Course Consultations: Consultation #1: [place] Vital Signs: Vital signs: Vital Signs Temperature 97.9 F 08/26/22 01:24 Pulse Rate 68 08/26/22 02:45 Respiratory Rate 17 08/26/22 02:45 Blood Pressure 156/54 08/26/22 02:45 Pulse Oximetry 94 08/26/22 02:45 Oxygen Delivery Me thod 08/26/22 01:52 Oxygen Flow Rate 3.5 08/26/22 01:52 MDM - SOB/Dyspnea Medical Decision Making White count is 6.8. Patient is anemic at 9.5 which appears near his baseline. However, his creatinine is 3.8 with a BUN of 61 significantly above his baseline. BNP is elevated. Chest x-ray shows pulmonary edema. Patient with increased oxygen demand, fluid overload, and acute kidney injury. He will be admitted for these things. Hospitalist is aware and will see the patient Lab Data 08/26/22 01:33 08/26/22 01:33 Labs/Radiology: Radiology Impressions Chest X-Ray 08/26/22 01:35 IMPRESSION: Fluid overload changes in the chest consistent with CHF. Laboratory Results WBC 6.8 10^3/uL (4.0-10.0) 08/26/22 01:33 RBC 3.02 10^6/uL (4.1-5.3) L 08/26/22 01:33 Hgb 9.5 g/dL (11.7-16.6) L 08/26/22 01:33 Hct 29.8 % (42.0-52.0) L 08/26/22 01:33 MCV 98.7 fl (80-94) H 08/26/22 01:33 MCH 31.5 pg (28.0-34.0) 08/26/22 01:33 MCHC 31.9 g/dL (30.0-36.0) 08/26/22 01:33 RDW 13.7 % (12.1-15.1) 08/26/22 01:33 Plt Count 187 10^3/cmm (130-400) 08/26/22 01:33 MPV 11.5 fL (7.4-10.4) H 08/26/22 01:33 Neut % (Auto) 81.2 % 08/26/22 01:33 Lymph % (Auto) 8.5 % 08/26/22 01:33 [place] % (Auto) 8.2 % 08/26/22 01:33 Eos % (Auto) 1.6 % 08/26/22 01:33 Baso % (Auto) 0.1 % 08/26/22 01:33 Neut # (Auto) 5.52 10^3/uL (1.8-7.7) 08/26/22 01:33 Lymph # (Auto) 0.6 10^3/uL (0.8-4.8) L 08/26/22 01:33 [place] # (Auto) 0.6 10^3/uL (0.2-0.9) 08/26/22 01:33 Eos # (Auto) 0.1 10^3/uL (0.0-0.8) 08/26/22 01:33 Baso # (Auto) 0.0 10^3/uL (0.0-0.1) 08/26/22 01:33 Nucleated RBC % (auto) 0 % 08/26/22 01:33 Nucleated RBCs # 0.0 /100WBC 08/26/22 01:33 Specimen Type Arterial 08/26/22 02:00 Sample Site Radial, right 08/26/22 02:00 ABG pH 7.37 (7.35-7.45) 08/26/22 02:00 ABG pCO2 31.3 mmHg (35-45) L 08/26/22 02:00 ABG pO2 64.6 mmHg (80.0-100.0) L 08/26/22 02:00 ABG HCO3 18.1 mmol/L (22-26) L 08/26/22 02:00 ABG Base Excess -6.3 mmol/L (-2.0-2.0) L 08/26/22 02:00 Clarence Test Pos 08/26/22 02:00 Hematocrit 28.7 % (42-52) L 08/26/22 02:00 Hgb O2 Saturation 90.8 % (95-100) L 08/26/22 02:00 Carboxyhemoglobin 0.6 %THgb (0.4-20.1) 08/26/22 02:00 Methemoglobin 1.4 % (0.4-1.5) 08/26/22 02:00 Total Hemoglobin 9.4 g/dL (14-18) L 08/26/22 02:00 O2 Delivery Device Nc 08/26/22 02:00 FiO2 33.0 % 08/26/22 02:00 Guidance Services Coordinator ID Cdrogan 08/26/22 02:00 Sodium 135 mmol/L (136-145) L 08/26/22 01:33 Potassium 4.4 mmol/L (3.5-5.1) 08/26/22 01:33 Chloride 107 mmol/L (98-107) 08/26/22 01:33 Carbon Dioxide 17 mmol/L (22-29) L 08/26/22 01:33 Anion Gap 15.4 (5-19) 08/26/22 01:33 BUN 61 mg/dL (8-23) H 08/26/22 01:33 Creatinine 3.8 mg/dL (0.7-1.2) H 08/26/22 01:33 GFR Calculation Not Reportable 08/26/22 01:33 Glucose 119 mg/dL (65-115) H 08/26/22 01:33 Calculated Osmolality 298 mOsm/kg (285-295) H 08/26/22 01:33 Lactic Acid 1.1 mmol/L (0.5-2.2) 08/26/22 01:33 Calcium 8.7 mg/dL (8.5-10.5) 08/26/22 01:33 Total Bilirubin 0.3 mg/dL (0.15-1.2) 08/26/22 01:33 AST 15 U/L (0-40) 08/26/22 01:33 ALT 9 U/L (0-41) 08/26/22 01:33 Alkaline Phosphatase 49 U/L (40-130) 08/26/22 01:33 NT-Pro-B Natriuret Pep 93073 pg/mL (0-450) H 08/26/22 01:33 Total Protein 6.3 g/dL (6.6-8.7) L 08/26/22 01:33 Albumin 3.4 g/dL (3.5-5.2) L 08/26/22 01:33 Globulin 2.9 g/dL (1.3-4.6) 08/26/22 01:33 Discharge Plan Discharge Patient Disposition: Admitted As Inpatient Clinical Impression: Respiratory failure, acute and chronic, Pulmonary edema, OANH (acute kidney injury) Condition: Fair Prescriptions: No Action aspirin 81 mg tablet,delayed release (DR/EC) 81 mg PO QDAY Qty: 30 2RF Hold Instructions: Resume on 08/10/22. docusate sodium [Colace] 100 mg capsule 100 mg PO DAILY sucralfate [Carafate] 1 gram tablet 1 g PO .4 times day Qty: 120 2RF amlodipine [Norvasc] 10 mg tablet 10 mg PO DAILY Qty: 90 0RF Farxiga 10 mg tablet 10 mg PO QAM Qty: 90 0RF duloxetine [Cymbalta] 60 mg capsule,delayed release(DR/EC) 60 mg PO BID Qty: 180 0RF ergocalciferol (vitamin D2) 1,250 mcg (50,000 unit) capsule 50,000 unit PO .COMPLEX Qty: 6 0RF Rx Instructions: 50,000 units PO on 1st and 16th; famotidine [Pepcid] 40 mg tablet 40 mg PO DAILY Qty: 90 0RF fenofibrate nanocrystallized 145 mg tablet 145 mg PO DAILY Qty: 90 0RF Hold Instructions: Order Change hydralazine 25 mg tablet 25 mg PO Q12H Qty: 180 0RF levothyroxine 75 mcg tablet 75 mcg PO DAILY Qty: 90 0RF lisinopril 40 mg tablet 40 mg PO QDAY Qty: 90 0RF (DME) oxygen concentrator See Rx Instructions .Route .MEDSUPPLY Qty: 1 0RF Rx Instructions: As directed oxygen concentrator 2 liters n/c at sleep tamsulosin 0.4 mg capsule 0.4 mg PO BID Qty: 180 1RF amoxicillin 500 mg tablet 1,000 mg PO BID 14 Days Qty: 56 0RF clarithromycin 500 mg tablet 500 mg PO BID 14 Days Qty: 28 0RF pantoprazole [Protonix] 40 mg tablet,delayed release (DR/EC) 40 mg PO BID 14 Days Qty: 28 0RF promethazine-DM 6.25-15 mg/5 mL syrup 5 ml PO Q6H PRN (Reason: cough) Qty: 120 0RF dutasteride 0.5 mg capsule 5 mg PO DAILY melatonin 5 mg Tablet 5 mg PO BEDTIME Referrals: Mary Dior, CLERICAL INVESTIGATOR-C [Primary Care Provider] - Patient Instructions: Opioid Safety, Pain Management Coding Level of Care Code ED Loom Overhauler for Chg Fwd Exam Comprehensive
[2022-08-26 02:17] LABS: Oxygen Device NC
[2022-08-26] MEDS: nitroglycerin 1 gm/inch oint Pkt 1 INCH TOPICAL (02:59)
[2022-08-26] MEDS: FUROsemide 10 mg/mL SDV 10mL 60 MG IVP (02:59)
--- NOTE | 2022-08-26 03:49 | PC.NURSE ---
ADMIT NOTE Pt received to floor from ER via elsie at 0340. Is alert and oriented. O2 in place at 4l per NC. Says normally wears O2 at home but has been having to increase it. Says has been increasingly more SOB huey with exertion and has not been able to lay down. Has a prod cough of thick yellow sputum. Says diagnosed with flu last week. Received IV Lasix in the ER. Instructed to use urinal for monitoring of I&O. Has pitting edema to BLE. Denies pain but says has soreness in chest with cough & deep breaths. RN at bedside doing admission assessment.
[2022-08-26 04:42] LABS: Adenovirus Not Detected (NOT DETECT); Chlamydia Pneumoniae Not Detected (NOT DETECT); Coronavirus 229E,HKU1,NL63,OC4 Not Detected (NOT DETECT); Human Metapneumovirus Not Detected (NOT DETECT); Human Rhinovirus/Enterovirus Not Detected (NOT DETECT); Influenza A Not Detected (NOT DETECT); Influenza A H1 Not Detected (NOT DETECT); Influenza A H1-2009 Not Detected (NOT DETECT); Influenza A H3 Not Detected (NOT DETECT); Influenza B Not Detected (NOT DETECT); Mycoplasma Pneumoniae Not Detected (NOT DETECT); Parainfluenza Virus Type 1 Not Detected (NOT DETECT); Parainfluenza Virus Type 2 Not Detected (NOT DETECT); Parainfluenza Virus Type 3 Not Detected (NOT DETECT); Parainfluenza Virus Type 4 Not Detected (NOT DETECT); Respiratory Syncytial Virus A Not Detected (NOT DETECT); Respiratory Syncytial Virus B Not Detected (NOT DETECT); SARS-COV-2 Not Detected (NOT DETECT)
[2022-08-26 06:23] LABS: Glucose Point of Care 115 mg/dL (70-110)
[2022-08-26 06:23] LABS: Glucose Point of Care 114 mg/dL (70-110)
--- NOTE | 2022-08-26 06:37 | P.HP_ITS ---
Providers/Chief Complaint Admitting Physician: Royal Mauro MD Primary Care Provider: KLAUS Fortune-Bravo Chief Complaint: SOB History of Present Illness Abiel Andres is a 81 year old male who has multiple comorbid conditions such as hypertension, chronic kidney disease, anemia, history of CABG, carotid endarterectomy, history of CVA, peripheral vascular disease being managed medically, type 2 diabetes hemoglobin A1c around 5.5, was seen by PCP on 08/18 for flulike symptoms, patient was concerned about his worsening of kidney function, he was given promethazine for cough, presented to the hospital with chief complaint of worsening of shortness of breath. Patient stating that for last couple of days he has been experiencing dry cough, shortness of breath, orthopnea and PND. He does not take Lasix on a daily basis, he has not noticed any leg pain however he is endorsing leg cramps and tightness, no active chest pain, no fever nausea or vomiting. At baseline he uses 2 L of oxygen in the ER he is requiring 4 L, he has been diagnosed with CHF exacerbation acute on chronic kidney disease for this reason hospitalist was requested to admit him. Review of Systems Const: Reports: chills, body aches and fatigue Eyes: Denies: change in vision ENMT: Denies: throat pain Card: Reports: edema, swelling of feet/ankles, dyspnea on exertion and orthopnea Resp: Reports: dyspnea GI: Denies: abdominal pain : Denies: flank pain Musc: Denies: neck pain Skin/Breast: Denies: rash Neuro: Denies: headache(s) Psych: Reports: anxiety Endo: Denies: polyuria Davian/Lymph: Denies: easy bruising All/Imm: Denies: urticaria Medications/Allergies Home Medications Medication Instructions Recorded Confirmed Last Taken Type aspirin 81 mg tablet,delayed 81 mg PO QDAY #30 tabs 12/15/19 08/18/22 08/01/22 Rx release oxygen concentrator #1 ea 02/02/22 08/18/22 Unknown Rx tamsulosin 0.4 mg capsule 0.4 mg PO BID #180 caps 04/10/22 08/18/22 08/05/22 Rx sucralfate 1 gram tablet (Carafate) 1 g PO .4 times day #120 tabs 06/01/22 08/18/2222 Rx amlodipine 10 mg tablet (Norvasc) 10 mg PO DAILY #90 tabs 07/20/22 08/18/22 08/07/22 Rx dapagliflozin 10 mg tablet 10 mg PO QAM #90 tabs 07/20/22 08/18/22 08/05/22 Rx (Farxiga) duloxetine 60 mg capsule,delayed 60 mg PO BID #180 caps 07/20/22 08/18/22 08/05/22 Rx release (Cymbalta) ergocalciferol (vitamin D2) 1,250 50,000 unit PO .COMPLEX #6 caps 07/20/22 08/18/22 08/05/22 Rx mcg (50,000 unit) capsule famotidine 40 mg tablet (Pepcid) 40 mg PO DAILY #90 tabs 07/20/22 08/18/22 08/05/22 Rx fenofibrate nanocrystallized 145 145 mg PO DAILY #90 tabs 07/20/22 08/18/22 08/05/22 Rx mg tablet hydralazine 25 mg tablet 25 mg PO Q12H #180 tabs 07/20/22 08/18/22 08/07/22 Rx levothyroxine 75 mcg tablet 75 mcg PO DAILY #90 tabs 07/20/22 08/18/22 08/05/22 Rx lisinopril 40 mg tablet 40 mg PO QDAY #90 tabs 07/20/22 08/18/22 08/05/22 Rx dutasteride 0.5 mg capsule 5 mg PO DAILY 08/04/22 08/18/22 08/05/22 History melatonin 5 mg tablet 5 mg PO BEDTIME 08/04/22 08/18/22 08/05/22 History amoxicillin 500 mg tablet 1,000 mg PO BID 14 days #56 tabs 08/15/22 08/18/22 Unknown Rx clarithromycin 500 mg tablet 500 mg PO BID 14 days #28 tabs 08/15/22 08/18/22 Unknown Rx pantoprazole 40 mg tablet,delayed 40 mg PO BID 14 days #28 tabs 08/15/22 08/18/22 Unknown Rx release (Protonix) docusate sodium 100 mg capsule 100 mg PO DAILY 08/18/22 08/18/22 Unknown History (Colace) promethazine-DM 6.25 mg-15 mg/5 mL 5 ml PO Q6H PRN cough #120 mL 08/22/22 Unknown Rx oral syrup Allergies Allergy/AdvReac Type Severity Reaction Status Date / Time fish oil Allergy rash Verified 08/18/22 08:11 PFSH Acute PFSH: Medical History Adult onset hypothyroidism Anxiety and depression B12 deficiency BPH NOS w ur obs/LUTS Chronic progressive LUTS secondary to BPH/obstruction with good response to dual medical therapy. CAD (coronary artery disease) Carotid stenosis Chronic back pain CKD (chronic kidney disease) Controlled diabetes mellitus Cyst, dermoid, trunk Erectile dysfunction Multifactorial. 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 Declined Trimix Gastric reflux Hyperlipidemia, unspecified Iron deficiency OA (osteoarthritis) of hip PVD (peripheral vascular disease) Urolithiasis 6 mm RIGHT distal ureteral stone spontaneously passed 2016. Vitamin D deficiency Surgical History History of back surgery History of knee replacement right 2014 History of knee surgery right 2007 left 2003 History of rhinoplasty 1973 History of shoulder surgery Left 2016 S/p bilateral carotid endarterectomy S/P CABG (coronary artery bypass graft) 2002 Status post colonoscopy Status post laparoscopic cholecystectomy 10/04/2019 Family History Father , at age 75 CAD (coronary artery disease) Mother , at age 81 Stroke Other Heart disease Hypertension Social History Smoking and tobacco status: former smoker Second hand smoke exposure: No Smoking risk assessment/counseling performed?: No Alcohol intake: never Desire information about alcohol rehabilitation?: No Counseling given: No Desire information about substance/drug rehabilitation?: No Counseling given: No Adopted: No Caregiver/support person: No Lives independently: Yes Household members: none Housing: House Marital status: / service: Yes status: Retired branch: [employer] Current occupational status: retired Current occupational exposures/hazards: No Pets and animals: No History of recent travel: No Current gender identity: Male Special tommie needs: No Vitals/I&O/Wt Last Vital Signs Temp 96.8 F L 08/26/22 04:33 Pulse 69 08/26/22 04:33 Resp 16 08/26/22 04:33 BP 149/52 08/26/22 04:33 Pulse Ox 92 08/26/22 04:33 O2 Del Method 08/26/22 03:45 O2 Flow Rate 3.5 08/26/22 01:52 08/25/22 08/25/22 08/26/22 14:59 22:59 06:59 Intake Total 60 / 60 Output Total 510 / 510 Balance -450 / -450 Weight last 48 hrs Weight 81.647 kg Physical Exam Narrative: elderly male Appears stated age Acute signs of CHF exacerbation Dry hacking cough Crackles and rhonchi positive Cardiac wheezing positive Currently on 4 L Awake and alert Lower extremity 1+ edema Abdomen soft Awake and alert Nonfocal neuro exam Data 08/26/22 01:33 08/26/22 01:33 Micro: Microbiology 08/26/22 02:04 Blood Culture - Preliminary Blood SPECIMEN COLLECTED 08/26/22 02:00 Blood Culture - Preliminary Blood SPECIMEN COLLECTED A&P Assessment and plan (1) Pulmonary edema: (2) OANH (acute kidney injury): (3) Respiratory failure, acute and chronic: Qualifiers: Respiratory failure complication: hypoxia Qualified Code(s): J96.21 - Acute and chronic respiratory failure with hypoxia (4) CHF exacerbation: Plan Acute CHF exacerbation At this point EF is unknown Will request echo Will given IV Lasix Clinical signs of fluid overload Patient carries history of chronic kidney disease,, no active chest pain Acute on chronic hypoxia related to CHF exacerbation secondary to pulm edema, anticipating provement with IV diuresis Acute on chronic kidney disease related to cardiorenal syndrome hold lisinopril, measure output Type 2 diabetes, previous hemoglobin A1c around 5.5, will use medium dose sliding scale History of carotid artery disease, peripheral vascular disease, Dr. Giordano has recently requested outpatient carotid usg and ABIs Chronic anemia: EGD showed gastritis, hiatal hernia, colonoscopy showed diverticulosis, he is taking omeprazole and sucralfate, he has been evaluated by Dr. Davila who has recommended bone marrow biopsy to rule out etiology, as per the patient he was on Xarelto which was discontinued secondary to gastric bleed, patient has received Injectafer in the past and B12 supplements BPH: Continue tamsulosin Cardiac consistent carb diet DNR/DNI DVT prophylaxis: Heparin Attestations Medical Necessity Statement*: Anticipating discharge within 48 hours Time Spent in Patient Care: 40 Coding Level of Care Code Acute Forming Roll Operator for Sami Fwd Diagnoses Pulmonary edema J81.1 OANH (acute kidney injury) N17.9 Respiratory failure, acute and chronic J96.21 Respiratory failure complication: hypoxia CHF exacerbation I50.9
--- NOTE | 2022-08-26 06:45 | USCV_ITS ---
Abiel Andres Age: 81 Gender: M : 1940 Exam Date: 08/26/2022 17:18 Ordering Phys: Royal Mauro MD Technologist: WICHO Exam Location: [facility] [place] Indication: CHF BP: / HR: 67 Rhythm: Sinus Technical Quality: Technically difficult study MEASUREMENTS (Male / Female) Normal Values 2D ECHO LV Diastolic Diameter PLAX 5.9 cm 4.2 - 5.9 / 3.9 - 5.3 cm LV Systolic Diameter PLAX 5.1 cm IVS Diastolic Thickness 0.9 cm 0.6 - 1.0 / 0.6 - 0.9 cm IVS Systolic Thickness 1.4 cm LVPW Diastolic Thickness 0.8 cm 0.6 - 1.0 / 0.6 - 0.9 cm LVPW Systolic Thickness 1.4 cm LVOT Diameter 2.6 cm LV Ejection Fraction 2D Teich 29.5 % LV Ejection Fraction MOD 2C 46.0 % LV Ejection Fraction 2C AL 47.2 % LA Diameter 4.7 cm IVC Diameter 1.6 cm M-MODE Aortic Annulus Diameter 3.2 cm LA Ao Ratio MM 1.6 MV E Point Septal Separation 1.8 cm DOPPLER AV Peak Velocity 187.0 cm/s LVOT Peak Velocity 107.0 cm/s AV Area Cont Eq vti 2.4 cm squared AV Area Cont Eq pk 3.0 cm squared MV Area PHT 4.4 cm squared Mitral E to A Ratio 2.4 MV E' Velocity 65.5 cm/s Mitral E to MV E' Ratio 12.8 Mitral E to LV E' Lateral Ratio 10.9 Mitral E to LV E' Septal Ratio 15.4 TR Peak Velocity 312.0 cm/s TR Peak Gradient 38.9 mmHg TV Peak E Velocity 72.0 cm/s Right Atrial Pressure 6.0 mmHg Pulmonary Artery Systolic Pressu 44.9 mmHg PV Peak Velocity 98.0 cm/s FINDINGS Left Ventricle Normal left ventricular cavity size. Mildly decreased left ventricular systolic function. Left ventricular ejection fraction is estimated at 45-50 %. Mild global left ventricular hypokinesis appears to be more pronounced in inferior and septal wall. Grade II diastolic dysfunction, moderately elevated filling pressures. Right Ventricle Normal right ventricular size and systolic function. Right Atrium Normal right atrial size. Left Atrium Moderately increased left atrial size. Mitral Valve Mild mitral annular calcification. Mildly thickened mitral valve. No mitral valve stenosis. Trace mitral valve regurgitation. Aortic Valve Mildly thickened and calcified trileaflet aortic valve. No aortic valve stenosis. Trace to mild aortic valve regurgitation. Tricuspid Valve Structurally normal tricuspid valve. No tricuspid valve stenosis. Trace tricuspid valve regurgitation. Pulmonic Valve Pulmonic valve not well visualized. No pulmonary valve stenosis. No significant pulmonary valve regurgitation. Pericardium No pericardial effusion. Aorta Normal size aortic root. IVC Normal IVC dimension with >50% respiratory change of the inferior vena cava. CONCLUSIONS 1.This is a technically difficult study. Optison was used per protocol. 2. Normal left ventricular cavity size. Mildly decreased left ventricular systolic function. Left ventricular ejection fraction is estimated at 45-50 %. Mild global left ventricular hypokinesis appears to be more pronounced in inferior and septal wall. Grade II diastolic dysfunction, moderately elevated filling pressures. 3. Moderately increased left atrial size. 4. Trace to mild aortic valve regurgitation. 5. No prior similar studies to compare. Denisse Goldstein MD (Electronically Signed) Final Date: 27 August 2022 09:05 S
--- NOTE | 2022-08-26 06:54 | USR_ITS ---
PROCEDURE INFORMATION: Exam: US Bilateral Noninvasive Physiologic Study of the Lower Extremity Arteries, Limited Exam date and time: 08/26/2022 7:45 PM Age: 81 years old Clinical indication: Condition or disease; Other: Pvd; Additional info: Pvdz TECHNIQUE: Imaging protocol: Bilateral Limited bilateral noninvasive physiologic studies of lower extremity arteries. Waveforms were obtained and evaluated. Images were documented and archived. Exam is limited. COMPARISON[place] [id number] 03/31/2021 9:31 AM FINDINGS: Right infrapopliteal arteries: Blood flow waveforms are monophasic. Left infrapopliteal arteries: Blood flow waveforms are triphasic. Right Ankle-Brachial Index: 0.80 Left Ankle-Brachial Index: 0.67 US/CV ankle brachial index [id number] IMPRESSION: 1. Findings consistent mild to moderate atherosclerosis of the right lower extremity. 2. Findings consistent with moderate atherosclerosis of the left lower extremity.
--- NOTE | 2022-08-26 06:54 | USR_ITS ---
PROCEDURE INFORMATION: Exam: US Duplex Bilateral Extracranial Arteries, Carotid Arteries Exam date and time: 08/26/2022 7:07 PM Age: 81 years old Clinical indication: Condition or disease; Other: Stenosis; Additional info: Hxof cad TECHNIQUE: Imaging protocol: Real-time Duplex ultrasound scan of the bilateral carotid and vertebral arteries combining coates scale, color Doppler and spectral waveform analysis. Bilateral exam. Exam focused on the carotid arteries. COMPARISON: CT chest wo con [id number] 01/18/2022 2:22 PM FINDINGS: Right common carotid artery: Calcified plaque noted. No occlusion or significant stenosis. Waveforms are normal. Right internal carotid artery: Moderate partially calcified plaque noted. No occlusion or significant stenosis. Waveforms are normal. Peak systolic velocity is 248 cm/s. End-diastolic velocity is 16 cm/s. Right ICA/CCA ratio: Within normal limits. 2.10 Right external carotid artery: Severe stenosis in the origin. Right vertebral artery: Unremarkable. Antegrade flow. Left common carotid artery: Mild calcified plaque noted. No occlusion or significant stenosis. Waveforms are normal. Left internal carotid artery: Mild calcified plaque. No occlusion or significant stenosis. Waveforms are normal. Peak systolic velocity is 119 cm/s. End-diastolic velocity is 11 cm/s. Left ICA/CCA ratio: Within normal limits. 1.64 Left external carotid artery: No stenosis in the origin. Left vertebral artery: Unremarkable. Antegrade flow. US/CV carotid duplex BI* [id number] IMPRESSION: 1. There is moderate, 50-69% proximal right ICA stenosis. 2. Mild, less than 50%, left ICA stenosis. 3. The vertebral arteries are patent, with antegrade flow direction bilaterally. 4. There is severe stenosis at the origin of the right external carotid artery. REFERENCES: SRU CRITERIA. The degree of internal carotid artery stenosis is based on criteria defined by the Society of Radiologists in Ultrasound (SRU). Normal is no stenosis. Mild is less than 50% stenosis. Moderate is 50-69% stenosis. Severe is greater than 69% stenosis to near occlusion. Near occlusion is a markedly narrowed lumen. Total occlusion is no detectable patent lumen.
[2022-08-26 06:57] LABS: D Dimer 0.89 ug/mIFEU (0-0.59)
[2022-08-26 07:55] LABS: Estmated Average Glucose 82; Hemoglobin A1C 4.5 % (4.0-6.0)
[2022-08-26] MEDS: heparin 5,000 unit/mL INJ 1 mL 5000 UNIT SUBCUT ×2 (08:23→17:58)
[2022-08-26] MEDS: dutasteride 0.5 mg Capsule PO (08:23)
[2022-08-26] MEDS: FUROsemide 10 mg/mL SDV 10mL 40 MG IVP (08:23)
[2022-08-26] MEDS: tamsulosin 0.4 mg Capsule PO ×2 (08:24→17:37)
[2022-08-26] MEDS: duloxetine 60 mg Capsule PO ×2 (08:24→17:36)
[2022-08-26] MEDS: aspirin 81 mg EC Tablet PO (08:24)
[2022-08-26] MEDS: hyDRALAzine 25 mg Tablet PO ×2 (08:24→17:58)
[2022-08-26] MEDS: levothyroxine 75 mcg Tablet PO (08:24)
[2022-08-26] MEDS: sennosides-docusate Tablet 1 TAB PO (08:24)
[2022-08-26] MEDS: sucralfate 1 gm Tablet PO ×4 (08:24→21:04)
[2022-08-26] MEDS: famotidine 20 mg Tablet 40 MG PO (08:24)
[2022-08-26 10:59] LABS: Glucose Point of Care 129 mg/dL (70-110)
--- NOTE | 2022-08-26 12:57 | PC.PHAR ---
pt is unable to verify home meds - verified by ext med history and [facility]
[2022-08-26] MEDS: acetylcysteine 200 mg/mL SDV 4 mL 100 MG INHALATION ×2 (13:39→21:56)
[2022-08-26 16:47] LABS: Glucose Point of Care 128 mg/dL (70-110)
[2022-08-26] MEDS: FUROsemide 10 mg/mL SDV 4mL 40 MG IVP (16:47)
[2022-08-26] MEDS: guaiFENesin 600 mg Tablet PO (17:36)
[2022-08-26] MEDS: perflutren protein-a microsphr 0.22 mg/mL SDV 3 mL IV (18:18)
[2022-08-26 20:31] LABS: Glucose Point of Care 121 mg/dL (70-110)
[2022-08-27] VITALS (14 sets, daily range): BP systolic 128–162; BP diastolic 50–60; PULSE 66–87; RESP 16–22; TEMP 36.5–36.9; O2SAT 90–94
[2022-08-27] MEDS: ipratropium-albuterol 3 mL Neb INHALATION ×4 (01:32→20:35)
[2022-08-27] MEDS: acetylcysteine 200 mg/mL SDV 4 mL 100 MG INHALATION ×4 (01:33→20:36)
[2022-08-27 04:17] LABS: Basophils % 0.3 %; Eosinophils # 0.3 10^3/uL (0.0-0.8); Eosinophils % 4.4 %; Hematocrit 28.2 % (42.0-52.0); Hemoglobin 8.8 g/dL (11.7-16.6); Lymphocytes # 0.8 10^3/uL (0.8-4.8); Lymphocytes % 12.5 %; Mean Corpuscular HGB Conc 31.2 g/dL (30.0-36.0); Mean Corpuscular Hemoglobin 30.8 pg (28.0-34.0); Mean Corpuscular Volume 98.6 fl (80-94); Mean Platelet Volume 11.8 fL (7.4-10.4); Monocytes # 0.7 10^3/uL (0.2-0.9); Monocytes % 10.7 %; Neutrophils # 4.43 10^3/uL (1.8-7.7); Neutrophils % 71.9 %; Nucleated Red Blood Cells % 0 %; Platelet Count 181 10^3/cmm (130-400); Red Blood Count 2.86 10^6/uL (4.1-5.3); Red Cell Distribution Width 13.7 % (12.1-15.1); White Blood Count 6.2 10^3/uL (4.0-10.0)
[2022-08-27 04:37] LABS: Anion Gap 14.7 (5-19); Blood Urea Nitrogen 67 mg/dL (8-23); Calcium 8.8 mg/dL (8.5-10.5); Carbon Dioxide 21 mmol/L (22-29); Chloride 106 mmol/L (98-107); Glucose 88 mg/dL (65-115); Magnesium 2.8 mg/dL (1.7-2.3); Osmolality Calculated 305 mOsm/kg (285-295); Phosphorus 5.8 mg/dL (2.5-4.5); Potassium 3.7 mmol/L (3.5-5.1); Sodium 138 mmol/L (136-145)
[2022-08-27] MEDS: hyDRALAzine 25 mg Tablet PO ×2 (05:57→17:34)
[2022-08-27] MEDS: heparin 5,000 unit/mL INJ 1 mL 5000 UNIT SUBCUT ×2 (05:57→17:36)
[2022-08-27] MEDS: benzonatate 100 mg Capsule 200 MG PO (06:01)
[2022-08-27 06:30] LABS: Glucose Point of Care 96 mg/dL (70-110)
--- NOTE | 2022-08-27 06:54 | XRR_ITS ---
PROCEDURE INFORMATION: Exam: XR Chest Exam date and time: 08/27/2022 8:11 AM Age: 81 years old Clinical indication: Shortness of breath; Additional info: SOB TECHNIQUE: Imaging protocol: Radiologic exam of the chest. Views: 1 view. COMPARISON: CR (CHEST, ) 08/26/2022 2:13 AM FINDINGS: Lungs: Bilateral infiltrates are stable. Pleural spaces: Left pleural effusion slightly increased. Minimal right pleural effusion decreased. Heart/Mediastinum: Cardiomegaly. Bones/joints: Bilateral hip replacements. Sternal sutures. XR/XR chest 1V portable [id number] IMPRESSION: Stable infiltrates with a decreased right effusion and increased left effusion.
[2022-08-27] MEDS: aspirin 81 mg EC Tablet PO (09:19)
[2022-08-27] MEDS: levothyroxine 75 mcg Tablet PO (09:19)
[2022-08-27] MEDS: famotidine 20 mg Tablet 40 MG PO (09:19)
[2022-08-27] MEDS: sucralfate 1 gm Tablet PO ×4 (09:19→20:38)
[2022-08-27] MEDS: guaiFENesin 600 mg Tablet PO ×2 (09:19→17:34)
[2022-08-27] MEDS: tamsulosin 0.4 mg Capsule PO ×2 (09:19→17:35)
[2022-08-27] MEDS: sennosides-docusate Tablet 1 TAB PO (09:19)
[2022-08-27] MEDS: duloxetine 60 mg Capsule PO ×2 (09:19→17:35)
[2022-08-27] MEDS: cefTRIAXone 1,000 MG in sodium chloride 0.9% (plus) 50 ML 100 MG IV (09:22)
[2022-08-27] MEDS: azithromycin 500 MG in sodium chloride 0.9% 250 ML 250 MG IV (09:23)
[2022-08-27] MEDS: FUROsemide 10 mg/mL SDV 4mL 40 MG IVP (09:24)
[2022-08-27] MEDS: dutasteride 0.5 mg Capsule PO (09:39)
[2022-08-27 11:29] LABS: Glucose Point of Care 138 mg/dL (70-110)
[2022-08-27] MEDS: sodium chloride 0.9% 500 ML 250 ML IV (12:44)
[2022-08-27] MEDS: docusate sodium 100 mg Capsule PO ×2 (12:45→17:34)
--- NOTE | 2022-08-27 15:19 | P.PN_ITS ---
Subjective Subjective: Patient was seen and examined this morning was complaining of, chest congestion. Medications: Medication Review Details: Generic Name Dose Route Start Last Admin Trade Name Freq PRN Reason Stop Dose Admin Acetylcysteine 100 mg 08/26/22 14:00 08/27/22 14:03 Acetylcysteine 2 00 Mg/Ml Sdv 4 Ml INHALATION 100 mg Q6H.RESP KELSEY Administration Albuterol/Ipratrop ium 3 ml 08/26/22 14:00 08/27/22 14:02 Ipratropium-Albu terol 3 Ml Neb INHALATION 3 ml Q6H KELSEY Administration Aspirin 81 mg 08/26/22 09:00 08/27/22 09:19 Aspirin 81 Mg Ec Tablet PO 81 mg DAILY KELSEY Administration Benzonatate 200 mg 08/26/22 06:38 08/27/22 06:01 Benzonatate 100 Mg Capsule PO 200 mg Q6H PRN Administration COUGH Docusate Sodium 100 mg 08/27/22 11:45 08/27/22 12:45 Docusate Sodium 100 Mg Capsule PO 100 mg BID KELSEY Administration Duloxetine HCl 60 mg 08/26/22 09:00 08/27/22 09:19 Duloxetine 60 Mg Capsule PO 60 mg BID KELSEY Administration Dutasteride 0.5 mg 08/26/22 09:00 08/27/22 09:39 Dutasteride 0.5 Mg Capsule PO 0.5 mg DAILY KELSEY Administration Famotidine 40 mg 08/26/22 09:00 08/27/22 09:19 Famotidine 20 Mg Tablet PO 40 mg DAILY KELSEY Administration Guaifenesin 600 mg 08/26/22 18:00 08/27/22 09:19 Guaifenesin 600 Mg Tablet PO 600 mg BID KELSEY Administration Heparin Sodium (Po rcine) 5,000 unit 08/26/22 06:45 08/27/22 05:57 Heparin 5,000 Un it/Ml Inj 1 Ml SUBCUT 5,000 unit Q12H KELSEY Administration Hydralazine HCl 25 mg 08/26/22 06:45 08/27/22 05:57 Hydralazine 25 M g Tablet PO 25 mg Q12H KELSEY Administration Ceftriaxone Sodium 1,000 mg/ 50 mls @ 100 mls/ hr 08/27/22 08:45 08/27/22 09:56 Sodium Chloride IV Infused Q24H KELSEY Infusion Protocol Azithromycin 500 m g/ Sodium 250 mls @ 250 mls /hr 08/27/22 08:45 08/27/22 10:25 Chloride IV Infused Q24H KELSEY Infusion Protocol Insulin Human Lisp ro 0 unit 08/26/22 08:00 08/27/22 12:30 Insulin Lispro 1 00 Unit/1 Ml SUBCUT Not Given [facility] Protocol Levothyroxine Sodi um 75 mcg 08/26/22 09:00 08/27/22 09:19 Levothyroxine 75 Mcg Tablet PO 75 mcg DAILY KELSEY Administration Sucralfate 1 gm 08/26/22 09:00 08/27/22 12:45 Sucralfate 1 Gm Tablet PO 1 gm QID KELSEY Administration Tamsulosin HCl 0.4 mg 08/26/22 09:00 08/27/22 09:19 Tamsulosin 0.4 M g Capsule PO 0.4 mg BID KELSEY Administration Vitals/I&O/Wt Last Vital Signs Temp 97.9 F 08/27/22 11:35 Pulse 74 08/27/22 14:11 Resp 16 08/27/22 14:00 BP 128/58 08/27/22 11:35 Pulse Ox 93 08/27/22 14:00 O2 Del Method 08/27/22 14:00 O2 Flow Rate 3 08/27/22 14:00 08/27/22 08/27/22 08/27/22 06:59 14:59 22:59 Intake Total 240 / 1320 1460 / 1460 Output Total 350 / 950 250 / 250 Balance -110 / 370 1210 / 1210 Weight last 48 hrs Weight 81.647 kg Physical Exam Const: COMMON NORMALS: patient oriented x3 Resp: EFFORT & INSPECTION: Yes symmetric chest movement OTHER: Diminished air entry bilaterally. Cardio: COMMON NORMALS: regular rate, regular rhythm, S1 normal heart sound present, S2 normal heart sound present, No gallops present (Cardio), No murmurs present (Cardio), No rub (Cardio) and Peripheral pulses 2+ throughout RATE: regular rate RHYTHM: regular rhythm HEART SOUNDS: S1 normal heart sound present and S2 normal heart sound present PERIPHERAL PULSES: Peripheral pulses 2+ throughout GI: COMMON NORMALS: Normal to inspection, nondistended, normoactive bowel sounds present, Soft to palpation, non-tender, No hepatosplenomegaly present and no masses AUSCULTATION: Yes normoactive bowel sounds PALPATION: Yes Soft to palpation and Yes No hepatosplenomegaly present RECTAL EXAM: Yes deferred Extremity: COMMON NORMALS: no clubbing, cyanosis or edema and no pedal edema Neuro: COMMON NORMALS: patient oriented x3 Data 08/27/22 03:35 08/27/22 03:35 Micro: Microbiology 08/26/22 02:04 Blood Culture - Preliminary Blood NEGATIVE TO DATE 08/26/22 02:00 Blood Culture - Preliminary Blood NEGATIVE TO DATE A&P Assessment and plan (1) Pulmonary edema: (2) OANH (acute kidney injury): (3) Respiratory failure, acute and chronic: Qualifiers: Respiratory failure complication: hypoxia Qualified Code(s): J96.21 - Acute and chronic respiratory failure with hypoxia (4) CHF exacerbation: (5) Pneumonia: (6) Anemia: (7) Hypothyroidism: Plan 81-year-old man with past medical history of hypertension, CKD, coronary artery disease status post CABG in 2002, carotid disease status post bilateral carotid endarterectomy, dyslipidemia, COPD, history of CVA, diabetes and dyslipidemia.Came in with chief complaint of worsening shortness of breath, cough with productive yellowish sputum going on for the past few weeks, and since then it has progressively worsened , also complaining of PND and orthopnea ,he started having these symptoms after he contracted viral pneumonia like symptoms, at that time he was having generalized body pain and subjective fever. 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 Cardiothoracic surgery follow-up as outpatient History of CVA History of diabetes History of peripheral artery disease: MADELINE : 08/26: mild to moderate atherosclerosis of the right lower extremity.moderate atherosclerosis of the left lower extremity. Chronic iron deficiency: Hypothyroidism Plan: 2D echo: Normal LV size, mildly decreased LV systolic function, LVEF : 45%-50%, global left ventricular hypokinesia Grade 2 diastolic dysfunction, normal IVC dimension with greater than 50% respiratory variation XR chest: Bilateral infiltrates in both the lungs cervantes, small bilateral pleural effusion, left greater than right Blood culture: NTD Sputum gram stain and culture: Urine Legionella antigen Bacterial antigen panel Procalcitonin Continue ceftriaxone and Rocephin Was on Lasix 40 IV twice daily, has been de-escalated to Lasix 40 p.o. daily Monitor intake output charting, monitor daily weight, monitor electrolytes Monitor BMP, avoid nephrotoxic's Continue DuoNebs, Mucinex, Mucomyst. Continue levothyroxine Continue hydralazine Continue tamsulosin CODE STATUS: Full code DVT on heparin Attestations Medical Necessity Statement*: Patient is still in hospital management of pneumonia heart failure. Time Spent in Patient Care: Greater than 35 minutes (>than 50% of time spent in counselling and/or direct pt care on unit) . Coding Level of Care Code Acute Concrete Buildings Assembler for Chg Fwd Exam Detailed Diagnoses Pulmonary edema J81.1 OANH (acute kidney injury) N17.9 Respiratory failure, acute and chronic J96.21 Respiratory failure complication: hypoxia CHF exacerbation I50.9 Pneumonia J18.9 Anemia D64.9 Hypothyroidism E03.9
[2022-08-27 17:06] LABS: Glucose Point of Care 92 mg/dL (70-110)
[2022-08-27 20:16] LABS: Glucose Point of Care 118 mg/dL (70-110)
[2022-08-28] VITALS (15 sets, daily range): BP systolic 129–181; BP diastolic 53–67; PULSE 67–90; RESP 16–20; TEMP 36.4–37; O2SAT 89–96
[2022-08-28] MEDS: ipratropium-albuterol 3 mL Neb INHALATION ×4 (03:47→21:33)
[2022-08-28] MEDS: acetylcysteine 200 mg/mL SDV 4 mL 100 MG INHALATION ×4 (03:52→21:33)
[2022-08-28 04:58] LABS: Basophils % 0.2 %; Eosinophils # 0.3 10^3/uL (0.0-0.8); Hematocrit 28.7 % (42.0-52.0); Hemoglobin 8.9 g/dL (11.7-16.6); Lymphocytes # 0.9 10^3/uL (0.8-4.8); Lymphocytes % 16.9 %; Mean Corpuscular Hemoglobin 30.5 pg (28.0-34.0); Mean Corpuscular Volume 98.3 fl (80-94); Mean Platelet Volume 12.1 fL (7.4-10.4); Monocytes # 0.7 10^3/uL (0.2-0.9); Monocytes % 12.4 %; Neutrophils # 3.62 10^3/uL (1.8-7.7); Neutrophils % 65.1 %; Nucleated Red Blood Cells % 0 %; Platelet Count 187 10^3/cmm (130-400); Red Blood Count 2.92 10^6/uL (4.1-5.3); Red Cell Distribution Width 13.9 % (12.1-15.1); White Blood Count 5.6 10^3/uL (4.0-10.0)
[2022-08-28 05:42] LABS: Blood Urea Nitrogen 65 mg/dL (8-23); Calcium 8.8 mg/dL (8.5-10.5); Carbon Dioxide 21 mmol/L (22-29); Chloride 107 mmol/L (98-107); Glucose 87 mg/dL (65-115); Osmolality Calculated 310 mOsm/kg (285-295); Sodium 141 mmol/L (136-145)
[2022-08-28] MEDS: hyDRALAzine 25 mg Tablet PO ×2 (05:45→17:14)
[2022-08-28] MEDS: heparin 5,000 unit/mL INJ 1 mL 5000 UNIT SUBCUT ×2 (05:45→17:15)
[2022-08-28 05:51] LABS: Anion Gap 16.8 (5-19); Potassium 3.8 mmol/L (3.5-5.1)
[2022-08-28 06:30] LABS: Glucose Point of Care 95 mg/dL (70-110)
[2022-08-28] MEDS: sucralfate 1 gm Tablet PO ×4 (08:49→21:09)
[2022-08-28] MEDS: levothyroxine 75 mcg Tablet PO (08:49)
[2022-08-28] MEDS: guaiFENesin 600 mg Tablet PO ×2 (08:49→17:15)
[2022-08-28] MEDS: docusate sodium 100 mg Capsule PO ×2 (08:49→17:14)
[2022-08-28] MEDS: aspirin 81 mg EC Tablet PO (08:50)
[2022-08-28] MEDS: FUROsemide 40 mg Tablet PO (08:50)
[2022-08-28] MEDS: duloxetine 60 mg Capsule PO ×2 (08:50→17:14)
[2022-08-28] MEDS: azithromycin 500 MG in sodium chloride 0.9% 250 ML 250 MG IV (08:50)
[2022-08-28] MEDS: tamsulosin 0.4 mg Capsule PO ×2 (08:50→17:14)
[2022-08-28] MEDS: cefTRIAXone 1,000 MG in sodium chloride 0.9% (plus) 50 ML 100 MG IV (08:51)
[2022-08-28] MEDS: famotidine 20 mg Tablet 40 MG PO (08:54)
[2022-08-28] MEDS: dutasteride 0.5 mg Capsule PO (09:11)
--- NOTE | 2022-08-28 10:55 | PC.CHAP ---
Pastoral Care Encounter/Spiritual Assessment Type of Contact [] Declined privacy director visit [] Patient/Family/Request visit [] Outpatient visit [] Follow-up visit [] Physician referral [] Code/Alert [x] Routine visit [] Staff referral [] Actively dying [] Patient sleeping [] Family support [] [] Out of room [] Palliative care [] [] Receiving care in room [] Pre-surgical visit [] Trauma [] Long length of stay [] ICU visit [] Other: Relational/Emotional Strength [x] Patient feels connected with others/family/visitors/staff [] Distress [] Loneliness/isolation [] Abandonment Spirituality of Patient []x Person of Rachel [] Attends Muslim of their Rachel [x] Believes in Prayer [] Reads Bible or Adventist materials [] There are Spiritual issues to be addressed Inspector Timers Interventions [x] Prayer [x] Active listening [] Non-anxious presence [] Spiritual/emotional support [] Crisis/trauma care [] Spiritual counseling [] Bereavement support [] Provided bereavement packet [] Provided Bible/devotional materials [] Provided toy/stuffed animal, coloring book to patient or family member [] Provided Communion [] Anointing/[place] [] Salvation [x Impact on Illness or Injury [] Angry [] Fearful [] Anxious [] Often cries [x] Exhaustion [] Unable to work [] Unable to attend orthodox [] Unable to walk/stand [] Unable to read [] Unable to drive [] Unable to eat/drink [] Unable to sleep [] Unable to be with family [] Patient intubated [] Other: Summary Time spent with patient 5 min
[2022-08-28 11:10] LABS: Glucose Point of Care 96 mg/dL (70-110)
--- NOTE | 2022-08-28 15:14 | PC.NURSE ---
Patient complaining of constipation, Dr. Walters notified, awaiting new orders.
--- NOTE | 2022-08-28 16:55 | P.PN_ITS ---
Subjective Subjective: Patient states that his breathing is subjectively better, though he does continue to have mouth breathing, tachypneic in conversation with respiratory rate of 25-26. Has some wheezing on exam as well. Medications: Medication Review Details: Generic Name Dose Route Start Last Admin Trade Name Freq PRN Reason Stop Dose Admin Acetylcysteine 100 mg 08/26/22 14:00 08/27/22 14:03 Acetylcysteine 2 00 Mg/Ml Sdv 4 Ml INHALATION 100 mg Q6H.RESP KELSEY Administration Albuterol/Ipratrop ium 3 ml 08/26/22 14:00 08/27/22 14:02 Ipratropium-Albu terol 3 Ml Neb INHALATION 3 ml Q6H KELSEY Administration Aspirin 81 mg 08/26/22 09:00 08/27/22 09:19 Aspirin 81 Mg Ec Tablet PO 81 mg DAILY KELSEY Administration Benzonatate 200 mg 08/26/22 06:38 08/27/22 06:01 Benzonatate 100 Mg Capsule PO 200 mg Q6H PRN Administration COUGH Docusate Sodium 100 mg 08/27/22 11:45 08/27/22 12:45 Docusate Sodium 100 Mg Capsule PO 100 mg BID KELSEY Administration Duloxetine HCl 60 mg 08/26/22 09:00 08/27/22 09:19 Duloxetine 60 Mg Capsule PO 60 mg BID KELSEY Administration Dutasteride 0.5 mg 08/26/22 09:00 08/27/22 09:39 Dutasteride 0.5 Mg Capsule PO 0.5 mg DAILY KELSEY Administration Famotidine 40 mg 08/26/22 09:00 08/27/22 09:19 Famotidine 20 Mg Tablet PO 40 mg DAILY KELSEY Administration Guaifenesin 600 mg 08/26/22 18:00 08/27/22 09:19 Guaifenesin 600 Mg Tablet PO 600 mg BID KELSEY Administration Heparin Sodium (Po rcine) 5,000 unit 08/26/22 06:45 08/27/22 05:57 Heparin 5,000 Un it/Ml Inj 1 Ml SUBCUT 5,000 unit Q12H KELSEY Administration Hydralazine HCl 25 mg 08/26/22 06:45 08/27/22 05:57 Hydralazine 25 M g Tablet PO 25 mg Q12H KELSEY Administration Ceftriaxone Sodium 1,000 mg/ 50 mls @ 100 mls/ hr 08/27/22 08:45 08/27/22 09:56 Sodium Chloride IV Infused Q24H [facility] Infusion Protocol Azithromycin 500 m g/ Sodium 250 mls @ 250 mls /hr 08/27/22 08:45 08/27/22 10:25 Chloride IV Infused Q24H [facility] Infusion Protocol Insulin Human Lisp ro 0 unit 08/26/22 08:00 08/27/22 12:30 Insulin Lispro 1 00 Unit/1 Ml SUBCUT Not Given TIDWM [facility] Protocol Levothyroxine Sodi um 75 mcg 08/26/22 09:00 08/27/22 09:19 Levothyroxine 75 Mcg Tablet PO 75 mcg DAILY KELSEY Administration Sucralfate 1 gm 08/26/22 09:00 08/27/22 12:45 Sucralfate 1 Gm Tablet PO 1 gm QID KELSEY Administration Tamsulosin HCl 0.4 mg 08/26/22 09:00 08/27/22 09:19 Tamsulosin 0.4 M g Capsule PO 0.4 mg BID KELSEY Administration Vitals/I&O/Wt Last Vital Signs Temp 98.1 F 08/28/22 12:00 Pulse 87 08/28/22 15:01 Resp 18 08/28/22 15:01 BP 146/66 08/28/22 12:00 Pulse Ox 92 08/28/22 15:01 O2 Del Method 08/28/22 15:01 O2 Flow Rate 3.5 08/28/22 15:01 08/28/22 08/28/22 08/28/22 06:59 14:59 22:59 Intake Total 440 / 2140 900 / 900 250 / 1150 Output Total 825 / 1400 225 / 225 Balance -385 / 740 675 / 675 250 / 925 Physical Exam Narrative: General: No acute distress, AO x3 HEENT: PERRLA, pupils bilaterally equal and reactive, pallors not present Chest: Wheezing to auscultation bilaterally CVS: S1-S2 regular, no murmurs, no tachycardia, no gallops, no rubs Abdomen: Soft, nontender, no organomegaly, bowel sounds present Neuro: No focal deficits, no facial deformity, AO x3, power 5/5 in all limbs Extremities: No edema clubbing cyanosis Data 08/28/22 04:28 08/28/22 04:28 Micro: Microbiology 08/28/22 01:38 Gram Stain - Final Sputum - Expectorated Sputum 08/27/22 15:02 Legionella Urinary Antigen - Final Urine,Clean Catch Bacterial Antigens - Final A&P Assessment and plan (1) Pulmonary edema: (2) OANH (acute kidney injury): (3) Respiratory failure, acute and chronic: Qualifiers: Respiratory failure complication: hypoxia Qualified Code(s): J96.21 - Acute and chronic respiratory failure with hypoxia (4) CHF exacerbation: (5) Pneumonia: (6) Anemia: (7) Hypothyroidism: Plan 81-year-old man with past medical history of hypertension, CKD, coronary artery disease status post CABG in 2002, carotid disease status post bilateral carotid endarterectomy, dyslipidemia, COPD, history of CVA, diabetes and dyslipidemia.Came in with chief complaint of worsening shortness of breath, cough with productive yellowish sputum going on for the past few weeks, and si nce then it has progressively worsened , also complaining of PND and orthopnea ,he started having these symptoms after he contracted viral pneumonia like symptoms, at that time he was having generalized body pain and subjective fever. 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 Cardiothoracic surgery follow-up as outpatient History of CVA History of diabetes History of peripheral artery disease: MADELINE : 08/26: mild to moderate atherosclerosis of the right lower extremity.moderate atherosclerosis of the left lower extremity. Chronic iron deficiency: Hypothyroidism Plan: 2D echo: Normal LV size, mildly decreased LV systolic function, LVEF : 45%-50%, global left ventricular hypokinesia Grade 2 diastolic dysfunction, normal IVC dimension with greater than 50% respiratory variation XR chest: Bilateral infiltrates in both the lungs cervantes, small bilateral pleural effusion, left greater than right Blood culture: NTD Sputum gram stain and culture: Urine Legionella antigen Bacterial antigen panel Procalcitonin Continue ceftriaxone and Rocephin Was on Lasix 40 IV twice daily, has been de-escalated to Lasix 40 p.o. daily Monitor intake output charting, monitor daily weight, monitor electrolytes Monitor BMP, avoid nephrotoxic's Continue DuoNebs, Mucinex, Mucomyst. Continue levothyroxine Continue hydralazine Continue tamsulosin CODE STATUS: Full code DVT on heparin Plan for today: Change p.o. Lasix to IV Lasix 40 mg IV every 12 hours patient appears to be clinically fluid overloaded. Attestations Medical Necessity Statement*: Change p.o. to IV diuresis and monitor for improvement in respiratory status Coding Level of Care Code Acute Internal Affairs Commander for Chg Fwd Diagnoses Pulmonary edema J81.1 OANH (acute kidney injury) N17.9 Respiratory failure, acute and chronic J96.21 Respiratory failure complication: hypoxia CHF exacerbation I50.9 Pneumonia J18.9 Anemia D64.9 Hypothyroidism E03.9
[2022-08-28] MEDS: lactulose oral liq 20 gm/30 mL UDC 10 GM PO (17:13)
[2022-08-28] MEDS: FUROsemide 10 mg/mL SDV 4mL 40 MG IVP (17:15)
[2022-08-28 17:19] LABS: Glucose Point of Care 151 mg/dL (70-110)
[2022-08-28] MEDS: insulin lispro 100 unit/1 mL SUBCUT (17:37)
[2022-08-28 21:29] LABS: Glucose Point of Care 112 mg/dL (70-110)
[2022-08-29] VITALS (13 sets, daily range): BP systolic 133–189; BP diastolic 61–69; PULSE 71–119; RESP 16–22; TEMP 36.5–37; O2SAT 92–99
[2022-08-29] MEDS: ipratropium-albuterol 3 mL Neb INHALATION ×4 (02:12→22:46)
[2022-08-29] MEDS: acetylcysteine 200 mg/mL SDV 4 mL 100 MG INHALATION ×3 (02:13→13:33)
[2022-08-29] MEDS: FUROsemide 10 mg/mL SDV 4mL 40 MG IVP ×2 (04:11→17:29)
[2022-08-29 04:16] LABS: Basophils % 0.2 %; Eosinophils # 0.4 10^3/uL (0.0-0.8); Eosinophils % 6.2 %; Hematocrit 29.3 % (42.0-52.0); Hemoglobin 9.3 g/dL (11.7-16.6); Lymphocytes # 0.6 10^3/uL (0.8-4.8); Lymphocytes % 10.2 %; Mean Corpuscular HGB Conc 31.7 g/dL (30.0-36.0); Mean Corpuscular Hemoglobin 30.9 pg (28.0-34.0); Mean Corpuscular Volume 97.3 fl (80-94); Mean Platelet Volume 11.7 fL (7.4-10.4); Monocytes # 0.6 10^3/uL (0.2-0.9); Monocytes % 11.1 %; Neutrophils # 4.16 10^3/uL (1.8-7.7); Neutrophils % 72.1 %; Nucleated Red Blood Cells % 0 %; Platelet Count 199 10^3/cmm (130-400); Red Blood Count 3.01 10^6/uL (4.1-5.3); Red Cell Distribution Width 13.8 % (12.1-15.1); White Blood Count 5.8 10^3/uL (4.0-10.0)
[2022-08-29 04:37] LABS: Anion Gap 13.3 (5-19); Blood Urea Nitrogen 62 mg/dL (8-23); Calcium 9.2 mg/dL (8.5-10.5); Carbon Dioxide 24 mmol/L (22-29); Chloride 106 mmol/L (98-107); Glucose 97 mg/dL (65-115); Osmolality Calculated 308 mOsm/kg (285-295); Potassium 3.3 mmol/L (3.5-5.1); Sodium 140 mmol/L (136-145)
[2022-08-29] MEDS: heparin 5,000 unit/mL INJ 1 mL 5000 UNIT SUBCUT ×2 (06:04→17:29)
[2022-08-29] MEDS: hyDRALAzine 25 mg Tablet PO ×2 (06:04→17:30)
[2022-08-29 06:31] LABS: Glucose Point of Care 93 mg/dL (70-110)
[2022-08-29] MEDS: lactulose oral liq 20 gm/30 mL UDC 10 GM PO ×2 (10:05→17:29)
[2022-08-29] MEDS: levothyroxine 75 mcg Tablet PO (10:07)
[2022-08-29] MEDS: docusate sodium 100 mg Capsule PO ×2 (10:07→17:30)
[2022-08-29] MEDS: duloxetine 60 mg Capsule PO ×2 (10:07→17:30)
[2022-08-29] MEDS: aspirin 81 mg EC Tablet PO (10:07)
[2022-08-29] MEDS: famotidine 20 mg Tablet 40 MG PO (10:07)
[2022-08-29] MEDS: guaiFENesin 600 mg Tablet PO ×2 (10:07→17:30)
[2022-08-29] MEDS: sucralfate 1 gm Tablet PO ×4 (10:07→20:43)
[2022-08-29] MEDS: cefTRIAXone 1,000 MG in sodium chloride 0.9% (plus) 50 ML 100 MG IV (10:08)
[2022-08-29] MEDS: azithromycin 500 MG in sodium chloride 0.9% 250 ML 250 MG IV (10:08)
[2022-08-29] MEDS: tamsulosin 0.4 mg Capsule PO ×2 (10:10→17:30)
[2022-08-29 12:17] LABS: Glucose Point of Care 109 mg/dL (70-110)
[2022-08-29] MEDS: dutasteride 0.5 mg Capsule PO (12:50)
[2022-08-29 17:29] LABS: Glucose Point of Care 128 mg/dL (70-110)
--- NOTE | 2022-08-29 17:54 | P.PN_ITS ---
Subjective Subjective: states that his breathing is improvign,g rales are improving, he has been in chair at bedside but has not walked in the rioom yet Medications: Reviewed: Yes Medication Review Details: Generic Name Dose Route Start Last Admin Trade Name Moustaphaq PRN Reason Stop Dose Admin Acetylcysteine 100 mg 08/26/22 14:00 08/27/22 14:03 Acetylcysteine 2 00 Mg/Ml Sdv 4 Ml INHALATION 100 mg Q6H.RESP KELSEY Administration Albuterol/Ipratrop ium 3 ml 08/26/22 14:00 08/27/22 14:02 Ipratropium-Albu terol 3 Ml Neb INHALATION 3 ml Q6H KELSEY Administration Aspirin 81 mg 08/26/22 09:00 08/27/22 09:19 Aspirin 81 Mg Ec Tablet PO 81 mg DAILY KELSEY Administration Benzonatate 200 mg 08/26/22 06:38 08/27/22 06:01 Benzonatate 100 Mg Capsule PO 200 mg Q6H PRN Administration COUGH Docusate Sodium 100 mg 08/27/22 11:45 08/27/22 12:45 Docusate Sodium 100 Mg Capsule PO 100 mg BID KELSEY Administration Duloxetine HCl 60 mg 08/26/22 09:00 08/27/22 09:19 Duloxetine 60 Mg Capsule PO 60 mg BID KELSEY Administration Dutasteride 0.5 mg 08/26/22 09:00 08/27/22 09:39 Dutasteride 0.5 Mg Capsule PO 0.5 mg DAILY KELSEY Administration Famotidine 40 mg 08/26/22 09:00 08/27/22 09:19 Famotidine 20 Mg Tablet PO 40 mg DAILY KELSEY Administration Guaifenesin 600 mg 08/26/22 18:00 08/27/22 09:19 Guaifenesin 600 Mg Tablet PO 600 mg BID KELSEY Administration Heparin Sodium (Po rcine) 5,000 unit 08/26/22 06:45 08/27/22 05:57 Heparin 5,000 Un it/Ml Inj 1 Ml SUBCUT 5,000 unit Q12H KELSEY Administration Hydralazine HCl 25 mg 08/26/22 06:45 08/27/22 05:57 Hydralazine 25 M g Tablet PO 25 mg Q12H KELSEY Administration Ceftriaxone Sodium 1,000 mg/ 50 mls @ 100 mls/ hr 08/27/22 08:45 08/27/22 09:56 Sodium Chloride IV Infused Q24H [facility] Infusion Protocol Azithromycin 500 m g/ Sodium 250 mls @ 250 mls /hr 08/27/22 08:45 08/27/22 10:25 Chloride IV Infused Q24H [facility] Infusion Protocol Insulin Human Lisp ro 0 unit 08/26/22 08:00 08/27/22 12:30 Insulin Lispro 1 00 Unit/1 Ml SUBCUT Not Given TIDWM [facility] Protocol Levothyroxine Sodi um 75 mcg 08/26/22 09:00 08/27/22 09:19 Levothyroxine 75 Mcg Tablet PO 75 mcg DAILY KELSEY Administration Sucralfate 1 gm 08/26/22 09:00 08/27/22 12:45 Sucralfate 1 Gm Tablet PO 1 gm QID KELSEY Administration Tamsulosin HCl 0.4 mg 08/26/22 09:00 08/27/22 09:19 Tamsulosin 0.4 M g Capsule PO 0.4 mg BID KELSEY Administration Vitals/I&O/Wt Last Vital Signs Temp 98.6 F 08/29/22 15:54 Pulse 119 H 08/29/22 15:54 Resp 20 H 08/29/22 15:54 BP 164/63 08/29/22 15:54 Pulse Ox 92 08/29/22 15:54 O2 Del Method 08/29/22 15:54 O2 Flow Rate 4 08/29/22 13:34 08/29/22 08/29/22 08/29/22 06:59 14:59 22:59 Intake Total 1020 / 1020 Output Total 1775 / 2900 600 / 600 Balance -1775 / -1150 1020 / 1020 -600 / 420 Physical Exam Narrative: General: No acute distress, AO x3 HEENT: PERRLA, pupils bilaterally equal and reactive, pallors not present Chest: Normal vesicular breath sounds, no added sounds, equal good air entry bilaterally CVS: S1-S2 regular, no murmurs, no tachycardia, no gallops, no rubs Abdomen: Soft, nontender, no organomegaly, bowel sounds present Neuro: No focal deficits, no facial deformity, AO x3, power 5/5 in all limbs Data 08/29/22 03:28 08/29/22 03:28 Micro: Microbiology 08/28/22 01:38 Gram Stain - Final Sputum - Expectorated Sputum Sputum Culture - Preliminary A&P Assessment and plan (1) Pulmonary edema: (2) OANH (acute kidney injury): (3) Respiratory failure, acute and chronic: Qualifiers: Respiratory failure complication: hypoxia Qualified Code(s): J96.21 - Acute and chronic respiratory failure with hypoxia (4) CHF exacerbation: (5) Pneumonia: (6) Anemia: (7) Hypothyroidism: Plan 81-year-old man with past medical history of hypertension, CKD, coronary artery disease status post CABG in 2002, carotid disease status post bilateral carotid endarterectomy, dyslipidemia, COPD, history of CVA, diabetes and dyslipidemia.Came in with chief complaint of worsening shortness of breath, cough with productive yellowish sputum going on for the past few weeks, and since then it has progressively worsened , also complaining of PND and orthopnea ,he started having these symptoms after he contracted viral pneumonia like symptoms, at that time he was having generalized body pain and subjective fever. 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 Cardiothoracic surgery follow-up as outpatient History of CVA History of diabetes History of peripheral artery disease: MADELINE : 08/26: mild to moderate athero sclerosis of the right lower extremity.moderate atherosclerosis of the left lower extremity. Chronic iron deficiency: Hypothyroidism Plan: 2D echo: Normal LV size, mildly decreased LV systolic function, LVEF : 45%-50%, global left ventricular hypokinesia Grade 2 diastolic dysfunction, normal IVC dimension with greater than 50% respiratory variation XR chest: Bilateral infiltrates in both the lungs cervantes, small bilateral pleural effusion, left greater than right Blood culture: NTD Sputum gram stain and culture: Urine Legionella antigen Bacterial antigen panel Procalcitonin Continue ceftriaxone and Rocephin Was on Lasix 40 IV twice daily, has been de-escalated to Lasix 40 p.o. daily Monitor intake output charting, monitor daily weight, monitor electrolytes Monitor BMP, avoid nephrotoxic's Continue DuoNebs, Mucinex, Mucomyst. Continue levothyroxine Continue hydralazine Continue tamsulosin CODE STATUS: Full code DVT on heparin Plan for today: Cclincially appearing to be euvolemic, keep with iv lasix, change to po medications tomorrow if does well, PT/OT assessment Attestations Medical Necessity Statement*: PT/OT assessment, clinically euvolemic Coding Level of Care Code Acute Lead Clinical Research Coordinator for Chg Fwd Diagnoses Pulmonary edema J81.1 OANH (acute kidney injury) N17.9 Respiratory failure, acute and chronic J96.21 Respiratory failure complication: hypoxia CHF exacerbation I50.9 Pneumonia J18.9 Anemia D64.9 Hypothyroidism E03.9
[2022-08-29 21:38] LABS: Glucose Point of Care 122 mg/dL (70-110)
[2022-08-30] VITALS (13 sets, daily range): BP systolic 141–186; BP diastolic 61–70; PULSE 72–89; RESP 17–21; TEMP 36.4–36.8; O2SAT 91–96
[2022-08-30] MEDS: acetylcysteine 200 mg/mL SDV 4 mL 100 MG INHALATION ×4 (02:42→19:55)
[2022-08-30] MEDS: ipratropium-albuterol 3 mL Neb INHALATION ×4 (02:42→19:55)
[2022-08-30 04:26] LABS: Basophils % 0.4 %; Eosinophils # 0.4 10^3/uL (0.0-0.8); Eosinophils % 7.5 %; Hematocrit 30.2 % (42.0-52.0); Hemoglobin 9.5 g/dL (11.7-16.6); Lymphocytes # 0.7 10^3/uL (0.8-4.8); Lymphocytes % 13.1 %; Mean Corpuscular HGB Conc 31.5 g/dL (30.0-36.0); Mean Corpuscular Hemoglobin 30.6 pg (28.0-34.0); Mean Corpuscular Volume 97.4 fl (80-94); Mean Platelet Volume 11.4 fL (7.4-10.4); Monocytes # 0.7 10^3/uL (0.2-0.9); Monocytes % 12.4 %; Neutrophils # 3.69 10^3/uL (1.8-7.7); Neutrophils % 66.2 %; Nucleated Red Blood Cells % 0 %; Platelet Count 203 10^3/cmm (130-400); Red Cell Distribution Width 13.8 % (12.1-15.1); White Blood Count 5.6 10^3/uL (4.0-10.0)
[2022-08-30 04:51] LABS: Anion Gap 13.2 (5-19); Blood Urea Nitrogen 49 mg/dL (8-23); Calcium 8.8 mg/dL (8.5-10.5); Carbon Dioxide 27 mmol/L (22-29); Chloride 104 mmol/L (98-107); Glucose 93 mg/dL (65-115); Osmolality Calculated 305 mOsm/kg (285-295); Potassium 3.2 mmol/L (3.5-5.1); Sodium 141 mmol/L (136-145)
[2022-08-30] MEDS: heparin 5,000 unit/mL INJ 1 mL 5000 UNIT SUBCUT ×2 (06:02→17:31)
[2022-08-30] MEDS: hyDRALAzine 25 mg Tablet PO ×2 (06:03→17:31)
[2022-08-30] MEDS: FUROsemide 10 mg/mL SDV 4mL 40 MG IVP ×2 (06:04→17:23)
[2022-08-30 06:33] LABS: Glucose Point of Care 106 mg/dL (70-110)
[2022-08-30] MEDS: levothyroxine 75 mcg Tablet PO (09:05)
[2022-08-30] MEDS: sucralfate 1 gm Tablet PO ×4 (09:05→20:09)
[2022-08-30] MEDS: duloxetine 60 mg Capsule PO ×2 (09:05→17:24)
[2022-08-30] MEDS: dutasteride 0.5 mg Capsule PO (09:06)
[2022-08-30] MEDS: docusate sodium 100 mg Capsule PO ×2 (09:06→17:24)
[2022-08-30] MEDS: tamsulosin 0.4 mg Capsule PO ×2 (09:06→17:24)
[2022-08-30] MEDS: guaiFENesin 600 mg Tablet PO ×2 (09:06→17:24)
[2022-08-30] MEDS: aspirin 81 mg EC Tablet PO (09:06)
[2022-08-30] MEDS: lactulose oral liq 20 gm/30 mL UDC 10 GM PO ×2 (09:06→17:23)
[2022-08-30] MEDS: azithromycin 500 MG in sodium chloride 0.9% 250 ML 250 MG IV (09:07)
[2022-08-30] MEDS: cefTRIAXone 1,000 MG in sodium chloride 0.9% (plus) 50 ML 100 MG IV (09:08)
[2022-08-30] MEDS: famotidine 20 mg Tablet 40 MG PO (09:08)
[2022-08-30 10:43] LABS: Glucose Point of Care 159 mg/dL (70-110)
--- NOTE | 2022-08-30 11:10 | PC.SOCIAL ---
IMM update IMM updated with patient. Verbalized an understanding. Copy Pg 2 provided. Initialled, dated, timed, and placed in chart.
[2022-08-30] MEDS: insulin lispro 100 unit/1 mL SUBCUT (11:42)
[2022-08-30] MEDS: potassium chloride ER 20 mEq Tablet 40 MEQ PO (15:25)
[2022-08-30 16:45] LABS: Glucose Point of Care 108 mg/dL (70-110)
--- NOTE | 2022-08-30 18:20 | ECG_ITS ---
[facility] Test Date: 2022-08-30 Pat Name: Abiel Andres Department: Room: 269 Gender: Male Field Sales Trainer: : 1940 Requested By: Zena Walters Order Number: [id number] Reading MD: Jay Jay Sutherland M.D. Measurements Intervals [place] Rate: 76 P: 10 NV: 167 QRS: 7 QRSD: 132 T: 140 QT: 385 QTc: 435 Interpretive Statements SINUS RHYTHM WITH OCCASIONAL SUPRAVENTRICULAR PREMATURE COMPLEXES INTRAVENTRICULAR CONDUCTION DELAY [130+ ms QRS DURATION] Diffuse nonspecific ST-T changes Compared to ECG 08/26/2022 01:38:38 T-wave abnormality no longer present Possible ischemia no longer present Electronically Signed On 08-31-2022 21:00:37 BIOMETRICS EXPERIMENTALIST by Jay Jay Sutherland M.D. [id number]
--- NOTE | 2022-08-30 18:21 | P.PN_ITS ---
Subjective Subjective: Patient complains of squeezing chest pain this afternoon. States that pain is located in the center of the chest occasionally radiating up to his jaw. He has no past history of coronary disease. Never had stents in the past. Breathing is improving. Medications: Reviewed: Yes Medication Review Details: Generic Name Dose Route Start Last Admin Trade Name Freq PRN Reason Stop Dose Admin Acetylcysteine 100 mg 08/26/22 14:00 08/27/22 14:03 Acetylcysteine 2 00 Mg/Ml Sdv 4 Ml INHALATION 100 mg Q6H.RESP KELSEY Administration Albuterol/Ipratrop ium 3 ml 08/26/22 14:00 08/27/22 14:02 Ipratropium-Albu terol 3 Ml Neb INHALATION 3 ml Q6H KELSEY Administration Aspirin 81 mg 08/26/22 09:00 08/27/22 09:19 Aspirin 81 Mg Ec Tablet PO 81 mg DAILY KELSEY Administration Benzonatate 200 mg 08/26/22 06:38 08/27/22 06:01 Benzonatate 100 Mg Capsule PO 200 mg Q6H PRN Administration COUGH Docusate Sodium 100 mg 08/27/22 11:45 08/27/22 12:45 Docusate Sodium 100 Mg Capsule PO 100 mg BID KELSEY Administration Duloxetine HCl 60 mg 08/26/22 09:00 08/27/22 09:19 Duloxetine 60 Mg Capsule PO 60 mg BID KELSEY Administration Dutasteride 0.5 mg 08/26/22 09:00 08/27/22 09:39 Dutasteride 0.5 Mg Capsule PO 0.5 mg DAILY KELSEY Administration Famotidine 40 mg 08/26/22 09:00 08/27/22 09:19 Famotidine 20 Mg Tablet PO 40 mg DAILY KELSEY Administration Guaifenesin 600 mg 08/26/22 18:00 08/27/22 09:19 Guaifenesin 600 Mg Tablet PO 600 mg BID KELSEY Administration Heparin Sodium (Po rcine) 5,000 unit 08/26/22 06:45 08/27/22 05:57 Heparin 5,000 Un it/Ml Inj 1 Ml SUBCUT 5,000 unit Q12H KELSEY Administration Hydralazine HCl 25 mg 08/26/22 06:45 08/27/22 05:57 Hydralazine 25 M g Tablet PO 25 mg Q12H KELSEY Administration Ceftriaxone Sodium 1,000 mg/ 50 mls @ 100 mls/ hr 08/27/22 08:45 08/27/22 09:56 Sodium Chloride IV Infused Q24H [facility] Infusion Protocol Azithromycin 500 m g/ Sodium 250 mls @ 250 mls /hr 08/27/22 08:45 08/27/22 10:25 Chloride IV Infused Q24H [facility] Infusion Protocol Insulin Human Lisp ro 0 unit 08/26/22 08:00 08/27/22 12:30 Insulin Lispro 1 00 Unit/1 Ml SUBCUT Not Given TIDWM [facility] Protocol Levothyroxine Sodi um 75 mcg 08/26/22 09:00 08/27/22 09:19 Levothyroxine 75 Mcg Tablet PO 75 mcg DAILY KELSEY Administration Sucralfate 1 gm 08/26/22 09:00 08/27/22 12:45 Sucralfate 1 Gm Tablet PO 1 gm QID KELSEY Administration Tamsulosin HCl 0.4 mg 08/26/22 09:00 08/27/22 09:19 Tamsulosin 0.4 M g Capsule PO 0.4 mg BID KELSEY Administration Vitals/I&O/Wt Last Vital Signs Temp 98.2 F 08/30/22 15:16 Pulse 83 08/30/22 15:16 Resp 17 08/30/22 15:16 BP 159/70 08/30/22 15:16 Pulse Ox 92 08/30/22 15:16 O2 Del Method 08/30/22 15:16 O2 Flow Rate 3 08/30/22 14:27 08/30/22 08/30/22 08/30/22 06:59 14:59 22:59 Intake Total 400 / 1780 540 / 540 120 / 660 Output Total 1100 / 2500 1575 / 1575 500 / 2075 Balance -700 / -720 -1035 / -1035 -380 / -1415 Physical Exam Narrative: General: No acute distress, AO x3 HEENT: PERRLA, pupils bilaterally equal and reactive, pallors not present Chest: Normal vesicular breath sounds, no added sounds, equal good air entry bilaterally CVS: S1-S2 regular, no murmurs, no tachycardia, no gallops, no rubs Abdomen: Soft, nontender, no organomegaly, bowel sounds present Neuro: No focal deficits, no facial deformity, AO x3, power 5/5 in all limbs Data 08/30/22 03:59 08/30/22 03:59 Micro: Microbiology 08/28/22 01:38 Gram Stain - Final Sputum - Expectorated Sputum Sputum Culture - Final A&P Assessment and plan (1) Pulmonary edema: (2) OANH (acute kidney injury): (3) Respiratory failure, acute and chronic: Qualifiers: Respiratory failure complication: hypoxia Qualified Code(s): J96.21 - Acute and chronic respiratory failure with hypoxia (4) CHF exacerbation: (5) Pneumonia: (6) Anemia: (7) Hypothyroidism: Plan 81-year-old man with past medical history of hypertension, CKD, coronary artery disease status post CABG in 2002, carotid disease status post bilateral carotid endarterectomy, dyslipidemia, COPD, history of CVA, diabetes and dyslipidemia.Came in with chief complaint of worsening shortness of breath, cough with productive yellowish sputum going on for the past few weeks, and since then it has progressively worsened , also complaining of PND and orthopnea ,he started having these symptoms after he contracted viral pneumonia like symptoms, at that time he was having generalized body pain and subjective fever. Currently he is being managed for: Assessment: # Pneumonia Patient is currently on ceftriaxone and azithromycin. Day 4 today. # Decompensated heart failure 2D echo: Normal LV size, mildly decreased LV systolic function, LVEF : 45%-50%, global left ventricular hypokinesia Grade 2 diastolic dysfunction, normal IVC dimension with greater than 50% respiratory variation XR chest: Bilateral infiltrates in both the lungs cervantes, small bilateral pleural effusion, left greater than right - Currently on lasix 40mg iv q12h - net negative 3.8 L on admission #OANH on worsening CKD cr improving from 4 to 2.5 good urine output # Mild COPD exacerbation Continue DuoNebs, Mucinex, Mucomyst. # Hypertension # History of coronary artery disease s/p CABG c/o chest pain today , will check EKG and trop series If abnormal together with abnormal echo will likely need stress test History of bilateral carotid endarterectomy: Bilateral carotid artery Doppler: ( 08/26) severe stenosis at the origin of the right external carotid artery. Cardiothoracic surgery follow-up as outpatient Will add imdur 30mg daily and assess for improvement #History of CVA History of diabetes History of peripheral artery disease: MADELINE : 08/26: mild to moderate atherosc lerosis of the right lower extremity.moderate atherosclerosis of the left lower extremity. Chronic iron deficiency: Hypothyroidism CODE STATUS: Full code DVT on heparin Attestations Medical Necessity Statement*: EKG and trop series, c/o chest pain Coding Level of Care Code Acute High School Counselor for Chg Fwd Diagnoses Pulmonary edema J81.1 OANH (acute kidney injury) N17.9 Respiratory failure, acute and chronic J96.21 Respiratory failure complication: hypoxia CHF exacerbation I50.9 Pneumonia J18.9 Anemia D64.9 Hypothyroidism E03.9
[2022-08-30 19:47] LABS: Troponin(5th) Baseline 88 ng/L (0-15)
--- NOTE | 2022-08-30 20:20 | ECG_ITS ---
[facility] Test Date: 2022-08-30 Pat Name: Abiel Andres Department: Room: 269 Gender: Male Digital Field Service Technician: : 1940 Requested By: Zena Walters Order Number: [id number] Juliana MD: Jay Jay Sutherland M.D. Measurements Intervals [place] Rate: 77 P: 0 MT: 102 QRS: 20 QRSD: 124 T: 75 QT: 370 QTc: 420 Interpretive Statements SINUS RHYTHM WITH SHORT MT INTERVAL WITH OCCASIONAL VENTRICULAR PREMATURE COMPLEXES MODERATE INTRAVENTRICULAR CONDUCTION DELAY [105+ ms QRS DURATION, 80+ ms Q/S IN V1/V2, NO Q AND 60+ ms R IN I/aVL/V5/V6] ST DEVIATION AND MODERATE T-WAVE ABNORMALITY, CONSIDER LATERAL ISCHEMIA [-0.1+ mV T-WAVE IN I/aVL/V5/V6] Compared to ECG 08/30/2022 18:46:29 Ventricular premature complex(es) now present Short MT interval now present T-wave abnormality now present Possible ischemia now present Electronically Signed On 08-31-2022 21:23:14 SKATES OPERATOR by Jay Jay Sutherland M.D. [id number]
[2022-08-30 22:07] LABS: Glucose Point of Care 112 mg/dL (70-110)
[2022-08-30 22:29] LABS: Troponin 5 2HR 88.08 ng/L (0-15)
[2022-08-30 22:31] LABS: Troponin 5 2HR Delta 0.08 ABS# (0-10)
[2022-08-31] VITALS (14 sets, daily range): BP systolic 163–192; BP diastolic 63–86; PULSE 69–86; RESP 16–18; TEMP 36.4–37.2; O2SAT 92–97
--- NOTE | 2022-08-31 00:20 | ECG_ITS ---
[facility] Test Date: 2022-08-31 Pat Name: Abiel Andres Department: Room: 269 Gender: Male Thaw Shed Heater Tender: : 1940 Requested By: Zena Walters Order Number: [id number] Reading MD: Jay Jay Sutherland M.D. Measurements Intervals [place] Rate: 81 P: 24 [place]: 176 QRS: 15 QRSD: 133 T: 73 QT: 373 QTc: 435 Interpretive Statements SINUS RHYTHM WITH OCCASIONAL VENTRICULAR PREMATURE COMPLEXES INTRAVENTRICULAR CONDUCTION DELAY [130+ ms QRS DURATION] Compared to ECG 08/30/2022 20:05:01 Short OH interval no longer present T-wave abnormality no longer present Possible ischemia no longer present Electronically Signed On 08-31-2022 21:26:40 SHAREPOINT ADMIN by Jay Jay Sutherland M.D. [id number]
[2022-08-31 01:48] LABS: Troponin 5 6HR 95.07 ng/L (0-15)
[2022-08-31 02:03] LABS: Troponin 5 6HR Delta 7.07 ng/L (0-12)
[2022-08-31] MEDS: acetylcysteine 200 mg/mL SDV 4 mL 100 MG INHALATION ×4 (02:34→20:10)
[2022-08-31] MEDS: ipratropium-albuterol 3 mL Neb INHALATION ×4 (02:34→20:10)
[2022-08-31] MEDS: FUROsemide 10 mg/mL SDV 4mL 40 MG IVP (05:03)
[2022-08-31] MEDS: hyDRALAzine 25 mg Tablet PO (06:04)
[2022-08-31] MEDS: heparin 5,000 unit/mL INJ 1 mL 5000 UNIT SUBCUT ×2 (06:04→17:53)
[2022-08-31 07:17] LABS: Glucose Point of Care 98 mg/dL (70-110)
[2022-08-31] MEDS: cefTRIAXone 1,000 MG in sodium chloride 0.9% (plus) 50 ML 100 MG IV (09:16)
[2022-08-31] MEDS: guaiFENesin 600 mg Tablet PO ×2 (09:18→17:48)
[2022-08-31] MEDS: tamsulosin 0.4 mg Capsule PO ×2 (09:18→17:48)
[2022-08-31] MEDS: docusate sodium 100 mg Capsule PO ×2 (09:18→17:48)
[2022-08-31] MEDS: levothyroxine 75 mcg Tablet PO (09:18)
[2022-08-31] MEDS: famotidine 20 mg Tablet 40 MG PO (09:18)
[2022-08-31] MEDS: aspirin 81 mg EC Tablet PO (09:18)
[2022-08-31] MEDS: duloxetine 60 mg Capsule PO ×2 (09:18→17:48)
[2022-08-31] MEDS: lactulose oral liq 20 gm/30 mL UDC 10 GM PO ×2 (09:19→17:48)
[2022-08-31] MEDS: isosorbide mononitrate ER 30 mg Tablet PO (09:19)
[2022-08-31] MEDS: sucralfate 1 gm Tablet PO ×4 (09:19→20:05)
[2022-08-31] MEDS: dutasteride 0.5 mg Capsule PO (09:22)
[2022-08-31] MEDS: azithromycin 500 MG in sodium chloride 0.9% 250 ML 250 MG IV (10:03)
[2022-08-31 11:39] LABS: Glucose Point of Care 92 mg/dL (70-110)
--- NOTE | 2022-08-31 16:48 | P.PN_ITS ---
Subjective Subjective: Patient feels symptomatically better today. Had some chest pain overnight but did better this morning after taking the Imdur. He had elevated troponins last night in the 80s range though without significant delta at 2 or 6 hours. He appears to be more comfortable today. EKG series showed nonspecific ST-T wave changes. Medications: Reviewed: Yes Medication Review Details: Generic Name Dose Route Start Last Admin Trade Name Freq PRN Reason Stop Dose Admin Acetylcysteine 100 mg 08/26/22 14:00 08/27/22 14:03 Acetylcysteine 2 00 Mg/Ml Sdv 4 Ml INHALATION 100 mg Q6H.RESP KELSEY Administration Albuterol/Ipratrop ium 3 ml 08/26/22 14:00 08/27/22 14:02 Ipratropium-Albu terol 3 Ml Neb INHALATION 3 ml Q6H KELSEY Administration Aspirin 81 mg 08/26/22 09:00 08/27/22 09:19 Aspirin 81 Mg Ec Tablet PO 81 mg DAILY KELSEY Administration Benzonatate 200 mg 08/26/22 06:38 08/27/22 06:01 Benzonatate 100 Mg Capsule PO 200 mg Q6H PRN Administration COUGH Docusate Sodium 100 mg 08/27/22 11:45 08/27/22 12:45 Docusate Sodium 100 Mg Capsule PO 100 mg BID KELSEY Administration Duloxetine HCl 60 mg 08/26/22 09:00 08/27/22 09:19 Duloxetine 60 Mg Capsule PO 60 mg BID KELSEY Administration Dutasteride 0.5 mg 08/26/22 09:00 08/27/22 09:39 Dutasteride 0.5 Mg Capsule PO 0.5 mg DAILY KELESY Administration Famotidine 40 mg 08/26/22 09:00 08/27/22 09:19 Famotidine 20 Mg Tablet PO 40 mg DAILY KELSYE Administration Guaifenesin 600 mg 08/26/22 18:00 08/27/22 09:19 Guaifenesin 600 Mg Tablet PO 600 mg BID KELSEY Administration Heparin Sodium (Po rcine) 5,000 unit 08/26/22 06:45 08/27/22 05:57 Heparin 5,000 Un it/Ml Inj 1 Ml SUBCUT 5,000 unit Q12H KELSEY Administration Hydralazine HCl 25 mg 08/26/22 06:45 08/27/22 05:57 Hydralazine 25 M g Tablet PO 25 mg Q12H KELSEY Administration Ceftriaxone Sodium 1,000 mg/ 50 mls @ 100 mls/ hr 08/27/22 08:45 08/27/22 09:56 Sodium Chloride IV Infused Q24H KELSEY Infusion Protocol Azithromycin 500 m g/ Sodium 250 mls @ 250 mls /hr 08/27/22 08:45 08/27/22 10:25 Chloride IV Infused Q24H KELSEY Infusion Protocol Insulin Human Lisp ro 0 unit 08/26/22 08:00 08/27/22 12:30 Insulin Lispro 1 00 Unit/1 Ml SUBCUT Not Given TIDWM [facility] Protocol Levothyroxine Sodi um 75 mcg 08/26/22 09:00 08/27/22 09:19 Levothyroxine 75 Mcg Tablet PO 75 mcg DAILY KELSEY Administration Sucralfate 1 gm 08/26/22 09:00 08/27/22 12:45 Sucralfate 1 Gm Tablet PO 1 gm QID KELSEY Administration Tamsulosin HCl 0.4 mg 08/26/22 09:00 08/27/22 09:19 Tamsulosin 0.4 M g Capsule PO 0.4 mg BID KELSEY Administration Vitals/I&O/Wt Last Vital Signs Temp 98.9 F 08/31/22 16:00 Pulse 76 08/31/22 16:00 Resp 18 08/31/22 16:00 BP 177/71 08/31/22 16:00 Pulse Ox 94 08/31/22 16:00 O2 Del Method 08/31/22 16:00 O2 Flow Rate 3 08/31/22 13:28 08/31/22 08/31/22 08/31/22 06:59 14:59 22:59 Intake Total 300 / 1080 780 / 780 Output Total 1700 / 4775 700 / 700 Balance -1400 / -3695 80 / 80 Physical Exam Narrative: General: No acute distress, AO x3 HEENT: PERRLA, pupils bilaterally equal and reactive, pallors not present Chest: Normal vesicular breath sounds, no added sounds, equal good air entry bilaterally CVS: S1-S2 regular, no murmurs, no tachycardia, no gallops, no rubs Abdomen: Soft, nontender, no organomegaly, bowel sounds present Neuro: No focal deficits, no facial deformity, AO x3, power 5/5 in all limbs Data 08/30/22 03:59 08/30/22 03:59 Micro: Microbiology 08/26/22 02:04 Blood Culture - Final Blood NO GROWTH AFTER 5 DAYS 08/26/22 02:00 Blood Culture - Final Blood NO GROWTH AFTER 5 DAYS 08/28/22 01:38 Gram Stain - Final Sputum - Expectorated Sputum Sputum Culture - Final A&P Assessment and plan (1) Pulmonary edema: (2) OANH (acute kidney injury): (3) Respiratory failure, acute and chronic: Qualifiers: Respiratory failure complication: hypoxia Qualified Code(s): J96.21 - Acute and chronic respiratory failure with hypoxia (4) CHF exacerbation: (5) Pneumonia: (6) Anemia: (7) Hypothyroidism: Plan 81-year-old man with past medical history of hypertension, CKD, coronary artery disease status post CABG in 2002, carotid disease status post bilateral carotid endarterectomy, dyslipidemia, COPD, history of CVA, diabetes and dyslipidemia.Came in with chief complaint of worsening shortness of breath, cough with productive yellowish sputum going on for the past few weeks, and since then it has progressively worsened , also complaining of PND and orthopnea ,he started having these symptoms after he contracted viral pneumonia like symptoms, at that time he was having generalized body pain and subjective fever. Currently he is being managed for: Assessment: # Pneumonia Patient is currently on ceftriaxone and azithromycin. Day 4 today. # Decompensated heart failure 2D echo: Normal LV size, mildly decreased LV systolic function, LVEF : 45%-50%, global left ventricular hypokinesia Grade 2 diastolic dysfunction, normal IVC dimension with greater than 50% respiratory variation XR chest: Bilateral infiltrates in both the lungs cervantes, small bilateral pleural effusion, left greater than right - Currently on lasix 40mg iv q12h - net negative 3.8 L on admission #OANH on worsening CKD cr improving from 4 to 2.5 good urine output # Mild COPD exacerbation Continue DuoNebs, Mucinex, Mucomyst. # Hypertension # History of coronary artery disease s/p CABG c/o chest pain, EKG with nonspecific ST-T wave changes. Elevated troponins in the 80s range and without significant delta. Concerned that patient symptoms may be related to angina. Also possible that his shortness of breath in spite of becoming euvolemic may be contributed by angina. We will obtain Lexiscan stress test tomorrow. #History of CVA History of diabetes History of peripheral artery disease: MADELINE : 08/26: mild to moderate atherosclerosis of the right lower extremity.moderate atherosclerosis of the left lower extremity. Chronic iron deficiency: Hypothyroidism CODE STATUS: Full code DVT on heparin Attestations Medical Necessity Statement*: stress test tomorrow Coding Level of Care Code Acute Emergency Department Nurse for Chg Fwd Diagnoses Pulmonary edema J81.1 OANH (acute kidney injury) N17.9 Respiratory failure, acute and chronic J96.21 Respiratory failure complication: hypoxia CHF exacerbation I50.9 Pneumonia J18.9 Anemia D64.9 Hypothyroidism E03.9
[2022-08-31 16:51] LABS: Glucose Point of Care 138 mg/dL (70-110)
[2022-08-31] MEDS: hyDRALAzine 25 mg Tablet 50 MG PO (17:52)
--- NOTE | 2022-08-31 18:56 | PC.NURSE ---
Bedside report given to Pearl DOYLE at this time.
[2022-09-01] VITALS (12 sets, daily range): BP systolic 154–193; BP diastolic 59–79; PULSE 61–82; RESP 16–20; TEMP 36.5–36.8; O2SAT 90–98
[2022-09-01] MEDS: hyDRALAzine 25 mg Tablet 50 MG PO (03:43)
[2022-09-01 04:13] LABS: Basophils % 0.3 %; Eosinophils # 0.8 10^3/uL (0.0-0.8); Eosinophils % 14.2 %; Hematocrit 31.9 % (42.0-52.0); Lymphocytes % 16.8 %; Mean Corpuscular HGB Conc 31.3 g/dL (30.0-36.0); Mean Corpuscular Hemoglobin 30.4 pg (28.0-34.0); Mean Platelet Volume 11.1 fL (7.4-10.4); Monocytes # 0.7 10^3/uL (0.2-0.9); Monocytes % 11.4 %; Neutrophils # 3.27 10^3/uL (1.8-7.7); Neutrophils % 57.1 %; Nucleated Red Blood Cells % 0 %; Platelet Count 228 10^3/cmm (130-400); Red Blood Count 3.29 10^6/uL (4.1-5.3); Red Cell Distribution Width 13.4 % (12.1-15.1); White Blood Count 5.7 10^3/uL (4.0-10.0)
[2022-09-01 04:44] LABS: Alanine Aminotransferase 11 U/L (0-41); Albumin Level 3.3 g/dL (3.5-5.2); Alkaline Phosphatase 46 U/L (40-130); Anion Gap 9.6 (5-19); Aspartate Amino Transferase 18 U/L (0-40); Blood Urea Nitrogen 36 mg/dL (8-23); Calcium 9.6 mg/dL (8.5-10.5); Carbon Dioxide 30 mmol/L (22-29); Chloride 103 mmol/L (98-107); Glucose 83 mg/dL (65-115); Osmolality Calculated 295 mOsm/kg (285-295); Potassium 3.6 mmol/L (3.5-5.1); Sodium 139 mmol/L (136-145); Total Bilirubin 0.2 mg/dL (0.15-1.2); Total Protein 6.3 g/dL (6.6-8.7)
[2022-09-01] MEDS: heparin 5,000 unit/mL INJ 1 mL 5000 UNIT SUBCUT ×2 (06:20→17:48)
[2022-09-01 06:44] LABS: Glucose Point of Care 87 mg/dL (70-110)
--- NOTE | 2022-09-01 06:45 | ECG_ITS ---
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 Interpretive Statements NAME OF STUDY: LEXISCAN SESTAMIBI STRESS TEST INDICATION: Chest Pain PROCEDURE: At the baseline, the blood pressure was 179/73 mm Hg with a heart rate of 76 bpm. The electrocardiogram showed sinus rhythm, IVCD. ??? The Lexiscan was infused over a period of 20 seconds. A total of 0.4 milligrams of Lexiscan was infused. The stress phase was continued for a total of 5 minutes. Heart rate at the end of the stress phase was 80 bpm with a blood pressure of 160/60 mm Hg. The EKG at the peak infusion revealed no significant ST and T wave changes. no significant ST and T wave changes. Frequent PVC's noted through out the study. ??? Sestamibi was injected 20 seconds after the Lexiscan infusion. ??? Blood pressure at the end of the recovery phase was 163/59 mm Hg with a heart rate of 80 beats per minute. ??? CONCLUSION: 1. No significant EKG changes with the LexiScan infusion. 2. No LexiScan induced chest pain or cardiac arrhythmia. 3. Normal blood pressure and heart rate response. 4. Sestamibi/sestamibi perfusion scan pending; see separate report. 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 [email or web address]
[2022-09-01] MEDS: regadenoson 0.4 Mg/5 ml Syringe IVP (07:28)
--- NOTE | 2022-09-01 08:59 | NMCV_ITS ---
NM noemy perf SPECT r/s* [id number] Abiel Andres Age: 81 Gender: M : 1940 Exam Date: 09/01/2022 06:42 Ordering Phys: Zena Walters MD Technologist: NADER Rios Exam Location: [facility] Indications: CHEST PAIN STRESS TEST Please see separate stress test report in [facility] for full findings IMAGE PROTOCOL Rest/Stress 1 Lexiscan Day Radiopharmaceutical Dose (mCi) Administration Site Administered by Rest: Tc-99m 10.6 IV NADER Soto Sestamibi Stress:Tc-99m 32.6 IV NADER Soto Sestamibi Rest: 01-Sep-2022 60 Discovery 630 Stress: 01-Sep-2022 30 Discovery 630 0.4mg Lexiscan. Images obtained in supine and prone position. SPECT RESULTS Technical Quality: Excellent Raw Data Analysis: Normal Image Corrections: No attenuation or motion correction applied Summed Stress Score: 1 Summed Rest Score: 0 Summed Difference Score: 1 PERFUSION FINDINGS Is moderate area of slightly decreased tracer uptake was noted in the mid anterior wall region. Subtle area of reversibility was noted at rest. FUNCTIONAL RESULTS (calculated via Gated SPECT) Stress Image LV EF (%): 33 Stress EDV (mL):245 TID: 1.1 Stress ESV (mL):165 FUNCTIONAL FINDINGS: Segmental wall motion analysis revealed a moderate to severe diffuse hypokinesia of the left ventricle. IMPRESSIONS 1. Myocardial perfusion imaging revealing small area of slightly decreased tracer uptake in the mid anterior wall region, with subtle reversibility suggesting myocardial scarring with ischemia in the LAD territory. 2. Diminished ejection fraction of 33%. 3. LV wall motion analysis revealing moderate to severe diffuse hypokinesia of the left ventricle. 4. Moderately dilated LV cavity with an end-systolic volume of 165 ml. No similar previous studies are available for comparison Dr Jay Jay Sutherland MD [facility] (Electronically Signed) Final Date: 01 September 2022 14:18 S
[2022-09-01] MEDS: lactulose oral liq 20 gm/30 mL UDC 10 GM PO (09:21)
[2022-09-01] MEDS: tamsulosin 0.4 mg Capsule PO ×2 (09:22→17:23)
[2022-09-01] MEDS: guaiFENesin 600 mg Tablet PO ×2 (09:22→17:23)
[2022-09-01] MEDS: famotidine 20 mg Tablet 40 MG PO (09:22)
[2022-09-01] MEDS: isosorbide mononitrate ER 30 mg Tablet PO (09:22)
[2022-09-01] MEDS: cefTRIAXone 1,000 MG in sodium chloride 0.9% (plus) 50 ML 100 MG IV (09:22)
[2022-09-01] MEDS: dutasteride 0.5 mg Capsule PO (09:22)
[2022-09-01] MEDS: levothyroxine 75 mcg Tablet PO (09:22)
[2022-09-01] MEDS: sucralfate 1 gm Tablet PO ×4 (09:22→21:40)
[2022-09-01] MEDS: duloxetine 60 mg Capsule PO ×2 (09:22→17:23)
[2022-09-01] MEDS: docusate sodium 100 mg Capsule PO ×2 (09:22→17:23)
[2022-09-01] MEDS: aspirin 81 mg EC Tablet PO (09:22)
--- NOTE | 2022-09-01 09:41 | PC.SOCIAL ---
IMM update IMM updated with patient. Verbalized an understanding. Copy Pg 2 provided. Initialled, dated, timed, and placed in chart.
[2022-09-01 11:36] LABS: Glucose Point of Care 162 mg/dL (70-110)
[2022-09-01] MEDS: insulin lispro 100 unit/1 mL SUBCUT (11:40)
[2022-09-01] MEDS: ipratropium-albuterol 3 mL Neb INHALATION (13:22)
[2022-09-01] MEDS: acetylcysteine 200 mg/mL SDV 4 mL 100 MG INHALATION ×2 (13:23→22:52)
--- NOTE | 2022-09-01 13:42 | P.PN_ITS ---
Subjective Subjective: No new complaints today. Patient continues to be on 3 L/min supplemental O2. No chest pain today. Blood pressure last evening noted to be 180s 190s in spite of increasing hydralazine from 25 BID to 50 BID . Renal function continues to improve. Stress test taken today, currently pending. Urine output 1.2L . Net negative 5.4 L since admission. Medications: Reviewed: Yes Medication Review Details: Generic Name Dose Route Start Last Admin Trade Name Freq PRN Reason Stop Dose Admin Acetylcysteine 100 mg 08/26/22 14:00 08/27/22 14:03 Acetylcysteine 2 00 Mg/Ml Sdv 4 Ml INHALATION 100 mg Q6H.RESP KELSEY Administration Albuterol/Ipratrop ium 3 ml 08/26/22 14:00 08/27/22 14:02 Ipratropium-Albu terol 3 Ml Neb INHALATION 3 ml Q6H KELSEY Administration Aspirin 81 mg 08/26/22 09:00 08/27/22 09:19 Aspirin 81 Mg Ec Tablet PO 81 mg DAILY KELSEY Administration Benzonatate 200 mg 08/26/22 06:38 08/27/22 06:01 Benzonatate 100 Mg Capsule PO 200 mg Q6H PRN Administration COUGH Docusate Sodium 100 mg 08/27/22 11:45 08/27/22 12:45 Docusate Sodium 100 Mg Capsule PO 100 mg BID KELSEY Administration Duloxetine HCl 60 mg 08/26/22 09:00 08/27/22 09:19 Duloxetine 60 Mg Capsule PO 60 mg BID KELSEY Administration Dutasteride 0.5 mg 08/26/22 09:00 08/27/22 09:39 Dutasteride 0.5 Mg Capsule PO 0.5 mg DAILY KELSEY Administration Famotidine 40 mg 08/26/22 09:00 08/27/22 09:19 Famotidine 20 Mg Tablet PO 40 mg DAILY KELSEY Administration Guaifenesin 600 mg 08/26/22 18:00 08/27/22 09:19 Guaifenesin 600 Mg Tablet PO 600 mg BID KELSEY Administration Heparin Sodium (Po rcine) 5,000 unit 08/26/22 06:45 08/27/22 05:57 Heparin 5,000 Un it/Ml Inj 1 Ml SUBCUT 5,000 unit Q12H KELSEY Administration Hydralazine HCl 25 mg 08/26/22 06:45 08/27/22 05:57 Hydralazine 25 M g Tablet PO 25 mg Q12H KELSEY Administration Ceftriaxone Sodium 1,000 mg/ 50 mls @ 100 mls/ hr 08/27/22 08:45 08/27/22 09:56 Sodium Chloride IV Infused Q24H KELSEY Infusion Protocol Azithromycin 500 m g/ Sodium 250 mls @ 250 mls /hr 08/27/22 08:45 08/27/22 10:25 Chloride IV Infused Q24H [facility] Infusion Protocol Insulin Human Lisp ro 0 unit 08/26/22 08:00 08/27/22 12:30 Insulin Lispro 1 00 Unit/1 Ml SUBCUT Not Given TIDWM [facility] Protocol Levothyroxine Sodi um 75 mcg 08/26/22 09:00 08/27/22 09:19 Levothyroxine 75 Mcg Tablet PO 75 mcg DAILY KELSEY Administration Sucralfate 1 gm 08/26/22 09:00 08/27/22 12:45 Sucralfate 1 Gm Tablet PO 1 gm QID KELSEY Administration Tamsulosin HCl 0.4 mg 08/26/22 09:00 08/27/22 09:19 Tamsulosin 0.4 M g Capsule PO 0.4 mg BID KELSEY Administration Vitals/I&O/Wt Last Vital Signs Temp 98.1 F 09/01/22 11:33 Pulse 78 09/01/22 13:26 Resp 18 09/01/22 13:26 BP 159/62 09/01/22 11:33 Pulse Ox 98 09/01/22 13:26 O2 Del Method 09/01/22 13:26 O2 Flow Rate 3 09/01/22 13:26 08/31/22 09/01/22 09/01/22 22:59 06:59 14:59 Intake Total 240 / 1020 410 / 410 Output Total 1250 / 1950 Balance 240 / 320 -1250 / -930 410 / 410 Physical Exam Narrative: General: No acute distress, AO x3 HEENT: PERRLA, pupils bilaterally equal and reactive, pallors not present Chest: Normal vesicular breath sounds, no added sounds, equal good air entry bilaterally CVS: S1-S2 regular, no murmurs, no tachycardia, no gallops, no rubs Abdomen: Soft, nontender, no organomegaly, bowel sounds present Neuro: No focal deficits, no facial deformity, AO x3, power 5/5 in all limbs Data 09/01/22 03:48 09/01/22 03:48 A&P Assessment and plan (1) Pulmonary edema: (2) OANH (acute kidney injury): (3) Respiratory failure, acute and chronic: Qualifiers: Respiratory failure complication: hypoxia Qualified Code(s): J96.21 - Acute and chronic respiratory failure with hypoxia (4) CHF exacerbation: (5) Pneumonia: (6) Anemia: (7) Hypothyroidism: Plan 81-year-old man with past medical history of hypertension, CKD, coronary artery disease status post CABG in 2002, carotid disease status post bilateral carotid endarterectomy, dyslipidemia, COPD, history of CVA, diabetes and dyslipidemia.Came in with chief complaint of worsening shortness of breath, cough with productive yellowish sputum going on for the past few weeks, and since then it has progressively worsened , also complaining of PND and orthopnea ,he started having these symptoms after he contracted viral pneumonia like symptoms, at that time he was having generalized body pain and subjective fever. Currently he is being managed for: Assessment: # Pneumonia Patient is currently on ceftriaxone and azithromycin. Day 5 today. D/c abx as completed adequate course # Decompensated heart failure 2D echo: Normal LV size, mildly decreased LV systolic function, LVEF : 45%-50%, global left ventricular hypokinesia Grade 2 diastolic dysfunction, normal IVC dimension with greater than 50% respiratory variation XR chest: Bilateral infiltrates in both the lungs cervantes, small bilateral pleural effusion, left greater than right - improving effusions on serial x rays - on lasix 40mg iv q12h until 08/31, since then on hold as clinically euvolemic. - net negative 5 L since admission improving respiratory status #OANH on worsening CKD cr improving from 4 to 1.9 today good urine output # Mild COPD exacerbation Continue DuoNebs, Mucinex, Mucomyst. # Hypertension: increase hydralazine to 50 TID. Will plan to increase imdur next if still elevated # History of coronary artery disease s/p CABG resolved chest pain, EKG with nonspecific ST-T wave changes. Elevated troponins in the 80s range and without significant delta. Concerned that patient symptoms may be related to angina. Also possible that his shortness of breath in spite of becoming euvolemic may be contributed by angina. s/p stress test today, pending results #History of CVA History of diabetes History of peripheral artery disease: MADELINE : 08/26: mild to moderate atherosclerosis of the right lower extremity.moderate atherosclerosis of the left lower extremity. Chronic iron deficiency: Hypothyroidism: on replacement CODE STATUS: Full code DVT on heparin Attestations Medical Necessity Statement*: pending stress test results Coding Level of Care Code Acute [employer] Operator for Chg Fwd Diagnoses Pulmonary edema J81.1 OANH (acute kidney injury) N17.9 Respiratory failure, acute and chronic J96.21 Respiratory failure complication: hypoxia CHF exacerbation I50.9 Pneumonia J18.9 Anemia D64.9 Hypothyroidism E03.9
[2022-09-01] MEDS: hyDRALAzine 50 mg Tablet PO ×2 (14:21→21:40)
[2022-09-01] MEDS: FUROsemide 10 mg/mL SDV 4mL 40 MG IVP (16:45)
[2022-09-01 17:02] LABS: Glucose Point of Care 103 mg/dL (70-110)
--- NOTE | 2022-09-01 19:53 | PC.NURSE ---
Nurse notified of last documented blood pressure.
[2022-09-01] MEDS: albuterol 2.5 mg/3 mL Neb INHALATION (22:53)
[2022-09-01] MEDS: ipratropium 0.5 mg/2.5 mL Neb INHALATION (22:53)
--- NOTE | 2022-09-01 23:44 | PC.NURSE ---
Nurse notified of last documented blood pressure.
[2022-09-02] VITALS (9 sets, daily range): BP systolic 154–190; BP diastolic 72–80; PULSE 74–85; RESP 16–18; TEMP 36.8–37; O2SAT 90–98
[2022-09-02] MEDS: FUROsemide 10 mg/mL SDV 4mL 40 MG IVP (04:13)
[2022-09-02] MEDS: hyDRALAzine 50 mg Tablet PO ×2 (05:45→14:27)
[2022-09-02] MEDS: heparin 5,000 unit/mL INJ 1 mL 5000 UNIT SUBCUT (05:46)
[2022-09-02 07:09] LABS: Glucose Point of Care 116 mg/dL (70-110)
[2022-09-02] MEDS: duloxetine 60 mg Capsule PO (08:44)
[2022-09-02] MEDS: isosorbide mononitrate ER 30 mg Tablet PO (08:45)
[2022-09-02] MEDS: guaiFENesin 600 mg Tablet PO (08:45)
[2022-09-02] MEDS: aspirin 81 mg EC Tablet PO (08:45)
[2022-09-02] MEDS: levothyroxine 75 mcg Tablet PO (08:46)
[2022-09-02] MEDS: tamsulosin 0.4 mg Capsule PO (08:46)
[2022-09-02] MEDS: dutasteride 0.5 mg Capsule PO (08:46)
[2022-09-02] MEDS: sucralfate 1 gm Tablet PO ×2 (08:46→13:11)
[2022-09-02] MEDS: famotidine 20 mg Tablet 40 MG PO (08:47)
[2022-09-02] MEDS: acetylcysteine 200 mg/mL SDV 4 mL 100 MG INHALATION ×2 (10:00→14:09)
[2022-09-02] MEDS: albuterol 2.5 mg/3 mL Neb INHALATION (10:01)
[2022-09-02] MEDS: ipratropium 0.5 mg/2.5 mL Neb INHALATION ×2 (10:01→14:10)
[2022-09-02 11:17] LABS: Glucose Point of Care 126 mg/dL (70-110)
[2022-09-02] MEDS: FUROsemide 40 mg Tablet PO (13:11)
[2022-09-02] MEDS: isosorbide mononitrate 20 mg Tablet 60 MG PO (13:13)
--- NOTE | 2022-09-02 18:11 | PM.DCS ---
Discharge Providers Date of Admission: 08/27/22 07:28 Date of Discharge: September 02, 2022 Attending Provider at Admission: Royal Mauro MD Attending Provider at Discharge: Zena Walters MD Primary Care Provider: CIERRA Fortune Diagnoses at Discharge Discharge Diagnosis (1) Pulmonary edema: Status: Acute (2) OANH (acute kidney injury): Status: Acute (3) Respiratory failure, acute and chronic: Status: Acute Qualifiers: Respiratory failure complication: hypoxia Qualified Code(s): J96.21 - Acute and chronic respiratory failure with hypoxia (4) CHF exacerbation: Status: Acute (5) Pneumonia: Status: Acute (6) Anemia: Status: Acute (7) Hypothyroidism: Status: Acute Reason for Visit Reason for Visit: SOB Brief History: Taken from H&P: Abiel Andres is a 81 year old male who has multiple comorbid conditions such as hypertension, chronic kidney disease, anemia, history of CABG, carotid endarterectomy, history of CVA, peripheral vascular disease being managed medically, type 2 diabetes hemoglobin A1c around 5.5, was seen by PCP on 08/18 for flulike symptoms, patient was concerned about his worsening of kidney function, he was given promethazine for cough, presented to the hospital with chief complaint of worsening of shortness of breath. Patient stating that for last couple of days he has been experiencing dry cough, shortness of breath, orthopnea and PND.? He does not take Lasix on a daily basis, he has not noticed any leg pain however he is endorsing leg cramps and tightness, no active chest pain, no fever nausea or vomiting. At baseline he uses 2 L of oxygen in the ER he is requiring 4 L, he has been diagnosed with CHF exacerbation acute on chronic kidney disease for this reason hospitalist was requested to admit him. Hospital Course Hospital Course Assessment: # Possible Pneumonia Completed 5 days of ceftriaxone and azithromycin. # Decompensated heart failure 2D echo: Normal LV size, mildly decreased LV systolic function, LVEF : 45%-50%, global left ventricular hypokinesia Grade 2 diastolic dysfunction, normal IVC dimension with greater than 50% respiratory variation XR chest: Bilateral infiltrates in both the lungs cervantes, small bilateral pleural effusion, left greater than right - improving effusions on serial x rays -? on lasix 40mg iv q12h until 08/31, being discharged with lasix 40mg po daily and supplemental K - net negative 6.4 L since admission significantly improved respiratory status #OANH on worsening CKD cr improving from 4 to 1.9 during admission good urine output lisinopril has been discontinued at discharge # Mild COPD exacerbation received treatment with e DuoNebs, Mucinex, Mucomyst. # Hypertension: increased hydralazine to 25 TID. also started new medication IMDUR for medical management of possible anginal chest pain # History of coronary artery disease s/p CABG c/o chest pain during admission EKG with nonspecific ST-T wave changes.? Elevated troponins in the 80s range and without significant delta. underwent stress test revealing small area of slightly decreased ?tracer uptake in the mid anterior wall region, with? subtle reversibility ?suggesting myocardial scarring with ischemia in the LAD territory.LV wall motion analysis revealing moderate to severe diffuse hypokinesia of ?the left ventricle. Chest pain resolved with addition of imdur 60mg daily Patient asymptomatic at discharge May need outpatient ischemic w/up with [facility], Deferred on this admission due to OANH, cr 4 and resolved symptoms. #History of CVA History of diabetes History of peripheral artery disease: MADELINE : 08/26: mild to moderate atherosclerosis of the right lower extremity.moderate atherosclerosis of the left lower extremity. Chronic iron deficiency: Hypothyroidism: on replacement Physical Exam Narrative: General: No acute distress, AO x3 HEENT: PERRLA, pupils bilaterally equal and reactive, pallors not present Chest: Normal vesicular breath sounds, no added sounds, equal good air entry bilaterally CVS: S1-S2 regular, no murmurs, no tachycardia, no gallops, no rubs Abdomen: Soft, nontender, no organomegaly, bowel sounds present Neuro: No focal deficits, no facial deformity, AO x3, power 5/5 in all limbs Discharge Data Studies Completed and Pending Completed Studies During Hospitalization Category Date Time Status Cardiac Stress Test MIBI [Sestamibi Stress Test Request Exams 09/01/22 06:45 Draft ] Routine XR chest 1V portable [id number] Routine Exams 08/27/22 06:54 Completed XR chest 1V portable [id number] Stat Exams 08/26/22 01:35 Completed NM noemy perf SPECT r/s* [id number] Routine Nuc Med 09/01/22 08:59 Completed CV. echo wo/w contrast [id number] Routine Ultrasound 08/26/22 06:45 Completed US MADELINE [CV ankle brachial index [id number]] Routine Ultrasound 08/26/22 06:54 Completed US carotid duplex bilateral [CV carotid duplex BI* Ultrasound 08/26/22 06:54 Completed [id number]] Routine Pending at discharge Category Date Time Status Cardiac Stress Test MIBI [Sestamibi Stress Test Request Exams 08/31/22 08:59 Stop Req ] Routine Radiology Impressions Ankle Brachial Index 08/26/22 06:54 IMPRESSION: 1. Findings consistent mild to moderate atherosclerosis of the right lower extremity. 2. Findings consistent with moderate atherosclerosis of the left lower extremity. Carotid Doppler Study 08/26/22 06:54 IMPRESSION: 1. There is moderate, 50-69% proximal right ICA stenosis. 2. Mild, less than 50%, left ICA stenosis. 3. The vertebral arteries are patent, with antegrade flow direction bilaterally. 4. There is severe stenosis at the origin of the right external carotid artery. REFERENCES: SRU CRITERIA. The degree of internal carotid artery stenosis is based on criteria defined by the Society of Radiologists in Ultrasound (SRU). Normal is no stenosis. Mild is less than 50% stenosis. Moderate is 50-69% stenosis. Severe is greater than 69% stenosis to near occlusion. Near occlusion is a markedly narrowed lumen. Total occlusion is no detectable patent lumen. Chest X-Ray 08/27/22 06:54 IMPRESSION: Stable infiltrates with a decreased right effusion and increased left effusion. Laboratory Results WBC 5.7 10^3/uL (4.0-10.0) 09/01/22 03:48 RBC 3.29 10^6/uL (4.1-5.3) L 09/01/22 03:48 Hgb 10.0 g/dL (11.7-16.6) L 09/01/22 03:48 Hct 31.9 % (42.0-52.0) L 09/01/22 03:48 MCV 97.0 fl (80-94) H 09/01/22 03:48 MCH 30.4 pg (28.0-34.0) 09/01/22 03:48 MCHC 31.3 g/dL (30.0-36.0) 09/01/22 03:48 RDW 13.4 % (12.1-15.1) 09/01/22 03:48 Plt Count 228 10^3/cmm (130-400) 09/01/22 03:48 MPV 11.1 fL (7.4-10.4) H 09/01/22 03:48 Neut % (Auto) 57.1 % 09/01/22 03:48 Lymph % (Auto) 16.8 % 09/01/22 03:48 [place] % (Auto) 11.4 % 09/01/22 03:48 Eos % (Auto) 14.2 % 09/01/22 03:48 Baso % (Auto) 0.3 % 09/01/22 03:48 Neut # (Auto) 3.27 10^3/uL (1.8-7.7) 09/01/22 03:48 Lymph # (Auto) 1.0 10^3/uL (0.8-4.8) 09/01/22 03:48 [place] # (Auto) 0.7 10^3/uL (0.2-0.9) 09/01/22 03:48 Eos # (Auto) 0.8 10^3/uL (0.0-0.8) 09/01/22 03:48 Baso # (Auto) 0.0 10^3/uL (0.0-0.1) 09/01/22 03:48 Nucleated RBC % (auto) 0 % 09/01/22 03:48 Nucleated RBCs # 0.0 /100WBC 09/01/22 03:48 D-Dimer 0.89 ug/mIFEU (0-0.59) H 08/26/22 01:33 Specimen Type Arterial 08/26/22 02:00 Sample Site Radial, right 08/26/22 02:00 ABG pH 7.37 (7.35-7.45) 08/26/22 02:00 ABG pCO2 31.3 mmHg (35-45) L 08/26/22 02:00 ABG pO2 64.6 mmHg (80.0-100.0) L 08/26/22 02:00 ABG HCO3 18.1 mmol/L (22-26) L 08/26/22 02:00 ABG Base Excess -6.3 mmol/L (-2.0-2.0) L 08/26/22 02:00 Clarence Test Pos 08/26/22 02:00 Hematocrit 28.7 % (42-52) L 08/26/22 02:00 Hgb O2 Saturation 90.8 % (95-100) L 08/26/22 02:00 Carboxyhemoglobin 0.6 %THgb (0.4-20.1) 08/26/22 02:00 Methemoglobin 1.4 % (0.4-1.5) 08/26/22 02:00 Total Hemoglobin 9.4 g/dL (14-18) L 08/26/22 02:00 O2 Delivery Device Nc 08/26/22 02:00 FiO2 33.0 % 08/26/22 02:00 Health Technician Hearing ID [place] 08/26/22 02:00 Sodium 139 mmol/L (136-145) 09/01/22 03:48 Potassium 3.6 mmol/L (3.5-5.1) 09/01/22 03:48 Chloride 103 mmol/L (98-107) 09/01/22 03:48 Carbon Dioxide 30 mmol/L (22-29) H 09/01/22 03:48 Anion Gap 9.6 (5-19) 09/01/22 03:48 BUN 36 mg/dL (8-23) H 09/01/22 03:48 Creatinine 1.9 mg/dL (0.7-1.2) H 09/01/22 03:48 GFR Calculation Not Reportable 09/01/22 03:48 Glucose 83 mg/dL (65-115) 09/01/22 03:48 POC Glucose 126 mg/dL (70-110) H 09/02/22 11:07 Estimat Average Glucose 82 08/26/22 01:33 Hemoglobin A1c 4.5 % (4.0-6.0) 08/26/22 01:33 Calculated Osmolality 295 mOsm/kg (285-295) 09/01/22 03:48 Lactic Acid 1.1 mmol/L (0.5-2.2) 08/26/22 01:33 Calcium 9.6 mg/dL (8.5-10.5) 09/01/22 03:48 Phosphorus 5.8 mg/dL (2.5-4.5) H 08/27/22 03:35 Magnesium 2.8 mg/dL (1.7-2.3) H 08/27/22 03:35 Total Bilirubin 0.2 mg/dL (0.15-1.2) 09/01/22 03:48 AST 18 U/L (0-40) 09/01/22 03:48 ALT 11 U/L (0-41) 09/01/22 03:48 Alkaline Phosphatase 46 U/L (40-130) 09/01/22 03:48 Troponin T Baseline 88 ng/L (0-15) H 08/30/22 19:00 Troponin T 120 Minute 88.08 ng/L (0-15) H 08/30/22 21:33 Delta Troponin T 0.08 ABS# (0-10) 08/30/22 21:33 Troponin T Hi Sens 6Hr 95.07 ng/L (0-15) H 08/31/22 01:07 Troponin T Hi Sens 6Hr Delta 7.07 ng/L (0-12) 08/31/22 01:07 NT-Pro-B Natriuret Pep 04333 pg/mL (0-450) H 08/26/22 01:33 Total Protein 6.3 g/dL (6.6-8.7) L 09/01/22 03:48 Albumin 3.3 g/dL (3.5-5.2) L 09/01/22 03:48 Globulin 3.0 g/dL (1.3-4.6) 09/01/22 03:48 Procalcitonin 0.10 ng/mL (0-0.5) 08/28/22 04:28 Nasal Influ A H1 2008 PCR Not detected (NOT DETECT) 08/26/22 02:57 Adenovirus (PCR) Not detected (NOT DETECT) 08/26/22 02:57 C. pneumoniae DNA (PCR) Not detected (NOT DETECT) 08/26/22 02:57 Coronavirus 229E (PCR) Not detected (NOT DETECT) 08/26/22 02:57 Human Metapneumovir PCR Not detected (NOT DETECT) 08/26/22 02:57 Influenza A (H1) PCR Not detected (NOT DETECT) 08/26/22 02:57 Influenza A (H3) PCR Not detected (NOT DETECT) 08/26/22 02:57 Influenza Type A (PCR) Not detected (NOT DETECT) 08/26/22 02:57 Influenza Type B (PCR) Not detected (NOT DETECT) 08/26/22 02:57 M. pneumoniae (PCR) Not detected (NOT DETECT) 08/26/22 02:57 Parainfluenza 1 (PCR) Not detected (NOT DETECT) 08/26/22 02:57 Parainfluenza 2 (PCR) Not detected (NOT DETECT) 08/26/22 02:57 Parainfluenza 3 (PCR) Not detected (NOT DETECT) 08/26/22 02:57 Parainfluenza 4 (PCR) Not detected (NOT DETECT) 08/26/22 02:57 RSV Type A (PCR) Not detected (NOT DETECT) 08/26/22 02:57 RSV Type B (PCR) Not detected (NOT DETECT) 08/26/22 02:57 Entero/Rhino (PCR) Not detected (NOT DETECT) 08/26/22 02:57 SARS-CoV-2 (PCR) Not detected (NOT DETECT) 08/26/22 02:57 Vitals Last Vital Signs Temp 98.2 F 09/02/22 11:16 Pulse 85 09/02/22 15:28 Resp 18 09/02/22 15:28 BP 154/72 09/02/22 11:16 Pulse Ox 95 09/02/22 15:28 O2 Del Method 09/02/22 14:15 O2 Flow Rate 3 09/02/22 11:16 Discharge Plan Discharge Patient Disposition: Home Condition: Stable Prescriptions: New isosorbide mononitrate 30 mg Tablet Extended Release 24 Hr 60 mg PO DAILY 30 Days Qty: 30 0RF Lasix 40 mg tablet 40 mg PO DAILY Qty: 30 1RF potassium chloride 10 mEq capsule, extended release 10 meq PO DAILY Qty: 30 0RF Continued aspirin 81 mg tablet,delayed release (DR/EC) 81 mg PO QDAY Qty: 30 2RF Hold Instructions: Resume on 08/10/22. docusate sodium [Colace] 100 mg capsule 100 mg PO DAILY sucralfate [Carafate] 1 gram tablet 1 g PO .4 times day Qty: 120 2RF Farxiga 10 mg tablet 10 mg PO QAM Qty: 90 0RF duloxetine [Cymbalta] 60 mg capsule,delayed release(DR/EC) 60 mg PO BID Qty: 180 0RF ergocalciferol (vitamin D2) 1,250 mcg (50,000 unit) capsule 50,000 unit PO .COMPLEX Qty: 6 0RF Rx Instructions: 50,000 units PO on 1st and 16th; fenofibrate nanocrystallized 145 mg tablet 145 mg PO DAILY Qty: 90 0RF Hold Instructions: Order Change levothyroxine 75 mcg tablet 75 mcg PO DAILY Qty: 90 0RF (DME) oxygen concentrator See Rx Instructions .Route .MEDSUPPLY Qty: 1 0RF Rx Instructions: As directed oxygen concentrator 2 liters n/c at sleep tamsulosin 0.4 mg capsule 0.4 mg PO BID Qty: 180 1RF pantoprazole [Protonix] 40 mg tablet,delayed release (DR/EC) 40 mg PO BID 14 Days Qty: 28 0RF promethazine-DM 6.25-15 mg/5 mL syrup 5 ml PO Q6H PRN (Reason: cough) Qty: 120 0RF dutasteride 0.5 mg capsule 0.5 mg PO DAILY melatonin 5 mg Tablet 5 mg PO BEDTIME rosuvastatin 20 mg tablet 20 mg PO DAILY Changed hydralazine 25 mg tablet 25 mg PO Q8H Qty: 180 0RF Discontinued amlodipine [Norvasc] 10 mg tablet 10 mg PO DAILY Qty: 90 0RF famotidine [Pepcid] 40 mg tablet 40 mg PO DAILY Qty: 90 0RF lisinopril 40 mg tablet 40 mg PO QDAY Qty: 90 0RF amoxicillin 500 mg tablet 1,000 mg PO BID 14 Days Qty: 56 0RF clarithromycin 500 mg tablet 500 mg PO BID 14 Days Qty: 28 0RF Discharge Orders: Discharge Order (Routine); Ordered 09/02/22 Ordered By: Zena Walters Other Ambulatory Orders: DME: Nebulizer with Neb Kit (Order) Location: None Selected Ordered By: Zena Walters Referrals: Mary Dior FNP-[facility] [Primary Care Provider] - (Please call Sunday to schedule a follow up appointment.) Esther Price FNP [Nurse Practitioner] - 1 week (Please call Sunday to schedule a follow up appointment abnormal stress test. admission for CHF ) Discharge Diet: Usual diet Discharge Activity: Resume usual activity Patient Instructions: Furosemide (By mouth) (Lasix), Potassium Chloride (By mouth), Isosorbide Mononitrate (By mouth), Heart Failure (ED), CHF Stoplight, Opioid Safety, Pain Management Discharge Attestations Time Spent in Discharge Care*: greater than 30 min Quality Metrics Clinical Quality Measures [ No reported AMI, CVA or VTE this stay] Coding Level of Care Code Acute Chg [facility] note Diagnoses Pulmonary edema J81.1 OANH (acute kidney injury) N17.9 Respiratory failure, acute and chronic J96.21 Respiratory failure complication: hypoxia CHF exacerbation I50.9 Pneumonia J18.9 Anemia D64.9 Hypothyroidism E03.9
== END 2022-09-02 15:29 | disposition home or self-care (01) | DRG 291 ==
LOC: ER 02:57 → MEDSURG 03:49
PROVIDERS: Internal Medicine; Admitting Provider Internal Medicine; Emergency Provider Emergency Medicine; PCP Nurse Practitioner; Visit Provider Student in an Organized Health Care Education/Training Program
DX: I13.0 Hypertensive heart and chronic kidney disease with heart failure and stage 1 through stage 4 chronic kidney disease, or unspecified chronic kidney disease (principal); I50.23 Acute on chronic systolic (congestive) heart failure; J96.21 Acute and chronic respiratory failure with hypoxia; J18.9 Pneumonia, unspecified organism; N17.9 Acute kidney failure, unspecified; J44.1 Chronic obstructive pulmonary disease with (acute) exacerbation; J44.0 Chronic obstructive pulmonary disease with (acute) lower respiratory infection; N13.8 Other obstructive and reflux uropathy; N18.9 Chronic kidney disease, unspecified; E11.22 Type 2 diabetes mellitus with diabetic chronic kidney disease; D63.1 Anemia in chronic kidney disease; E03.9 Hypothyroidism, unspecified; I25.119 Atherosclerotic heart disease of native coronary artery with unspecified angina pectoris; Z95.1 Presence of aortocoronary bypass graft; Z86.73 Personal history of transient ischemic attack (TIA), and cerebral infarction without residual deficits; E11.51 Type 2 diabetes mellitus with diabetic peripheral angiopathy without gangrene; E61.1 Iron deficiency; Z79.82 Long term (current) use of aspirin; Z79.84 Long term (current) use of oral hypoglycemic drugs; F41.8 Other specified anxiety disorders; N40.1 Benign prostatic hyperplasia with lower urinary tract symptoms; G89.29 Other chronic pain; M54.9 Dorsalgia, unspecified; Z66 Do not resuscitate; Z87.891 Personal history of nicotine dependence; Z96.651 Presence of right artificial knee joint
CPT/HCPCS: 36415; 36416; 36600; 71045; 78452; 80048; 80053; 82805; 82962; 83036; 83605; 83735; 83880; 84100; 84145; 84484; 85025; 85378; 86403; 87040; 87070; 87205; 87449; 87486; 87581; 87633; 93005; 93017; 93880; 93922; 94640; 94664; 94760; 96372; 96374; 97161; A9500; C8929; G0378; J0456; J0696; J1644; J1815; J1940; J2785; J7040; J7050; J7608; J7613; J7644; Q9956

== ENCOUNTER → 2022-09-13 11:07 | Outpatient (BNVA) | payer MEDICARE, MEDICAID, SELFPAY | PROVIDERS: PCP Nurse Practitioner; Visit Provider Nurse Practitioner | DX: J18.9 Pneumonia, unspecified organism (principal); I73.9 Peripheral vascular disease, unspecified; E78.2 Mixed hyperlipidemia; Z87.19 Personal history of other diseases of the digestive system; N18.9 Chronic kidney disease, unspecified; E03.8 Other specified hypothyroidism; N40.1 Benign prostatic hyperplasia with lower urinary tract symptoms | CPT/HCPCS: 71046 ==

== ENCOUNTER → 2022-09-14 12:14 | Outpatient (BNVA) | payer MEDICARE, MEDICAID, SELFPAY | PROVIDERS: PCP Nurse Practitioner; Visit Provider Nurse Practitioner Family | DX: I25.10 Atherosclerotic heart disease of native coronary artery without angina pectoris (principal); Z95.1 Presence of aortocoronary bypass graft; I13.10 Hypertensive heart and chronic kidney disease without heart failure, with stage 1 through stage 4 chronic kidney disease, or unspecified chronic kidney disease; E11.22 Type 2 diabetes mellitus with diabetic chronic kidney disease; N18.9 Chronic kidney disease, unspecified; Z87.891 Personal history of nicotine dependence | CPT/HCPCS: 99214 ==

== ENCOUNTER → 2022-09-20 09:02 | Outpatient (BNVA) | payer MEDICARE, MEDICAID, SELFPAY | PROVIDERS: PCP Nurse Practitioner; Visit Provider Nurse Practitioner Family | DX: I51.89 Other ill-defined heart diseases (principal) | CPT/HCPCS: 80048; 83880 ==

== ENCOUNTER → 2022-10-16 14:27 | Outpatient (BNVA) | payer MEDICARE, MEDICAID, SELFPAY | PROVIDERS: PCP Nurse Practitioner; Visit Provider Nurse Practitioner Family | DX: E55.9 Vitamin D deficiency, unspecified (principal); I51.89 Other ill-defined heart diseases | CPT/HCPCS: 36415; 80048; 83880; 84443; 99214 ==

== ENCOUNTER → 2022-11-20 13:45 | Outpatient (BNVA) | payer MEDICARE, MEDICAID, SELFPAY | PROVIDERS: PCP Nurse Practitioner; Visit Provider Urology | DX: N40.1 Benign prostatic hyperplasia with lower urinary tract symptoms (principal); N13.8 Other obstructive and reflux uropathy; N52.9 Male erectile dysfunction, unspecified | CPT/HCPCS: 51798; 99213 ==

== ENCOUNTER → 2023-01-02 14:13 | Outpatient (BNVA) | payer MEDICARE, MEDICAID, SELFPAY | PROVIDERS: PCP Nurse Practitioner; Visit Provider Nurse Practitioner | DX: R05.9 Cough, unspecified (principal) | CPT/HCPCS: 85025 ==

== ENCOUNTER → 2023-01-02 15:08 | Outpatient (BNVA) | payer MEDICARE, MEDICAID, SELFPAY | PROVIDERS: PCP Nurse Practitioner; Visit Provider Nurse Practitioner | DX: R05.9 Cough, unspecified (principal) | CPT/HCPCS: 71046 ==

== ENCOUNTER 2023-01-06 21:28 | Inpatient (IN) | payer MEDICARE, MEDICAID, SELFPAY ==
[2023-01-06] VITALS (9 sets, daily range): BP systolic 136–165; BP diastolic 71–95; PULSE 84–95; RESP 18–29; TEMP 36.9; O2SAT 94–98; BMI 27.2
--- NOTE | 2023-01-06 21:37 | XRR_ITS ---
PROCEDURE INFORMATION: Exam: XR Chest Exam date and time: 01/06/2023 9:58 PM Age: 82 years old Clinical indication: Shortness of breath; Prior surgery; Surgery type: Cabg; Additional info: SOB TECHNIQUE: Imaging protocol: Radiologic exam of the chest. Views: 1 view. COMPARISON: CR XR chest 2V* [id number] 01/02/2023 3:07 PM FINDINGS: Lungs: Redemonstration of left basilar opacity compatible with a small left pleural effusion and adjacent atelectasis. Diffuse opacity in the right lung base is also noted and likely slightly progressed compared to the prior concerning for atelectasis, inflammation, or infection. There is also a small amount of layering right pleural effusion which is more conspicuous compared to the prior. Low lung volumes and bronchovascular crowding is noted. Diffuse increased interstitial opacities is noted. Pleural spaces: No pneumothorax. Heart/Mediastinum: There is cardiomegaly. The thoracic aorta is tortuous and atherosclerotic. Bones/joints: There are postoperative findings of bilateral shoulder prosthesis, grossly similar to the prior. The patient is status post median sternotomy for CABG. The sternotomy wires appear grossly stable compared to the prior. XR/XR chest 1V portable [id number] IMPRESSION: 1. Evolving bibasilar opacities, with subtle interval increased opacity in the right lung base concerning for atelectasis, aspiration, inflammation, or infection such as pneumonia. Clinical correlation is recommended. 2. Redemonstration of small left pleural effusion and development or increased conspicuity of trace right pleural effusion. 3. Otherwise, no significant change since prior.
--- NOTE | 2023-01-06 21:49 | W.ED.SOB ---
Documented by User: Boby Ch 01/06/23 23:28 HPI - SOB/Dyspnea General: Chief Complaint: Shortness of Breath/Dyspnea Stated Complaint: RESP. DISTRESS Time Seen by Provider: 01/06/23 21:30 History of Present Illness: HPI Narrative: 82-year-old male recently diagnosed with pneumonia by his primary care doctor presents to the ER by EMS chief complaint of progressive shortness of breath difficulty breathing patient has a longstanding history of both COPD as well as cardiac issues including heart failure. He reports has been on antibiotics for the past several days. Patient reports having a productive cough with greenish phlegm production he does not endorse any recent fevers or chills reports he is normally on 2 L via nasal cannula for his lungs. Patient does not report having any other associated symptoms. Associated symptoms: Deny abdominal pain, chest pain, extremity pain, fever(s), nausea, palpitations or vomiting Review of Systems General: Reports: 10 or more systems reviewed and unremarkable except in HPI and below Const: Denies: fever(s), chills, fatigue or malaise Eyes: Denies: change in vision or blurry vision Card: Denies: chest pain or palpitations Resp: Reports: dyspnea, productive cough and wheezing GI: Denies: abdominal pain, nausea or vomiting : Denies: flank pain Musc: Denies: extremity pain or extremity swelling Skin/Breast: Denies: rash or pruritus Neuro: Denies: headache(s) Psych: Denies: anxiety or depression Davian/Lymph: Denies: easy bleeding All/Imm: Denies: urticaria, throat swelling or facial swelling PFSH ED PFSH: Medical History Adult onset hypothyroidism Anxiety and depression B12 deficiency BPH NOS w ur obs/LUTS Chronic progressive LUTS secondary to BPH/obstruction with good response to dual medical therapy. CAD (coronary artery disease) Carotid stenosis Chronic back pain CKD (chronic kidney disease) Controlled diabetes mellitus COPD (chronic obstructive pulmonary disease) Cyst, dermoid, trunk Erectile dysfunction Multifactorial. 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 Declined Trimix Gastric reflux Grade II diastolic dysfunction Hyperlipidemia, unspecified Iron deficiency OA (osteoarthritis) of hip PVD (peripheral vascular disease) Urolithiasis 6 mm RIGHT distal ureteral stone spontaneously passed 2016. Vitamin D deficiency Surgical History History of back surgery History of knee replacement right 2014 History of knee surgery right 2007 left 2003 History of rhinoplasty 1973 History of shoulder surgery Left 2016 S/p bilateral carotid endarterectomy S/P CABG (coronary artery bypass graft) 2002 Status post colonoscopy Status post laparoscopic cholecystectomy 10/04/2019 Family History Father , at age 75 CAD (coronary artery disease) Mother , at age 81 Stroke Other Heart disease Hypertension Social History Smoking and tobacco status: former smoker Second hand smoke exposure: No Smoking risk assessment/counseling performed?: No Alcohol intake: never Desire information about alcohol rehabilitation?: No Counseling given: No Substance/Drug Use: never Desire information about substance/drug rehabilitation?: No Counseling given: No Adopted: No Caregiver/support person: No Lives independently: Yes Household members: none Housing: House Marital status: / service: Yes status: Retired branch: [employer] Current occupational status: retired Current occupational exposures/hazards: No Pets and animals: No Do you think of yourself as: Straight/Heterosexual Current gender identity: Male Special tommie needs: No Physical Exam Const: COMMON NORMALS: no acute distress, patient oriented x3 and healthy appearing HENMT: COMMON NORMALS: normocephalic and atraumatic HEAD & SCALP: normocephalic and atraumatic Eye: COMMON NORMALS: Equal, round and reactive pupils present and EOMs intact bilaterally PUPIL: Yes Equal, round and reactive pupils present Neck/C-Spine: COMMON NORMALS: full ROM, supple and no JVD Lymph: LYMPHATIC: no lymphadenopathy noted Chest: COMMONS NORMALS: normal inspection of the chest and normal palpation of entire chest wall Resp: OTHER: Mild wheezing appreciated moderate productive diminished breath sounds in the right lower base appreciated otherwise unremarkable Cardio: COMMON NORMALS: no JVD, regular rate and regular rhythm RATE: regular rate RHYTHM: regular rhythm GI: COMMON NORMALS: Normal to inspection, nondistended, normoactive bowel sounds present, Soft to palpation and non-tender INSPECTION: Yes normal to inspection PALPATION: Yes Soft to palpation : COMMON NORMALS: Yes no CVA tenderness BLADDER/KIDNEY EXAM: Yes no CVA tenderness Back/Pelvis: COMMON NORMALS: no CVA tenderness Extremity: COMMON NORMALS: normal to inspection and full ROM Neuro: COMMON NORMALS: patient oriented x3, CN's II-XII intact bilaterally, moves all extremities and no focal motor deficits Psych: COMMON NORMALS: mental status grossly normal, Normal thought process present, cooperative and normal affect THOUGHT PROCESS: Normal thought process present Skin: COMMON NORMALS: no rashes or lesions noted GENERAL SKIN EXAM: no rashes or lesions noted Course Vital Signs: Vital signs: Vital Signs Temperature 97.9 F 01/07/23 12:00 Pulse Rate 96 01/07/23 15:38 Respiratory Rate 16 01/07/23 15:38 Blood Pressure 120/72 01/07/23 12:00 Pulse Oximetry 95 01/07/23 15:38 Oxygen Delivery Me thod Nasal Cannula 01/07/23 15:38 Oxygen Flow Rate 3 01/07/23 15:38 MDM - SOB/Dyspnea Medical Decision Making Due to patient's symptoms again and condition of patient cardiac and pulmonary work-up will be obtained patient was provided Solu-Medrol and neb treatment prior to arrival and additional neb treatment will be provided to the patient we will continue to follow currently waiting in the CT of the chest without contrast as well as cardiac troponins first 1 is found to be elevated B?CUSTOMER PRICING MANAGER is also around 20,000 underlying concerns of pulmonary edema versus infiltrate on while doing the CT of the chest rate x-ray tech rib reported questionable nodule or mass in the liver in which a CT without contrast abdomen pelvis will be obtained. Anticipate need for admission this patient was signed out to Dr. Allred at [id number]. Lab Data 01/06/23 21:39 01/06/23 21:39 Labs/Radiology: Radiology Impressions Chest X-Ray 01/06/23 21:37 IMPRESSION: 1. Evolving bibasilar opacities, with subtle interval increased opacity in the right lung base concerning for atelectasis, aspiration, inflammation, or infection such as pneumonia. Clinical correlation is recommended. 2. Redemonstration of small left pleural effusion and development or increased conspicuity of trace right pleural effusion. 3. Otherwise, no significant change since prior. Chest CT 01/06/23 22:44 IMPRESSION: 1. Left lower lobe consolidation compatible with pneumonia. 2. Suspected minimal consolidation in the right lower lobe. 3. Bilateral pleural effusions and adjacent atelectasis. 4. Cardiomegaly and left atrial enlargement. 5. Status post CABG with advanced coronary atherosclerosis of the [place] coronary arteries. Abdomen/Pelvis CT 01/06/23 22:57 IMPRESSION: 1. Redemonstration of bilateral pleural effusions and left more than right pneumonia. 2. Diffuse colonic diverticulosis with mild fat stranding near the descending colon concerning for localized diverticulitis, in the appropriate clinical setting. 3. Minimally distended small bowel loops without transition. 4. Bilateral renal cysts. 5. Subtle increased density of the liver is a nonspecific finding. Clinical correlation for medication side effect is recommended. 6. Prostatomegaly indenting the base of the urinary bladder. Mild thickening of the bladder wall. Please correlate with urinalysis. COMMENTS: Consistent with the [employer]'s Incidental Findings Committee white paper (J Am [place] Radiol 2018): Any incidental renal lesion less than 1 cm or classified as too small to characterize, or any incidental cystic renal lesion characterized as simple-appearing, is likely benign. No follow-up imaging is recommended for these lesions per consensus recommendations based on imaging criteria. Laboratory Results WBC 7.2 10^3/uL (4.0-10.0) 01/06/23 21:39 RBC 3.96 10^6/uL (4.1-5.3) L 01/06/23 21:39 Hgb 11.1 g/dL (11.7-16.6) L 01/06/23 21:39 Hct 36.4 % (42.0-52.0) L 01/06/23 21:39 MCV 91.9 fl (80-94) 01/06/23 21:39 MCH 28.0 pg (28.0-34.0) 01/06/23 21:39 MCHC 30.5 g/dL (30.0-36.0) 01/06/23 21:39 RDW 15.7 % (12.1-15.1) H 01/06/23 21:39 Plt Count 210 10^3/cmm (130-400) 01/06/23 21:39 MPV 11.8 fL (7.4-10.4) H 01/06/23 21:39 Neut % (Auto) 70.8 % 01/06/23 21:39 Lymph % (Auto) 15.8 % 01/06/23 21:39 [place] % (Auto) 9.3 % 01/06/23 21:39 Eos % (Auto) 3.7 % 01/06/23 21:39 Baso % (Auto) 0.3 % 01/06/23 21:39 Neut # (Auto) 5.11 10^3/uL (1.8-7.7) 01/06/23 21:39 Lymph # (Auto) 1.1 10^3/uL (0.8-4.8) 01/06/23 21:39 [place] # (Auto) 0.7 10^3/uL (0.2-0.9) 01/06/23 21:39 Eos # (Auto) 0.3 10^3/uL (0.0-0.8) 01/06/23 21:39 Baso # (Auto) 0.0 10^3/uL (0.0-0.1) 01/06/23 21:39 Nucleated RBC % (auto) 0 % 01/06/23 21:39 Nucleated RBCs # 0.0 /100WBC 01/06/23 21:39 Sodium 140 mmol/L (136-145) 01/06/23 21:39 Potassium 4.4 mmol/L (3.5-5.1) 01/06/23 21:39 Chloride 108 mmol/L (98-107) H 01/06/23 21:39 Carbon Dioxide 21 mmol/L (22-29) L 01/06/23 21:39 Anion Gap 15.4 (5-19) 01/06/23 21:39 BUN 34 mg/dL (8-23) H 01/06/23 21:39 Creatinine 1.9 mg/dL (0.7-1.2) H 01/06/23 21:39 GFR Calculation Not Reportable 01/06/23 21:39 Glucose 133 mg/dL (65-115) H 01/06/23 21:39 Calculated Osmolality 300 mOsm/kg (285-295) H 01/06/23 21:39 Lactate 1.9 mmol/L (0.5-2.2) 01/06/23 21:39 Calcium 8.7 mg/dL (8.5-10.5) 01/06/23 21:39 Total Bilirubin 0.3 mg/dL (0.15-1.2) 01/06/23 21:39 AST 24 U/L (0-40) 01/06/23 21:39 ALT 15 U/L (0-41) 01/06/23 21:39 Alkaline Phosphatase 83 U/L (40-130) 01/06/23 21:39 Troponin T Baseline 87 ng/L (0-15) H 01/06/23 21:39 Troponin T 120 Minute 89.12 ng/L (0-15) H 01/06/23 23:36 Delta Troponin T 2.12 ABS# (0-10) 01/06/23 23:36 NT-Pro-B Natriuret Pep 82323 pg/mL (0-450) H 01/06/23 21:39 Total Protein 6.2 g/dL (6.6-8.7) L 01/06/23 21:39 Albumin 3.4 g/dL (3.5-5.2) L 01/06/23 21:39 Globulin 2.8 g/dL (1.3-4.6) 01/06/23 21:39 Discharge Plan Discharge Patient Disposition: Admitted As Inpatient Admit Provider: Corby Mayo Clinical Impression: Left lower lobe pneumonia, Respiratory failure, acute and chronic, Pulmonary edema Condition: Stable Coding Level of Care Code ED Svp [employer] for Chg Fwd Documented by User: Clarence Allred DO 01/07/23 16:32 HPI - SOB/Dyspnea General: Chief Complaint: Shortness of Breath/Dyspnea Stated Complaint: RESP. DISTRESS Time Seen by Provider: 01/06/23 21:30 [facility] ED PFSH: Medical History Adult onset hypothyroidism Anxiety and depression B12 deficiency BPH NOS w ur obs/LUTS Chronic progressive LUTS secondary to BPH/obstruction with good response to dual medical therapy. CAD (coronary artery disease) Carotid stenosis Chronic back pain CKD (chronic kidney disease) Controlled diabetes mellitus COPD (chronic obstructive pulmonary disease) Cyst, dermoid, trunk Erectile dysfunction Multifactorial. 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 Declined Trimix Gastric reflux Grade II diastolic dysfunction Hyperlipidemia, unspecified Iron deficiency OA (osteoarthritis) of hip PVD (peripheral vascular disease) Urolithiasis 6 mm RIGHT distal ureteral stone spontaneously passed 2016. Vitamin D deficiency Surgical History History of back surgery History of knee replacement right 2014 History of knee surgery right 2007 left 2003 History of rhinoplasty 1973 History of shoulder surgery Left 2016 S/p bilateral carotid endarterectomy S/P CABG (coronary artery bypass graft) 2003 Status post colonoscopy Status post laparoscopic cholecystectomy 10/04/2019 Family History Father , at age 75 CAD (coronary artery disease) Mother , at age 81 Stroke Other Heart disease Hypertension Social History Smoking and tobacco status: former smoker Second hand smoke exposure: No Smoking risk assessment/counseling performed?: No Alcohol intake: never Desire information about alcohol rehabilitation?: No Counseling given: No Substance/Drug Use: never Desire information about substance/drug rehabilitation?: No Counseling given: No Adopted: No Caregiver/support person: No Lives independently: Yes Household members: none Housing: House Marital status: / service: Yes status: Retired branch: [employer] Current occupational status: retired Current occupational exposures/hazards: No Pets and animals: No Do you think of yourself as: Straight/Heterosexual Current gender identity: Male Special tommie needs: No Course Vital Signs: Vital signs: Vital Signs Temperature 97.9 F 01/07/23 12:00 Pulse Rate 96 01/07/23 15:38 Respiratory Rate 16 01/07/23 15:38 Blood Pressure 120/72 01/07/23 12:00 Pulse Oximetry 95 01/07/23 15:38 Oxygen Delivery Me thod Nasal Cannula 01/07/23 15:38 Oxygen Flow Rate 3 01/07/23 15:38 MDM - SOB/Dyspnea Medical Decision Making Due to patient's symptoms again and condition of patient cardiac and pulmonary work-up will be obtained patient was provided Solu-Medrol and neb treatment prior to arrival and additional neb treatment will be provided to the patient we will continue to follow currently waiting in the CT of the chest without contrast as well as cardiac troponins first 1 is found to be elevated B?CUSTOMER PRICING MANAGER is also around 20,000 underlying concerns of pulmonary edema versus infiltrate on while doing the CT of the chest rate x-ray tech rib reported questionable nodule or mass in the liver in which a CT without contrast abdomen pelvis will be obtained. Anticipate need for admission this patient was signed out to Dr. Allred at [id number]. 82 year old gentleman checked out to me at shift change by the previous physician. He was pending CT findings. CT of the chest shows left lower lobe consolidation and minimal right lower lobe consolidation consistent with pneumonia. He has bilateral pleural effusions. CT of the belly is not terribly remarkable. He is placed on antibiotics, including vancomycin and zosyn for failure of outpatient management of pneumonia and COPD exacerbation. He'll be admitted for these things. Hospitalist has seen the patient in the ER. Lab Data 01/06/23 21:39 01/06/23 21:39 Labs/Radiology: Radiology Impressions Chest X-Ray 01/06/23 21:37 IMPRESSION: 1. Evolving bibasilar opacities, with subtle interval increased opacity in the right lung base concerning for atelectasis, aspiration, inflammation, or infection such as pneumonia. Clinical correlation is recommended. 2. Redemonstration of small left pleural effusion and development or increased conspicuity of trace right pleural effusion. 3. Otherwise, no significant change since prior. Chest CT 01/06/23 22:44 IMPRESSION: 1. Left lower lobe consolidation compatible with pneumonia. 2. Suspected minimal consolidation in the right lower lobe. 3. Bilateral pleural effusions and adjacent atelectasis. 4. Cardiomegaly and left atrial enlargement. 5. Status post CABG with advanced coronary atherosclerosis of the [place] coronary arteries. Abdomen/Pelvis CT 01/06/23 22:57 IMPRESSION: 1. Redemonstration of bilateral pleural effusions and left more than right pneumonia. 2. Diffuse colonic diverticulosis with mild fat stranding near the descending colon concerning for localized diverticulitis, in the appropriate clinical setting. 3. Minimally distended small bowel loops without transition. 4. Bilateral renal cysts. 5. Subtle increased density of the liver is a nonspecific finding. Clinical correlation for medication side effect is recommended. 6. Prostatomegaly indenting the base of the urinary bladder. Mild thickening of the bladder wall. Please correlate with urinalysis. COMMENTS: Consistent with the [employer]'s Incidental Findings Committee white paper ([place] Am [place] Radiol 2018): Any incidental renal lesion less than 1 cm or classified as too small to characterize, or any incidental cystic renal lesion characterized as simple-appearing, is likely benign. No follow-up imaging is recommended for these lesions per consensus recommendations based on imaging criteria. Laboratory Results WBC 7.2 10^3/uL (4.0-10.0) 01/06/23 21:39 RBC 3.96 10^6/uL (4.1-5.3) L 01/06/23 21:39 Hgb 11.1 g/dL (11.7-16.6) L 01/06/23 21:39 Hct 36.4 % (42.0-52.0) L 01/06/23 21:39 MCV 91.9 fl (80-94) 01/06/23 21:39 MCH 28.0 pg (28.0-34.0) 01/06/23 21:39 MCHC 30.5 g/dL (30.0-36.0) 01/06/23 21:39 RDW 15.7 % (12.1-15.1) H 01/06/23 21:39 Plt Count 210 10^3/cmm (130-400) 01/06/23 21:39 MPV 11.8 fL (7.4-10.4) H 01/06/23 21:39 Neut % (Auto) 70.8 % 01/06/23 21:39 Lymph % (Auto) 15.8 % 01/06/23 21:39 [place] % (Auto) 9.3 % 01/06/23 21:39 Eos % (Auto) 3.7 % 01/06/23 21:39 Baso % (Auto) 0.3 % 01/06/23 21:39 Neut # (Auto) 5.11 10^3/uL (1.8-7.7) 01/06/23 21:39 Lymph # (Auto) 1.1 10^3/uL (0.8-4.8) 01/06/23 21:39 Frederick # (Auto) 0.7 10^3/uL (0.2-0.9) 01/06/23 21:39 Eos # (Auto) 0.3 10^3/uL (0.0-0.8) 01/06/23 21:39 Baso # (Auto) 0.0 10^3/uL (0.0-0.1) 01/06/23 21:39 Nucleated RBC % (auto) 0 % 01/06/23 21:39 Nucleated RBCs # 0.0 /100WBC 01/06/23 21:39 Sodium 140 mmol/L (136-145) 01/06/23 21:39 Potassium 4.4 mmol/L (3.5-5.1) 01/06/23 21:39 Chloride 108 mmol/L (98-107) H 01/06/23 21:39 Carbon Dioxide 21 mmol/L (22-29) L 01/06/23 21:39 Anion Gap 15.4 (5-19) 01/06/23 21:39 BUN 34 mg/dL (8-23) H 01/06/23 21:39 Creatinine 1.9 mg/dL (0.7-1.2) H 01/06/23 21:39 GFR Calculation Not Reportable 01/06/23 21:39 Glucose 133 mg/dL (65-115) H 01/06/23 21:39 Calculated Osmolality 300 mOsm/kg (285-295) H 01/06/23 21:39 Lactate 1.9 mmol/L (0.5-2.2) 01/06/23 21:39 Calcium 8.7 mg/dL (8.5-10.5) 01/06/23 21:39 Total Bilirubin 0.3 mg/dL (0.15-1.2) 01/06/23 21:39 AST 24 U/L (0-40) 01/06/23 21:39 ALT 15 U/L (0-41) 01/06/23 21:39 Alkaline Phosphatase 83 U/L (40-130) 01/06/23 21:39 Troponin T Baseline 87 ng/L (0-15) H 01/06/23 21:39 Troponin T 120 Minute 89.12 ng/L (0-15) H 01/06/23 23:36 Delta Troponin T 2.12 ABS# (0-10) 01/06/23 23:36 NT-Pro-B Natriuret Pep 00445 pg/mL (0-450) H 01/06/23 21:39 Total Protein 6.2 g/dL (6.6-8.7) L 01/06/23 21:39 Albumin 3.4 g/dL (3.5-5.2) L 01/06/23 21:39 Globulin 2.8 g/dL (1.3-4.6) 01/06/23 21:39 Discharge Plan Discharge Patient Disposition: Admitted As Inpatient Admit Provider: Corby Mayo Clinical Impression: Left lower lobe pneumonia, Respiratory failure, acute and chronic, Pulmonary edema Condition: Stable Coding Level of Care Code ED Svp [employer] for Sami Cristina
--- NOTE | 2023-01-06 21:51 | ECG_ITS ---
[facility] Test Date: 2023-01-06 Pat Name: Abiel Andres Department: Room: Gender: Male Ar Manager: : 1940 Requested By: Boby Ch Order Number: [id number] Juliana MD: Yoshi Reyes M.D. Measurements Intervals [place] Rate: 85 P: 1 SD: 160 QRS: -9 QRSD: 118 T: 143 QT: 377 QTc: 450 Interpretive Statements SINUS RHYTHM LEFT VENTRICULAR HYPERTROPHY AND ST-T CHANGE [VOLTAGE CRITERIA PLUS ST/T ABNORMALITY] Compared to ECG 08/31/2022 03:09:59 Left ventricular hypertrophy now present ST (T wave) deviation now present Ventricular premature complex(es) no longer present Intraventricular conduction delay no longer present Electronically Signed On 01-07-2023 10:21:50 CDT by Yoshi Reyes M.D. [email or web address]
[2023-01-06] MEDS: ipratropium-albuterol 3 mL Neb INHALATION (21:54)
[2023-01-06] MEDS: benzonatate 100 mg Capsule PO (21:54)
[2023-01-06 21:55] LABS: Basophils % 0.3 %; Eosinophils # 0.3 10^3/uL (0.0-0.8); Eosinophils % 3.7 %; Hematocrit 36.4 % (42.0-52.0); Hemoglobin 11.1 g/dL (11.7-16.6); Lymphocytes # 1.1 10^3/uL (0.8-4.8); Lymphocytes % 15.8 %; Mean Corpuscular HGB Conc 30.5 g/dL (30.0-36.0); Mean Corpuscular Volume 91.9 fl (80-94); Mean Platelet Volume 11.8 fL (7.4-10.4); Monocytes # 0.7 10^3/uL (0.2-0.9); Monocytes % 9.3 %; Neutrophils # 5.11 10^3/uL (1.8-7.7); Neutrophils % 70.8 %; Nucleated Red Blood Cells % 0 %; Platelet Count 210 10^3/cmm (130-400); Red Blood Count 3.96 10^6/uL (4.1-5.3); Red Cell Distribution Width 15.7 % (12.1-15.1); White Blood Count 7.2 10^3/uL (4.0-10.0)
[2023-01-06 22:08] LABS: Lactate (Lactic Acid level) 1.9 mmol/L (0.5-2.2)
[2023-01-06 22:10] LABS: Troponin(5th) Baseline 87 ng/L (0-15)
[2023-01-06 22:19] LABS: Alanine Aminotransferase 15 U/L (0-41); Albumin Level 3.4 g/dL (3.5-5.2); Alkaline Phosphatase 83 U/L (40-130); Anion Gap 15.4 (5-19); Aspartate Amino Transferase 24 U/L (0-40); Blood Urea Nitrogen 34 mg/dL (8-23); Calcium 8.7 mg/dL (8.5-10.5); Carbon Dioxide 21 mmol/L (22-29); Chloride 108 mmol/L (98-107); Globulin 2.8 g/dL (1.3-4.6); Glucose 133 mg/dL (65-115); NT Pro B Type Natriuretic Pept 20408 pg/mL (0-450); Osmolality Calculated 300 mOsm/kg (285-295); Potassium 4.4 mmol/L (3.5-5.1); Sodium 140 mmol/L (136-145); Total Bilirubin 0.3 mg/dL (0.15-1.2); Total Protein 6.2 g/dL (6.6-8.7)
--- NOTE | 2023-01-06 22:44 | CTR_ITS ---
PROCEDURE INFORMATION: Exam: CT Chest Without Contrast; Diagnostic Exam date and time: 01/06/2023 10:52 PM Age: 82 years old Clinical indication: Shortness of breath; Prior surgery; Surgery date: 6+ months; Surgery type: Cabg, b/l shoulder replacements; Additional info: SOB TECHNIQUE: Imaging protocol: Diagnostic computed tomography of the chest without contrast. Radiation optimization: All CT scans at this facility use at least one of these dose optimization techniques: automated exposure control; mA and/or kV adjustment per patient size (includes targeted exams where dose is matched to clinical indication); or iterative reconstruction. REPORTING DATA: Count of CT and Cardiac NM exams in prior 12 months: This patient has received 2 known CTs and 0 known cardiac nuclear medicine studies in the 12 months prior to the current study. COMPARISON: CT chest wo con [id number] 01/18/2022 2:22 PM RADIATION DOSE METRICS: Total DLP (mGy-cm): 449.47 FINDINGS: Lungs: Associated left lower lobe consolidation with air bronchogram is again noted. Minimal atelectasis/consolidation in the right lower lobe posteriorly. Linear opacities in both lower lobes compatible with atelectasis. Background emphysematous changes. Pleural spaces: Moderate bilateral pleural effusions and adjacent atelectasis. Heart: There is cardiomegaly and left atrial enlargement. Coronary arteries: Advanced atherosclerotic disease of the [place] coronary arteries. Lymph nodes: Unremarkable. No enlarged lymph nodes. Vasculature: There are calcifications of the aortic root. The main pulmonary artery measures up to 3.0 cm, a common finding with pulmonary hypertension. Advanced atherosclerotic calcifications of the abdominal aorta and its branches. Bones/joints: The patient is status post median sternotomy for CABG. The sternotomy wires are again noted. There are degenerative changes of the thoracic spine. Soft tissues: Partially imaged cysts in the liver.. CT/CT chest wo con [id number] IMPRESSION: 1. Left lower lobe consolidation compatible with pneumonia. 2. Suspected minimal consolidation in the right lower lobe. 3. Bilateral pleural effusions and adjacent atelectasis. 4. Cardiomegaly and left atrial enlargement. 5. Status post CABG with advanced coronary atherosclerosis of the [place] coronary arteries.
--- NOTE | 2023-01-06 22:57 | CTR_ITS ---
PROCEDURE INFORMATION: Exam: CT Abdomen And Pelvis Without Contrast Exam date and time: 01/06/2023 10:58 PM Age: 82 years old Clinical indication: Other: Possible abnormal liver imaging; Additional info: Liver issues noted on CT chest TECHNIQUE: Imaging protocol: Computed tomography of the abdomen and pelvis without contrast. Radiation optimization: All CT scans at this facility use at least one of these dose optimization techniques: automated exposure control; mA and/or kV adjustment per patient size (includes targeted exams where dose is matched to clinical indication); or iterative reconstruction. REPORTING DATA: Count of CT and Cardiac NM exams in prior 12 months: This patient has received 2 known CTs and 0 known cardiac nuclear medicine studies in the 12 months prior to the current study. COMPARISON: MR abdomen wo con [id number] 12/05/2021 4:09 PM RADIATION DOSE METRICS: Total DLP (mGy-cm): 687.69 FINDINGS: Lungs: Granulomatous calcifications in the spleen. Pleural spaces: Redemonstration of moderate bilateral pleural effusions and adjacent atelectasis. Redemonstration of consolidative opacity in the left lower lobe with air bronchogram compatible with pneumonia. Trace amount of air bronchogram in the right lower lobe also concerning for minimal consolidation. Liver: Subtle increased density of the liver is a nonspecific finding. Clinical correlation for medication side effect is recommended. Redemonstration of small hepatic cysts, grossly unchanged from prior. Gallbladder and bile ducts: The gallbladder is not seen.. No calcified stones. No ductal dilation. Pancreas: The pancreas is atrophic. Spleen: Normal. No splenomegaly. Adrenal glands: Right adrenal nodule measuring 1.8 x 1.2 cm, (series 3, image 31). Mild hypertrophy of the left adrenal gland. Kidneys and ureters: Renal atrophy and renal vascular atherosclerosis. Large exophytic right renal cyst measuring up to 7.3 by 6.0 cm in the transaxial dimensions, (series 3, image 48). Cystic lesion adjacent to the left kidney also measures approximally 5.0 x 3.7 cm, (series 3, image 45). Nonobstructive tiny, approximally 2 mm right lower caliceal stone. Stomach and bowel: Thickening of the gastric flood. Thickening of the flood and minimal distention of the duodenum. Mildly distended small bowel loops with fluid content. There is also mild wall thickening. The colon is loaded with fecal matter and gases. Diffuse colonic diverticulosis with minimal fat stranding adjacent to the descending colon, (series 3, image 50 for example), may represent subtle diverticulitis. There is thickening of the flood of the descending and sigmoid colons concerning for colitis. Appendix: No evidence of appendicitis. Intraperitoneal space: Unremarkable. No free air. No significant fluid collection. Vasculature: Advanced atherosclerotic calcifications of the abdominal aorta and its branches with moderate stenosis of the origin of the celiac artery and suspected severe stenosis of the origin of the superior mesenteric artery as well as suspected severe stenosis of the renal arteries. Lymph nodes: Unremarkable. No enlarged lymph nodes. Urinary bladder: Mild thickening of the bladder wall. Indentation of the urinary bladder base due to the enlarged prostate. Reproductive: Enlarged prostate with calcifications in the posterior aspect. The prostate measures approximally 5.0 by 4.4 cm, (series 3, image 84 Bones/joints: There are degenerative changes of the SI joints. There are degenerative changes of the spine. Soft tissues: Unremarkable. CT/CT abdomen pelvis wo con [id number] IMPRESSION: 1. Redemonstration of bilateral pleural effusions and left more than right pneumonia. 2. Diffuse colonic diverticulosis with mild fat stranding near the descending colon concerning for localized diverticulitis, in the appropriate clinical setting. 3. Minimally distended small bowel loops without transition. 4. Bilateral renal cysts. 5. Subtle increased density of the liver is a nonspecific finding. Clinical correlation for medication side effect is recommended. 6. Prostatomegaly indenting the base of the urinary bladder. Mild thickening of the bladder wall. Please correlate with urinalysis. COMMENTS: Consistent with the [place] [employer]'s Incidental Findings Committee white paper (J Am [place] Radiol 2018): Any incidental renal lesion less than 1 cm or classified as too small to characterize, or any incidental cystic renal lesion characterized as simple-appearing, is likely benign. No follow-up imaging is recommended for these lesions per consensus recommendations based on imaging criteria.
[2023-01-06 23:56] LABS: Troponin 5 2HR 89.12 ng/L (0-15)
[2023-01-07] VITALS (23 sets, daily range): BP systolic 108–178; BP diastolic 62–108; PULSE 81–128; RESP 14–24; TEMP 36.4–36.9; O2SAT 94–98
[2023-01-07 00:08] LABS: Troponin 5 2HR Delta 2.12 ABS# (0-10)
[2023-01-07] MEDS: FUROsemide 10 mg/mL SDV 10mL 80 MG IVP (01:19)
[2023-01-07] MEDS: piperacillin-tazobactam 4.5 GM in sodium chloride 0.9% (plus) 50 ML IV (01:27)
--- NOTE | 2023-01-07 02:10 | PC.NURSE ---
ADMIT NOTE Pt received to floor from ER at 0155. Is alert and oriented. Had been incont on the way to the floor. Did not have urinal with him and received Lasix IV in the ER. Voided another 300ml in urinal on arrival. Is alert and oriented. Says he has been taking antibiotics for pneumonia but was not getting any better. Increasing SOB this week and today started having edema in legs. Says he took his po Lasix at home but did not help. Has also had a prod cough. On 3l NC O2 which he says is baseline. Does say he has some pain in left chest with coughing and deep breaths and has not been able to lay flat. VS check done and oriented to room. Call light in reach. IV Vancomycin infusing on admit. RN to complete admission assessment
--- NOTE | 2023-01-07 02:17 | PM.HP ---
Providers/Chief Complaint Admitting Physician: Corby Mayo MD Primary Care Provider: CIERRA Fortune Chief Complaint: RESP. DISTRESS History of Present Illness Abiel Andres is a 82 year old male with a past medical history of systolic and diastolic CHF, CKD, COPD, hypertension, CABG, history of carotid endarterectomy, history of CVA, history of hypothyroidism, who presents to [facility] due to complaints of shortness of breath. Patient tells me that he has been feeling short of breath, having a nonproductive cough for the last week, he saw his primary care provider, was diagnosed with a left lower lobe pneumonia and was placed on Levaquin, however he continues to feel short of breath, does report chest discomfort, with taking deep breaths in, Review of Systems Const: Denies: fever(s) or chills Card: Reports: chest pain Resp: Reports: dyspnea and non-productive cough GI: Denies: abdominal pain Neuro: Denies: headache(s) or numbness in extremities Medications/Allergies Home Medications Medication Instructions Recorded Confirmed Last Taken Type aspirin 81 mg tablet,delayed 81 mg PO QDAY #30 tabs 12/15/19 01/02/23 08/01/22 Rx release oxygen concentrator #1 ea 02/02/22 01/02/23 Unknown Rx fenofibrate nanocrystallized 145 145 mg PO DAILY #90 tabs 07/20/22 01/02/23 08/05/22 Rx mg tablet melatonin 5 mg tablet 5 mg PO BEDTIME 08/04/22 01/02/23 08/05/22 History docusate sodium 100 mg capsule 100 mg PO DAILY 08/18/22 01/02/23 Unknown History (Colace) ergocalciferol (vitamin D2) 1,250 2,000 unit PO DAILY 10/16/22 01/02/23 Unknown History mcg (50,000 unit) capsule furosemide 40 mg tablet (Lasix) 40 mg PO DAILY #90 tabs 10/16/22 01/02/23 Unknown Rx potassium chloride 10 mEq 10 meq PO DAILY #90 caps 10/16/22 01/02/23 Unknown Rx capsule,extended release dapagliflozin 10 mg tablet 10 mg PO QAM #90 tabs 10/18/22 01/02/23 Unknown Rx (Farxiga) duloxetine 60 mg capsule,delayed 60 mg PO BID #180 caps 10/18/22 01/02/23 Unknown Rx release (Cymbalta) levothyroxine 75 mcg tablet 75 mcg PO DAILY #90 tabs 10/18/22 01/02/23 Unknown Rx rosuvastatin 20 mg tablet (Crestor) 20 mg PO QDAY #90 tabs 10/18/22 01/02/23 Unknown Rx sucralfate 1 gram tablet (Carafate) 1 g PO .4 times day #360 tabs 10/18/22 01/02/23 Unknown Rx tamsulosin 0.4 mg capsule 0.4 mg PO BID #180 caps 11/20/22 01/02/23 Unknown Rx pantoprazole 40 mg tablet,delayed 40 mg PO BID 14 days #28 tabs 12/06/22 01/02/23 Unknown Rx release (Protonix) valsartan 160 mg tablet (Diovan) 320 mg PO DAILY #90 tabs 12/06/22 01/02/23 Unknown Rx Saccharomyces boulardii 250 mg 250 mg PO BID #60 caps 01/02/23 01/02/23 Unknown Rx capsule (Florastor) albuterol sulfate 2.5 mg/3 mL 2.5 mg (3 mL) inhalation Q4H PRN 01/02/23 01/02/23 Unknown Rx (0.083 %) solution for nebulization shortness of breath or wheezing #180 mL levofloxacin 500 mg tablet 500 mg PO Q24H #10 tabs 01/02/23 01/02/23 Unknown Rx nebulizers #1 ea 01/02/23 01/02/23 Unknown Rx Allergies Allergy/AdvReac Type Severity Reaction Status Date / Time fish oil Allergy rash Verified 01/02/23 14:20 PFSH Acute PFSH: Medical History Adult onset hypothyroidism Anxiety and depression B12 deficiency BPH NOS w ur obs/LUTS Chronic progressive LUTS secondary to BPH/obstruction with good response to dual medical therapy. CAD (coronary artery disease) Carotid stenosis Chronic back pain CKD (chronic kidney disease) Controlled diabetes mellitus COPD (chronic obstructive pulmonary disease) Cyst, dermoid, trunk Erectile dysfunction Multifactorial. 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 Declined Trimix Gastric reflux Grade II diastolic dysfunction Hyperlipidemia, unspecified Iron deficiency OA (osteoarthritis) of hip PVD (peripheral vascular disease) Urolithiasis 6 mm RIGHT distal ureteral stone spontaneously passed 2016. Vitamin D deficiency Surgical History History of back surgery History of knee replacement right 2014 History of knee surgery right 2007 left 2003 History of rhinoplasty 1973 History of shoulder surgery Left 2016 S/p bilateral carotid endarterectomy S/P CABG (coronary artery bypass graft) 2002 Status post colonoscopy Status post laparoscopic cholecystectomy 10/04/2019 Family History Father , at age 75 CAD (coronary artery disease) Mother , at age 81 Stroke Other Heart disease Hypertension Social History Smoking and tobacco status: former smoker Second hand smoke exposure: No Smoking risk assessment/counseling performed?: No Alcohol intake: never Desire information about alcohol rehabilitation?: No Counseling given: No Substance/Drug Use: never Desire information about substance/drug rehabilitation?: No Counseling given: No Adopted: No Caregiver/support person: No Lives independently: Yes Household members: none Housing: House Marital status: / service: Yes status: Retired branch: [employer] Current occupational status: retired Current occupational exposures/hazards: No Pets and animals: No Do you think of yourself as: Straight/Heterosexual Current gender identity: Male Special tommie needs: No Vitals/I&O/Wt Last Vital Signs Temp 98.4 F 01/06/23 21:29 Pulse 99 01/07/23 01:39 Resp 24 H 01/07/23 00:03 BP 178/78 01/07/23 01:39 Pulse Ox 96 01/07/23 01:39 O2 Del Method Nasal Cannula 01/07/23 01:39 O2 Flow Rate 3 01/07/23 01:39 Weight last 48 hrs Weight 86.183 kg Physical Exam Const: COMMON NORMALS: no acute distress and patient oriented x3 HENMT: COMMON NORMALS: normocephalic Eye: COMMON NORMALS: Equal, round and reactive pupils present Lymph: LYMPHATIC: no lymphadenopathy noted Chest: COMMONS NORMALS: normal inspection of the chest Resp: COMMON NORMALS: normal respiratory effort, No retractions, No use of accessory muscles and clear to auscultation bilaterally AUSCULTATION: wheezes Cardio: COMMON NORMALS: regular rate, regular rhythm, S1 normal heart sound present and S2 normal heart sound present RATE: regular rate RHYTHM: regular rhythm HEART SOUNDS: S1 normal heart sound present and S2 normal heart sound present GI: COMMON NORMALS: Normal to inspection, nondistended, normoactive bowel sounds present, Soft to palpation and non-tender Extremity: COMMON NORMALS: no pedal edema Neuro: COMMON NORMALS: patient oriented x3, CN's II-XII intact bilaterally, moves all extremities and no focal motor deficits Psych: COMMON NORMALS: mental status grossly normal Data 01/06/23 21:39 01/06/23 21:39 Micro: Microbiology 01/06/23 22:29 Blood Culture - Preliminary Blood SPECIMEN COLLECTED 01/06/23 22:25 Blood Culture - Preliminary Blood SPECIMEN COLLECTED A&P Assessment and plan (1) CHF exacerbation: (2) COPD (chronic obstructive pulmonary disease): (3) Grade II diastolic dysfunction: (4) S/P CABG (coronary artery bypass graft): (5) Hyperlipidemia, unspecified: Qualifiers: Hyperlipidemia type: mixed hyperlipidemia Qualified Code(s): E78.2 - Mixed hyperlipidemia (6) HTN, goal below 130/80: (7) CKD (chronic kidney disease): (8) Adult onset hypothyroidism: (9) CAD (coronary artery disease): (10) Left lower lobe pneumonia: (11) Chest pain: (12) Non-ST elevation [place] (NSTEMI): Plan Left lower lobe pneumonia -Follow blood cultures -Sputum cultures -DuoNeb, budesonide -Vancomycin, Zosyn Chest pain complaints -Serial EKGs, serial troponins, telemetry monitoring NSTEMI, as above Systolic and diastolic CHF exacerbation -Place Snider catheter, Lasix this is documented -Lasix 40 IV every 24 hours CKD, creatinine 1.9, monitor COPD, hold off on steroids for now History of CABG History of CVA History of diabetes, last A1c 4.5 CODE STATUS, patient does not want to be resuscitated, DNR, but is agreeable to intubation if required Lovenox for DVT prophylaxis Attestations Medical Necessity Statement*: Patient requires hospitalization for left lower lobe pneumonia, chest pain complaints, systolic and diastolic CHF exacerbation, inpatient, greater than 2 midnights Diagnoses CHF exacerbation I50.9 COPD (chronic obstructive pulmonary disease) J44.9 Grade II diastolic dysfunction I51.89 S/P CABG (coronary artery bypass graft) Z95.1 Hyperlipidemia, unspecified E78.2 Hyperlipidemia type: mixed hyperlipidemia HTN, goal below 130/80 I10 CKD (chronic kidney disease) N18.9 Adult onset hypothyroidism E03.8 CAD (coronary artery disease) I25.10 Left lower lobe pneumonia J18.9 Chest pain R07.9 Non-ST elevation [place] (NSTEMI) I21.4
--- NOTE | 2023-01-07 02:19 | USCV_ITS ---
Dmitry Abiel Age: 82 Gender: M : 1940 Exam Date: 01/07/2023 11:20 Ordering Phys: Corby Mayo MD Technologist: WICHO Exam Location: [facility] [place] Indication: BP: / HR: 103 Rhythm: Atrial fibrillation Technical Quality: Suboptimal MEASUREMENTS (Male / Female) Normal Values 2D ECHO LV Diastolic Diameter PLAX 6.7 cm 4.2 - 5.9 / 3.9 - 5.3 cm LV Systolic Diameter PLAX 5.3 cm IVS Diastolic Thickness 0.9 cm 0.6 - 1.0 / 0.6 - 0.9 cm IVS Systolic Thickness 1.2 cm LVPW Diastolic Thickness 0.9 cm 0.6 - 1.0 / 0.6 - 0.9 cm LVPW Systolic Thickness 1.0 cm LVOT Diameter 2.6 cm LV Ejection Fraction 2D Teich 41.7 % LV Ejection Fraction MOD 2C 23.9 % LV Ejection Fraction 2C AL 23.1 % LA Diameter 3.9 cm M-MODE Aortic Annulus Diameter 3.1 cm LA Ao Ratio MM 1.5 MV E Point Septal Separation 1.1 cm DOPPLER AV Peak Velocity 126.0 cm/s LVOT Peak Velocity 78.0 cm/s AV Area Cont Eq vti 3.1 cm squared AV Area Cont Eq pk 3.2 cm squared MV Area PHT 5.6 cm squared Mitral E to A Ratio 2.8 MV E' Velocity 53.0 cm/s Mitral E to MV E' Ratio 12.8 Mitral E to LV E' Lateral Ratio 12.3 Mitral E to LV E' Septal Ratio 13.3 TV Peak E Velocity 66.0 cm/s PV Peak Velocity 80.0 cm/s FINDINGS Left Ventricle The examination is technically difficult due to atrial fibrillation with a rapid ventricular response. Wall motion disturbances are difficult to assess. There is likely global hypokinesis with an ejection fraction of 35 to 40%. Diastolic function cannot be determined due to the rhythm. Right Ventricle Normal right ventricular size and systolic function. Inadequate TR jet to assess right ventricular systolic pressure. Right Atrium Mildly increased right atrial size. Left Atrium Moderately increased left atrial size. Mitral Valve Structurally normal mitral valve. Trace mitral valve regurgitation. Aortic Valve Structurally normal trileaflet aortic valve. Mild aortic valve calcification. No aortic valve stenosis. Mild aortic valve regurgitation. Tricuspid Valve Structurally normal tricuspid valve. Trace tricuspid valve regurgitation. Pulmonic Valve Pulmonic valve not well visualized. Pericardium Normal pericardium without effusion. Aorta Normal ascending aorta dimension. IVC Inferior vena cava not visualized. CONCLUSIONS The examination is technically difficult due to atrial fibrillation with a rapid ventricular response. Wall motion disturbances are difficult to assess. There is likely global hypokinesis with an ejection fraction of 35 to 40%. Diastolic function cannot be determined due to the rhythm. Mildly increased right atrial size. Moderately increased left atrial size. Structurally normal trileaflet aortic valve. Mild aortic valve calcification. No aortic valve stenosis. Mild aortic valve regurgitation. The previous study was done 5 months ago. At that time the study was technically difficult and echo contrast was used. Ejection fraction was estimated at 45 to 50%. Today's ejection fraction is estimated lower but because of the rapid atrial fibrillation comparison is difficult. Otherwise, there has been no change. Dr. Yoshi Reyes MD (Electronically Signed) Final Date: 07 Jan 2023 16:09 S
[2023-01-07] MEDS: vancomycin 1,250 MG/250 ML PIGGYBACK 250 MG IV (02:31)
[2023-01-07] MEDS: enoxaparin 40 mg/0.4 mL Syringe SUBCUT (02:34)
[2023-01-07] MEDS: aspirin 81 mg EC Tablet PO ×2 (02:35→09:25)
[2023-01-07] MEDS: sucralfate 1 gm Tablet PO ×5 (02:35→19:41)
[2023-01-07] MEDS: ipratropium-albuterol 3 mL Neb INHALATION ×6 (03:33→23:26)
--- NOTE | 2023-01-07 04:03 | PC.PHAR ---
Pharmacokinetic dosing service Date: 01/07/23 Time: 402 Objective: Patient: Abiel Andres Floor: 279-1 Age: 82 yo Serum creatinine: 1.9 mg/dL Height: 70.0 Inches Weight (kg): 86.183 Diagnosis: Relevant medical/social history: Cultures and sensitivities: Other labs: Assessment: IBW (kg): 73.00 Dosing wt(kg): 86.183 Estimated Creatinine clearance (ml/min): 29.9 CRCL method: Cockcroft and Gault using ibw(default). Drug selected: Vancomycin Loading dose (mg): 0 Vd (liters): 77.6 (factor used: 0.9 L/kg) Cosme (hr-1): 0.029 Half life (hrs): 23.90 Recommended dose: 1250 mg Interval: 24 hrs Infusion time (hrs): 1.5 Predicted peak (mcg/mL): 31.4 Predicted trough (mcg/mL): 16.35 Total body weight is being used for vancomycin dosing. Renal function is stable [ ] /unstable [ ] Recommendations: Give Vancomycin 1250 mg q 24 hrs with an expected Cpeak of 31.4 mcg/ml and an expected Ctrough of 16.35 mcg/ml Renal dosing of other antibiotics (review renal dosing of other medications and list guidelines here): Thank you for the consult, will continue to follow. Signature: L[facility]
[2023-01-07 04:27] LABS: Troponin 5 6HR 80.97 ng/L (0-15)
[2023-01-07 04:28] LABS: Troponin 5 6HR Delta -6.03 ng/L (0-12)
[2023-01-07] MEDS: metoprolol tartrate 25 mg Tablet PO ×2 (06:31→19:41)
[2023-01-07] MEDS: metoprolol tartrate 1 mg/1 mL SDV 5 mL 5 MG IVP (06:33)
[2023-01-07] MEDS: acetaminophen 325 mg Tablet 650 MG PO (06:35)
--- NOTE | 2023-01-07 06:39 | PC.NURSE ---
A-FIB w RVR Pt was noted to be having RVR with HR from 140's to 160's. Was sleeping with event and denied any symptoms when awakened. Dr was called and received 5mg of IV Metoprolol and started a first dose of po Metoprolol 25mg po.
--- NOTE | 2023-01-07 07:07 | PC.NURSE ---
HR Heart rate presently 119 A-fib
[2023-01-07] MEDS: budesonide 0.5 mg/2 mL Neb INHALATION ×2 (08:07→20:10)
[2023-01-07] MEDS: cholecalciferol (vitamin D3) 1,000 unit Tablet 2000 UNIT PO (09:24)
[2023-01-07] MEDS: docusate sodium 100 mg Capsule PO (09:24)
[2023-01-07] MEDS: pantoprazole DR 40 mg Tablet PO ×2 (09:24→18:00)
[2023-01-07] MEDS: levothyroxine 75 mcg Tablet PO (09:24)
[2023-01-07] MEDS: duloxetine 60 mg Capsule PO ×2 (09:24→18:00)
[2023-01-07] MEDS: tamsulosin 0.4 mg Capsule PO ×2 (09:24→18:00)
[2023-01-07] MEDS: fenofibrate 145 mg Tablet PO (09:24)
[2023-01-07] MEDS: losartan 50 mg Tablet PO (09:25)
[2023-01-07] MEDS: atorvastatin 40 mg Tablet 80 MG PO (09:32)
[2023-01-07] MEDS: FUROsemide 10 mg/mL SDV 4mL 40 MG IVP (10:21)
[2023-01-07] MEDS: piperacillin-tazobactam 3.375 GM in sodium chloride 0.9% (plus) 50 ML IV ×2 (10:25→18:00)
--- NOTE | 2023-01-07 15:23 | PM.MISC ---
Miscellaneous Note Purpose of Documentation: Overnight labs and H&P reviewed. Patient getting an echocardiogram. Denies any new complaints. Troponin series 87, 89, 80, negative delta at 2 and 6 hours. Reviewed from August 2022, troponin was at 88. No significant change. BNP elevated at 20,000. Continue scheduled nebulization with budesonide and DuoNeb. Continue aspirin, Lipitor, Lasix 40 IV every 24 hours, losartan and metoprolol. continue abx
[2023-01-07] MEDS: dilTIAZem 30 mg Tablet PO (21:50)
[2023-01-08] VITALS (18 sets, daily range): BP systolic 104–117; BP diastolic 52–72; PULSE 55–128; RESP 18–22; TEMP 36.1–36.5; O2SAT 95–99
[2023-01-08] MEDS: enoxaparin 40 mg/0.4 mL Syringe SUBCUT (02:02)
[2023-01-08] MEDS: vancomycin 1,250 MG/250 ML PIGGYBACK 250 MG IV (02:02)
[2023-01-08] MEDS: piperacillin-tazobactam 3.375 GM in sodium chloride 0.9% (plus) 50 ML IV ×3 (03:01→17:55)
[2023-01-08] MEDS: ipratropium-albuterol 3 mL Neb INHALATION ×6 (03:23→23:20)
[2023-01-08] MEDS: dilTIAZem 30 mg Tablet PO ×4 (04:04→22:41)
[2023-01-08 05:33] LABS: Basophils % 0.2 %; Eosinophils # 0.2 10^3/uL (0.0-0.8); Eosinophils % 2.6 %; Hematocrit 36.3 % (42.0-52.0); Hemoglobin 10.9 g/dL (11.7-16.6); Lymphocytes % 11.3 %; Mean Corpuscular Hemoglobin 28.2 pg (28.0-34.0); Mean Corpuscular Volume 93.8 fl (80-94); Mean Platelet Volume 11.7 fL (7.4-10.4); Monocytes # 0.8 10^3/uL (0.2-0.9); Monocytes % 8.4 %; Neutrophils # 7.03 10^3/uL (1.8-7.7); Neutrophils % 77.3 %; Nucleated Red Blood Cells % 0 %; Platelet Count 194 10^3/cmm (130-400); Red Blood Count 3.87 10^6/uL (4.1-5.3); Red Cell Distribution Width 16.1 % (12.1-15.1); White Blood Count 9.1 10^3/uL (4.0-10.0)
[2023-01-08 05:49] LABS: Alanine Aminotransferase 14 U/L (0-41); Albumin Level 3.2 g/dL (3.5-5.2); Alkaline Phosphatase 69 U/L (40-130); Aspartate Amino Transferase 22 U/L (0-40); Blood Urea Nitrogen 47 mg/dL (8-23); Calcium 9.1 mg/dL (8.5-10.5); Carbon Dioxide 23 mmol/L (22-29); Chloride 103 mmol/L (98-107); Globulin 3.1 g/dL (1.3-4.6); Glucose 106 mg/dL (65-115); Osmolality Calculated 301 mOsm/kg (285-295); Sodium 139 mmol/L (136-145); Total Bilirubin 0.4 mg/dL (0.15-1.2); Total Protein 6.3 g/dL (6.6-8.7)
[2023-01-08] MEDS: budesonide 0.5 mg/2 mL Neb INHALATION ×2 (07:28→19:52)
[2023-01-08] MEDS: fenofibrate 145 mg Tablet PO (09:09)
[2023-01-08] MEDS: aspirin 81 mg EC Tablet PO (09:09)
[2023-01-08] MEDS: duloxetine 60 mg Capsule PO ×2 (09:09→17:55)
[2023-01-08] MEDS: levothyroxine 75 mcg Tablet PO (09:09)
[2023-01-08] MEDS: docusate sodium 100 mg Capsule PO (09:09)
[2023-01-08] MEDS: sucralfate 1 gm Tablet PO ×4 (09:09→20:47)
[2023-01-08] MEDS: metoprolol tartrate 25 mg Tablet PO ×2 (09:10→20:47)
[2023-01-08] MEDS: losartan 50 mg Tablet PO (09:10)
[2023-01-08] MEDS: tamsulosin 0.4 mg Capsule PO ×2 (09:10→17:55)
[2023-01-08] MEDS: atorvastatin 40 mg Tablet 80 MG PO (09:11)
[2023-01-08] MEDS: pantoprazole DR 40 mg Tablet PO ×2 (09:11→17:55)
[2023-01-08] MEDS: cholecalciferol (vitamin D3) 1,000 unit Tablet 2000 UNIT PO (09:25)
[2023-01-08] MEDS: FUROsemide 10 mg/mL SDV 4mL 40 MG IVP (09:26)
--- NOTE | 2023-01-08 10:34 | PC.CHAP ---
Pastoral Care Encounter/Spiritual Assessment Type of Contact [] Declined defence force member other ranks visit [] Patient/Family/Request visit [] Outpatient visit [] Follow-up visit [] Physician referral [] Code/Alert [x] Routine visit [] Staff referral [] Actively dying [] Patient sleeping [] Family support [] [] Out of room [] Palliative care [] [] Receiving care in room [] Pre-surgical visit [] Trauma [] Long length of stay [] ICU visit [] Other: Relational/Emotional Strength [x] Patient feels connected with others/family/visitors/staff [] Distress [] Loneliness/isolation [] Abandonment Spirituality of Patient [x] Person of Rachel [] Attends Mu-Ism of their Rachel [x] Believes in Prayer [] Reads Bible or Buddhism materials [] There are Spiritual issues to be addressed Engineering Program Analyst Interventions [x] Prayer [] Active listening [] Non-anxious presence [] Spiritual/emotional support [] Crisis/trauma care [] Spiritual counseling [] Bereavement support [] Provided bereavement packet [] Provided Bible/devotional materials [] Provided toy/stuffed animal, coloring book to patient or family member [] Provided Communion [] Anointing/[place] [] Salvation [x] Completed spiritual assessment [] Other: Impact on Illness or Injury [] Angry [] Fearful [] Anxious [] Often cries [] Exhaustion [] Unable to work [] Unable to attend faith [] Unable to walk/stand [] Unable to read [] Unable to drive [] Unable to eat/drink [] Unable to sleep [] Unable to be with family [] Patient intubated [] Other: Summary Time spent with patient 10 min
--- NOTE | 2023-01-08 15:13 | PM.PN ---
Subjective Subjective: Patient was seen and examined this morning, shortness of breath is significantly improved, bilateral lower extremity swelling is improving, SCR has up trended to 2.6 today, along with uptrending BUN, patient is intravascularly dry, will hold Lasix for now, continue IV antibiotics. Medications: Medication Review Details: Generic Name Dose Route Start Last Admin Trade Name Freq PRN Reason Stop Dose Admin Acetaminophen 650 mg 01/07/23 02:19 01/07/23 06:35 Acetaminophen 32 5 Mg Tablet PO 650 mg Q6H PRN Administration Mild/Mod Pain Or Temp >/= 101 Albuterol/Ipratrop ium 3 ml 01/07/23 04:00 01/08/23 11:24 Ipratropium-Albu terol 3 Ml Neb INHALATION 3 ml Q4H.RESPIRATORY S CH Administration Aspirin 81 mg 01/07/23 02:19 01/08/23 09:09 Aspirin 81 Mg Ec Tablet PO 81 mg DAILY KELSEY Administration Atorvastatin Calci um 80 mg 01/07/23 09:00 01/08/23 09:11 Atorvastatin 40 Mg Tablet PO 80 mg DAILY KELSEY Administration Budesonide 0.5 mg 01/07/23 08:00 01/08/23 07:28 Budesonide 0.5 M g/2 Ml Neb INHALATION 0.5 mg BID.RESPIRATORY S CH Administration Diltiazem HCl 30 mg 01/07/23 22:00 01/08/23 09:11 Diltiazem 30 Mg Tablet PO 30 mg Q6H KELSEY Administration Docusate Sodium 100 mg 01/07/23 09:00 01/08/23 09:09 Docusate Sodium 100 Mg Capsule PO 100 mg DAILY KELSEY Administration Duloxetine HCl 60 mg 01/07/23 09:00 01/08/23 09:09 Duloxetine 60 Mg Capsule PO 60 mg BID KELSEY Administration Enoxaparin Sodium 40 mg 01/07/23 02:19 01/08/23 02:02 Enoxaparin 40 Mg /0.4 Ml Syringe SUBCUT 40 mg Q24H KELSEY Administration Fenofibrate 145 mg 01/07/23 09:00 01/08/23 09:09 Fenofibrate 145 Mg Tablet PO 145 mg DAILY KELSEY Administration Furosemide 40 mg 01/07/23 09:00 01/08/23 09:26 Furosemide 10 Mg /Ml Sdv 4ml IVP 40 mg Q24H KELSEY Administration Piperacillin Sod/T azobactam 50 mls @ 12.5 mls /hr 01/07/23 10:00 01/08/23 14:40 Sod 3.375 gm/ So dium Chloride IV Infused Q8H K[facility] Infusion Protocol Vancomycin/PEG/NAD A/Lysine/Water 1,250 mg in 250 m ls @ 250 mls/hr 01/08/23 03:00 01/08/23 03:02 Vancocin IV Infused Q24H K[facility] Infusion Levothyroxine Sodi um 75 mcg 01/07/23 09:00 01/08/23 09:09 Levothyroxine 75 Mcg Tablet PO 75 mcg DAILY KELSEY Administration Losartan Potassium 50 mg 01/07/23 09:00 01/08/23 09:10 Losartan 50 Mg T ablet PO 50 mg DAILY KELESY Administration Metoprolol Tartrat e 25 mg 01/07/23 06:30 01/08/23 09:10 Metoprolol Tartr ate 25 Mg Tablet PO 25 mg BID@0900,2100 KELSEY Administration Pantoprazole Sodiu m 40 mg 01/07/23 09:00 01/08/23 09:[address] 40 Mg Tablet PO 40 mg BID KELSEY Administration Sucralfate 1 gm 01/07/23 02:19 01/08/23 12:22 Sucralfate 1 Gm Tablet PO 1 gm QID KELSEY Administration Tamsulosin HCl 0.4 mg 01/07/23 09:00 01/08/23 09:10 Tamsulosin 0.4 M g Capsule PO 0.4 mg BID KELSEY Administration Vitamin D 2,000 unit 01/07/23 09:00 01/08/23 09:25 Cholecalciferol (Vitamin D3) 1,000 Unit Tablet PO 2,000 unit DAILY KELSEY Administration Vitals/I&O/Wt Last Vital Signs Temp 97.5 F L 01/08/23 12:00 Pulse 70 01/08/23 12:00 Resp 18 01/08/23 12:00 BP 117/72 01/08/23 12:00 Pulse Ox 95 01/08/23 12:00 O2 Del Method Room Air 01/08/23 12:00 O2 Flow Rate 3 01/08/23 11:25 01/08/23 01/08/23 01/08/23 06:59 14:59 22:59 Intake Total 300 / 810 1010 / 1010 Output Total 250 / 2900 Balance 50 / -2090 1010 / 1010 Weight last 48 hrs Weight 86.183 kg Physical Exam Const: COMMON NORMALS: patient oriented x3 Resp: COMMON NORMALS: normal respiratory effort, No retractions, No use of accessory muscles and clear to auscultation bilaterally EFFORT & INSPECTION: Yes symmetric chest movement AUSCULTATION: clear to auscultation bilaterally Cardio: COMMON NORMALS: regular rate, regular rhythm, S1 normal heart sound present, S2 normal heart sound present, No gallops present (Cardio), No murmurs present (Cardio), No rub (Cardio) and Peripheral pulses 2+ throughout RATE: regular rate RHYTHM: regular rhythm HEART SOUNDS: S1 normal heart sound present and S2 normal heart sound present PERIPHERAL PULSES: Peripheral pulses 2+ throughout GI: COMMON NORMALS: Normal to inspection, nondistended, normoactive bowel sounds present, Soft to palpation, non-tender, No hepatosplenomegaly present and no masses AUSCULTATION: Yes normoactive bowel sounds PALPATION: Yes Soft to palpation and Yes No hepatosplenomegaly present RECTAL EXAM: Yes deferred Extremity: COMMON NORMALS: no clubbing, cyanosis or edema and no pedal edema Neuro: COMMON NORMALS: patient oriented x3 Urinary Catheter Management: Snider: Cath Placed During This Visit: yes Reason for Continuing Indwelling Catheter: Other Urinary Catheter Date of Insertion: 01/07/23 Urinary Catheter Time of Insertion: 02:44 Data 01/08/23 05:22 01/08/23 05:22 Micro: Microbiology 01/06/23 22:29 Blood Culture - Preliminary Blood NEGATIVE TO DATE 01/06/23 22:25 Blood Culture - Preliminary Blood NEGATIVE TO DATE A&P Assessment and plan (1) CHF exacerbation: (2) COPD (chronic obstructive pulmonary disease): (3) Grade II diastolic dysfunction: (4) S/P CABG (coronary artery bypass graft): (5) Hyperlipidemia, unspecified: Qualifiers: Hyperlipidemia type: mixed hyperlipidemia Qualified Code(s): E78.2 - Mixed hyperlipidemia (6) HTN, goal below 130/80: (7) CKD (chronic kidney disease): (8) Adult onset hypothyroidism: (9) CAD (coronary artery disease): (10) Left lower lobe pneumonia: (11) Chest pain: (12) Non-ST elevation [place] (NSTEMI): Plan Left lower lobe pneumonia -CT chest without contrast: Showing lower lobe consolidation, predominantly left lower lobe, with possible minimal consideration on the right lower lobe, bilateral pleural effusion with adjacent compressive atelectasis. -Blood cultures: NTD -Sputum cultures: -DuoNeb, budesonide -Vancomycin, Zosyn Chest pain: Troponin trend: -2D echo:?global?hypokinesis with an ejection fraction of 35 to 40%. There has been slight drop in EF when compared to prior study. -Telemetry monitoring -Given the overall bad kidney function, it will be prudent to manage chest pain conservatively for now. NSTEMI: Systolic and diastolic CHF exacerbation -Place Snider catheter -Was on Lasix 40 IV every 24 hours. Currently on hold. CKD, creatinine 1.9, monitor COPD, hold off on steroids for now History of CABG History of CVA History of diabetes, last A1c 4.5 CODE STATUS, patient does not want to be resuscitated, DNR, but is agreeable to intubation if required Lovenox for DVT prophylaxis Attestations Medical Necessity Statement*: Needs to be in hospital for IV antibiotics. Coding Level of Care Code Acute Code for Chg Fwd Diagnoses CHF exacerbation I50.9 COPD (chronic obstructive pulmonary disease) J44.9 Grade II diastolic dysfunction I51.89 S/P CABG (coronary artery bypass graft) Z95.1 Hyperlipidemia, unspecified E78.2 Hyperlipidemia type: mixed hyperlipidemia HTN, goal below 130/80 I10 CKD (chronic kidney disease) N18.9 Adult onset hypothyroidism E03.8 CAD (coronary artery disease) I25.10 Left lower lobe pneumonia J18.9 Chest pain R07.9 Non-ST elevation IA (NSTEMI) I21.4
[2023-01-09] VITALS (17 sets, daily range): BP systolic 92–119; BP diastolic 55–79; PULSE 63–132; RESP 15–19; TEMP 36.4–36.6; O2SAT 91–99
[2023-01-09] MEDS: enoxaparin 40 mg/0.4 mL Syringe SUBCUT (02:14)
[2023-01-09] MEDS: vancomycin 1,250 MG/250 ML PIGGYBACK 250 MG IV (02:14)
[2023-01-09 02:24] LABS: Basophils % 0.5 %; Eosinophils # 0.4 10^3/uL (0.0-0.8); Eosinophils % 6.5 %; Hematocrit 34.8 % (42.0-52.0); Hemoglobin 10.6 g/dL (11.7-16.6); Lymphocytes # 1.1 10^3/uL (0.8-4.8); Lymphocytes % 16.2 %; Mean Corpuscular HGB Conc 30.5 g/dL (30.0-36.0); Mean Corpuscular Hemoglobin 27.7 pg (28.0-34.0); Mean Corpuscular Volume 91.1 fl (80-94); Mean Platelet Volume 11.8 fL (7.4-10.4); Monocytes # 0.6 10^3/uL (0.2-0.9); Monocytes % 8.7 %; Neutrophils # 4.53 10^3/uL (1.8-7.7); Neutrophils % 67.9 %; Nucleated Red Blood Cells % 0 %; Platelet Count 193 10^3/cmm (130-400); Red Blood Count 3.82 10^6/uL (4.1-5.3); Red Cell Distribution Width 16.1 % (12.1-15.1); White Blood Count 6.7 10^3/uL (4.0-10.0)
[2023-01-09 02:45] LABS: Alanine Aminotransferase 14 U/L (0-41); Albumin Level 3.3 g/dL (3.5-5.2); Alkaline Phosphatase 64 U/L (40-130); Aspartate Amino Transferase 21 U/L (0-40); Blood Urea Nitrogen 54 mg/dL (8-23); Calcium 9.2 mg/dL (8.5-10.5); Carbon Dioxide 24 mmol/L (22-29); Chloride 102 mmol/L (98-107); Globulin 2.9 g/dL (1.3-4.6); Glucose 97 mg/dL (65-115); Osmolality Calculated 301 mOsm/kg (285-295); Sodium 138 mmol/L (136-145); Total Bilirubin 0.3 mg/dL (0.15-1.2); Total Protein 6.2 g/dL (6.6-8.7)
[2023-01-09 02:47] LABS: Vancomycin Trough 14.7 ug/mL (10-15)
[2023-01-09] MEDS: ipratropium-albuterol 3 mL Neb INHALATION ×4 (03:30→20:41)
[2023-01-09] MEDS: piperacillin-tazobactam 3.375 GM in sodium chloride 0.9% (plus) 50 ML IV ×3 (03:59→17:28)
[2023-01-09] MEDS: dilTIAZem 30 mg Tablet PO ×4 (04:00→21:38)
[2023-01-09] MEDS: cholecalciferol (vitamin D3) 1,000 unit Tablet 2000 UNIT PO (08:14)
[2023-01-09] MEDS: tamsulosin 0.4 mg Capsule PO ×2 (08:14→17:28)
[2023-01-09] MEDS: duloxetine 60 mg Capsule PO ×2 (08:15→17:28)
[2023-01-09] MEDS: docusate sodium 100 mg Capsule PO (08:15)
[2023-01-09] MEDS: pantoprazole DR 40 mg Tablet PO ×2 (08:15→17:28)
[2023-01-09] MEDS: aspirin 81 mg EC Tablet PO (08:15)
[2023-01-09] MEDS: sucralfate 1 gm Tablet PO ×4 (08:15→21:37)
[2023-01-09] MEDS: levothyroxine 75 mcg Tablet PO (08:15)
[2023-01-09] MEDS: atorvastatin 40 mg Tablet 80 MG PO (08:54)
[2023-01-09] MEDS: fenofibrate 145 mg Tablet PO (08:55)
[2023-01-09] MEDS: budesonide 0.5 mg/2 mL Neb INHALATION ×2 (09:07→20:41)
[2023-01-09] MEDS: metoprolol tartrate 25 mg Tablet PO ×2 (09:31→21:37)
[2023-01-09] MEDS: benzonatate 100 mg Capsule PO ×3 (10:12→21:37)
--- NOTE | 2023-01-09 12:52 | PM.PN ---
Subjective Subjective: Patient was seen and examined this morning, he was complaining of significant coughing this morning. Medications: Medication Review Details: Generic Name Dose Route Start Last Admin Trade Name Freq PRN Reason Stop Dose Admin Acetaminophen 650 mg 01/07/23 02:19 01/07/23 06:35 Acetaminophen 32 5 Mg Tablet PO 650 mg Q6H PRN Administration Mild/Mod Pain Or Temp >/= 101 Albuterol/Ipratrop ium 3 ml 01/07/23 04:00 01/09/23 11:49 Ipratropium-Albu terol 3 Ml Neb INHALATION 3 ml Q4H.RESPIRATORY S CH Administration Aspirin 81 mg 01/07/23 02:19 01/09/23 08:15 Aspirin 81 Mg Ec Tablet PO 81 mg DAILY KELSEY Administration Atorvastatin Calci um 80 mg 01/07/23 09:00 01/09/23 08:54 Atorvastatin 40 Mg Tablet PO 80 mg DAILY KELSEY Administration Benzonatate 100 mg 01/09/23 10:00 01/09/23 10:12 Benzonatate 100 Mg Capsule PO 100 mg TID KELSEY Administration Budesonide 0.5 mg 01/07/23 08:00 01/09/23 09:07 Budesonide 0.5 M g/2 Ml Neb INHALATION 0.5 mg BID.RESPIRATORY S CH Administration Diltiazem HCl 30 mg 01/07/23 22:00 01/09/23 09:31 Diltiazem 30 Mg Tablet PO 30 mg Q6H KELSEY Administration Docusate Sodium 100 mg 01/07/23 09:00 01/09/23 08:15 Docusate Sodium 100 Mg Capsule PO 100 mg DAILY KELSEY Administration Duloxetine HCl 60 mg 01/07/23 09:00 01/09/23 08:15 Duloxetine 60 Mg Capsule PO 60 mg BID KELSEY Administration Fenofibrate 145 mg 01/07/23 09:00 01/09/23 08:55 Fenofibrate 145 Mg Tablet PO 145 mg DAILY KELSEY Administration Furosemide 40 mg 01/07/23 09:00 01/08/23 09:26 Furosemide 10 Mg /Ml Sdv 4ml IVP 40 mg Q24H KEL[facility]Y Administration Piperacillin Sod/T azobactam 50 mls @ 12.5 mls /hr 01/07/23 10:00 01/09/23 10:12 Sod 3.375 gm/ So dium Chloride IV 12.5 mls/hr Q8H KEL[facility]Y Administration Protocol Vancomycin/PEG/NAD A/Lysine/Water 1,250 mg in 250 m ls @ 250 mls/hr 01/08/23 03:00 01/09/23 04:05 Vancocin IV Infused Q24H K[facility] Infusion Levothyroxine Sodi um 75 mcg 01/07/23 09:00 01/09/23 08:15 Levothyroxine 75 Mcg Tablet PO 75 mcg DAILY K[facility] Administration Losartan Potassium 50 mg 01/07/23 09:00 01/08/23 09:10 Losartan 50 Mg T ablet PO 50 mg DAILY K[facility] Administration Metoprolol Tartrat e 25 mg 01/07/23 06:30 01/09/23 09:31 Metoprolol Tartr ate 25 Mg Tablet PO 25 mg BID@0900,2100 KELSE[facility] Administration Pantoprazole Sodiu m 40 mg 01/07/23 09:00 01/09/23 08:[address] 40 Mg Tablet PO 40 mg BID K[facility]Y Administration Sucralfate 1 gm 01/07/23 02:19 01/09/23 08:15 Sucralfate 1 Gm Tablet PO 1 gm QID KEL[facility]Y Administration Tamsulosin HCl 0.4 mg 01/07/23 09:00 01/09/23 08:14 Tamsulosin 0.4 M g Capsule PO 0.4 mg BID KELSEY Administration Vitamin D 2,000 unit 01/07/23 09:00 01/09/23 08:14 Cholecalciferol (Vitamin D3) 1,000 Unit Tablet PO 2,000 unit DAILY KELSEY Administration Vitals/I&O/Wt Last Vital Signs Temp 97.5 F L 01/09/23 07:24 Pulse 64 01/09/23 11:52 Resp 16 01/09/23 11:46 BP 99/58 01/09/23 11:46 Pulse Ox 91 01/09/23 11:46 O2 Del Method Nasal Cannula 01/09/23 11:46 O2 Flow Rate 3 01/09/23 11:40 01/08/23 01/09/23 01/09/23 22:59 06:59 14:59 Intake Total 410 / 1420 850 / 2270 410 / 410 Output Total 850 / 850 300 / 1150 Balance -440 / 570 550 / 1120 410 / 410 Physical Exam Const: COMMON NORMALS: patient oriented x3 Resp: COMMON NORMALS: normal respiratory effort, No retractions, No use of accessory muscles and clear to auscultation bilaterally EFFORT & INSPECTION: Yes symmetric chest movement AUSCULTATION: clear to auscultation bilaterally Cardio: COMMON NORMALS: regular rate, regular rhythm, S1 normal heart sound present, S2 normal heart sound present, No gallops present (Cardio), No murmurs present (Cardio), No rub (Cardio) and Peripheral pulses 2+ throughout RATE: regular rate RHYTHM: regular rhythm HEART SOUNDS: S1 normal heart sound present and S2 normal heart sound present PERIPHERAL PULSES: Peripheral pulses 2+ throughout GI: COMMON NORMALS: Normal to inspection, nondistended, normoactive bowel sounds present, Soft to palpation, non-tender, No hepatosplenomegaly present and no masses AUSCULTATION: Yes normoactive bowel sounds PALPATION: Yes Soft to palpation and Yes No hepatosplenomegaly present RECTAL EXAM: Yes deferred Extremity: COMMON NORMALS: no clubbing, cyanosis or edema and no pedal edema Neuro: COMMON NORMALS: patient oriented x3 Urinary Catheter Management: Snider: Cath Placed During This Visit: yes Reason for Continuing Indwelling Catheter: Other Urinary Catheter Date of Insertion: 01/07/23 Urinary Catheter Time of Insertion: 02:44 Data 01/09/23 02:00 01/09/23 02:00 A&P Assessment and plan (1) CHF exacerbation: (2) COPD (chronic obstructive pulmonary disease): (3) Grade II diastolic dysfunction: (4) S/P CABG (coronary artery bypass graft): (5) Hyperlipidemia, unspecified: Qualifiers: Hyperlipidemia type: mixed hyperlipidemia Qualified Code(s): E78.2 - Mixed hyperlipidemia (6) HTN, goal below 130/80: (7) CKD (chronic kidney disease): (8) Adult onset hypothyroidism: (9) CAD (coronary artery disease): (10) Left lower lobe pneumonia: (11) Chest pain: (12) Non-ST elevation [place] (NSTEMI): Plan Left lower lobe pneumonia -CT chest without contrast: Showing lower lobe consolidation, predominantly left lower lobe, with possible minimal consideration on the right lower lobe, bilateral pleural effusion with adjacent compressive atelectasis. -Blood cultures: NTD -MRSA PCR : -Sputum cultures: -DuoNeb, budesonide -Vancomycin, Zosyn Chest pain: Troponin trend: 87-89-80 -2D echo:?global?hypokinesis with an ejection fraction of 35 to 40%. There has been slight drop in EF when compared to prior study. Serial EKG. Telemetry monitoring Given the overall bad kidney function, it will be prudent to manage chest pain conservatively for now. 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 Monitor intake output charting Monitor daily weight Monitor electrolytes CKD, creatinine 1.9, monitor COPD, hold off on steroids for now History of CABG History of CVA History of diabetes, last A1c 4.5 CODE STATUS, patient does not want to be resuscitated, DNR, but is agreeable to intubation if required Lovenox for DVT prophylaxis Attestations Medical Necessity Statement*: Needs to be in hospital for IV antibiotic. Coding Level of Care Code Acute Code for Chg Fwd Diagnoses CHF exacerbation I50.9 COPD (chronic obstructive pulmonary disease) J44.9 Grade II diastolic dysfunction I51.89 S/P CABG (coronary artery bypass graft) Z95.1 Hyperlipidemia, unspecified E78.2 Hyperlipidemia type: mixed hyperlipidemia HTN, goal below 130/80 I10 CKD (chronic kidney disease) N18.9 Adult onset hypothyroidism E03.8 CAD (coronary artery disease) I25.10 Left lower lobe pneumonia J18.9 Chest pain R07.9 Non-ST elevation HI (NSTEMI) I21.4
[2023-01-09] MEDS: acetaminophen 325 mg Tablet 650 MG PO (15:21)
--- NOTE | 2023-01-09 18:01 | P.CONIM_ITS ---
Providers/Reason For Consult Consulting Physician/Specialty*: CIERA Sutherland MD/cardiology Reason for Consult*: Patient with coronary disease, four-vessel coronary bypass surgery, presenting with increasing shortness of breath and a persistently elevated troponin T Requesting Physician: Dr. Zhao Attending Physician: Nicholas Zhao MD Primary Care Provider: KLAUS Fortune-Bravo History of Present Illness History of Present Illness Abiel Andres is a 82 year old male with a history of coronary artery disease, status post coronary artery bypass surgery in 2002, ischemic cardiomyopathy and heart failure, chronic kidney disease, high blood pressure, dyslipidemia, COPD, peripheral artery disease, type 2 diabetes, dyslipidemia and multiple other medical problems, he is admitted to the hospital with complaints of worsening shortness of breath. He is being treated for decompensated heart failure. He also was found to have left lower lobe pneumonia. He is on antibiotics. According the patient, he continues to have shortness of breath with exertion. Even with minimal activities, he gets extremely short of breath. His functional status has declined significantly over the last few months. He has some twinges of pain on the left side of the chest. But no real chest pain as such. His shortness of breath is mostly exertional at this point. He has no orthopnea. No fever or chills. No similar cough. He was admitted to the hospital August of last year with a worsening shortness of breath. A Myocardial perfusion imaging was performed at that time. He was found to be areas of fixed defect with a very small areas of reversible defects suggesting small areas of dennise-infarction ischemia. Because of the patient's abnormal kidney function and fairly stable status, it was opted to treat him medically. Over the last few months, his kidney function seems to be progressively getting worse. This patient had a four-vessel coronary bypass surgery in 2002 at the [facility] by Dr. Stout. Has not had any recent the coronary angiogram. Review of Systems Narrative: CONSTITUTIONAL: No fever or chills. EYES: No blurring of vision or other visual disturbances lately. ENT: No hoarseness of voice, auditory disturbances or sore throat. CARDIOVASCULAR: As mentioned above. RESPIRATORY: Increasing shortness of breath as mentioned above. Left lower lobe pneumonia GASTROINTESTINAL: No hematemesis or melena. GENITOURINARY: No dysuria or hematuria. INTEGUMENTARY: No skin rashes or history of skin cancer. NEURO: No transient ischemic attacks or amaurosis. Diabetic neuropathy PSYCHIATRIC: No history of psychosis or major depression. HEMATOLOGIC: No bleeding disorders or significant anemia. ENDOCRINE: Type 2 diabetes MUSCULOSKELETAL: No recent joint pain or swelling. ALLERGY/IMMUNOLOGY: As mentioned above. Medications/Allergies Home Medications Medication Instructions Recorded Confirmed Last Taken Type aspirin 81 mg tablet,delayed 81 mg PO QDAY #30 tabs 12/15/19 01/07/23 08/01/22 Rx release oxygen concentrator #1 ea 02/02/22 01/07/23 Unknown Rx fenofibrate nanocrystallized 145 145 mg PO DAILY #90 tabs 07/20/22 01/07/23 08/05/22 Rx mg tablet melatonin 5 mg tablet 5 mg PO BEDTIME 08/04/22 01/07/23 08/05/22 History docusate sodium 100 mg capsule 100 mg PO DAILY 08/18/22 01/07/23 Unknown History (Colace) furosemide 40 mg tablet (Lasix) 40 mg PO DAILY #90 tabs 10/16/22 01/07/23 Unk nown Rx potassium chloride 10 mEq 10 meq PO DAILY #90 caps 10/16/22 01/07/23 Unknown Rx capsule,extended release dapagliflozin 10 mg tablet 10 mg PO QAM #90 tabs 10/18/22 01/07/23 Unknown Rx (Farxiga) duloxetine 60 mg capsule,delayed 60 mg PO BID #180 caps 10/18/22 01/07/23 Unknown Rx release (Cymbalta) levothyroxine 75 mcg tablet 75 mcg PO DAILY #90 tabs 10/18/22 01/07/23 Unknown Rx rosuvastatin 20 mg tablet (Crestor) 20 mg PO QDAY #90 tabs 10/18/22 01/07/23 Unknown Rx sucralfate 1 gram tablet (Carafate) 1 g PO .4 times day #360 tabs 10/18/22 01/07/23 Unknown Rx pantoprazole 40 mg tablet,delayed 40 mg PO BID 14 days #28 tabs 12/06/22 01/07/23 Unknown Rx release (Protonix) valsartan 160 mg tablet (Diovan) 320 mg PO DAILY #90 tabs 12/06/22 01/07/23 Un known Rx Saccharomyces boulardii 250 mg 250 mg PO BID #60 caps 01/02/23 01/07/23 Unknown Rx capsule (Florastor) albuterol sulfate 2.5 mg/3 mL 2.5 mg (3 mL) inhalation Q4H PRN 01/02/23 01/07/23 Unknown Rx (0.083 %) solution for nebulization shortness of breath or wheezing #180 mL levofloxacin 500 mg tablet 500 mg PO Q24H #10 tabs 01/02/23 01/07/23 Unknown Rx nebulizers #1 ea 01/02/23 01/07/23 Unknown Rx cholecalciferol (vitamin D3) 50 50 mcg PO DAILY 01/07/23 01/07/23 Unknown History mcg (2,000 unit) capsule (Vitamin D3) Allergies Allergy/AdvReac Type Severity Reaction Status Date / Time fish oil Allergy rash Verified 01/02/23 14:20 Current Medications Generic Name Dose Route Start Last Admin Trade Name Freq PRN Reason Stop Dose Admin Acetaminophen 650 mg 01/07/23 02:19 01/09/23 15:21 Acetaminophen 325 Mg Tablet PO 650 mg Q6H PRN Administration Mild/Mod Pain Or Temp >/= 101 Albuterol/Ipratropium 3 ml 01/07/23 04:00 01/09/23 16:10 Ipratropium-Albuterol 3 Ml Neb INHALATION Not Given Q4H.RESPIRATORY KELSEY Aspirin 81 mg 01/07/23 02:19 01/09/23 08:15 Aspirin 81 Mg Ec Tablet PO 81 mg DAILY KELSEY Administration Atorvastatin Calcium 80 mg 01/07/23 09:00 01/09/23 08:54 Atorvastatin 40 Mg Tablet PO 80 mg DAILY KELSEY Administration Benzonatate 100 mg 01/09/23 10:00 01/09/23 15:16 Benzonatate 100 Mg Capsule PO 100 mg TID KELSEY Administration Budesonide 0.5 mg 01/07/23 08:00 01/09/23 09:07 Budesonide 0.5 Mg/2 Ml Neb INHALATION 0.5 mg BID.RESPIRATORY KELSEY Administration Diltiazem HCl 30 mg 01/07/23 22:00 01/09/23 15:16 Diltiazem 30 Mg Tablet PO 30 mg Q6H KELSEY Administration Docusate Sodium 100 mg 01/07/23 09:00 01/09/23 08:15 Docusate Sodium 100 Mg Capsule PO 100 mg DAILY KELSEY Administration Duloxetine HCl 60 mg 01/07/23 09:00 01/09/23 17:28 Duloxetine 60 Mg Capsule PO 60 mg BID KELSEY Administration Fenofibrate 145 mg 01/07/23 09:00 01/09/23 08:55 Fenofibrate 145 Mg Tablet PO 145 mg DAILY KELSEY Administration Furosemide 40 mg 01/07/23 09:00 01/08/23 09:26 Furosemide 10 Mg/Ml Sdv 4ml IVP 40 mg Q24H KELSEY Administration Piperacillin Sod/Tazobactam 50 mls @ 12.5 mls/hr 01/07/23 10:00 01/09/23 17:28 Sod 3.375 gm/ Sodium Chloride IV 12.5 mls/hr Q8H KELSEY Administration Protocol Vancomycin/PEG/NADA/Lysine/Water 1,250 mg in 250 mls @ 250 mls/hr 01/08/23 03:00 01/09/23 04:05 Vancocin IV Infused Q24H KELSEY Infusion Levothyroxine Sodium 75 mcg 01/07/23 09:00 01/09/23 08:15 Levothyroxine 75 Mcg Tablet PO 75 mcg DAILY KELSEY Administration Losartan Potassium 50 mg 01/07/23 09:00 01/08/23 09:10 Losartan 50 Mg Tablet PO 50 mg DAILY KELSEY Administration Metoprolol Tartrate 25 mg 01/07/23 06:30 01/09/23 09:31 Metoprolol Tartrate 25 Mg Tablet PO 25 mg BID@0900,2100 KELSEY Administration Pantoprazole Sodium 40 mg 01/07/23 09:00 01/09/23 17:[address] 40 Mg Tablet PO 40 mg BID KELSEY Administration Sucralfate 1 gm 01/07/23 02:19 01/09/23 17:28 Sucralfate 1 Gm Tablet PO 1 gm QID KELSEY Administration Tamsulosin HCl 0.4 mg 01/07/23 09:00 01/09/23 17:28 Tamsulosin 0.4 Mg Capsule PO 0.4 mg BID KELSEY Administration Vitamin D 2,000 unit 01/07/23 09:00 01/09/23 08:14 Cholecalciferol (Vitamin D3) 1,000 Unit Tablet PO 2,000 unit DAILY KELSEY Administration PFSH Acute PFSH: Medical History Adult onset hypothyroidism Anxiety and depression B12 deficiency BPH NOS w ur obs/LUTS Chronic progressive LUTS secondary to BPH/obstruction with good response to dual medical therapy. CAD (coronary artery disease) Carotid stenosis Chronic back pain CKD (chronic kidney disease) Controlled diabetes mellitus COPD (chronic obstructive pulmonary disease) Cyst, dermoid, trunk Erectile dysfunction Multifactorial. 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 Declined Trimix Gastric reflux Grade II diastolic dysfunction Hyperlipidemia, unspecified Iron deficiency OA (osteoarthritis) of hip PVD (peripheral vascular disease) Urolithiasis 6 mm RIGHT distal ureteral stone spontaneously passed 2016. Vitamin D deficiency Surgical History History of back surgery History of knee replacement right 2014 History of knee surgery right 2007 left 2002 History of rhinoplasty 1973 History of shoulder surgery Left 2016 S/p bilateral carotid endarterectomy S/P CABG (coronary artery bypass graft) 2002 Status post colonoscopy Status post laparoscopic cholecystectomy 10/04/2019 Family History Father , at age 75 CAD (coronary artery disease) Mother , at age 81 Stroke Other Heart disease Hypertension Social History Smoking and tobacco status: former smoker Second hand smoke exposure: No Smoking risk assessment/counseling performed?: No Alcohol intake: never Desire information about alcohol rehabilitation?: No Counseling given: No Substance/Drug Use: never Desire information about substance/drug rehabilitation?: No Counseling given: No Adopted: No Caregiver/support person: No Lives independently: Yes Household members: none Housing: House Marital status: / service: Yes status: Retired branch: [employer] Current occupational status: retired Current occupational exposures/hazards: No Pets and animals: No Do you think of yourself as: Straight/Heterosexual Current gender identity: Male Special tommie needs: No Vitals/I&O/Wt Last Vital Signs Temp 97.6 F 01/09/23 16:00 Pulse 98 01/09/23 16:00 Resp 15 01/09/23 16:00 BP 96/68 01/09/23 16:00 Pulse Ox 97 01/09/23 15:37 O2 Del Method Nasal Cannula 01/09/23 15:37 O2 Flow Rate 3 01/09/23 11:40 01/09/23 01/09/23 01/09/23 06:59 14:59 22:59 Intake Total 850 / 2270 650 / 650 50 / 700 Output Total 300 / 1150 Balance 550 / 1120 650 / 650 50 / 700 Physical Exam Narrative: GENERAL: The patient is alert and oriented times three. Not in any acute distress. HEENT: No significant pallor, icterus or lymphadenopathy.Oral cavity: There are no mucous membrane lesions. NECK: Trachea appears to be central. No masses noted. No JVD or thyromegaly appreciated. RESPIRATORY: Chest is symmetrical. No intercostals muscle retraction or any accessory muscle activation. There is no chest wall tenderness. Breath sounds are heard bilaterally. No rales or rhonchi heard. No evidence of any consolidation. BREASTS: Deferred. HEART: The heart sounds are normal. No S3 or S4. No significant murmurs. No pericardial rub ABDOMEN: No vessel pulsations or distention. No tenderness. No organomegaly appreciated. Bowel sounds are normally heard. : Deferred. RECTAL: Deferred. LYMPHATIC: No lymphadenopathy noted in the neck. EXTREMITIES: The dorsalis pedis and posterior pulses are weak bilaterally. MUSCULOSKELETAL: No acute joint deformities or swelling SKIN: There are no significant rashes or ecchymosis NEUROPSYCHIATRIC: The patient is alert and oriented x3. Appears to be in a good mood. No tremors or rigidity noted. Urinary Catheter Management: Snider: Cath Placed During This Visit: yes Reason for Continuing Indwelling Catheter: Other Urinary Catheter Date of Insertion: 01/07/23 Urinary Catheter Time of Insertion: 02:44 Data 01/09/23 02:00 01/09/23 02:00 Other Labs: Laboratory Last Values WBC 6.7 10^3/uL (4.0-10.0) 01/09/23 02:00 RBC 3.82 10^6/uL (4.1-5.3) L 01/09/23 02:00 Hgb 10.6 g/dL (11.7-16.6) L 01/09/23 02:00 Hct 34.8 % (42.0-52.0) L 01/09/23 02:00 MCV 91.1 fl (80-94) 01/09/23 02:00 MCH 27.7 pg (28.0-34.0) L 01/09/23 02:00 MCHC 30.5 g/dL (30.0-36.0) 01/09/23 02:00 RDW 16.1 % (12.1-15.1) H 01/09/23 02:00 Plt Count 193 10^3/cmm (130-400) 01/09/23 02:00 MPV 11.8 fL (7.4-10.4) H 01/09/23 02:00 Neut % (Auto) 67.9 % 01/09/23 02:00 Lymph % (Auto) 16.2 % 01/09/23 02:00 [place] % (Auto) 8.7 % 01/09/23 02:00 Eos % (Auto) 6.5 % 01/09/23 02:00 Baso % (Auto) 0.5 % 01/09/23 02:00 Neut # (Auto) 4.53 10^3/uL (1.8-7.7) 01/09/23 02:00 Lymph # (Auto) 1.1 10^3/uL (0.8-4.8) 01/09/23 02:00 [place] # (Auto) 0.6 10^3/uL (0.2-0.9) 01/09/23 02:00 Eos # (Auto) 0.4 10^3/uL (0.0-0.8) 01/09/23 02:00 Baso # (Auto) 0.0 10^3/uL (0.0-0.1) 01/09/23 02:00 Nucleated RBC % (auto) 0 % 01/09/23 02:00 Nucleated RBCs # 0.0 /100WBC 01/09/23 02:00 Sodium 138 mmol/L (136-145) 01/09/23 02:00 Potassium 4.0 mmol/L (3.5-5.1) 01/09/23 02:00 Chloride 102 mmol/L (98-107) 01/09/23 02:00 Carbon Dioxide 24 mmol/L (22-29) 01/09/23 02:00 Anion Gap 16.0 (5-19) 01/09/23 02:00 BUN 54 mg/dL (8-23) H 01/09/23 02:00 Creatinine 2.6 mg/dL (0.7-1.2) H 01/09/23 02:00 GFR Calculation Not Reportable 01/09/23 02:00 Glucose 97 mg/dL (65-115) 01/09/23 02:00 Calculated Osmolality 301 mOsm/kg (285-295) H 01/09/23 02:00 Lactate 1.9 mmol/L (0.5-2.2) 01/06/23 21:39 Calcium 9.2 mg/dL (8.5-10.5) 01/09/23 02:00 Total Bilirubin 0.3 mg/dL (0.15-1.2) 01/09/23 02:00 AST 21 U/L (0-40) 01/09/23 02:00 ALT 14 U/L (0-41) 01/09/23 02:00 Alkaline Phosphatase 64 U/L (40-130) 01/09/23 02:00 Troponin T Baseline 87 ng/L (0-15) H 01/06/23 21:39 Troponin T 120 Minute 89.12 ng/L (0-15) H 01/06/23 23:36 Delta Troponin T 2.12 ABS# (0-10) 01/06/23 23:36 Troponin T Hi Sens 6Hr 80.97 ng/L (0-15) H 01/07/23 03:39 Troponin T Hi Sens 6Hr Delta -6.03 ng/L (0-12) L 01/07/23 03:39 NT-Pro-B Natriuret Pep 64193 pg/mL (0-450) H 01/06/23 21:39 Total Protein 6.2 g/dL (6.6-8.7) L 01/09/23 02:00 Albumin 3.3 g/dL (3.5-5.2) L 01/09/23 02:00 Globulin 2.9 g/dL (1.3-4.6) 01/09/23 02:00 Vancomycin Trough 14.7 ug/mL (10-15) 01/09/23 02:00 Other data: Echocardiogram on 01/07/2023 revealed The examination is technically difficult due to atrial ?fibrillation with a rapid ventricular response.? Wall motion ?disturbances are difficult to assess.? There is likely global ?hypokinesis with an ejection fraction of 35 to 40%.? Diastolic ?function cannot be determined due to the rhythm. ?Mildly increased right atrial size. ?Moderately increased left atrial size. ?Structurally normal trileaflet aortic valve. Mild aortic valve ?calcification. No aortic valve stenosis. Mild aortic valve ?regurgitation. ?The previous study was done 5 months ago.? At that time the ?study was technically difficult and echo contrast was used.? ?Ejection fraction was estimated at 45 to 50%.? Today's ejection ?fraction is estimated lower but because of the rapid atrial ?fibrillation comparison is difficult.? Otherwise, there has been ?no change. 09/01/22 Nuclear medicine scan IMPRESSIONS ?1.? Myocardial perfusion imaging revealing small area of slightly decreased ?tracer uptake in the mid anterior wall region, with? subtle reversibility ?suggesting myocardial scarring with ischemia in the LAD territory. ?2.? Diminished ejection fraction of 33%. ?3.? LV wall motion analysis revealing moderate to severe diffuse hypokinesia of ?the left ventricle. ?4.? Moderately dilated LV cavity with an end-systolic volume of 165 ml. ?No similar previous studies are available for comparison 09/01/22 Sestamibi stress test CONCLUSION: 1. No significant EKG changes with the LexiScan infusion. 2. No LexiScan induced chest pain or cardiac arrhythmia. 3. Normal blood pressure and heart rate response. 4. Sestamibi/sestamibi perfusion scan pending; see separate report. 08/26/22 Echo ?CONCLUSIONS ?1.This is a technically difficult study. Optison was used per ?protocol. ?2. Normal left ventricular cavity size. Mildly decreased left ?ventricular systolic function. Left ventricular ejection ?fraction is estimated at 45-50 %. Mild global left ventricular ?hypokinesis appears to be more pronounced in inferior and septal ?wall.? Grade II diastolic dysfunction, moderately elevated ?filling pressures. ?3. Moderately increased left atrial size. ?4. Trace to mild aortic valve regurgitation. ?5. No prior similar studies to compare. 08/26/22 Carotid duplex IMPRESSION: 1. There is moderate, 50-69% proximal right ICA stenosis. 2. Mild, less than 50%, left ICA stenosis. 3. The vertebral arteries are patent, with antegrade flow direction bilaterally. 4. There is severe stenosis at the origin of the right external carotid artery. A&P Assessment and plan (1) Atherosclerotic heart disease of [place] coronary artery with other forms of angina pectoris: The patient chest pain he has a history of some form of cardiac arrhythmia. However in view of the worsening LV systolic function and the congestive heart failure, possibly underlying coronary ischemia is a consideration. He was found to have small areas of possible dennise-infarction ischemia by perfusion scan in August of last year. (2) Ischemic cardiomyopathy: Patient seems to have worsening of the LV systolic function. Underlying coronary ischemia is a strong consideration. This in turn might be causing the shortness of breath and heart failure (3) Acute kidney injury superimposed on chronic kidney disease: Patient is a kidney function seems to be slowly deteriorating. This needs to be closely monitored. (4) COPD (chronic obstructive pulmonary disease): This is being treated with bronchodilators and other symptomatic measures. (5) Left lower lobe pneumonia: Patient is on IV antibiotics. (6) Acute on chronic systolic heart failure: Patient has class III heart failure symptoms at this time. (7) Hyperlipidemia, unspecified: May continue on the current medications. Qualifiers: Hyperlipidemia type: mixed hyperlipidemia Qualified Code(s): E78.2 - Mixed hyperlipidemia (8) Carotid stenosis: Patient was found to have 50 to 69% stenosis on the right side and less than 50% gnosis on the left side as mentioned above. (9) PVD (peripheral vascular disease): Was found to be mildly peripheral angiogram (10) Controlled diabetes mellitus: Importance of aggressive management of the diabetes, cardiovascular complications of uncontrolled diabetes and the need for compliance to treatment were discussed. Patient seems to understand these well. We will have the follow-up evaluations as scheduled Qualifiers: Diabetes mellitus type: type 2 Diabetes mellitus longterm insulin use: without radiology equipment servicer use Diabetes mellitus complication status: with kidney complications Diabetes mellitus complication detail: with chronic kidney disease Chronic kidney disease stage: stage 2 (mild) Qualified Code(s): E11.22 - Type 2 diabetes mellitus with diabetic chronic kidney disease; N18.2 - Chronic kidney disease, stage 2 (mild) Plan I discussed with the patient about doing a cardiac catheterization to further evaluate the coronary status as well as the graft status. Patient is very much concerned about the kidney function and the possibility of him end up in requiring hemodialysis. He is wanting to hold off on it for the time being. So we may try to optimize his medical treatment at this point. I will increase the dose of the leg 60 mg every 8 hours, total 3 doses along with the potassium. I may consider adding Ranexa after this. His kidney function needs to be closely monitored. Based on the clinical progress, further recommendations will be made. Consult Attestations Medical Necessity Statement: Patient requires continued hospital stay for close monitoring and further management Coding Level of Care Code 36536 Diagnoses Atherosclerotic heart disease of [place] coronary artery with other forms of angina pectoris I25.118 Ischemic cardiomyopathy I25.5 Acute kidney injury superimposed on chronic kidney disease N17.9; N18.9 COPD (chronic obstructive pulmonary disease) J44.9 Left lower lobe pneumonia J18.9 Acute on chronic systolic heart failure I50.23 Hyperlipidemia, unspecified E78.2 Hyperlipidemia type: mixed hyperlipidemia Carotid stenosis I65.29 PVD (peripheral vascular disease) I73.9 Controlled diabetes mellitus E11.22; N18.2 Diabetes mellitus type: type 2 Diabetes mellitus radiology equipment servicer insulin use: without radiology equipment servicer use Diabetes mellitus complication status: with kidney complications Diabetes mellitus complication detail: with chronic kidney disease Chronic kidney disease stage: stage 2 (mild)
[2023-01-09] MEDS: FUROsemide 10 mg/mL SDV 10mL 60 MG IVP (20:56)
[2023-01-09] MEDS: ondansetron 2 mg/ML SDV 2 mL 4 MG IVP (20:56)
--- NOTE | 2023-01-09 20:57 | PC.NURSE ---
ROUNDING/PT CARE CHANGE Assumed care of pt at this time. Nauseated with small emesis of undigested food. RN giving dose of IV Zofran and the IV Lasix that had not been given. Will give po meds when nausea subsides
[2023-01-09] MEDS: potassium chloride ER 20 mEq Tablet PO (21:38)
[2023-01-10] VITALS (17 sets, daily range): BP systolic 106–125; BP diastolic 61–83; PULSE 68–124; RESP 15–20; TEMP 36.3–36.7; O2SAT 92–100
[2023-01-10] MEDS: ipratropium-albuterol 3 mL Neb INHALATION ×6 (00:45→23:32)
[2023-01-10] MEDS: vancomycin 1,250 MG/250 ML PIGGYBACK 250 MG IV (02:05)
[2023-01-10] MEDS: piperacillin-tazobactam 3.375 GM in sodium chloride 0.9% (plus) 50 ML IV ×3 (02:42→17:04)
[2023-01-10] MEDS: dilTIAZem 30 mg Tablet PO ×4 (04:37→23:02)
[2023-01-10] MEDS: FUROsemide 10 mg/mL SDV 10mL 60 MG IVP ×2 (05:31→15:17)
[2023-01-10 05:47] LABS: Basophils % 0.1 %; Eosinophils # 0.2 10^3/uL (0.0-0.8); Eosinophils % 1.7 %; Hematocrit 34.7 % (42.0-52.0); Hemoglobin 10.5 g/dL (11.7-16.6); Lymphocytes # 0.7 10^3/uL (0.8-4.8); Lymphocytes % 7.8 %; Mean Corpuscular HGB Conc 30.3 g/dL (30.0-36.0); Mean Corpuscular Hemoglobin 28.4 pg (28.0-34.0); Mean Corpuscular Volume 93.8 fl (80-94); Mean Platelet Volume 12.3 fL (7.4-10.4); Monocytes # 0.7 10^3/uL (0.2-0.9); Neutrophils # 7.12 10^3/uL (1.8-7.7); Neutrophils % 82.2 %; Nucleated Red Blood Cells % 0 %; Platelet Count 179 10^3/cmm (130-400); Red Cell Distribution Width 15.9 % (12.1-15.1); White Blood Count 8.7 10^3/uL (4.0-10.0)
[2023-01-10 06:12] LABS: Alanine Aminotransferase 14 U/L (0-41); Albumin Level 3.2 g/dL (3.5-5.2); Alkaline Phosphatase 70 U/L (40-130); Anion Gap 16.9 (5-19); Aspartate Amino Transferase 18 U/L (0-40); Blood Urea Nitrogen 60 mg/dL (8-23); Carbon Dioxide 24 mmol/L (22-29); Chloride 102 mmol/L (98-107); Glucose 110 mg/dL (65-115); Osmolality Calculated 306 mOsm/kg (285-295); Potassium 3.9 mmol/L (3.5-5.1); Sodium 139 mmol/L (136-145); Total Bilirubin 0.3 mg/dL (0.15-1.2); Total Protein 6.2 g/dL (6.6-8.7)
[2023-01-10] MEDS: budesonide 0.5 mg/2 mL Neb INHALATION (07:42)
[2023-01-10] MEDS: cholecalciferol (vitamin D3) 1,000 unit Tablet 2000 UNIT PO (08:25)
[2023-01-10] MEDS: levothyroxine 75 mcg Tablet PO (08:26)
[2023-01-10] MEDS: metoprolol tartrate 25 mg Tablet PO ×2 (08:26→20:11)
[2023-01-10] MEDS: tamsulosin 0.4 mg Capsule PO ×2 (08:26→17:02)
[2023-01-10] MEDS: potassium chloride ER 20 mEq Tablet PO ×2 (08:26→17:02)
[2023-01-10] MEDS: pantoprazole DR 40 mg Tablet PO ×2 (08:26→17:02)
[2023-01-10] MEDS: duloxetine 60 mg Capsule PO ×2 (08:26→17:02)
[2023-01-10] MEDS: aspirin 81 mg EC Tablet PO (08:26)
[2023-01-10] MEDS: docusate sodium 100 mg Capsule PO (08:26)
[2023-01-10] MEDS: benzonatate 100 mg Capsule PO ×3 (08:26→20:11)
[2023-01-10] MEDS: sucralfate 1 gm Tablet PO ×4 (08:26→20:11)
[2023-01-10] MEDS: atorvastatin 40 mg Tablet 80 MG PO (08:26)
[2023-01-10] MEDS: fenofibrate 145 mg Tablet PO (08:28)
[2023-01-10] MEDS: enoxaparin 30 mg/0.3 mL Syringe SUBCUT (08:31)
--- NOTE | 2023-01-10 16:06 | PM.PN ---
Subjective Subjective: Patient was seen and examined this morning, good urine output with Lasix yesterday,shortness of breath is improving. Medications: Medication Review Details: Generic Name Dose Route Start Last Admin Trade Name Min PRN Reason Stop Dose Admin Acetaminophen 650 mg 01/07/23 02:19 01/07/23 06:35 Acetaminophen 32 5 Mg Tablet PO 650 mg Q6H PRN Administration Mild/Mod Pain Or Temp >/= 101 Albuterol/Ipratrop ium 3 ml 01/07/23 04:00 01/09/23 11:49 Ipratropium-Albu terol 3 Ml Neb INHALATION 3 ml Q4H.RESPIRATORY S CH Administration Aspirin 81 mg 01/07/23 02:19 01/09/23 08:15 Aspirin 81 Mg Ec Tablet PO 81 mg DAILY KELSEY Administration Atorvastatin Calci um 80 mg 01/07/23 09:00 01/09/23 08:54 Atorvastatin 40 Mg Tablet PO 80 mg DAILY KELSEY Administration Benzonatate 100 mg 01/09/23 10:00 01/09/23 10:12 Benzonatate 100 Mg Capsule PO 100 mg TID KELSEY Administration Budesonide 0.5 mg 01/07/23 08:00 01/09/23 09:07 Budesonide 0.5 M g/2 Ml Neb INHALATION 0.5 mg BID.RESPIRATORY S CH Administration Diltiazem HCl 30 mg 01/07/23 22:00 01/09/23 09:31 Diltiazem 30 Mg Tablet PO 30 mg Q6H KELSEY Administration Docusate Sodium 100 mg 01/07/23 09:00 01/09/23 08:15 Docusate Sodium 100 Mg Capsule PO 100 mg DAILY KELSEY Administration Duloxetine HCl 60 mg 01/07/23 09:00 01/09/23 08:15 Duloxetine 60 Mg Capsule PO 60 mg BID KELSEY Administration Fenofibrate 145 mg 01/07/23 09:00 01/09/23 08:55 Fenofibrate 145 Mg Tablet PO 145 mg DAILY KELSEY Administration Furosemide 40 mg 01/07/23 09:00 01/08/23 09:26 Furosemide 10 Mg /Ml Sdv 4ml IVP 40 mg Q24H KELSEY Administration Piperacillin Sod/T azobactam 50 mls @ 12.5 mls /hr 01/07/23 10:00 01/09/23 10:12 Sod 3.375 gm/ So dium Chloride IV 12.5 mls/hr Q8H KELSEY Administration Protocol Vancomycin/PEG/NAD A/Lysine/Water 1,250 mg in 250 m ls @ 250 mls/hr 01/08/23 03:00 01/09/23 04:05 Vancocin IV Infused Q24H KELSEY Infusion Levothyroxine Sodi um 75 mcg 01/07/23 09:00 01/09/23 08:15 Levothyroxine 75 Mcg Tablet PO 75 mcg DAILY KELSEY Administration Losartan Potassium 50 mg 01/07/23 09:00 01/08/23 09:10 Losartan 50 Mg T ablet PO 50 mg DAILY KELSEY Administration Metoprolol Tartrat e 25 mg 01/07/23 06:30 01/09/23 09:31 Metoprolol Tartr ate 25 Mg Tablet PO 25 mg BID@0900,2100 KELSEY Administration Pantoprazole Sodiu m 40 mg 01/07/23 09:00 01/09/23 08:[address] 40 Mg Tablet PO 40 mg BID KELSEY Administration Sucralfate 1 gm 01/07/23 02:19 01/09/23 08:15 Sucralfate 1 Gm Tablet PO 1 gm QID KELSEY Administration Tamsulosin HCl 0.4 mg 01/07/23 09:00 01/09/23 08:14 Tamsulosin 0.4 M g Capsule PO 0.4 mg BID KELSEY Administration Vitamin D 2,000 unit 01/07/23 09:00 01/09/23 08:14 Cholecalciferol (Vitamin D3) 1,000 Unit Tablet PO 2,000 unit DAILY KELSEY Administration Vitals/I&O/Wt Last Vital Signs Temp 97.4 F L 01/10/23 07:32 Pulse 81 01/10/23 15:14 Resp 20 H 01/10/23 15:14 BP 106/63 01/10/23 11:17 Pulse Ox 98 01/10/23 15:14 O2 Del Method Nasal Cannula 01/10/23 15:14 O2 Flow Rate 3 01/10/23 15:14 01/10/23 01/10/23 01/10/23 06:59 14:59 22:59 Intake Total 120 / 1230 710 / 710 Output Total 1700 / 1700 900 / 900 Balance -1580 / -470 -190 / -190 Physical Exam Const: COMMON NORMALS: patient oriented x3 Resp: COMMON NORMALS: clear to auscultation bilaterally EFFORT & INSPECTION: Yes symmetric chest movement AUSCULTATION: clear to auscultation bilaterally Cardio: COMMON NORMALS: regular rate, regular rhythm, S1 normal heart sound present, S2 normal heart sound present, No gallops present (Cardio), No murmurs present (Cardio), No rub (Cardio) and Peripheral pulses 2+ throughout RATE: regular rate RHYTHM: regular rhythm HEART SOUNDS: S1 normal heart sound present and S2 normal heart sound present PERIPHERAL PULSES: Peripheral pulses 2+ throughout GI: COMMON NORMALS: Normal to inspection, nondistended, normoactive bowel sounds present, Soft to palpation, non-tender, No hepatosplenomegaly present and no masses AUSCULTATION: Yes normoactive bowel sounds PALPATION: Yes Soft to palpation and Yes No hepatosplenomegaly present RECTAL EXAM: Yes deferred Extremity: COMMON NORMALS: no clubbing, cyanosis or edema and no pedal edema Neuro: COMMON NORMALS: patient oriented x3 Urinary Catheter Management: Snider: Cath Placed During This Visit: yes Reason for Continuing Indwelling Catheter: Other Urinary Catheter Date of Insertion: 01/07/23 Urinary Catheter Time of Insertion: 02:44 Data 01/10/23 04:35 01/10/23 04:35 Micro: Microbiology 01/10/23 04:40 MRSA Culture - Final Nose A&P Assessment and plan (1) CHF exacerbation: (2) COPD (chronic obstructive pulmonary disease): (3) Grade II diastolic dysfunction: (4) S/P CABG (coronary artery bypass graft): (5) Hyperlipidemia, unspecified: Qualifiers: Hyperlipidemia type: mixed hyperlipidemia Qualified Code(s): E78.2 - Mixed hyperlipidemia (6) HTN, goal below 130/80: (7) CKD (chronic kidney disease): (8) Adult onset hypothyroidism: (9) CAD (coronary artery disease): (10) Left lower lobe pneumonia: (11) Chest pain: (12) Non-ST elevation OK (NSTEMI): Plan Left lower lobe pneumonia -CT chest without contrast: Showing lower lobe consolidation, predominantly left lower lobe, with possible minimal consideration on the right lower lobe, bilateral pleural effusion with adjacent compressive atelectasis. -Blood cultures: NTD -MRSA PCR : Negative -Sputum cultures: -DuoNeb, budesonide -Vancomycin, Zosyn Chest pain: Troponin trend: -2D echo:?global?hypokinesis with an ejection fraction of 35 to 40%. There has been slight drop in EF when compared to prior study. Serial EKG. Telemetry monitoring Given the overall bad kidney function, it will be prudent to manage chest pain conservatively for now. 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 Monitor intake output charting Monitor daily weight Monitor electrolytes CKD, creatinine 1.9, monitor COPD, hold off on steroids for now History of CABG History of CVA History of diabetes, last A1c 4.5 CODE STATUS, patient does not want to be resuscitated, DNR, but is agreeable to intubation if required Lovenox for DVT prophylaxis Attestations Medical Necessity Statement*: Needs to be in hospital for IV antibiotic IV diuresis. Coding Level of Care Code Acute Code for Chg Fwd Diagnoses CHF exacerbation I50.9 COPD (chronic obstructive pulmonary disease) J44.9 Grade II diastolic dysfunction I51.89 S/P CABG (coronary artery bypass graft) Z95.1 Hyperlipidemia, unspecified E78.2 Hyperlipidemia type: mixed hyperlipidemia HTN, goal below 130/80 I10 CKD (chronic kidney disease) N18.9 Adult onset hypothyroidism E03.8 CAD (coronary artery disease) I25.10 Left lower lobe pneumonia J18.9 Chest pain R07.9 Non-ST elevation [place] (NSTEMI) I21.4
--- NOTE | 2023-01-10 18:08 | P.PN_ITS ---
Subjective Subjective: The patient is feeling okay. No shortness of breath with lying down position. He has not been ambulating much on telemetry. No fever or chills. Medications: Medication Review Details: Current Medications Acetaminophen (Acetaminophen 325 Mg Tablet) 650 mg PO Q6H PRN PRN Reason: Mild/Mod Pain Or Temp >/= 101 Last Admin: 01/09/23 15:21 Dose: 650 mg Albuterol/Ipratropium (Ipratropium-Albuterol 3 Ml Neb) 3 ml INHALATION Q4H.RESPIRATORY KELSEY Last Admin: 01/10/23 15:12 Dose: 3 ml Aspirin (Aspirin 81 Mg Ec Tablet) 81 mg PO DAILY KELSEY Last Admin: 01/10/23 08:26 Dose: 81 mg Atorvastatin Calcium (Atorvastatin 40 Mg Tablet) 80 mg PO DAILY KELSEY Last Admin: 01/10/23 08:26 Dose: 80 mg Benzonatate (Benzonatate 100 Mg Capsule) 100 mg PO TID KELSEY Last Admin: 01/10/23 15:54 Dose: 100 mg Budesonide (Budesonide 0.5 Mg/2 Ml Neb) 0.5 mg INHALATION BID.RESPIRATORY KELSEY Last Admin: 01/10/23 07:42 Dose: 0.5 mg Diltiazem HCl (Diltiazem 30 Mg Tablet) 30 mg PO Q6H KELSEY Last Admin: 01/10/23 15:54 Dose: 30 mg Docusate Sodium (Docusate Sodium 100 Mg Capsule) 100 mg PO DAILY KELSEY Last Admin: 01/10/23 08:26 Dose: 100 mg Duloxetine HCl (Duloxetine 60 Mg Capsule) 60 mg PO BID KELSEY Last Admin: 01/10/23 17:02 Dose: 60 mg Enoxaparin Sodium (Enoxaparin 30 Mg/0.3 Ml Syringe) 30 mg SUBCUT Q24H KELSEY Last Admin: 01/10/23 08:31 Dose: 30 mg Fenofibrate (Fenofibrate 145 Mg Tablet) 145 mg PO DAILY KELSEY Last Admin: 01/10/23 08:28 Dose: 145 mg Furosemide (Furosemide 10 Mg/Ml Sdv 10ml) 60 mg IVP Q8H KELSEY Stop: 01/10/23 19:00 Last Admin: 01/10/23 15:17 Dose: 60 mg Piperacillin Sod/Tazobactam (Sod 3.375 gm/ Sodium Chloride) 50 mls @ 12.5 mls/hr IV Q8H [facility]; Protocol Last Admin: 01/10/23 17:04 Dose: 12.5 mls/hr Vancomycin/PEG/NADA/Lysine/Water (Vancocin) 1,250 mg in 250 mls @ 250 mls/hr IV Q24H [facility] Last Infusion: 01/10/23 07:11 Dose: Infused Levothyroxine Sodium (Levothyroxine 75 Mcg Tablet) 75 mcg PO DAILY [facility] Last Admin: 01/10/23 08:26 Dose: 75 mcg Losartan Potassium (Losartan 50 Mg Tablet) 50 mg PO DAILY [facility] Last Admin: 01/08/23 09:10 Dose: 50 mg Metoprolol Tartrate (Metoprolol Tartrate 25 Mg Tablet) 25 mg PO BID@0900,2100 [facility] Last Admin: 01/10/23 08:26 Dose: 25 mg Naloxone HCl (Naloxone 0.4 Mg/Ml Sdv) 0.1 mg IVP Q2M PRN PRN Reason: OPIATERV Ondansetron HCl (Ondansetron 2 Mg/Ml Sdv 2 Ml) 4 mg IVP Q8H PRN PRN Reason: vomiting, or N/V if npo Last Admin: 01/09/23 20:56 Dose: 4 mg Pantoprazole Sodium (Pantoprazole Dr 40 Mg Tablet) 40 mg PO BID [facility] Last Admin: 01/10/23 17:02 Dose: 40 mg Potassium Chloride (Potassium Chloride Er 20 Meq Tablet) 20 meq PO BID [facility] Stop: 01/10/23 19:00 Last Admin: 01/10/23 17:02 Dose: 20 meq Sucralfate (Sucralfate 1 Gm Tablet) 1 gm PO QID [facility] Last Admin: 01/10/23 17:02 Dose: 1 gm Tamsulosin HCl (Tamsulosin 0.4 Mg Capsule) 0.4 mg PO BID [facility] Last Admin: 01/10/23 17:02 Dose: 0.4 mg Vitamin D (Cholecalciferol (Vitamin D3) 1,000 Unit Tablet) 2,000 unit PO DAILY [facility] Last Admin: 01/10/23 08:25 Dose: 2,000 unit Vitals/I&O/Wt Last Vital Signs Temp 98.0 F 01/10/23 16:00 Pulse 76 01/10/23 16:00 Resp 18 01/10/23 16:00 BP 122/74 01/10/23 16:00 Pulse Ox 99 01/10/23 16:00 O2 Del Method Nasal Cannula 01/10/23 16:00 O2 Flow Rate 3 01/10/23 15:14 01/10/23 01/10/23 01/10/23 06:59 14:59 22:59 Intake Total 120 / 1230 710 / 710 480 / 1190 Output Total 1700 / 1700 900 / 900 Balance -1580 / -470 -190 / -190 480 / 290 Physical Exam Narrative: GENERAL: The patient is alert and oriented times three. Not in any acute distress. HEENT: No significant pallor, icterus or lymphadenopathy.Oral cavity: There are no mucous membrane lesions. NECK: Trachea appears to be central. No masses noted. No JVD or thyromegaly appreciated. RESPIRATORY: Chest is symmetrical. No intercostals muscle retraction or any accessory muscle activation. There is no chest wall tenderness. Breath sounds are heard bilaterally. No rales or rhonchi heard. No evidence of any consolidation. BREASTS: Deferred. HEART: The heart sounds are normal. No S3 or S4. No significant murmurs. No pericardial rub ABDOMEN: No vessel pulsations or distention. No tenderness. No organomegaly appreciated. Bowel sounds are normally heard. : Deferred. RECTAL: Deferred. LYMPHATIC: No lymphadenopathy noted in the neck. EXTREMITIES: The dorsalis pedis and posterior pulses are weak bilaterally. MUSCULOSKELETAL: No acute joint deformities or swelling SKIN: There are no significant rashes or ecchymosis NEUROPSYCHIATRIC: The patient is alert and oriented x3. Appears to be in a good mood. No tremors or rigidity noted. Urinary Catheter Management: Snider: Cath Placed During This Visit: yes Reason for Continuing Indwelling Catheter: Other Urinary Catheter Date of Insertion: 01/07/23 Urinary Catheter Time of Insertion: 02:44 Data 01/10/23 04:35 01/10/23 04:35 Micro: Microbiology 01/10/23 04:40 MRSA Culture - Final Nose A&P Assessment and plan (1) Atherosclerotic heart disease of [place] coronary artery with other forms of angina pectoris: The patient chest pain he has a history of some form of cardiac arrhythmia. However in view of the worsening LV systolic function and the congestive heart failure, possibly underlying coronary ischemia is a consideration. He was found to have small areas of possible dennise-infarction ischemia by perfusion scan in August of last year. Since the patient has decided not to undergo any invasive procedures in view of his stage IV kidney disease, it may be appropriate to optimize medical treatment at this point (2) Ischemic cardiomyopathy: Patient seems to have worsening of the LV systolic function. Underlying coronary ischemia is a strong consideration. This in turn might be causing the shortness of breath and heart failure. His shortness of breath has significantly improved with IV diuresis. At this point, he may be treated with the as needed Lasix. (3) Acute kidney injury superimposed on chronic kidney disease: Patient is a kidney function seems to be slowly deteriorating. This needs to be closely monitored. (4) COPD (chronic obstructive pulmonary disease): This is being treated with bronchodilators and other symptomatic measures. (5) Left lower lobe pneumonia: Patient is on IV antibiotics. My management as per the primary (6) Acute on chronic systolic heart failure: Patient has class III heart failure symptoms at this time. Management as mentioned above (7) Hyperlipidemia, unspecified: May continue on the current medications. Qualifiers: Hyperlipidemia type: mixed hyperlipidemia Qualified Code(s): E78.2 - Mixed hyperlipidemia (8) Carotid stenosis: Patient was found to have 50 to 69% stenosis on the right side and less than 50% stenosis on the left side as mentioned above. (9) PVD (peripheral vascular disease): Was found to be mild peripheral artery disease by angiogram. Patient did not require any specific intervention at this point (10) Controlled diabetes mellitus: May continue on the current management. Qualifiers: Diabetes mellitus type: type 2 Diabetes mellitus predatory animal exterminator insulin use: without predatory animal exterminator use Diabetes mellitus complication status: with kidney complications Diabetes mellitus complication detail: with chronic kidney disease Chronic kidney disease stage: stage 2 (mild) Qualified Code(s): E11.22 - Type 2 diabetes mellitus with diabetic chronic kidney disease; N18.2 - Chronic kidney disease, stage 2 (mild) Plan Other problems are as outlined before Continue to optimize the medical treatment Attestations Medical Necessity Statement*: Disposition as per the primary Coding Level of Care Code 47895 Diagnoses Atherosclerotic heart disease of [place] coronary artery with other forms of angina pectoris I25.118 Ischemic cardiomyopathy I25.5 Acute kidney injury superimposed on chronic kidney disease N17.9; N18.9 COPD (chronic obstructive pulmonary disease) J44.9 Left lower lobe pneumonia J18.9 Acute on chronic systolic heart failure I50.23 Hyperlipidemia, unspecified E78.2 Hyperlipidemia type: mixed hyperlipidemia Carotid stenosis I65.29 PVD (peripheral vascular disease) I73.9 Controlled diabetes mellitus E11.22; N18.2 Diabetes mellitus type: type 2 Diabetes mellitus predatory animal exterminator insulin use: without retirement use Diabetes mellitus complication status: with kidney complications Diabetes mellitus complication detail: with chronic kidney disease Chronic kidney disease stage: stage 2 (mild)
[2023-01-11] VITALS (13 sets, daily range): BP systolic 86–129; BP diastolic 58–85; PULSE 78–130; RESP 16–22; TEMP 36.4–36.7; O2SAT 92–98
[2023-01-11] MEDS: vancomycin 1,250 MG/250 ML PIGGYBACK 250 MG IV (02:00)
[2023-01-11] MEDS: ipratropium-albuterol 3 mL Neb INHALATION (03:21)
[2023-01-11] MEDS: piperacillin-tazobactam 3.375 GM in sodium chloride 0.9% (plus) 50 ML IV ×3 (03:33→17:34)
[2023-01-11] MEDS: dilTIAZem 30 mg Tablet PO ×3 (04:58→17:32)
[2023-01-11 05:01] LABS: Basophils % 0.1 %; Eosinophils # 0.2 10^3/uL (0.0-0.8); Hematocrit 33.2 % (42.0-52.0); Hemoglobin 10.1 g/dL (11.7-16.6); Lymphocytes # 0.8 10^3/uL (0.8-4.8); Lymphocytes % 8.8 %; Mean Corpuscular HGB Conc 30.4 g/dL (30.0-36.0); Mean Corpuscular Hemoglobin 28.1 pg (28.0-34.0); Mean Corpuscular Volume 92.5 fl (80-94); Mean Platelet Volume 12.1 fL (7.4-10.4); Monocytes # 0.7 10^3/uL (0.2-0.9); Monocytes % 7.8 %; Neutrophils # 7.34 10^3/uL (1.8-7.7); Nucleated Red Blood Cells % 0 %; Platelet Count 192 10^3/cmm (130-400); Red Blood Count 3.59 10^6/uL (4.1-5.3); Red Cell Distribution Width 15.9 % (12.1-15.1); White Blood Count 9.1 10^3/uL (4.0-10.0)
[2023-01-11 05:22] LABS: Alanine Aminotransferase 11 U/L (0-41); Albumin Level 3.1 g/dL (3.5-5.2); Alkaline Phosphatase 52 U/L (40-130); Anion Gap 17.8 (5-19); Aspartate Amino Transferase 14 U/L (0-40); Blood Urea Nitrogen 55 mg/dL (8-23); Calcium 8.9 mg/dL (8.5-10.5); Carbon Dioxide 23 mmol/L (22-29); Chloride 102 mmol/L (98-107); Globulin 2.8 g/dL (1.3-4.6); Glucose 101 mg/dL (65-115); Osmolality Calculated 303 mOsm/kg (285-295); Potassium 3.8 mmol/L (3.5-5.1); Sodium 139 mmol/L (136-145); Total Bilirubin 0.3 mg/dL (0.15-1.2); Total Protein 5.9 g/dL (6.6-8.7)
--- NOTE | 2023-01-11 07:54 | ECG_ITS ---
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 Measurements Intervals [place] Rate: 126 P: 0 OK: 0 QRS: 0 QRSD: 129 T: 176 QT: 312 QTc: 453 Interpretive Statements ATRIAL FIBRILLATION WITH RAPID VENTRICULAR RESPONSE SEPTAL MYOCARDIAL INFARCTION , OF INDETERMINATE AGE [40+ ms Q WAVE IN V1/V2] ST DEVIATION AND MODERATE T-WAVE ABNORMALITY, CONSIDER LATERAL ISCHEMIA [-0.1+ mV T-WAVE IN I/aVL/V5/V6] Compared to ECG 01/06/2023 21:51:11 Myocardial infarct finding now present T-wave abnormality now present Possible ischemia now present Sinus rhythm no longer present Left ventricular hypertrophy no longer present ST (T wave) deviation no longer present Electronically Signed On 01-11-2023 14:02:03 CDT by Yoshi Reyes M.D. [email or web address]
[2023-01-11] MEDS: metoprolol tartrate 25 mg Tablet PO ×2 (08:00→20:48)
[2023-01-11] MEDS: atorvastatin 40 mg Tablet 80 MG PO (08:19)
[2023-01-11] MEDS: docusate sodium 100 mg Capsule PO (08:19)
[2023-01-11] MEDS: levothyroxine 75 mcg Tablet PO (08:19)
[2023-01-11] MEDS: fenofibrate 145 mg Tablet PO (08:19)
[2023-01-11] MEDS: duloxetine 60 mg Capsule PO ×2 (08:20→17:30)
[2023-01-11] MEDS: enoxaparin 30 mg/0.3 mL Syringe SUBCUT (08:20)
[2023-01-11] MEDS: sucralfate 1 gm Tablet PO ×4 (08:20→20:48)
[2023-01-11] MEDS: benzonatate 100 mg Capsule PO ×3 (08:20→20:48)
[2023-01-11] MEDS: aspirin 81 mg EC Tablet PO (08:20)
[2023-01-11] MEDS: tamsulosin 0.4 mg Capsule PO ×2 (08:20→17:30)
[2023-01-11] MEDS: pantoprazole DR 40 mg Tablet PO ×2 (08:20→17:30)
[2023-01-11] MEDS: cholecalciferol (vitamin D3) 1,000 unit Tablet 2000 UNIT PO (08:20)
[2023-01-11] MEDS: ondansetron 2 mg/ML SDV 2 mL 4 MG IVP (10:08)
[2023-01-11] MEDS: sodium chloride 0.9% 500 ML 999 ML IV (11:49)
[2023-01-11] MEDS: ipratropium 0.5 mg/2.5 mL Neb INHALATION ×2 (15:34→20:06)
[2023-01-11] MEDS: levalbuterol 1.25 mg/3 mL Neb INHALATION ×2 (15:34→20:06)
--- NOTE | 2023-01-11 16:26 | PM.PN ---
Subjective Subjective: Patient was seen and examined this morning, briefly went into A-fib with RVR this morning, responded to p.o. metoprolol and Cardizem, still complaining of shortness of breath worse with exertion. Medications: Medication Review Details: Generic Name Dose Route Start Last Admin Trade Name Freq PRN Reason Stop Dose Admin Acetaminophen 650 mg 01/07/23 02:19 01/09/23 15:21 Acetaminophen 32 5 Mg Tablet PO 650 mg Q6H PRN Administration Mild/Mod Pain Or Temp >/= 101 Aspirin 81 mg 01/07/23 02:19 01/11/23 08:20 Aspirin 81 Mg Ec Tablet PO 81 mg DAILY [facility] Administration Atorvastatin Calci um 80 mg 01/07/23 09:00 01/11/23 08:19 Atorvastatin 40 Mg Tablet PO 80 mg DAILY [facility] Administration Benzonatate 100 mg 01/09/23 10:00 01/11/23 14:33 Benzonatate 100 Mg Capsule PO 100 mg TID [facility] Administration Budesonide 0.5 mg 01/07/23 08:00 01/11/23 08:00 Budesonide 0.5 M g/2 Ml Neb INHALATION Not Given BID.RESPIRATORY S [facility] Diltiazem HCl 30 mg 01/07/23 22:00 01/11/23 08:00 Diltiazem 30 Mg Tablet PO 30 mg Q6H [facility] Administration Docusate Sodium 100 mg 01/07/23 09:00 01/11/23 08:19 Docusate Sodium 100 Mg Capsule PO 100 mg DAILY [facility] Administration Duloxetine HCl 60 mg 01/07/23 09:00 01/11/23 08:20 Duloxetine 60 Mg Capsule PO 60 mg BID [facility] Administration Enoxaparin Sodium 30 mg 01/10/23 08:00 01/11/23 08:20 Enoxaparin 30 Mg /0.3 Ml Syringe SUBCUT 30 mg Q24H [facility] Administration Fenofibrate 145 mg 01/07/23 09:00 01/11/23 08:19 Fenofibrate 145 Mg Tablet PO 145 mg DAILY [facility] Administration Piperacillin Sod/T azobactam 50 mls @ 12.5 mls /hr 01/07/23 10:00 01/11/23 14:32 Sod 3.375 gm/ So dium Chloride IV Infused Q8H [facility] Infusion Protocol Vancomycin/PEG/NAD A/Lysine/Water 1,250 mg in 250 m ls @ 250 mls/hr 01/08/23 03:00 01/11/23 03:18 Vancocin IV Infused Q24H [facility] Infusion Ipratropium Bromid e 0.5 mg 01/11/23 14:00 01/11/23 15:34 Ipratropium 0.5 Mg/2.5 Ml Neb INHALATION 0.5 mg Q6H.RESP [facility] Administration Levalbuterol HCl 1.25 mg 01/11/23 14:00 01/11/23 15:34 Levalbuterol 1.2 5 Mg/3 Ml Neb INHALATION 1.25 mg Q6H.RESP [facility] Administration Levothyroxine Sodi um 75 mcg 01/07/23 09:00 01/11/23 08:19 Levothyroxine 75 Mcg Tablet PO 75 mcg DAILY [facility] Administration Losartan Potassium 50 mg 01/07/23 09:00 01/08/23 09:10 Losartan 50 Mg T ablet PO 50 mg DAILY [facility] Administration Metoprolol Tartrat e 25 mg 01/07/23 06:30 01/11/23 08:00 Metoprolol Tartr ate 25 Mg Tablet PO 25 mg BID@0900,2100 [facility] Administration Ondansetron HCl 4 mg 01/07/23 02:19 01/11/23 10:08 Ondansetron 2 Mg /Ml Sdv 2 Ml IVP 4 mg Q8H PRN Administration vomiting, or N/V if npo Pantoprazole Sodiu m 40 mg 01/07/23 09:00 01/11/23 08:[address] 40 Mg Tablet PO 40 mg BID [facility] Administration Sucralfate 1 gm 01/07/23 02:19 01/11/23 12:40 Sucralfate 1 Gm Tablet PO 1 gm QID [facility] Administration Tamsulosin HCl 0.4 mg 01/07/23 09:00 01/11/23 08:20 Tamsulosin 0.4 M g Capsule PO 0.4 mg BID [facility] Administration Vitamin D 2,000 unit 01/07/23 09:00 01/11/23 08:20 Cholecalciferol (Vitamin D3) 1,000 Unit Tablet PO 2,000 unit DAILY [facility] Administration Vitals/I&O/Wt Last Vital Signs Temp 97.6 F 01/11/23 15:26 Pulse 78 01/11/23 15:26 Resp 18 01/11/23 15:26 BP 108/66 01/11/23 15:26 Pulse Ox 96 01/11/23 15:26 O2 Del Method Nasal Cannula 01/11/23 15:26 O2 Flow Rate 3 01/11/23 14:00 01/11/23 01/11/23 01/11/23 06:59 14:59 22:59 Intake Total 1150 / 2390 1320 / 1320 Output Total 800 / 2900 800 / 800 Balance 350 / -510 520 / 520 Physical Exam Const: COMMON NORMALS: patient oriented x3 Resp: COMMON NORMALS: clear to auscultation bilaterally EFFORT & INSPECTION: Yes symmetric chest movement AUSCULTATION: clear to auscultation bilaterally Cardio: COMMON NORMALS: regular rate, regular rhythm, S1 normal heart sound present, S2 normal heart sound present, No gallops present (Cardio), No murmurs present (Cardio), No rub (Cardio) and Peripheral pulses 2+ throughout RATE: regular rate RHYTHM: regular rhythm HEART SOUNDS: S1 normal heart sound present and S2 normal heart sound present PERIPHERAL PULSES: Peripheral pulses 2+ throughout GI: COMMON NORMALS: Normal to inspection, nondistended, normoactive bowel sounds present, Soft to palpation, non-tender, No hepatosplenomegaly present and no masses AUSCULTATION: Yes normoactive bowel sounds PALPATION: Yes Soft to palpation and Yes No hepatosplenomegaly present RECTAL EXAM: Yes deferred Extremity: COMMON NORMALS: no clubbing, cyanosis or edema and no pedal edema Neuro: COMMON NORMALS: patient oriented x3 Urinary Catheter Management: Snider: Cath Placed During This Visit: yes Reason for Continuing Indwelling Catheter: Other Urinary Catheter Date of Insertion: 01/07/23 Urinary Catheter Time of Insertion: 02:44 Data 01/11/23 04:29 01/11/23 04:29 Micro: Microbiology 01/11/23 10:15 Gram Stain - Final Sputum - Expectorated Sputum 01/10/23 04:40 MRSA Culture - Final Nose A&P Assessment and plan (1) CHF exacerbation: (2) COPD (chronic obstructive pulmonary disease): (3) Grade II diastolic dysfunction: (4) S/P CABG (coronary artery bypass graft): (5) Hyperlipidemia, unspecified: Qualifiers: Hyperlipidemia type: mixed hyperlipidemia Qualified Code(s): E78.2 - Mixed hyperlipidemia (6) HTN, goal below 130/80: (7) CKD (chronic kidney disease): (8) Adult onset hypothyroidism: (9) CAD (coronary artery disease): (10) Left lower lobe pneumonia: (11) Chest pain: (12) Non-ST elevation [place] (NSTEMI): Plan Left lower lobe pneumonia -CT chest without contrast: Showing lower lobe consolidation, predominantly left lower lobe, with possible minimal consideration on the right lower lobe, bilateral pleural effusion with adjacent compressive atelectasis. -Blood cultures: NTD -MRSA PCR : Negative -Sputum cultures: Few white blood cells , no organisms seen -DuoNeb, budesonide -Was on Vancomycin, Zosyn. Vancomycin has been discontinued today Chest pain: Troponin trend: -2D echo:?global?hypokinesis with an ejection fraction of 35 to 40%. There has been slight drop in EF when compared to prior study. Serial EKG. Telemetry monitoring Given the overall bad kidney function, it will be prudent to manage chest pain conservatively for now. 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 Monitor intake output charting Monitor daily weight Monitor electrolytes OANH on CKD: Serum creatinine appears to be around 1.5-1 - 1.9. Admission serum creatinine 1.9 Monitor BMP Monitor intake and output charting Avoid nephrotoxic's COPD, hold off on steroids for now History of CABG History of CVA History of diabetes, last A1c 4.5 CODE STATUS, patient does not want to be resuscitated, DNR, but is agreeable to intubation if required Lovenox for DVT prophylaxis Attestations Medical Necessity Statement*: Needs to be in hospital for IV antibiotics, IV diuresis. Coding Level of Care Code Acute Code for Chg Fwd Diagnoses CHF exacerbation I50.9 COPD (chronic obstructive pulmonary disease) J44.9 Grade II diastolic dysfunction I51.89 S/P CABG (coronary artery bypass graft) Z95.1 Hyperlipidemia, unspecified E78.2 Hyperlipidemia type: mixed hyperlipidemia HTN, goal below 130/80 I10 CKD (chronic kidney disease) N18.9 Adult onset hypothyroidism E03.8 CAD (coronary artery disease) I25.10 Left lower lobe pneumonia J18.9 Chest pain R07.9 Non-ST elevation [place] (NSTEMI) I21.4
--- NOTE | 2023-01-11 17:32 | P.PN_ITS ---
Subjective Subjective: Patient seems to be little more short of breath today. He did not get any Lasix since last evening. He went into atrial fibrillation with rapid ventricular rate this morning. Responded to Cardizem and beta-ramona. Apparently his blood pressure dropped into the 80s. Later blood pressure is around 108. He was given a total of 500 cc of IV fluid. Denies any chest pain. No fever or chills. Currently he is stays in sinus rhythm. Medications: Medication Review Details: Current Medications Acetaminophen (Acetaminophen 325 Mg Tablet) 650 mg PO Q6H PRN PRN Reason: Mild/Mod Pain Or Temp >/= 101 Last Admin: 01/09/23 15:21 Dose: 650 mg Aspirin (Aspirin 81 Mg Ec Tablet) 81 mg PO DAILY [facility] Last Admin: 01/11/23 08:20 Dose: 81 mg Atorvastatin Calcium (Atorvastatin 40 Mg Tablet) 80 mg PO DAILY [facility] Last Admin: 01/11/23 08:19 Dose: 80 mg Benzonatate (Benzonatate 100 Mg Capsule) 100 mg PO TID [facility] Last Admin: 01/11/23 14:33 Dose: 100 mg Budesonide (Budesonide 0.5 Mg/2 Ml Neb) 0.5 mg INHALATION BID.RESPIRATORY [facility] Last Admin: 01/11/23 08:00 Dose: Not Given Diltiazem HCl (Diltiazem 30 Mg Tablet) 30 mg PO Q6H [facility] Last Admin: 01/11/23 08:00 Dose: 30 mg Docusate Sodium (Docusate Sodium 100 Mg Capsule) 100 mg PO DAILY [facility] Last Admin: 01/11/23 08:19 Dose: 100 mg Duloxetine HCl (Duloxetine 60 Mg Capsule) 60 mg PO BID [facility] Last Admin: 01/11/23 08:20 Dose: 60 mg Enoxaparin Sodium (Enoxaparin 30 Mg/0.3 Ml Syringe) 30 mg SUBCUT Q24H [facility] Last Admin: 01/11/23 08:20 Dose: 30 mg Fenofibrate (Fenofibrate 145 Mg Tablet) 145 mg PO DAILY [facility] Last Admin: 01/11/23 08:19 Dose: 145 mg Piperacillin Sod/Tazobactam (Sod 3.375 gm/ Sodium Chloride) 50 mls @ 12.5 mls/hr IV Q8H [facility]; Protocol Last Infusion: 01/11/23 14:32 Dose: Infused Ipratropium Central (Ipratropium 0.5 Mg/2.5 Ml Neb) 0.5 mg INHALATION Q6H.RESP [facility] Last Admin: 01/11/23 15:34 Dose: 0.5 mg Levalbuterol HCl (Levalbuterol 1.25 Mg/3 Ml Neb) 1.25 mg INHALATION Q6H.RESP [facility] Last Admin: 01/11/23 15:34 Dose: 1.25 mg Levothyroxine Sodium (Levothyroxine 75 Mcg Tablet) 75 mcg PO DAILY [facility] Last Admin: 01/11/23 08:19 Dose: 75 mcg Losartan Potassium (Losartan 50 Mg Tablet) 50 mg PO DAILY [facility] Last Admin: 01/08/23 09:10 Dose: 50 mg Metoprolol Tartrate (Metoprolol Tartrate 25 Mg Tablet) 25 mg PO BID@0900,2100 [facility] Last Admin: 01/11/23 08:00 Dose: 25 mg Naloxone HCl (Naloxone 0.4 Mg/Ml Sdv) 0.1 mg IVP Q2M PRN PRN Reason: OPIATERV Ondansetron HCl (Ondansetron 2 Mg/Ml Sdv 2 Ml) 4 mg IVP Q8H PRN PRN Reason: vomiting, or N/V if npo Last Admin: 01/11/23 10:08 Dose: 4 mg Pantoprazole Sodium (Pantoprazole Dr 40 Mg Tablet) 40 mg PO BID [facility] Last Admin: 01/11/23 08:20 Dose: 40 mg Sucralfate (Sucralfate 1 Gm Tablet) 1 gm PO QID [facility] Last Admin: 01/11/23 12:40 Dose: 1 gm Tamsulosin HCl (Tamsulosin 0.4 Mg Capsule) 0.4 mg PO BID [facility] Last Admin: 01/11/23 08:20 Dose: 0.4 mg Vitamin D (Cholecalciferol (Vitamin D3) 1,000 Unit Tablet) 2,000 unit PO DAILY [facility] Last Admin: 01/11/23 08:20 Dose: 2,000 unit Vitals/I&O/Wt Last Vital Signs Temp 97.6 F 01/11/23 15:26 Pulse 78 01/11/23 15:26 Resp 18 01/11/23 15:26 BP 108/66 01/11/23 15:26 Pulse Ox 96 01/11/23 15:26 O2 Del Method Nasal Cannula 01/11/23 15:26 O2 Flow Rate 3 01/11/23 14:00 01/11/23 01/11/23 01/11/23 06:59 14:59 22:59 Intake Total 1150 / 2390 1320 / 1320 Output Total 800 / 2900 800 / 800 Balance 350 / -510 520 / 520 Physical Exam Narrative: GENERAL: The patient is alert and oriented times three. Not in any acute distress. HEENT: No significant pallor, icterus or lymphadenopathy.Oral cavity: There are no mucous membrane lesions. NECK: Trachea appears to be central. No masses noted. No JVD or thyromegaly appreciated. RESPIRATORY: Chest is symmetrical. No intercostals muscle retraction or any accessory muscle activation. There is no chest wall tenderness. Breath sounds are heard bilaterally. Feels fine and coarse crackles bilaterally. BREASTS: Deferred. HEART: The heart sounds are normal. No S3 or S4. No significant murmurs. No pericardial rub ABDOMEN: No vessel pulsations or distention. No tenderness. No organomegaly appreciated. Bowel sounds are normally heard. : Deferred. RECTAL: Deferred. LYMPHATIC: No lymphadenopathy noted in the neck. EXTREMITIES: The dorsalis pedis and posterior pulses are weak bilaterally. MUSCULOSKELETAL: No acute joint deformities or swelling SKIN: There are no significant rashes or ecchymosis NEUROPSYCHIATRIC: The patient is alert and oriented x3. Appears to be in a good mood. No tremors or rigidity noted. Urinary Catheter Management: Snider: Cath Placed During This Visit: yes Reason for Continuing Indwelling Catheter: Other Urinary Catheter Date of Insertion: 01/07/23 Urinary Catheter Time of Insertion: 02:44 Data 01/11/23 04:29 01/11/23 04:29 Micro: Microbiology 01/11/23 10:15 Gram Stain - Final Sputum - Expectorated Sputum 01/10/23 04:40 MRSA Culture - Final Nose A&P Assessment and plan (1) Atherosclerotic heart disease of [place] coronary artery with other forms of angina pectoris: May continue on the current medications. (2) Ischemic cardiomyopathy: Patient seems to be in intermittent decompensated heart failure. May carefully with IV diuretics. I may give 1 dose of IV Lasix 60 mg now. (3) Acute kidney injury superimposed on chronic kidney disease: Patient is a kidney function seems to be slowly deteriorating. This needs to be closely monitored. (4) COPD (chronic obstructive pulmonary disease): This is being treated with bronchodilators and other symptomatic measures. (5) Left lower lobe pneumonia: Patient is on IV antibiotics. My management as per the primary. (6) Acute on chronic systolic heart failure: Patient has class III heart failure symptoms at this time. Management as mentioned above (7) Hyperlipidemia, unspecified: May continue on the current medications. Qualifiers: Hyperlipidemia type: mixed hyperlipidemia Qualified Code(s): E78.2 - Mixed hyperlipidemia (8) Carotid stenosis: Patient was found to have 50 to 69% stenosis on the right side and less than 50% stenosis on the left side as mentioned above. May continue on the current management (9) PVD (peripheral vascular disease): Was found to be mild peripheral artery disease by angiogram. Patient did not require any specific intervention at this point (10) Controlled diabetes mellitus: May continue on the current management. 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 In view of his high bleeding risk it would be appropriate for him not to be on any oral anticoagulant at this point Plan Other problems are as outlined before Continue to optimize the medical treatment Attestations Medical Necessity Statement*: Patient requires continued hospital stay for close monitoring and further management Coding Level of Care Code 18819 Diagnoses Atherosclerotic heart disease of [place] coronary artery with other forms of angina pectoris I25.118 Ischemic cardiomyopathy I25.5 Acute kidney injury superimposed on chronic kidney disease N17.9; N18.9 COPD (chronic obstructive pulmonary disease) J44.9 Left lower lobe pneumonia J18.9 Acute on chronic systolic heart failure I50.23 Hyperlipidemia, unspecified E78.2 Hyperlipidemia type: mixed hyperlipidemia Carotid stenosis I65.29 PVD (peripheral vascular disease) I73.9 Controlled diabetes mellitus E11.22; N18.2 Diabetes mellitus type: type 2 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
[2023-01-11] MEDS: potassium chloride ER 20 mEq Tablet PO (17:33)
[2023-01-11] MEDS: FUROsemide 10 mg/mL SDV 10mL 60 MG IVP (17:34)
[2023-01-11] MEDS: budesonide 0.5 mg/2 mL Neb INHALATION (20:06)
[2023-01-12] VITALS (12 sets, daily range): BP systolic 99–143; BP diastolic 53–83; PULSE 55–111; RESP 16–19; TEMP 36.4–37; O2SAT 91–98
[2023-01-12] MEDS: dilTIAZem 30 mg Tablet PO ×5 (00:30→23:13)
[2023-01-12 02:15] LABS: Basophils % 0.1 %; Eosinophils # 0.2 10^3/uL (0.0-0.8); Hematocrit 32.5 % (42.0-52.0); Hemoglobin 9.9 g/dL (11.7-16.6); Lymphocytes # 0.8 10^3/uL (0.8-4.8); Lymphocytes % 9.3 %; Mean Corpuscular HGB Conc 30.5 g/dL (30.0-36.0); Mean Corpuscular Hemoglobin 27.8 pg (28.0-34.0); Mean Corpuscular Volume 91.3 fl (80-94); Mean Platelet Volume 11.2 fL (7.4-10.4); Monocytes # 0.6 10^3/uL (0.2-0.9); Monocytes % 7.4 %; Neutrophils # 6.81 10^3/uL (1.8-7.7); Neutrophils % 80.7 %; Nucleated Red Blood Cells % 0 %; Platelet Count 180 10^3/cmm (130-400); Red Blood Count 3.56 10^6/uL (4.1-5.3); Red Cell Distribution Width 15.8 % (12.1-15.1); White Blood Count 8.4 10^3/uL (4.0-10.0)
[2023-01-12] MEDS: acetaminophen 325 mg Tablet 650 MG PO (02:20)
[2023-01-12] MEDS: ondansetron 2 mg/ML SDV 2 mL 4 MG IVP (02:20)
[2023-01-12] MEDS: piperacillin-tazobactam 3.375 GM in sodium chloride 0.9% (plus) 50 ML IV ×3 (02:21→17:07)
[2023-01-12 02:37] LABS: Anion Gap 17.3 (5-19); Blood Urea Nitrogen 55 mg/dL (8-23); Carbon Dioxide 24 mmol/L (22-29); Chloride 100 mmol/L (98-107); Glucose 95 mg/dL (65-115); Osmolality Calculated 301 mOsm/kg (285-295); Potassium 3.3 mmol/L (3.5-5.1); Sodium 138 mmol/L (136-145)
[2023-01-12 02:56] LABS: Vancomycin Trough 27.8 ug/mL (10-15)
[2023-01-12] MEDS: enoxaparin 30 mg/0.3 mL Syringe SUBCUT (08:35)
[2023-01-12] MEDS: tamsulosin 0.4 mg Capsule PO ×2 (08:35→17:08)
[2023-01-12] MEDS: cholecalciferol (vitamin D3) 1,000 unit Tablet 2000 UNIT PO (08:35)
[2023-01-12] MEDS: sucralfate 1 gm Tablet PO ×4 (08:36→21:11)
[2023-01-12] MEDS: pantoprazole DR 40 mg Tablet PO ×2 (08:36→17:08)
[2023-01-12] MEDS: docusate sodium 100 mg Capsule PO (08:36)
[2023-01-12] MEDS: levothyroxine 75 mcg Tablet PO (08:36)
[2023-01-12] MEDS: duloxetine 60 mg Capsule PO ×2 (08:36→17:08)
[2023-01-12] MEDS: metoprolol tartrate 25 mg Tablet PO (08:36)
[2023-01-12] MEDS: atorvastatin 40 mg Tablet 80 MG PO (08:36)
[2023-01-12] MEDS: aspirin 81 mg EC Tablet PO (08:36)
[2023-01-12] MEDS: benzonatate 100 mg Capsule PO ×3 (08:36→21:11)
[2023-01-12] MEDS: fenofibrate 145 mg Tablet PO (08:39)
[2023-01-12] MEDS: potassium chloride ER 20 mEq Tablet PO (09:43)
[2023-01-12] MEDS: ipratropium 0.5 mg/2.5 mL Neb INHALATION ×3 (09:51→20:43)
[2023-01-12] MEDS: levalbuterol 1.25 mg/3 mL Neb INHALATION ×3 (09:51→20:43)
[2023-01-12] MEDS: budesonide 0.5 mg/2 mL Neb INHALATION ×2 (09:52→20:43)
--- NOTE | 2023-01-12 16:26 | P.PN_ITS ---
Subjective Subjective: Patient was seen and examined this morning, states that shortness of breath has improved, serum creatinine has 3.1. Medications: Medication Review Details: Generic Name Dose Route Start Last Admin Trade Name Moustaphaq PRN Reason Stop Dose Admin Acetaminophen 650 mg 01/07/23 02:19 01/12/23 02:20 Acetaminophen 32 5 Mg Tablet PO 650 mg Q6H PRN Administration Mild/Mod Pain Or Temp >/= 101 Aspirin 81 mg 01/07/23 02:19 01/12/23 08:36 Aspirin 81 Mg Ec Tablet PO 81 mg DAILY [facility] Administration Atorvastatin Calci um 80 mg 01/07/23 09:00 01/12/23 08:36 Atorvastatin 40 Mg Tablet PO 80 mg DAILY [facility] Administration Benzonatate 100 mg 01/09/23 10:00 01/12/23 15:07 Benzonatate 100 Mg Capsule PO 100 mg TID [facility] Administration Budesonide 0.5 mg 01/07/23 08:00 01/12/23 09:52 Budesonide 0.5 M g/2 Ml Neb INHALATION 0.5 mg BID.RESPIRATORY S [facility] Administration Diltiazem HCl 30 mg 01/07/23 22:00 01/12/23 09:44 Diltiazem 30 Mg Tablet PO 30 mg Q6H [facility] Administration Docusate Sodium 100 mg 01/07/23 09:00 01/12/23 08:36 Docusate Sodium 100 Mg Capsule PO 100 mg DAILY [facility] Administration Duloxetine HCl 60 mg 01/07/23 09:00 01/12/23 08:36 Duloxetine 60 Mg Capsule PO 60 mg BID [facility] Administration Enoxaparin Sodium 30 mg 01/10/23 08:00 01/12/23 08:35 Enoxaparin 30 Mg /0.3 Ml Syringe SUBCUT 30 mg Q24H [facility] Administration Fenofibrate 145 mg 01/07/23 09:00 01/12/23 08:39 Fenofibrate 145 Mg Tablet PO 145 mg DAILY [facility] Administration Piperacillin Sod/T azobactam 50 mls @ 12.5 mls /hr 01/07/23 10:00 01/12/23 14:31 Sod 3.375 gm/ So dium Chloride IV Infused Q8H [facility] Infusion Protocol Ipratropium Bromid e 0.5 mg 01/11/23 14:00 01/12/23 13:40 Ipratropium 0.5 Mg/2.5 Ml Neb INHALATION 0.5 mg Q6H.RESP [facility] Administration Levalbuterol HCl 1.25 mg 01/11/23 14:00 01/12/23 13:40 Levalbuterol 1.2 5 Mg/3 Ml Neb INHALATION 1.25 mg Q6H.RESP [facility] Administration Levothyroxine Sodi um 75 mcg 01/07/23 09:00 01/12/23 08:36 Levothyroxine 75 Mcg Tablet PO 75 mcg DAILY [facility] Administration Losartan Potassium 50 mg 01/07/23 09:00 01/08/23 09:10 Losartan 50 Mg T ablet PO 50 mg DAILY [facility] Administration Metoprolol Tartrat e 25 mg 01/07/23 06:30 01/12/23 08:36 Metoprolol Tartr ate 25 Mg Tablet PO 25 mg BID@0900,2100 [facility] Administration Ondansetron HCl 4 mg 01/07/23 02:19 01/12/23 02:20 Ondansetron 2 Mg /Ml Sdv 2 Ml IVP 4 mg Q8H PRN Administration vomiting, or N/V if npo Pantoprazole Sodiu m 40 mg 01/07/23 09:00 01/12/23 08:[address] 40 Mg Tablet PO 40 mg BID [facility] Administration Sucralfate 1 gm 01/07/23 02:19 01/12/23 12:49 Sucralfate 1 Gm Tablet PO 1 gm QID [facility] Administration Tamsulosin HCl 0.4 mg 01/07/23 09:00 01/12/23 08:35 Tamsulosin 0.4 M g Capsule PO 0.4 mg BID [facility] Administration Vitamin D 2,000 unit 01/07/23 09:00 01/12/23 08:35 Cholecalciferol (Vitamin D3) 1,000 Unit Tablet PO 2,000 unit DAILY [facility] Administration Vitals/I&O/Wt Last Vital Signs Temp 97.5 F L 01/12/23 16:00 Pulse 72 01/12/23 16:00 Resp 19 H 01/12/23 16:00 BP 111/62 01/12/23 16:00 Pulse Ox 92 01/12/23 16:00 O2 Del Method Nasal Cannula 01/12/23 16:00 O2 Flow Rate 2 01/12/23 13:40 0501/12/23 01/12/23 06:59 14:59 22:59 Intake Total 2019 530 / 530 Output Total 1500 / 2300 Balance -1450 / -280 530 / 530 Physical Exam Const: COMMON NORMALS: patient oriented x3 Resp: COMMON NORMALS: clear to auscultation bilaterally AUSCULTATION: clear to auscultation bilaterally Cardio: COMMON NORMALS: regular rate, regular rhythm, S1 normal heart sound present, S2 normal heart sound present, No gallops present (Cardio), No murmurs present (Cardio), No rub (Cardio) and Peripheral pulses 2+ throughout RATE: regular rate RHYTHM: regular rhythm HEART SOUNDS: S1 normal heart sound pr esent and S2 normal heart sound present PERIPHERAL PULSES: Peripheral pulses 2+ throughout GI: COMMON NORMALS: Normal to inspection, nondistended, normoactive bowel sounds present, Soft to palpation, non-tender, No hepatosplenomegaly present and no masses AUSCULTATION: Yes normoactive bowel sounds PALPATION: Yes Soft to palpation and Yes No hepatosplenomegaly present RECTAL EXAM: Yes deferred Extremity: COMMON NORMALS: no clubbing, cyanosis or edema and no pedal edema Neuro: COMMON NORMALS: patient oriented x3 Urinary Catheter Management: Snider: Cath Placed During This Visit: yes Reason for Continuing Indwelling Catheter: Acute Urinary Retention or Obstruction Urinary Catheter Date of Insertion: 01/07/23 Urinary Catheter Time of Insertion: 02:44 Data 01/12/23 02:08 01/12/23 02:08 Micro: Microbiology 01/11/23 10:15 Gram Stain - Final Sputum - Expectorated Sputum Sputum Culture - Preliminary 01/06/23 22:29 Blood Culture - Final Blood NO GROWTH AFTER 5 DAYS 01/06/23 22:25 Blood Culture - Final Blood NO GROWTH AFTER 5 DAYS A&P Assessment and plan (1) CHF exacerbation: (2) COPD (chronic obstructive pulmonary disease): (3) Grade II diastolic dysfunction: (4) S/P CABG (coronary artery bypass graft): (5) Hyperlipidemia, unspecified: Qualifiers: Hyperlipidemia type: mixed hyperlipidemia Qualified Code(s): E78.2 - Mixed hyperlipidemia (6) HTN, goal below 130/80: (7) CKD (chronic kidney disease): (8) Adult onset hypothyroidism: (9) CAD (coronary artery disease): (10) Left lower lobe pneumonia: (11) Chest pain: (12) Non-ST elevation [place] (NSTEMI): (13) Atrial fibrillation with rapid ventricular response: Plan Left lower lobe pneumonia -CT chest without contrast: Showing lower lobe consolidation, predominantly left lower lobe, with possible minimal consideration on the right lower lobe, bilateral pleural effusion with adjacent compressive atelectasis. -Blood cultures: NTD -MRSA PCR : Negative -Sputum cultures: Few white blood cells , no organisms seen -DuoNeb, budesonide -Was on Vancomycin, Zosyn. Vancomycin has been discontinued today Chest pain: Troponin trend: -2D echo:?global?hypokinesis with an ejection fraction of 35 to 40%. There has been slight drop in EF when compared to prior study. Serial EKG. Telemetry monitoring Given the overall bad kidney function, it will be prudent to manage chest pain conservatively for now. 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 Monitor intake output charting Monitor daily weight Monitor electrolytes OANH on CKD: Serum creatinine appears to be around 1.5-1 - 1.9. Admission serum creatinine 1.9 Monitor BMP Monitor intake and output charting Avoid nephrotoxic's Brief Atrial Fib with RVR: Resolved with Cardizem and p.o. metoprolol Full dose anticoagulation currently has been avoided due to risk of bleeding COPD, hold off on steroids for now History of CABG History of CVA History of diabetes, last A1c 4.5 CODE STATUS, patient does not want to be resuscitated, DNR, but is agreeable to intubation if required Lovenox for DVT prophylaxis Attestations Medical Necessity Statement*: Needs to be in hospital for the management of decompensated heart failure. Coding Level of Care Code Acute Code for g Fwd Diagnoses CHF exacerbation I50.9 COPD (chronic obstructive pulmonary disease) J44.9 Grade II diastolic dysfunction I51.89 S/P CABG (coronary artery bypass graft) Z95.1 Hyperlipidemia, unspecified E78.2 Hyperlipidemia type: mixed hyperlipidemia HTN, goal below 130/80 I10 CKD (chronic kidney disease) N18.9 Adult onset hypothyroidism E03.8 CAD (coronary artery disease) I25.10 Left lower lobe pneumonia J18.9 Chest pain R07.9 Non-ST elevation [place] (NSTEMI) I21.4 Atrial fibrillation with rapid ventricular response I48.91
--- NOTE | 2023-01-12 20:21 | PM.PN ---
Subjective Medications: Medication Review Details: Current Medications Acetaminophen (Acetaminophen 325 Mg Tablet) 650 mg PO Q6H PRN PRN Reason: Mild/Mod Pain Or Temp >/= 101 Last Admin: 01/12/23 02:20 Dose: 650 mg Aspirin (Aspirin 81 Mg Ec Tablet) 81 mg PO DAILY [facility] Last Admin: 01/12/23 08:36 Dose: 81 mg Atorvastatin Calcium (Atorvastatin 40 Mg Tablet) 80 mg PO DAILY [facility] Last Admin: 01/12/23 08:36 Dose: 80 mg Benzonatate (Benzonatate 100 Mg Capsule) 100 mg PO TID [facility] Last Admin: 01/12/23 15:07 Dose: 100 mg Budesonide (Budesonide 0.5 Mg/2 Ml Neb) 0.5 mg INHALATION BID.RESPIRATORY [facility] Last Admin: 01/12/23 09:52 Dose: 0.5 mg Diltiazem HCl (Diltiazem 30 Mg Tablet) 30 mg PO Q6H [facility] Last Admin: 01/12/23 17:08 Dose: 30 mg Docusate Sodium (Docusate Sodium 100 Mg Capsule) 100 mg PO DAILY [facility] Last Admin: 01/12/23 08:36 Dose: 100 mg Duloxetine HCl (Duloxetine 60 Mg Capsule) 60 mg PO BID [facility] Last Admin: 01/12/23 17:08 Dose: 60 mg Enoxaparin Sodium (Enoxaparin 30 Mg/0.3 Ml Syringe) 30 mg SUBCUT Q24H [facility] Last Admin: 01/12/23 08:35 Dose: 30 mg Fenofibrate (Fenofibrate 145 Mg Tablet) 145 mg PO DAILY [facility] Last Admin: 01/12/23 08:39 Dose: 145 mg Piperacillin Sod/Tazobactam (Sod 3.375 gm/ Sodium Chloride) 50 mls @ 12.5 mls/hr IV Q8H [facility]; Protocol Last Admin: 01/12/23 17:07 Dose: 12.5 mls/hr Ipratropium [place] (Ipratropium 0.5 Mg/2.5 Ml Neb) 0.5 mg INHALATION Q6H.RESP [facility] Last Admin: 01/12/23 13:40 Dose: 0.5 mg Levalbuterol HCl (Levalbuterol 1.25 Mg/3 Ml Neb) 1.25 mg INHALATION Q6H.RESP [facility] Last Admin: 01/12/23 13:40 Dose: 1.25 mg Levothyroxine Sodium (Levothyroxine 75 Mcg Tablet) 75 mcg PO DAILY [facility] Last Admin: 01/12/23 08:36 Dose: 75 mcg Losartan Potassium (Losartan 50 Mg Tablet) 50 mg PO DAILY [facility] Last Admin: 01/08/23 09:10 Dose: 50 mg Metoprolol Tartrate (Metoprolol Tartrate 25 Mg Tablet) 25 mg PO BID@0900,2100 [facility] Last Admin: 01/12/23 08:36 Dose: 25 mg Naloxone HCl (Naloxone 0.4 Mg/Ml Sdv) 0.1 mg IVP Q2M PRN PRN Reason: OPIATERV Ondansetron HCl (Ondansetron 2 Mg/Ml Sdv 2 Ml) 4 mg IVP Q8H PRN PRN Reason: vomiting, or N/V if npo Last Admin: 01/12/23 02:20 Dose: 4 mg Pantoprazole Sodium (Pantoprazole Dr 40 Mg Tablet) 40 mg PO BID [facility] Last Admin: 01/12/23 17:08 Dose: 40 mg Sucralfate (Sucralfate 1 Gm Tablet) 1 gm PO QID [facility] Last Admin: 01/12/23 17:07 Dose: 1 gm Tamsulosin HCl (Tamsulosin 0.4 Mg Capsule) 0.4 mg PO BID [facility] Last Admin: 01/12/23 17:08 Dose: 0.4 mg Vitamin D (Cholecalciferol (Vitamin D3) 1,000 Unit Tablet) 2,000 unit PO DAILY [facility] Last Admin: 01/12/23 08:35 Dose: 2,000 unit Vitals/I&O/Wt Last Vital Signs Temp 98.1 F 01/12/23 19:37 Pulse 78 01/12/23 19:37 Resp 18 01/12/23 19:37 BP 99/53 01/12/23 19:37 Pulse Ox 91 01/12/23 19:37 O2 Del Method Nasal Cannula 01/12/23 19:37 O2 Flow Rate 2 01/12/23 13:40 01/12/23 01/12/23 01/12/23 06:59 14:59 22:59 Intake Total 2019 530 / 530 240 / 770 Output Total 1500 / 2300 Balance -1450 / -280 530 / 530 240 / 770 Physical Exam Narrative: GENERAL: The patient is alert and oriented times three. Not in any acute distress. HEENT: Mild pallor. No icterus or lymphadenopathy.Oral cavity: There are no mucous membrane lesions. NECK: Trachea appears to be central. No masses noted. No JVD or thyromegaly appreciated. RESPIRATORY: Chest is symmetrical. No intercostals muscle retraction or any accessory muscle activation. There is no chest wall tenderness. Breath sounds are heard bilaterally. Feels fine and coarse crackles bilaterally. BREASTS: Deferred. HEART: The heart sounds are normal. No S3 or S4. No significant murmurs. No pericardial rub ABDOMEN: No vessel pulsations or distention. No tenderness. No organomegaly appreciated. Bowel sounds are normally heard. : Deferred. RECTAL: Deferred. LYMPHATIC: No lymphadenopathy noted in the neck. EXTREMITIES: The dorsalis pedis and posterior pulses are weak bilaterally. MUSCULOSKELETAL: No acute joint deformities or swelling SKIN: There are no significant rashes or ecchymosis NEUROPSYCHIATRIC: The patient is alert and oriented x3. Appears to be in a good mood. No tremors or rigidity noted. Urinary Catheter Management: Snider: Cath Placed During This Visit: yes Reason for Continuing Indwelling Catheter: Acute Urinary Retention or Obstruction Urinary Catheter Date of Insertion: 01/07/23 Urinary Catheter Time of Insertion: 02:44 Data 01/12/23 02:08 01/12/23 02:08 Other Labs: Laboratory Last Values WBC 8.4 10^3/uL (4.0-10.0) 01/12/23 02:08 RBC 3.56 10^6/uL (4.1-5.3) L 01/12/23 02:08 Hgb 9.9 g/dL (11.7-16.6) L 01/12/23 02:08 Hct 32.5 % (42.0-52.0) L 01/12/23 02:08 MCV 91.3 fl (80-94) 01/12/23 02:08 MCH 27.8 pg (28.0-34.0) L 01/12/23 02:08 MCHC 30.5 g/dL (30.0-36.0) 01/12/23 02:08 RDW 15.8 % (12.1-15.1) H 01/12/23 02:08 Plt Count 180 10^3/cmm (130-400) 01/12/23 02:08 MPV 11.2 fL (7.4-10.4) H 01/12/23 02:08 Neut % (Auto) 80.7 % 01/12/23 02:08 Lymph % (Auto) 9.3 % 01/12/23 02:08 [place] % (Auto) 7.4 % 01/12/23 02:08 Eos % (Auto) 2.0 % 01/12/23 02:08 Baso % (Auto) 0.1 % 01/12/23 02:08 Neut # (Auto) 6.81 10^3/uL (1.8-7.7) 01/12/23 02:08 Lymph # (Auto) 0.8 10^3/uL (0.8-4.8) 01/12/23 02:08 [place] # (Auto) 0.6 10^3/uL (0.2-0.9) 01/12/23 02:08 Eos # (Auto) 0.2 10^3/uL (0.0-0.8) 01/12/23 02:08 Baso # (Auto) 0.0 10^3/uL (0.0-0.1) 01/12/23 02:08 Nucleated RBC % (auto) 0 % 01/12/23 02:08 Nucleated RBCs # 0.0 /100WBC 01/12/23 02:08 Sodium 138 mmol/L (136-145) 01/12/23 02:08 Potassium 3.3 mmol/L (3.5-5.1) L 01/12/23 02:08 Chloride 100 mmol/L (98-107) 01/12/23 02:08 Carbon Dioxide 24 mmol/L (22-29) 01/12/23 02:08 Anion Gap 17.3 (5-19) 01/12/23 02:08 BUN 55 mg/dL (8-23) H 01/12/23 02:08 Creatinine 3.1 mg/dL (0.7-1.2) H 01/12/23 02:08 GFR Calculation Not Reportable 01/12/23 02:08 Glucose 95 mg/dL (65-115) 01/12/23 02:08 Calculated Osmolality 301 mOsm/kg (285-295) H 01/12/23 02:08 Lactate 1.9 mmol/L (0.5-2.2) 01/06/23 21:39 Calcium 9.0 mg/dL (8.5-10.5) 01/12/23 02:08 Total Bilirubin 0.3 mg/dL (0.15-1.2) 01/11/23 04:29 AST 14 U/L (0-40) 01/11/23 04:29 ALT 11 U/L (0-41) 01/11/23 04:29 Alkaline Phosphatase 52 U/L (40-130) 01/11/23 04:29 Troponin T Baseline 87 ng/L (0-15) H 01/06/23 21:39 Troponin T 120 Minute 89.12 ng/L (0-15) H 01/06/23 23:36 Delta Troponin T 2.12 ABS# (0-10) 01/06/23 23:36 Troponin T Hi Sens 6Hr 80.97 ng/L (0-15) H 01/07/23 03:39 Troponin T Hi Sens 6Hr Delta -6.03 ng/L (0-12) L 01/07/23 03:39 NT-Pro-B Natriuret Pep 34788 pg/mL (0-450) H 01/06/23 21:39 Total Protein 5.9 g/dL (6.6-8.7) L 01/11/23 04:29 Albumin 3.1 g/dL (3.5-5.2) L 01/11/23 04:29 Globulin 2.8 g/dL (1.3-4.6) 01/11/23 04:29 Vancomycin Trough 27.8 ug/mL (10-15) H* 01/12/23 02:08 Micro: Microbiology 01/11/23 10:15 Gram Stain - Final Sputum - Expectorated Sputum Sputum Culture - Preliminary 01/06/23 22:29 Blood Culture - Final Blood NO GROWTH AFTER 5 DAYS 01/06/23 22:25 Blood Culture - Final Blood NO GROWTH AFTER 5 DAYS A&P Assessment and plan (1) Atherosclerotic heart disease of [place] coronary artery with other forms of angina pectoris: The patient does not have any significant chest pains at the time. So he may be continued on the current medications. (2) Ischemic cardiomyopathy: Patient seems to be in intermittent decompensated heart failure. His shortness of breath is significantly improved. He may be given the Lasix on a as needed basis. (3) Acute kidney injury superimposed on chronic kidney disease: The creatinine level is going up while the BUN is coming down. Consider nephrology input (4) COPD (chronic obstructive pulmonary disease): This is being treated with bronchodilators and other symptomatic measures. (5) Left lower lobe pneumonia: Patient is on IV antibiotics. My management as per the primary. (6) Hyperlipidemia, unspecified: May continue on the current medications. Qualifiers: Hyperlipidemia type: mixed hyperlipidemia Qualified Code(s): E78.2 - Mixed hyperlipidemia (7) Carotid stenosis: Patient was found to have 50 to 69% stenosis on the right side and less than 50% stenosis on the left side as mentioned above. May continue on the current management (8) PVD (peripheral vascular disease): Was found to be mild peripheral artery disease by angiogram. Patient did not require any specific intervention at this point (9) Controlled diabetes mellitus: May continue on the current management. Qualifiers: Diabetes mellitus type: type 2 Diabetes mellitus snf insulin use: without snf use Diabetes mellitus complication status: with kidney complications Diabetes mellitus complication detail: with chronic kidney disease Chronic kidney disease stage: stage 2 (mild) Qualified Code(s): E11.22 - Type 2 diabetes mellitus with diabetic chronic kidney disease; N18.2 - Chronic kidney disease, stage 2 (mild) (10) Atrial fibrillation with rapid ventricular response: Has not hadPatient is back in the sinus rhythm now. Has not had any recurrence of atrial fibrillation. May continue on the current measures Plan Other problems are as outlined before Continue to optimize the medical treatment Attestations Medical Necessity Statement*: Deferred to the primary Coding Level of Care Code Acute Code for [facility] Diagnoses Atherosclerotic heart disease of [place] coronary artery with other forms of angina pectoris I25.118 Ischemic cardiomyopathy I25.5 Acute kidney injury superimposed on chronic kidney disease N17.9; N18.9 COPD (chronic obstructive pulmonary disease) J44.9 Left lower lobe pneumonia J18.9 Hyperlipidemia, unspecified E78.2 Hyperlipidemia type: mixed hyperlipidemia Carotid stenosis I65.29 PVD (peripheral vascular disease) I73.9 Controlled diabetes mellitus E11.22; N18.2 Diabetes mellitus type: type 2 Diabetes mellitus 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
[2023-01-13] VITALS (14 sets, daily range): BP systolic 106–144; BP diastolic 63–88; PULSE 59–120; RESP 16–21; TEMP 36.4–36.7; O2SAT 92–98
[2023-01-13] MEDS: piperacillin-tazobactam 3.375 GM in sodium chloride 0.9% (plus) 50 ML IV ×3 (01:55→17:21)
[2023-01-13] MEDS: levalbuterol 1.25 mg/3 mL Neb INHALATION ×4 (02:12→20:16)
[2023-01-13] MEDS: ipratropium 0.5 mg/2.5 mL Neb INHALATION ×4 (02:12→20:16)
[2023-01-13] MEDS: dilTIAZem 30 mg Tablet PO ×3 (05:25→17:21)
[2023-01-13 06:02] LABS: Basophils % 0.3 %; Eosinophils # 0.3 10^3/uL (0.0-0.8); Eosinophils % 3.7 %; Hematocrit 33.7 % (42.0-52.0); Hemoglobin 10.3 g/dL (11.7-16.6); Lymphocytes % 14.2 %; Mean Corpuscular HGB Conc 30.6 g/dL (30.0-36.0); Mean Corpuscular Hemoglobin 28.1 pg (28.0-34.0); Mean Corpuscular Volume 91.8 fl (80-94); Mean Platelet Volume 12.3 fL (7.4-10.4); Monocytes # 0.6 10^3/uL (0.2-0.9); Monocytes % 8.7 %; Neutrophils # 5.34 10^3/uL (1.8-7.7); Nucleated Red Blood Cells % 0 %; Platelet Count 189 10^3/cmm (130-400); Red Blood Count 3.67 10^6/uL (4.1-5.3); Red Cell Distribution Width 15.7 % (12.1-15.1); White Blood Count 7.3 10^3/uL (4.0-10.0)
[2023-01-13 06:58] LABS: Anion Gap 17.4 (5-19); Blood Urea Nitrogen 57 mg/dL (8-23); Carbon Dioxide 23 mmol/L (22-29); Chloride 98 mmol/L (98-107); Glucose 91 mg/dL (65-115); Osmolality Calculated 295 mOsm/kg (285-295); Potassium 3.4 mmol/L (3.5-5.1); Sodium 135 mmol/L (136-145)
[2023-01-13] MEDS: budesonide 0.5 mg/2 mL Neb INHALATION ×2 (08:14→20:16)
[2023-01-13] MEDS: enoxaparin 30 mg/0.3 mL Syringe SUBCUT (08:33)
[2023-01-13] MEDS: benzonatate 100 mg Capsule PO ×3 (08:34→21:35)
[2023-01-13] MEDS: tamsulosin 0.4 mg Capsule PO ×2 (08:34→17:21)
[2023-01-13] MEDS: atorvastatin 40 mg Tablet 80 MG PO (08:35)
[2023-01-13] MEDS: levothyroxine 75 mcg Tablet PO (08:35)
[2023-01-13] MEDS: duloxetine 60 mg Capsule PO ×2 (08:35→17:21)
[2023-01-13] MEDS: sucralfate 1 gm Tablet PO ×4 (08:35→21:35)
[2023-01-13] MEDS: cholecalciferol (vitamin D3) 1,000 unit Tablet 2000 UNIT PO (08:35)
[2023-01-13] MEDS: docusate sodium 100 mg Capsule PO (08:35)
[2023-01-13] MEDS: pantoprazole DR 40 mg Tablet PO ×2 (08:35→17:21)
[2023-01-13] MEDS: aspirin 81 mg EC Tablet PO (08:35)
[2023-01-13] MEDS: fenofibrate 145 mg Tablet PO (08:39)
[2023-01-13] MEDS: metoprolol tartrate 25 mg Tablet PO ×2 (08:39→21:35)
--- NOTE | 2023-01-13 09:13 | PM.PN ---
Subjective Subjective: Patient still has generalized weakness and shortness of breath with exertion. The BUN/creatinine remains elevated but stable. No chest pain. No fever or chills. No new symptoms Medications: Medication Review Details: Current Medications Acetaminophen (Acetaminophen 325 Mg Tablet) 650 mg PO Q6H PRN PRN Reason: Mild/Mod Pain Or Temp >/= 101 Last Admin: 01/12/23 02:20 Dose: 650 mg Aspirin (Aspirin 81 Mg Ec Tablet) 81 mg PO DAILY [facility] Last Admin: 01/13/23 08:35 Dose: 81 mg Atorvastatin Calcium (Atorvastatin 40 Mg Tablet) 80 mg PO DAILY [facility] Last Admin: 01/13/23 08:35 Dose: 80 mg Benzonatate (Benzonatate 100 Mg Capsule) 100 mg PO TID [facility] Last Admin: 01/13/23 08:34 Dose: 100 mg Budesonide (Budesonide 0.5 Mg/2 Ml Neb) 0.5 mg INHALATION BID.RESPIRATORY [facility] Last Admin: 01/13/23 08:14 Dose: 0.5 mg Diltiazem HCl (Diltiazem 30 Mg Tablet) 30 mg PO Q6H [facility] Last Admin: 01/13/23 05:25 Dose: 30 mg Docusate Sodium (Docusate Sodium 100 Mg Capsule) 100 mg PO DAILY [facility] Last Admin: 01/13/23 08:35 Dose: 100 mg Duloxetine HCl (Duloxetine 60 Mg Capsule) 60 mg PO BID [facility] Last Admin: 01/13/23 08:35 Dose: 60 mg Enoxaparin Sodium (Enoxaparin 30 Mg/0.3 Ml Syringe) 30 mg SUBCUT Q24H [facility] Last Admin: 01/13/23 08:33 Dose: 30 mg Fenofibrate (Fenofibrate 145 Mg Tablet) 145 mg PO DAILY [facility] Last Admin: 01/13/23 08:39 Dose: 145 mg Piperacillin Sod/Tazobactam (Sod 3.375 gm/ Sodium Chloride) 50 mls @ 12.5 mls/hr IV Q8H [facility]; Protocol Last Admin: 01/13/23 09:02 Dose: 12.5 mls/hr Ipratropium [place] (Ipratropium 0.5 Mg/2.5 Ml Neb) 0.5 mg INHALATION Q6H.RESP [facility] Last Admin: 01/13/23 08:14 Dose: 0.5 mg Levalbuterol HCl (Levalbuterol 1.25 Mg/3 Ml Neb) 1.25 mg INHALATION Q6H.RESP [facility] Last Admin: 01/13/23 08:14 Dose: 1.25 mg Levothyroxine Sodium (Levothyroxine 75 Mcg Tablet) 75 mcg PO DAILY [facility] Last Admin: 01/13/23 08:35 Dose: 75 mcg Losartan Potassium (Losartan 50 Mg Tablet) 50 mg PO DAILY [facility] Last Admin: 01/08/23 09:10 Dose: 50 mg Metoprolol Tartrate (Metoprolol Tartrate 25 Mg Tablet) 25 mg PO BID@0900,2100 [facility] Last Admin: 01/13/23 08:39 Dose: 25 mg Naloxone HCl (Naloxone 0.4 Mg/Ml Sdv) 0.1 mg IVP Q2M PRN PRN Reason: OPIATERV Ondansetron HCl (Ondansetron 2 Mg/Ml Sdv 2 Ml) 4 mg IVP Q8H PRN PRN Reason: vomiting, or N/V if npo Last Admin: 01/12/23 02:20 Dose: 4 mg Pantoprazole Sodium (Pantoprazole Dr 40 Mg Tablet) 40 mg PO BID [facility] Last Admin: 01/13/23 08:35 Dose: 40 mg Sucralfate (Sucralfate 1 Gm Tablet) 1 gm PO QID [facility] Last Admin: 01/13/23 08:35 Dose: 1 gm Tamsulosin HCl (Tamsulosin 0.4 Mg Capsule) 0.4 mg PO BID [facility] Last Admin: 01/13/23 08:34 Dose: 0.4 mg Vitamin D (Cholecalciferol (Vitamin D3) 1,000 Unit Tablet) 2,000 unit PO DAILY [facility] Last Admin: 01/13/23 08:35 Dose: 2,000 unit Vitals/I&O/Wt Last Vital Signs Temp 97.6 F 01/13/23 08:07 Pulse 106 H 01/13/23 08:10 Resp 17 01/13/23 08:07 BP 135/77 01/13/23 08:07 Pulse Ox 92 01/13/23 08:07 O2 Del Method Nasal Cannula 01/13/23 08:07 O2 Flow Rate 2 01/13/23 08:00 01/12/23 01/13/23 01/13/23 22:59 06:59 14:59 Intake Total 290 / 820 250 / 1070 320 / 320 Balance 290 / 820 250 / 1070 320 / 320 Physical Exam Narrative: GENERAL: The patient is alert and oriented times three. Not in any acute distress. HEENT: Mild pallor. No icterus or lymphadenopathy.Oral cavity: There are no mucous membrane lesions. NECK: Trachea appears to be central. No masses noted. No JVD or thyromegaly appreciated. RESPIRATORY: Scattered coarse crackles. The intensity of breath sounds are somewhat diminished in the bases. BREASTS: Deferred. HEART: The heart sounds are normal. No S3 or S4. No significant murmurs. No pericardial rub ABDOMEN: No vessel pulsations or distention. No tenderness. No organomegaly appreciated. Bowel sounds are normally heard. : Deferred. RECTAL: Deferred. LYMPHATIC: No lymphadenopathy noted in the neck. EXTREMITIES: The dorsalis pedis and posterior pulses are weak bilaterally. MUSCULOSKELETAL: No acute joint deformities or swelling SKIN: There are no significant rashes or ecchymosis NEUROPSYCHIATRIC: The patient is alert and oriented x3. Appears to be in a good mood. No tremors or rigidity noted. Urinary Catheter Management: Snider: Cath Placed During This Visit: yes Reason for Continuing Indwelling Catheter: Acute Urinary Retention or Obstruction Urinary Catheter Date of Insertion: 01/07/23 Urinary Catheter Time of Insertion: 02:44 Data 01/13/23 04:40 01/13/23 04:40 Other Labs: Laboratory Last Values WBC 7.3 10^3/uL (4.0-10.0) 01/13/23 04:40 RBC 3.67 10^6/uL (4.1-5.3) L 01/13/23 04:40 Hgb 10.3 g/dL (11.7-16.6) L 01/13/23 04:40 Hct 33.7 % (42.0-52.0) L 01/13/23 04:40 MCV 91.8 fl (80-94) 01/13/23 04:40 MCH 28.1 pg (28.0-34.0) 01/13/23 04:40 MCHC 30.6 g/dL (30.0-36.0) 01/13/23 04:40 RDW 15.7 % (12.1-15.1) H 01/13/23 04:40 Plt Count 189 10^3/cmm (130-400) 01/13/23 04:40 MPV 12.3 fL (7.4-10.4) H 01/13/23 04:40 Neut % (Auto) 73.0 % 01/13/23 04:40 Lymph % (Auto) 14.2 % 01/13/23 04:40 [place] % (Auto) 8.7 % 01/13/23 04:40 Eos % (Auto) 3.7 % 01/13/23 04:40 Baso % (Auto) 0.3 % 01/13/23 04:40 Neut # (Auto) 5.34 10^3/uL (1.8-7.7) 01/13/23 04:40 Lymph # (Auto) 1.0 10^3/uL (0.8-4.8) 01/13/23 04:40 [place] # (Auto) 0.6 10^3/uL (0.2-0.9) 01/13/23 04:40 Eos # (Auto) 0.3 10^3/uL (0.0-0.8) 01/13/23 04:40 Baso # (Auto) 0.0 10^3/uL (0.0-0.1) 01/13/23 04:40 Nucleated RBC % (auto) 0 % 01/13/23 04:40 Nucleated RBCs # 0.0 /100WBC 01/13/23 04:40 Sodium 135 mmol/L (136-145) L 01/13/23 04:40 Potassium 3.4 mmol/L (3.5-5.1) L 01/13/23 04:40 Chloride 98 mmol/L (98-107) 01/13/23 04:40 Carbon Dioxide 23 mmol/L (22-29) 01/13/23 04:40 Anion Gap 17.4 (5-19) 01/13/23 04:40 BUN 57 mg/dL (8-23) H 01/13/23 04:40 Creatinine 3.0 mg/dL (0.7-1.2) H 01/13/23 04:40 GFR Calculation Not Reportable 01/13/23 04:40 Glucose 91 mg/dL (65-115) 01/13/23 04:40 Calculated Osmolality 295 mOsm/kg (285-295) 01/13/23 04:40 Lactate 1.9 mmol/L (0.5-2.2) 01/06/23 21:39 Calcium 9.0 mg/dL (8.5-10.5) 01/13/23 04:40 Total Bilirubin 0.3 mg/dL (0.15-1.2) 01/11/23 04:29 AST 14 U/L (0-40) 01/11/23 04:29 ALT 11 U/L (0-41) 01/11/23 04:29 Alkaline Phosphatase 52 U/L (40-130) 01/11/23 04:29 Troponin T Baseline 87 ng/L (0-15) H 01/06/23 21:39 Troponin T 120 Minute 89.12 ng/L (0-15) H 01/06/23 23:36 Delta Troponin T 2.12 ABS# (0-10) 01/06/23 23:36 Troponin T Hi Sens 6Hr 80.97 ng/L (0-15) H 01/07/23 03:39 Troponin T Hi Sens 6Hr Delta -6.03 ng/L (0-12) L 01/07/23 03:39 NT-Pro-B Natriuret Pep 51719 pg/mL (0-450) H 01/06/23 21:39 Total Protein 5.9 g/dL (6.6-8.7) L 01/11/23 04:29 Albumin 3.1 g/dL (3.5-5.2) L 01/11/23 04:29 Globulin 2.8 g/dL (1.3-4.6) 01/11/23 04:29 Vancomycin Trough 27.8 ug/mL (10-15) H* 01/12/23 02:08 Micro: Microbiology 01/11/23 10:15 Gram Stain - Final Sputum - Expectorated Sputum Sputum Culture - Preliminary A&P Assessment and plan (1) Atherosclerotic heart disease of [place] coronary artery with other forms of angina pectoris: The patient does not have any significant chest pains at the time. So he may be continued on the current medications. (2) Ischemic cardiomyopathy: Patient seems to be in intermittent decompensated heart failure. His shortness of breath is significantly improved. He may be given the Lasix on a as needed basis. (3) Acute kidney injury superimposed on chronic kidney disease: The creatinine level is going up while the BUN is coming down. Consider nephrology input (4) COPD (chronic obstructive pulmonary disease): This is being treated with bronchodilators and other symptomatic measures. (5) Left lower lobe pneumonia: Patient is on IV antibiotics. My management as per the primary. (6) Hyperlipidemia, unspecified: May continue on the current medications. Qualifiers: Hyperlipidemia type: mixed hyperlipidemia Qualified Code(s): E78.2 - Mixed hyperlipidemia (7) Carotid stenosis: Patient was found to have 50 to 69% stenosis on the right side and less than 50% stenosis on the left side as mentioned above. May continue on the current management (8) PVD (peripheral vascular disease): Was found to be mild peripheral artery disease by angiogram. Patient did not require any specific intervention at this point (9) Controlled diabetes mellitus: May continue on the current management. 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 Patient is back in the sinus rhythm now. May continue on the current treatment. Plan Other problems are as outlined before Continue to optimize the medical treatment Attestations Medical Necessity Statement*: Deferred to the primary Coding Level of Care Code Acute Code for [facility] Diagnoses Atherosclerotic heart disease of [place] coronary artery with other forms of angina pectoris I25.118 Ischemic cardiomyopathy I25.5 Acute kidney injury superimposed on chronic kidney disease N17.9; N18.9 COPD (chronic obstructive pulmonary disease) J44.9 Left lower lobe pneumonia J18.9 Hyperlipidemia, unspecified E78.2 Hyperlipidemia type: mixed hyperlipidemia Carotid stenosis I65.29 PVD (peripheral vascular disease) I73.9 Controlled diabetes mellitus E11.22; N18.2 Chronic kidney disease stage: stage 2 (mild) Diabetes mellitus complication detail: with chronic kidney disease Diabetes mellitus complication status: with kidney complications Diabetes mellitus group home insulin use: without group home use Diabetes mellitus type: type 2 Atrial fibrillation with rapid ventricular response I48.91
--- NOTE | 2023-01-13 17:05 | PM.PN ---
Subjective Subjective: Patient was seen and examined this morning shortness of breath is improved, serum creatinine appears to be stabilizing. Medications: Medication Review Details: Generic Name Dose Route Start Last Admin Trade Name Freq PRN Reason Stop Dose Admin Acetaminophen 650 mg 01/07/23 02:19 01/12/23 02:20 Acetaminophen 32 5 Mg Tablet PO 650 mg Q6H PRN Administration Mild/Mod Pain Or Temp >/= 101 Aspirin 81 mg 01/07/23 02:19 01/13/23 08:35 Aspirin 81 Mg Ec Tablet PO 81 mg DAILY KELSEY Administration Atorvastatin Calci um 80 mg 01/07/23 09:00 01/13/23 08:35 Atorvastatin 40 Mg Tablet PO 80 mg DAILY KELSEY Administration Benzonatate 100 mg 01/09/23 10:00 01/13/23 15:00 Benzonatate 100 Mg Capsule PO 100 mg TID KELSEY Administration Budesonide 0.5 mg 01/07/23 08:00 01/13/23 08:14 Budesonide 0.5 M g/2 Ml Neb INHALATION 0.5 mg BID.RESPIRATORY S [facility] Administration Diltiazem HCl 30 mg 01/07/23 22:00 01/13/23 10:53 Diltiazem 30 Mg Tablet PO 30 mg Q6H KELSEY Administration Docusate Sodium 100 mg 01/07/23 09:00 01/13/23 08:35 Docusate Sodium 100 Mg Capsule PO 100 mg DAILY KELSEY Administration Duloxetine HCl 60 mg 01/07/23 09:00 01/13/23 08:35 Duloxetine 60 Mg Capsule PO 60 mg BID KELSEY Administration Enoxaparin Sodium 30 mg 01/10/23 08:00 01/13/23 08:33 Enoxaparin 30 Mg /0.3 Ml Syringe SUBCUT 30 mg Q24H KELSEY Administration Fenofibrate 145 mg 01/07/23 09:00 01/13/23 08:39 Fenofibrate 145 Mg Tablet PO 145 mg DAILY KELSEY Administration Piperacillin Sod/T azobactam 50 mls @ 12.5 mls /hr 01/07/23 10:00 01/13/23 13:15 Sod 3.375 gm/ So dium Chloride IV Infused Q8H KELSEY Infusion Protocol Ipratropium Bromid e 0.5 mg 01/11/23 14:00 01/13/23 14:28 Ipratropium 0.5 Mg/2.5 Ml Neb INHALATION 0.5 mg Q6H.RESP KELSEY Administration Levalbuterol HCl 1.25 mg 01/11/23 14:00 01/13/23 14:28 Levalbuterol 1.2 5 Mg/3 Ml Neb INHALATION 1.25 mg Q6H.RESP KELSEY Administration Levothyroxine Sodi um 75 mcg 01/07/23 09:00 01/13/23 08:35 Levothyroxine 75 Mcg Tablet PO 75 mcg DAILY KELSEY Administration Losartan Potassium 50 mg 01/07/23 09:00 01/08/23 09:10 Losartan 50 Mg T ablet PO 50 mg DAILY KELSEY Administration Metoprolol Tartrat e 25 mg 01/07/23 06:30 01/13/23 08:39 Metoprolol Tartr ate 25 Mg Tablet PO 25 mg BID@0900,2100 KELSEY Administration Ondansetron HCl 4 mg 01/07/23 02:19 01/12/23 02:20 Ondansetron 2 Mg /Ml Sdv 2 Ml IVP 4 mg Q8H PRN Administration vomiting, or N/V if npo Pantoprazole Sodiu m 40 mg 01/07/23 09:00 01/13/23 08:[address] 40 Mg Tablet PO 40 mg BID KELSEY Administration Sucralfate 1 gm 01/07/23 02:19 01/13/23 14:03 Sucralfate 1 Gm Tablet PO 1 gm QID KELSEY Administration Tamsulosin HCl 0.4 mg 01/07/23 09:00 01/13/23 08:34 Tamsulosin 0.4 M g Capsule PO 0.4 mg BID KELSEY Administration Vitamin D 2,000 unit 01/07/23 09:00 01/13/23 08:35 Cholecalciferol (Vitamin D3) 1,000 Unit Tablet PO 2,000 unit DAILY KELSEY Administration Vitals/I&O/Wt Last Vital Signs Temp 97.9 F 01/13/23 15:50 Pulse 89 01/13/23 15:50 Resp 17 01/13/23 15:50 BP 122/63 01/13/23 15:50 Pulse Ox 96 01/13/23 15:50 O2 Del Method Nasal Cannula 01/13/23 15:50 O2 Flow Rate 2 01/13/23 14:28 01/13/23 01/13/23 01/13/23 06:59 14:59 22:59 Intake Total 250 / 1070 570 / 570 Balance 250 / 1070 570 / 570 Physical Exam Const: COMMON NORMALS: patient oriented x3 Resp: COMMON NORMALS: clear to auscultation bilaterally EFFORT & INSPECTION: Yes symmetric chest movement AUSCULTATION: clear to auscultation bilaterally Cardio: COMMON NORMALS: regular rate, regular rhythm, S1 normal heart sound present, S2 normal heart sound present, No gallops present (Cardio), No murmurs present (Cardio), No rub (Cardio) and Peripheral pulses 2+ throughout RATE: regular rate RHYTHM: regular rhythm HEART SOUNDS: S1 normal heart sound present and S2 normal heart sound present PERIPHERAL PULSES: Peripheral pulses 2+ throughout GI: COMMON NORMALS: Normal to inspection, nondistended, normoactive bowel sounds present, Soft to palpation, non-tender, No hepatosplenomegaly present and no masses AUSCULTATION: Yes normoactive bowel sounds PALPATION: Yes Soft to palpation and Yes No hepatosplenomegaly present RECTAL EXAM: Yes deferred Extremity: COMMON NORMALS: no clubbing, cyanosis or edema and no pedal edema Neuro: COMMON NORMALS: patient oriented x3 Urinary Catheter Management: Snider: Cath Placed During This Visit: yes Reason for Continuing Indwelling Catheter: Acute Urinary Retention or Obstruction Urinary Catheter Date of Insertion: 01/07/23 Urinary Catheter Time of Insertion: 02:44 Data 01/14/23 04:58 01/14/23 04:58 Micro: Microbiology 01/11/23 10:15 Gram Stain - Final Sputum - Expectorated Sputum Sputum Culture - Final A&P Assessment and plan (1) CHF exacerbation: (2) COPD (chronic obstructive pulmonary disease): (3) Grade II diastolic dysfunction: (4) S/P CABG (coronary artery bypass graft): (5) Hyperlipidemia, unspecified: Qualifiers: Hyperlipidemia type: mixed hyperlipidemia Qualified Code(s): E78.2 - Mixed hyperlipidemia (6) HTN, goal below 130/80: (7) CKD (chronic kidney disease): (8) Adult onset hypothyroidism: (9) CAD (coronary artery disease): (10) Left lower lobe pneumonia: (11) Chest pain: (12) Non-ST elevation IN (NSTEMI): (13) Atrial fibrillation with rapid ventricular response: Plan Left lower lobe pneumonia -CT chest without contrast: Showing lower lobe consolidation, predominantly left lower lobe, with possible minimal consideration on the right lower lobe, bilateral pleural effusion with adjacent compressive atelectasis. -Blood cultures: NTD -MRSA PCR : Negative -Sputum cultures: Few white blood cells , no organisms seen -DuoNeb, budesonide -Was on Vancomycin, Zosyn. Vancomycin has been discontinued today Chest pain: Troponin trend: -80 -2D echo:?global?hypokinesis with an ejection fraction of 35 to 40%. There has been slight drop in EF when compared to prior study. Serial EKG. Telemetry monitoring Given the overall bad kidney function, it will be prudent to manage chest pain conservatively for now. 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 Monitor intake output charting Monitor daily weight Monitor electrolytes OANH on CKD: Serum creatinine appears to be around 1.5-1 - 1.9. Admission serum creatinine 1.9 Monitor BMP Monitor intake and output charting Avoid nephrotoxic's Brief Atrial Fib with RVR: Resolved with Cardizem and p.o. metoprolol Full dose anticoagulation currently has been avoided due to risk of bleeding COPD, hold off on steroids for now History of CABG History of CVA History of diabetes, last A1c 4.5 CODE STATUS, patient does not want to be resuscitated, DNR, but is agreeable to intubation if required Lovenox for DVT prophylaxis Attestations Medical Necessity Statement*: Needs to be in hospital management decompensated heart failure Coding Level of Care Code Acute Code for Chg Fwd Diagnoses CHF exacerbation I50.9 COPD (chronic obstructive pulmonary disease) J44.9 Grade II diastolic dysfunction I51.89 S/P CABG (coronary artery bypass graft) Z95.1 Hyperlipidemia, unspecified E78.2 Hyperlipidemia type: mixed hyperlipidemia HTN, goal below 130/80 I10 CKD (chronic kidney disease) N18.9 Adult onset hypothyroidism E03.8 CAD (coronary artery disease) I25.10 Left lower lobe pneumonia J18.9 Chest pain R07.9 Non-ST elevation IN (NSTEMI) I21.4 Atrial fibrillation with rapid ventricular response I48.91
[2023-01-14] VITALS (15 sets, daily range): BP systolic 109–148; BP diastolic 67–82; PULSE 83–124; RESP 17–21; TEMP 36.3–36.7; O2SAT 91–96
[2023-01-14] MEDS: dilTIAZem 30 mg Tablet PO ×4 (00:25→18:20)
[2023-01-14] MEDS: piperacillin-tazobactam 3.375 GM in sodium chloride 0.9% (plus) 50 ML IV ×3 (01:27→18:15)
[2023-01-14] MEDS: levalbuterol 1.25 mg/3 mL Neb INHALATION ×4 (01:43→20:18)
[2023-01-14] MEDS: ipratropium 0.5 mg/2.5 mL Neb INHALATION ×4 (01:43→20:18)
[2023-01-14] MEDS: ondansetron 2 mg/ML SDV 2 mL 4 MG IVP (04:42)
[2023-01-14 05:22] LABS: Basophils % 0.2 %; Eosinophils # 0.3 10^3/uL (0.0-0.8); Hemoglobin 10.5 g/dL (11.7-16.6); Lymphocytes # 0.9 10^3/uL (0.8-4.8); Lymphocytes % 14.5 %; Mean Corpuscular HGB Conc 30.9 g/dL (30.0-36.0); Mean Corpuscular Hemoglobin 28.1 pg (28.0-34.0); Mean Corpuscular Volume 90.9 fl (80-94); Mean Platelet Volume 11.7 fL (7.4-10.4); Monocytes # 0.5 10^3/uL (0.2-0.9); Monocytes % 8.5 %; Neutrophils # 4.44 10^3/uL (1.8-7.7); Neutrophils % 71.5 %; Nucleated Red Blood Cells % 0 %; Platelet Count 216 10^3/cmm (130-400); Red Blood Count 3.74 10^6/uL (4.1-5.3); Red Cell Distribution Width 15.7 % (12.1-15.1); White Blood Count 6.2 10^3/uL (4.0-10.0)
[2023-01-14] MEDS: budesonide 0.5 mg/2 mL Neb INHALATION ×2 (07:53→20:18)
[2023-01-14 07:55] LABS: Anion Gap 19.4 (5-19); Blood Urea Nitrogen 64 mg/dL (8-23); Calcium 8.6 mg/dL (8.5-10.5); Carbon Dioxide 20 mmol/L (22-29); Chloride 102 mmol/L (98-107); Glucose 98 mg/dL (65-115); Osmolality Calculated 304 mOsm/kg (285-295); Potassium 3.4 mmol/L (3.5-5.1); Sodium 138 mmol/L (136-145)
[2023-01-14] MEDS: enoxaparin 30 mg/0.3 mL Syringe SUBCUT (08:28)
[2023-01-14] MEDS: duloxetine 60 mg Capsule PO ×2 (08:29→18:14)
[2023-01-14] MEDS: sucralfate 1 gm Tablet PO ×4 (08:29→21:17)
[2023-01-14] MEDS: docusate sodium 100 mg Capsule PO ×2 (08:29→18:13)
[2023-01-14] MEDS: atorvastatin 40 mg Tablet 80 MG PO (08:29)
[2023-01-14] MEDS: metoprolol tartrate 25 mg Tablet PO ×2 (08:29→21:17)
[2023-01-14] MEDS: tamsulosin 0.4 mg Capsule PO ×2 (08:29→18:13)
[2023-01-14] MEDS: fenofibrate 145 mg Tablet PO (08:29)
[2023-01-14] MEDS: levothyroxine 75 mcg Tablet PO (08:29)
[2023-01-14] MEDS: cholecalciferol (vitamin D3) 1,000 unit Tablet 2000 UNIT PO (08:29)
[2023-01-14] MEDS: aspirin 81 mg EC Tablet PO (08:30)
[2023-01-14] MEDS: pantoprazole DR 40 mg Tablet PO ×2 (08:30→18:14)
[2023-01-14] MEDS: benzonatate 100 mg Capsule PO ×2 (08:30→21:17)
--- NOTE | 2023-01-14 10:21 | CTR_ITS ---
PROCEDURE INFORMATION: Exam: CT Abdomen And Pelvis Without Contrast Exam date and time: 01/14/2023 3:31 PM Age: 82 years old Clinical indication: Abdominal pain; Localized; Left lower quadrant TECHNIQUE: Imaging protocol: Computed tomography of the abdomen and pelvis without contrast. Radiation optimization: All CT scans at this facility use at least one of these dose optimization techniques: automated exposure control; mA and/or kV adjustment per patient size (includes targeted exams where dose is matched to clinical indication); or iterative reconstruction. REPORTING DATA: Count of CT and Cardiac NM exams in prior 12 months: This patient has received 4 known CTs and 0 known cardiac nuclear medicine studies in the 12 months prior to the current study. COMPARISON: CT abdomen pelvis wo con [id number] 01/06/2023 10:58 PM RADIATION DOSE METRICS: Total DLP (mGy-cm): 716.62 FINDINGS: Pleural spaces: Large bilateral pleural effusions with adjacent compressive atelectasis. Heart: Cardiomegaly. Coronary arteries: Multivessel atherosclerotic disease which involves the coronary arteries. Liver: Normal. No mass. Gallbladder and bile ducts: The gallbladder has been removed. Pancreas: Normal. No ductal dilation. Spleen: Normal. No splenomegaly. Adrenal glands: There is a 14 mm focal hypodense mass in the right adrenal gland, consistent in appearance and density with a benign adrenal adenoma. Kidneys and ureters: Normal. No hydronephrosis. Stomach and bowel: Colonic constipation is present. There are multiple colonic diverticula. Associated mucosal thickening and mesenteric inflammatory stranding is present at the junction of the distal descending and sigmoid colon consistent with diverticulitis. No large abscess formation is seen. Appendix: A normal appendix is identified. Intraperitoneal space: There is small amount of free intraperitoneal fluid/ascites in the abdomen. Vasculature: Unremarkable. No abdominal aortic aneurysm. Lymph nodes: Unremarkable. No enlarged lymph nodes. Urinary bladder: There is a Snider catheter in the bladder. Bladder wall appears thickened in regions and irregular in contour. This is not optimally evaluated as the bladder is collapsed about the Snider catheter. Reproductive: There are calcifications in the prostate gland.Prostate gland indents the base of the bladder consistent with median lobe enlargement. Bones/joints: There are degenerative changes in the visualized spine. Multilevel lumbar disc bulges. A subchondral cyst is present in the right acetabulum. Soft tissues: There is edema in the soft tissues. CT/CT abdomen pelvis wo con [id number] IMPRESSION: 1. Findings consistent with acute diverticulitis. 2. Cardiomegaly with large bilateral pleural effusions consistent with congestive heart failure. There is associated soft tissue edema and intraperitoneal free fluid/ascites. 3. Bladder wall appears thickened in regions and irregular in contour.This is nonspecific and may represent neoplastic process, bladder outlet obstruction, inflammation or infection. This is not optimally evaluated as the bladder is collapsed about the Snider catheter. 4. Prostate gland indents the base of the bladder consistent with median lobe enlargement. 5. Colonic constipation. COMMENTS: Consistent with the [employer]'s Incidental Findings Committee white paper ([employer] 2017): For any incidental adrenal lesion greater than or equal to 1 cm but less than or equal to 4 cm classified in this report as benign, likely benign, or containing fat (including classification as an adenoma or myelolipoma), no follow-up imaging is recommended per consensus recommendations based on imaging criteria. Further lab evaluation could be pursued if warranted based on clinical findings.
--- NOTE | 2023-01-14 16:18 | P.PN_ITS ---
Subjective Subjective: Patient was seen and examined this morning shortness of breath is improved, patient is having recurrent vomiting for the last few days, CT abdomen and pelvis was done: Which is suggestive of acute diverticulitis. Medications: Medication Review Details: Generic Name Dose Route Start Last Admin Trade Name Freq PRN Reason Stop Dose Admin Acetaminophen 650 mg 01/07/23 02:19 01/12/23 02:20 Acetaminophen 32 5 Mg Tablet PO 650 mg Q6H PRN Administration Mild/Mod Pain Or Temp >/= 101 Aspirin 81 mg 01/07/23 02:19 01/14/23 08:30 Aspirin 81 Mg Ec Tablet PO 81 mg DAILY KELSEY Administration Atorvastatin Calci um 80 mg 01/07/23 09:00 01/14/23 08:29 Atorvastatin 40 Mg Tablet PO 80 mg DAILY KELSEY Administration Benzonatate 100 mg 01/09/23 10:00 01/14/23 08:30 Benzonatate 100 Mg Capsule PO 100 mg TID KELSEY Administration Budesonide 0.5 mg 01/07/23 08:00 01/14/23 07:53 Budesonide 0.5 M g/2 Ml Neb INHALATION 0.5 mg BID.RESPIRATORY S CH Administration Diltiazem HCl 30 mg 01/07/23 22:00 01/14/23 11:56 Diltiazem 30 Mg Tablet PO 30 mg Q6H KELSEY Administration Docusate Sodium 100 mg 01/07/23 09:00 01/14/23 08:29 Docusate Sodium 100 Mg Capsule PO 100 mg DAILY KELSEY Administration Duloxetine HCl 60 mg 01/07/23 09:00 01/14/23 08:29 Duloxetine 60 Mg Capsule PO 60 mg BID KELSEY Administration Enoxaparin Sodium 30 mg 01/10/23 08:00 01/14/23 08:28 Enoxaparin 30 Mg /0.3 Ml Syringe SUBCUT 30 mg Q24H KELSEY Administration Fenofibrate 145 mg 01/07/23 09:00 01/14/23 08:29 Fenofibrate 145 Mg Tablet PO 145 mg DAILY KELSEY Administration Piperacillin Sod/T azobactam 50 mls @ 12.5 mls /hr 01/07/23 10:00 01/14/23 10:29 Sod 3.375 gm/ So dium Chloride IV 12.5 mls/hr Q8H KELSEY Administration Protocol Ipratropium Bromid e 0.5 mg 01/11/23 14:00 01/14/23 13:23 Ipratropium 0.5 Mg/2.5 Ml Neb INHALATION 0.5 mg Q6H.RESP KELSEY Administration Levalbuterol HCl 1.25 mg 01/11/23 14:00 01/14/23 13:23 Levalbuterol 1.2 5 Mg/3 Ml Neb INHALATION 1.25 mg Q6H.RESP KELSEY Administration Levothyroxine Sodi um 75 mcg 01/07/23 09:00 01/14/23 08:29 Levothyroxine 75 Mcg Tablet PO 75 mcg DAILY KELSEY Administration Losartan Potassium 50 mg 01/07/23 09:00 01/08/23 09:10 Losartan 50 Mg T ablet PO 50 mg DAILY KELSEY Administration Metoprolol Tartrat e 25 mg 01/07/23 06:30 01/14/23 08:29 Metoprolol Tartr ate 25 Mg Tablet PO 25 mg BID@0900,2100 KELSEY Administration Ondansetron HCl 4 mg 01/07/23 02:19 01/14/23 04:42 Ondansetron 2 Mg /Ml Sdv 2 Ml IVP 4 mg Q8H PRN Administration vomiting, or N/V if npo Pantoprazole Sodiu m 40 mg 01/07/23 09:00 01/14/23 08:[address] 40 Mg Tablet PO 40 mg BID KELSEY Administration Sucralfate 1 gm 01/07/23 02:19 01/14/23 11:56 Sucralfate 1 Gm Tablet PO 1 gm QID KELSEY Administration Tamsulosin HCl 0.4 mg 01/07/23 09:00 01/14/23 08:29 Tamsulosin 0.4 M g Capsule PO 0.4 mg BID KELSEY Administration Vitamin D 2,000 unit 01/07/23 09:00 01/14/23 08:29 Cholecalciferol (Vitamin D3) 1,000 Unit Tablet PO 2,000 unit DAILY KELSEY Administration Vitals/I&O/Wt Last Vital Signs Temp 97.4 F L 01/14/23 12:00 Pulse 123 H 01/14/23 13:25 Resp 18 01/14/23 13:15 BP 132/79 01/14/23 12:00 Pulse Ox 95 01/14/23 13:15 O2 Del Method Nasal Cannula 01/14/23 13:15 O2 Flow Rate 2 01/14/23 13:15 01/14/23 01/14/23 01/14/23 06:59 14:59 22:59 Intake Total 290 / 1350 480 / 480 Output Total 600 / 600 Balance 290 / 1050 -120 / -120 Physical Exam Const: COMMON NORMALS: patient oriented x3 Resp: COMMON NORMALS: clear to auscultation bilaterally AUSCULTATION: clear to auscultation bilaterally OTHER: Diminished air entry bilaterally Cardio: COMMON NORMALS: regular rate, regular rhythm, S1 normal heart sound present, S2 normal heart sound present, No gallops present (Cardio), No murmurs present (Cardio), No rub (Cardio) and Peripheral pulses 2+ throughout RATE: regular rate RHYTHM: regular rhythm HEART SOUNDS: S1 normal heart sound present and S2 normal heart sound present PERIPHERAL PULSES: Peripheral puls es 2+ throughout GI: COMMON NORMALS: Normal to inspection, nondistended, normoactive bowel sounds present, Soft to palpation, non-tender, No hepatosplenomegaly present and no masses AUSCULTATION: Yes normoactive bowel sounds PALPATION: Yes Soft to palpation and Yes No hepatosplenomegaly present RECTAL EXAM: Yes deferred Extremity: COMMON NORMALS: no clubbing, cyanosis or edema and no pedal edema Neuro: COMMON NORMALS: patient oriented x3 Urinary Catheter Management: Snider: Cath Placed During This Visit: yes Reason for Continuing Indwelling Catheter: Acute Urinary Retention or Obstruction Urinary Catheter Date of Insertion: 01/07/23 Urinary Catheter Time of Insertion: 02:44 Data 01/14/23 04:58 01/14/23 04:58 Micro: Microbiology 01/11/23 10:15 Gram Stain - Final Sputum - Expectorated Sputum Sputum Culture - Final A&P Assessment and plan (1) CHF exacerbation: (2) COPD (chronic obstructive pulmonary disease): (3) Grade II diastolic dysfunction: (4) S/P CABG (coronary artery bypass graft): (5) Hyperlipidemia, unspecified: Qualifiers: Hyperlipidemia type: mixed hyperlipidemia Qualified Code(s): E78.2 - Mixed hyperlipidemia (6) HTN, goal below 130/80: (7) CKD (chronic kidney disease): (8) Adult onset hypothyroidism: (9) CAD (coronary artery disease): (10) Left lower lobe pneumonia: (11) Chest pain: (12) Non-ST elevation ID (NSTEMI): (13) Atrial fibrillation with rapid ventricular response: Plan Left lower lobe pneumonia -CT chest without contrast: Showing lower lobe consolidation, predominantly left lower lobe, with possible minimal consideration on the right lower lobe, bilateral pleural effusion with adjacent compressive atelectasis. -Blood cultures: NTD -MRSA PCR : Negative -Sputum cultures: Few white blood cells , no organisms seen -DuoNeb, budesonide -Was on Vancomycin, Zosyn. Vancomycin has been discontinued today Chest pain: Troponin trend: -80 2D echo:?global?hypokinesis with an ejection fraction of 35 to 40%.There has been slight drop in EF when compared to prior study. Serial EKG. Telemetry monitoring Given the overall bad kidney function, it will be prudent to manage chest pain conservatively for now. 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 Monitor intake output charting Monitor daily weight Monitor electrolytes OANH on CKD: Serum creatinine appears to be around 1.5-1 - 1.9. Admission serum creatinine 1.9 Monitor BMP Monitor intake and output charting Avoid nephrotoxic's Paroxysmal Atrial Fib with RVR: Resolved with Cardizem and p.o. metoprolol Full dose anticoagulation currently has been avoided due to risk of bleeding Acute diverticulitis: Patient is having left lower quadrant abdominal pain, he is also having nausea and vomiting. CT abdomen and pelvis: Is consistent with acute diverticulitis Currently appropriately covered with Zosyn Bilateral pleural effusion: We will plan for a.m. thoracentesis Follow pleural fluid analysis COPD, hold off on steroids for now History of CABG History of CVA History of diabetes, last A1c 4.5 CODE STATUS, patient does not want to be resuscitated, DNR, but is agreeable to intubation if required Lovenox for DVT prophylaxis Attestations Medical Necessity Statement*: Needs to be in hospital for IV antibiotics. Coding Level of Care Code Acute Code for Chg Fwd Diagnoses CHF exacerbation I50.9 COPD (chronic obstructive pulmonary disease) J44.9 Grade II diastolic dysfunction I51.89 S/P CABG (coronary artery bypass graft) Z95.1 Hyperlipidemia, unspecified E78.2 Hyperlipidemia type: mixed hyperlipidemia HTN, goal below 130/80 I10 CKD (chronic kidney disease) N18.9 Adult onset hypothyroidism E03.8 CAD (coronary artery disease) I25.10 Left lower lobe pneumonia J18.9 Chest pain R07.9 Non-ST elevation ID (NSTEMI) I21.4 Atrial fibrillation with rapid ventricular response I48.91
[2023-01-15] VITALS (15 sets, daily range): BP systolic 120–152; BP diastolic 70–88; PULSE 84–108; RESP 16–20; TEMP 36.2–36.5; O2SAT 92–98
[2023-01-15] MEDS: dilTIAZem 30 mg Tablet PO ×4 (00:25→17:39)
[2023-01-15] MEDS: piperacillin-tazobactam 3.375 GM in sodium chloride 0.9% (plus) 50 ML IV ×3 (02:50→17:38)
[2023-01-15] MEDS: ipratropium 0.5 mg/2.5 mL Neb INHALATION ×4 (03:13→19:42)
[2023-01-15] MEDS: levalbuterol 1.25 mg/3 mL Neb INHALATION ×4 (03:13→19:42)
[2023-01-15 04:55] LABS: Basophils % 0.4 %; Eosinophils # 0.3 10^3/uL (0.0-0.8); Eosinophils % 6.3 %; Hematocrit 33.9 % (42.0-52.0); Hemoglobin 10.4 g/dL (11.7-16.6); Lymphocytes # 0.9 10^3/uL (0.8-4.8); Lymphocytes % 16.2 %; Mean Corpuscular HGB Conc 30.7 g/dL (30.0-36.0); Mean Corpuscular Hemoglobin 27.7 pg (28.0-34.0); Mean Corpuscular Volume 90.2 fl (80-94); Mean Platelet Volume 12.1 fL (7.4-10.4); Monocytes # 0.6 10^3/uL (0.2-0.9); Monocytes % 10.8 %; Neutrophils # 3.48 10^3/uL (1.8-7.7); Neutrophils % 66.1 %; Nucleated Red Blood Cells % 0 %; Platelet Count 217 10^3/cmm (130-400); Red Blood Count 3.76 10^6/uL (4.1-5.3); Red Cell Distribution Width 15.5 % (12.1-15.1); White Blood Count 5.3 10^3/uL (4.0-10.0)
[2023-01-15 05:08] LABS: INR 1.13 (0.8-1.2)
[2023-01-15 05:13] LABS: Alanine Aminotransferase 12 U/L (0-41); Alkaline Phosphatase 46 U/L (40-130); Anion Gap 13.3 (5-19); Aspartate Amino Transferase 16 U/L (0-40); Blood Urea Nitrogen 50 mg/dL (8-23); Calcium 8.9 mg/dL (8.5-10.5); Carbon Dioxide 25 mmol/L (22-29); Chloride 102 mmol/L (98-107); Glucose 106 mg/dL (65-115); Lactate Dehydrogenase 173 U/L (135-225); Osmolality Calculated 298 mOsm/kg (285-295); Potassium 3.3 mmol/L (3.5-5.1); Sodium 137 mmol/L (136-145); Total Bilirubin 0.2 mg/dL (0.15-1.2)
--- NOTE | 2023-01-15 08:00 | PM.PN ---
Subjective Subjective: Patient continues to improve. No chest pain. Shortness of breath also is better. Vital signs are stable. Medications: Medication Review Details: Current Medications Acetaminophen (Acetaminophen 325 Mg Tablet) 650 mg PO Q6H PRN PRN Reason: Mild/Mod Pain Or Temp >/= 101 Last Admin: 01/12/23 02:20 Dose: 650 mg Aspirin (Aspirin 81 Mg Ec Tablet) 81 mg PO DAILY KELSEY Last Admin: 01/14/23 08:30 Dose: 81 mg Atorvastatin Calcium (Atorvastatin 40 Mg Tablet) 80 mg PO DAILY KELSEY Last Admin: 01/14/23 08:29 Dose: 80 mg Benzonatate (Benzonatate 100 Mg Capsule) 100 mg PO TID KELSEY Last Admin: 01/14/23 21:17 Dose: 100 mg Budesonide (Budesonide 0.5 Mg/2 Ml Neb) 0.5 mg INHALATION BID.RESPIRATORY KELSEY Last Admin: 01/14/23 20:18 Dose: 0.5 mg Diltiazem HCl (Diltiazem 30 Mg Tablet) 30 mg PO Q6H [facility], [facility] Last Admin: 01/15/23 07:05 Dose: 30 mg Docusate Sodium (Docusate Sodium 100 Mg Capsule) 100 mg PO BID KELSEY Last Admin: 01/14/23 18:13 Dose: 100 mg Duloxetine HCl (Duloxetine 60 Mg Capsule) 60 mg PO BID [facility], [facility]1983 Last Admin: 01/14/23 18:14 Dose: 60 mg Enoxaparin Sodium (Enoxaparin 30 Mg/0.3 Ml Syringe) 30 mg SUBCUT Q24H [facility], [facility] Last Admin: 01/14/23 08:28 Dose: 30 mg Fenofibrate (Fenofibrate 145 Mg Tablet) 145 mg PO DAILY KELSEY Last Admin: 01/14/23 08:29 Dose: 145 mg Piperacillin Sod/Tazobactam (Sod 3.375 gm/ Sodium Chloride) 50 mls @ 12.5 mls/hr IV Q8H [facility], [facility]; Protocol Last Infusion: 01/15/23 07:06 Dose: Infused Ipratropium [place]if[place] (Ipratropium 0.5 Mg/2.5 Ml Neb) 0.5 mg INHALATION Q6H.RESP KELSEY Last Admin: 01/15/23 03:13 Dose: 0.5 mg Levalbuterol HCl (Levalbuterol 1.25 Mg/3 Ml Neb) 1.25 mg INHALATION Q6H.RESP [facility], [facility]1983 Last Admin: 01/15/23 03:13 Dose: 1.25 mg Levothyroxine Sodium (Levothyroxine 75 Mcg Tablet) 75 mcg PO DAILY [facility], [facility] Last Admin: 01/14/23 08:29 Dose: 75 mcg Losartan Potassium (Losartan 50 Mg Tablet) 50 mg PO DAILY [facility] Last Admin: 01/08/23 09:10 Dose: 50 mg Metoprolol Tartrate (Metoprolol Tartrate 25 Mg Tablet) 25 mg PO BID@0900,2100 [facility], [facility] Last Admin: 01/14/23 21:17 Dose: 25 mg Naloxone HCl (Naloxone 0.4 Mg/Ml Sdv) 0.1 mg IVP Q2M PRN PRN Reason: OPIATERV Ondansetron HCl (Ondansetron 2 Mg/Ml Sdv 2 Ml) 4 mg IVP Q8H PRN PRN Reason: vomiting, or N/V if npo Last Admin: 01/14/23 04:42 Dose: 4 mg Pantoprazole Sodium (Pantoprazole Dr 40 Mg Tablet) 40 mg PO BID [facility], [facility] Last Admin: 01/14/23 18:14 Dose: 40 mg Sucralfate (Sucralfate 1 Gm Tablet) 1 gm PO QID [facility], [facility] Last Admin: 01/14/23 21:17 Dose: 1 gm Tamsulosin HCl (Tamsulosin 0.4 Mg Capsule) 0.4 mg PO BID [facility], [facility] Last Admin: 01/14/23 18:13 Dose: 0.4 mg Vitamin D (Cholecalciferol (Vitamin D3) 1,000 Unit Tablet) 2,000 unit PO DAILY [facility] Last Admin: 01/14/23 08:29 Dose: 2,000 unit Vitals/I&O/Wt Last Vital Signs Temp 97.6 F 01/15/23 07:26 Pulse 108 H 01/15/23 07:26 Resp 17 01/15/23 07:26 BP 138/88 01/15/23 07:26 Pulse Ox 97 01/15/23 07:26 O2 Del Method Nasal Cannula 01/15/23 03:53 O2 Flow Rate 2 01/15/23 03:10 01/14/23 01/15/23 01/15/23 22:59 06:59 14:59 Intake Total 290 / 820 50 / 50 Output Total 550 / 1150 1250 / 2400 Balance -260 / -330 -1250 / -1580 50 / 50 Physical Exam Narrative: GENERAL: The patient is alert and oriented times three. Not in any acute distress. HEENT: Mild pallor. No icterus or lymphadenopathy.Oral cavity: There are no mucous membrane lesions. NECK: Trachea appears to be central. No masses noted. No JVD or thyromegaly appreciated. RESPIRATORY: Scattered coarse crackles. The intensity of breath sounds are somewhat diminished in the bases. BREASTS: Deferred. HEART: The heart sounds are normal. No S3 or S4. No significant murmurs. No pericardial rub ABDOMEN: No vessel pulsations or distention. No tenderness. No organomegaly appreciated. Bowel sounds are normally heard. : Deferred. RECTAL: Deferred. LYMPHATIC: No lymphadenopathy noted in the neck. EXTREMITIES: The dorsalis pedis and posterior pulses are weak bilaterally. MUSCULOSKELETAL: No acute joint deformities or swelling SKIN: There are no significant rashes or ecchymosis NEUROPSYCHIATRIC: The patient is alert and oriented x3. Appears to be in a good mood. No tremors or rigidity noted. Urinary Catheter Management: Snider: Cath Placed During This Visit: yes Reason for Continuing Indwelling Catheter: Other Urinary Catheter Date of Insertion: 01/07/23 Urinary Catheter Time of Insertion: 02:44 Data 01/15/23 04:16 01/15/23 04:16 Other Labs: Laboratory Last Values WBC 5.3 10^3/uL (4.0-10.0) 01/15/23 04:16 RBC 3.76 10^6/uL (4.1-5.3) L 01/15/23 04:16 Hgb 10.4 g/dL (11.7-16.6) L 01/15/23 04:16 Hct 33.9 % (42.0-52.0) L 01/15/23 04:16 MCV 90.2 fl (80-94) 01/15/23 04:16 MCH 27.7 pg (28.0-34.0) L 01/15/23 04:16 MCHC 30.7 g/dL (30.0-36.0) 01/15/23 04:16 RDW 15.5 % (12.1-15.1) H 01/15/23 04:16 Plt Count 217 10^3/cmm (130-400) 01/15/23 04:16 MPV 12.1 fL (7.4-10.4) H 01/15/23 04:16 Neut % (Auto) 66.1 % 01/15/23 04:16 Lymph % (Auto) 16.2 % 01/15/23 04:16 [place] % (Auto) 10.8 % 01/15/23 04:16 Eos % (Auto) 6.3 % 01/15/23 04:16 Baso % (Auto) 0.4 % 01/15/23 04:16 Neut # (Auto) 3.48 10^3/uL (1.8-7.7) 01/15/23 04:16 Lymph # (Auto) 0.9 10^3/uL (0.8-4.8) 01/15/23 04:16 [place] # (Auto) 0.6 10^3/uL (0.2-0.9) 01/15/23 04:16 Eos # (Auto) 0.3 10^3/uL (0.0-0.8) 01/15/23 04:16 Baso # (Auto) 0.0 10^3/uL (0.0-0.1) 01/15/23 04:16 Nucleated RBC % (auto) 0 % 01/15/23 04:16 Nucleated RBCs # 0.0 /100WBC 01/15/23 04:16 PT 14.80 SECONDS (12.1-14.9) 01/15/23 04:16 INR 1.13 (0.8-1.2) 01/15/23 04:16 Sodium 137 mmol/L (136-145) 01/15/23 04:16 Potassium 3.3 mmol/L (3.5-5.1) L 01/15/23 04:16 Chloride 102 mmol/L (98-107) 01/15/23 04:16 Carbon Dioxide 25 mmol/L (22-29) 01/15/23 04:16 Anion Gap 13.3 (5-19) 01/15/23 04:16 BUN 50 mg/dL (8-23) H 01/15/23 04:16 Creatinine 2.7 mg/dL (0.7-1.2) H 01/15/23 04:16 GFR Calculation Not Reportable 01/15/23 04:16 Glucose 106 mg/dL (65-115) 01/15/23 04:16 Calculated Osmolality 298 mOsm/kg (285-295) H 01/15/23 04:16 Lactate 1.9 mmol/L (0.5-2.2) 01/06/23 21:39 Calcium 8.9 mg/dL (8.5-10.5) 01/15/23 04:16 Total Bilirubin 0.2 mg/dL (0.15-1.2) 01/15/23 04:16 AST 16 U/L (0-40) 01/15/23 04:16 ALT 12 U/L (0-41) 01/15/23 04:16 Alkaline Phosphatase 46 U/L (40-130) 01/15/23 04:16 Lactate Dehydrogenase 173 U/L (135-225) 01/15/23 04:16 Troponin T Baseline 87 ng/L (0-15) H 01/06/23 21:39 Troponin T 120 Minute 89.12 ng/L (0-15) H 01/06/23 23:36 Delta Troponin T 2.12 ABS# (0-10) 01/06/23 23:36 Troponin T Hi Sens 6Hr 80.97 ng/L (0-15) H 01/07/23 03:39 Troponin T Hi Sens 6Hr Delta -6.03 ng/L (0-12) L 01/07/23 03:39 NT-Pro-B Natriuret Pep 94008 pg/mL (0-450) H 01/06/23 21:39 Total Protein 6.0 g/dL (6.6-8.7) L 01/15/23 04:16 Albumin 3.0 g/dL (3.5-5.2) L 01/15/23 04:16 Globulin 3.0 g/dL (1.3-4.6) 01/15/23 04:16 Vancomycin Trough 27.8 ug/mL (10-15) H* 01/12/23 02:08 A&P Assessment and plan (1) Atherosclerotic heart disease of [place] coronary artery with other forms of angina pectoris: The patient does not have any significant chest pains at the time. So he may be continued on the current medications. (2) Ischemic cardiomyopathy: The heart failure seems to be fairly compensated. May give the Lasix on a as needed basis (3) Acute kidney injury superimposed on chronic kidney disease: The creatinine level is going up while the BUN is coming down. Consider nephrology input (4) COPD (chronic obstructive pulmonary disease): This is being treated with bronchodilators and other symptomatic measures. (5) Left lower lobe pneumonia: Clinically improving. Still on IV antibiotics. (6) Hyperlipidemia, unspecified: May continue on the current medications. Qualifiers: Hyperlipidemia type: mixed hyperlipidemia Qualified Code(s): E78.2 - Mixed hyperlipidemia (7) Carotid stenosis: Patient was found to have 50 to 69% stenosis on the right side and less than 50% stenosis on the left side as mentioned above. May continue on the current management (8) PVD (peripheral vascular disease): Was found to be mild peripheral artery disease by angiogram. Patient did not require any specific intervention at this point (9) Controlled diabetes mellitus: May continue on the current management. Qualifiers: Chronic kidney disease stage: stage 2 (mild) Diabetes mellitus complication detail: with chronic kidney disease Diabetes mellitus complication status: with kidney complications Diabetes mellitus custodial insulin use: without terminal superintendent use Diabetes mellitus type: type 2 Qualified Code(s): E11.22 - Type 2 diabetes mellitus with diabetic chronic kidney disease; N18.2 - Chronic kidney disease, stage 2 (mild) (10) Atrial fibrillation with rapid ventricular response: Telemetry shows episodes of brief atrial fibrillation Plan Other problems are as outlined before May continue on the current management May start on Lasix 40 mg p.o. daily Attestations Medical Necessity Statement*: Disposition as per the primary Coding Level of Care Code 94953 Diagnoses Atherosclerotic heart disease of [place] coronary artery with other forms of angina pectoris I25.118 Ischemic cardiomyopathy I25.5 Acute kidney injury superimposed on chronic kidney disease N17.9; N18.9 COPD (chronic obstructive pulmonary disease) J44.9 Left lower lobe pneumonia J18.9 Hyperlipidemia, unspecified E78.2 Hyperlipidemia type: mixed hyperlipidemia Carotid stenosis I65.29 PVD (peripheral vascular disease) I73.9 Controlled diabetes mellitus E11.22; N18.2 Chronic kidney disease stage: stage 2 (mild) Diabetes mellitus complication detail: with chronic kidney disease Diabetes mellitus complication status: with kidney complications Diabetes mellitus custodial insulin use: without custodial use Diabetes mellitus type: type 2 Atrial fibrillation with rapid ventricular response I48.91
[2023-01-15] MEDS: budesonide 0.5 mg/2 mL Neb INHALATION ×2 (08:19→19:42)
[2023-01-15] MEDS: tamsulosin 0.4 mg Capsule PO ×2 (09:49→17:39)
[2023-01-15] MEDS: cholecalciferol (vitamin D3) 1,000 unit Tablet 2000 UNIT PO (09:49)
[2023-01-15] MEDS: benzonatate 100 mg Capsule PO ×3 (09:49→21:18)
[2023-01-15] MEDS: levothyroxine 75 mcg Tablet PO (09:49)
[2023-01-15] MEDS: atorvastatin 40 mg Tablet 80 MG PO (09:50)
[2023-01-15] MEDS: duloxetine 60 mg Capsule PO ×2 (09:50→17:39)
[2023-01-15] MEDS: sucralfate 1 gm Tablet PO ×4 (09:50→21:18)
[2023-01-15] MEDS: pantoprazole DR 40 mg Tablet PO ×2 (09:50→17:39)
[2023-01-15] MEDS: metoprolol tartrate 25 mg Tablet PO ×2 (09:51→21:18)
[2023-01-15] MEDS: fenofibrate 145 mg Tablet PO (09:52)
--- NOTE | 2023-01-15 11:10 | PM.PN ---
Subjective Subjective: Morning she is on 2 L which is his home requirement No active chest pain or shortness of breath Awaiting thoracentesis A-fib with intermittent RVR Vitals/I&O/Wt Last Vital Signs Temp 97.6 F 01/15/23 07:26 Pulse 108 H 01/15/23 08:27 Resp 20 H 01/15/23 08:20 BP 138/88 01/15/23 07:26 Pulse Ox 98 01/15/23 08:20 O2 Del Method Nasal Cannula 01/15/23 08:20 O2 Flow Rate 2 01/15/23 08:20 01/14/23 01/15/23 01/15/23 22:59 06:59 14:59 Intake Total 290 / 820 50 / 50 Output Total 550 / 1150 1250 / 2400 Balance -260 / -330 -1250 / -1580 50 / 50 Physical Exam Narrative: A-fib RVR Clinically looks to be in mild congestive heart failure 1+ edema Abdomen soft Awake and alert No audible stridor or wheezing Currently on 2 L Nonfocal neuro exam Urinary Catheter Management: Snider: Cath Placed During This Visit: yes Reason for Continuing Indwelling Catheter: Other Urinary Catheter Date of Insertion: 01/07/23 Urinary Catheter Time of Insertion: 02:44 Data 01/15/23 04:16 01/15/23 04:16 A&P Assessment and plan (1) Atrial fibrillation with rapid ventricular response: (2) Acute on chronic systolic heart failure: (3) Ischemic cardiomyopathy: (4) Acute kidney injury superimposed on chronic kidney disease: (5) Non-ST elevation VT (NSTEMI): (6) Left lower lobe pneumonia: (7) Lung nodules: (8) COPD (chronic obstructive pulmonary disease): (9) Grade II diastolic dysfunction: (10) Anemia: (11) Diverticulitis: Plan Diverticulitis No active symptoms Afebrile Left lower lobe pneumonia Vancomycin discontinued Currently on Zosyn Chronic hypoxia requiring 2 L At home uses 2 L NSTEMI Chest discomfort on admission Follow-up cardiology recommendations Patient being managed conservatively for NSTEMI Echo showed EF 35 to 40% with drop in EF from before Mild signs of decompensated heart failure Combined heart failure decompensated Judicious use of diuretics Paroxysmal A-fib Currently on AV marco antonio blocking agent Anticoagulant dose was adjusted because of worsening of kidney function, I will like to give patient therapeutic dose least once a day after thoracentesis Bilateral pleural effusion Awaiting thoracentesis Patient care history of CABG, stroke, diabetes, patient is DO NOT RESUSCITATE but agreeable for intubation if respiratory status worsens Attestations Medical Necessity Statement*: Continue medical manage Anticipating discharge in next 24 hours if stable Diagnoses Atrial fibrillation with rapid ventricular response I48.91 Acute on chronic systolic heart failure I50.23 Ischemic cardiomyopathy I25.5 Acute kidney injury superimposed on chronic kidney disease N17.9; N18.9 Non-ST elevation VT (NSTEMI) I21.4 Left lower lobe pneumonia J18.9 Lung nodules R91.8 COPD (chronic obstructive pulmonary disease) J44.9 Grade II diastolic dysfunction I51.89 Anemia D64.9 Diverticulitis K57.92
[2023-01-15] MEDS: potassium chloride ER 20 mEq Tablet 40 MEQ PO (11:52)
--- NOTE | 2023-01-15 14:20 | XRR_ITS ---
PROCEDURE INFORMATION: Exam: XR Chest Exam date and time: 01/15/2023 4:05 PM Age: 82 years old Clinical indication: Device placement; Other: Post thoracentesis TECHNIQUE: Imaging protocol: Radiologic exam of the chest. Views: 1 view. COMPARISON: CT chest con [id number] 01/06/2023 10:52 PM FINDINGS: Lungs: See Pleural spaces finding. Pleural spaces: There is opacification lower half left hemithorax likely secondary to combination of left pleural effusion and left lower lobe atelectasis that appears to progressed from previous exam. There is haziness projecting over the lower half the right hemithorax likely secondary to layering of pleural effusion and atelectasis relatively stable. Heart/Mediastinum: Heart is moderately enlarged, unchanged. Bones/joints: There are bilateral shoulder replacements and evidence of previous median sternotomy. XR/XR chest 1V portable [id number] IMPRESSION: Cardiomegaly with bilateral pleural effusions and adjacent atelectasis left lower lung zones more pronounced on the left.
[2023-01-15 14:56] LABS: Mononuclear %, Pleural Fluid 78 %; Polynuclear Cells, Pleural % 22 %
[2023-01-15 15:17] LABS: Cyto Order Verification No Order
[2023-01-15 15:23] LABS: Color, Pleural Fluid Pale Yellow (Pale Yellow); PATH Referal YES; Pleural Fluid Albumin 0.9 g/dL
[2023-01-15 15:24] LABS: Appearance, Pleural Fluid CLEAR (CLEAR); LDH Pleural Fluid 73 U/L; Total Protein Pleural Fluid 1.4 g/dL
--- NOTE | 2023-01-15 16:17 | US_ITS ---
WS: [id number] ULTRASOUND-GUIDED THORACENTESIS CLINICAL INFORMATION: Shortness of breath COMPARISON: CT January 06, 2023 PROCEDURE: Informed consent: The risks, benefits, and alternatives of the procedure were discussed with the natalya ent. Verbal and written consent was obtained. Timeout: A timeout was performed to confirm the correct patient, procedure, and site. Site: RIGHT chest Preparation: A suitable skin site was identified. The patient was prepped and draped in usual sterile fashion. Lidocaine 1% was used for local anesthesia. Catheter: 4 [place] One-Step catheter. Fluid Volume: 1000 ml Color: Clear yellow 50 cc sent to the laboratory for further analysis Complications: None Portable radiograph pending. US/ thoracentesis [id number] IMPRESSION: Uncomplicated ultrasound-guided RIGHT thoracentesis.
[2023-01-15] MEDS: enoxaparin 100 mg/mL Syringe 90 MG SUBCUT (21:17)
[2023-01-16] VITALS (9 sets, daily range): BP systolic 120–151; BP diastolic 69–86; PULSE 88–100; RESP 16–18; TEMP 36.4–37.1; O2SAT 84–95
[2023-01-16] MEDS: dilTIAZem 30 mg Tablet PO ×3 (00:37→14:16)
[2023-01-16] MEDS: piperacillin-tazobactam 3.375 GM in sodium chloride 0.9% (plus) 50 ML IV ×2 (02:22→09:41)
[2023-01-16] MEDS: levalbuterol 1.25 mg/3 mL Neb INHALATION ×2 (03:01→07:50)
[2023-01-16] MEDS: ipratropium 0.5 mg/2.5 mL Neb INHALATION ×2 (03:02→07:50)
[2023-01-16 05:32] LABS: Basophils % 0.3 %; Eosinophils # 0.3 10^3/uL (0.0-0.8); Eosinophils % 4.3 %; Hematocrit 34.7 % (42.0-52.0); Hemoglobin 10.8 g/dL (11.7-16.6); Lymphocytes % 17.3 %; Mean Corpuscular HGB Conc 31.1 g/dL (30.0-36.0); Mean Corpuscular Hemoglobin 28.3 pg (28.0-34.0); Mean Corpuscular Volume 90.8 fl (80-94); Mean Platelet Volume 11.7 fL (7.4-10.4); Monocytes # 0.6 10^3/uL (0.2-0.9); Monocytes % 10.5 %; Neutrophils # 4.04 10^3/uL (1.8-7.7); Neutrophils % 67.3 %; Nucleated Red Blood Cells % 0 %; Platelet Count 230 10^3/cmm (130-400); Red Blood Count 3.82 10^6/uL (4.1-5.3); Red Cell Distribution Width 15.5 % (12.1-15.1)
[2023-01-16 05:50] LABS: Alanine Aminotransferase 11 U/L (0-41); Alkaline Phosphatase 45 U/L (40-130); Aspartate Amino Transferase 18 U/L (0-40); Blood Urea Nitrogen 40 mg/dL (8-23); Calcium 9.2 mg/dL (8.5-10.5); Carbon Dioxide 25 mmol/L (22-29); Chloride 101 mmol/L (98-107); Glucose 98 mg/dL (65-115); Osmolality Calculated 294 mOsm/kg (285-295); Sodium 137 mmol/L (136-145); Total Bilirubin 0.2 mg/dL (0.15-1.2)
[2023-01-16 05:51] LABS: Anion Gap 15.2 (5-19); Potassium 4.2 mmol/L (3.5-5.1)
[2023-01-16] MEDS: budesonide 0.5 mg/2 mL Neb INHALATION (07:50)
[2023-01-16] MEDS: metoprolol tartrate 25 mg Tablet PO (08:17)
[2023-01-16] MEDS: cholecalciferol (vitamin D3) 1,000 unit Tablet 2000 UNIT PO (08:17)
[2023-01-16] MEDS: atorvastatin 40 mg Tablet 80 MG PO (08:17)
[2023-01-16] MEDS: sucralfate 1 gm Tablet PO ×2 (08:17→14:16)
[2023-01-16] MEDS: docusate sodium 100 mg Capsule PO (08:17)
[2023-01-16] MEDS: tamsulosin 0.4 mg Capsule PO (08:17)
[2023-01-16] MEDS: pantoprazole DR 40 mg Tablet PO (08:17)
[2023-01-16] MEDS: duloxetine 60 mg Capsule PO (08:17)
[2023-01-16] MEDS: FUROsemide 20 mg Tablet PO (08:17)
[2023-01-16] MEDS: aspirin 81 mg EC Tablet PO (08:17)
[2023-01-16] MEDS: benzonatate 100 mg Capsule PO ×2 (08:17→14:45)
[2023-01-16] MEDS: fenofibrate 145 mg Tablet PO (08:23)
[2023-01-16] MEDS: levothyroxine 75 mcg Tablet PO (08:23)
--- NOTE | 2023-01-16 09:40 | PC.CHAP ---
Pastoral Care Encounter/Spiritual Assessment Type of Contact [] Declined spanish literature professor visit [] Patient/Family/Request visit [] Outpatient visit [] Follow-up visit [] Physician referral [] Code/Alert [x] Routine visit [] Staff referral [] Actively dying [] Patient sleeping [] Family support [] [] Out of room [] Palliative care [] [] Receiving care in room [] Pre-surgical visit [] Trauma [] Long length of stay [] ICU visit [] Other: Relational/Emotional Strength [x] Patient feels connected with others/family/visitors/staff [] Distress [] Loneliness/isolation [] Abandonment Spirituality of Patient [x] Person of Rachel [] Attends Mormonism of their Rachel [x] Believes in Prayer [] Reads Bible or Uatsdin materials [] There are Spiritual issues to be addressed [place] Interventions [x] Prayer [x] Active listening [] Non-anxious presence [x] Spiritual/emotional support [] Crisis/trauma care [] Spiritual counseling [] Bereavement support [] Provided bereavement packet [] Provided Bible/devotional materials [] Provided toy/stuffed animal, coloring book to patient or family member [] Provided Communion [] Anointing/Murray [] Salvation [x] Completed spiritual assessment [] Other: Impact on Illness or Injury [] Angry [] Fearful [] Anxious [] Often cries [] Exhaustion [] Unable to work [] Unable to attend anabaptism [] Unable to walk/stand [] Unable to read [] Unable to drive [] Unable to eat/drink [] Unable to sleep [] Unable to be with family [] Patient intubated [] Other: Summary Time spent with patient 5 min
--- NOTE | 2023-01-16 11:14 | P.DS_ITS ---
Discharge Providers Date of Admission: 01/07/23 02:19 Date of Discharge: January 16, 2023 Attending Provider at Admission: Corby Mayo MD Attending Provider at Discharge: Royal Mauro MD Primary Care Provider: CIERRA Fortune Diagnoses at Discharge Discharge Diagnosis (1) Atherosclerotic heart disease of [place] coronary artery with other forms of angina pectoris: Status: Acute (2) Ischemic cardiomyopathy: Status: Acute (3) Acute kidney injury superimposed on chronic kidney disease: Status: Acute (4) COPD (chronic obstructive pulmonary disease): Status: Chronic (5) Left lower lobe pneumonia: Status: Acute (6) Hyperlipidemia, unspecified: Status: Chronic Qualifiers: Hyperlipidemia type: mixed hyperlipidemia Qualified Code(s): E78.2 - Mixed hyperlipidemia (7) Carotid stenosis: Status: Acute (8) PVD (peripheral vascular disease): Status: Chronic (9) Controlled diabetes mellitus: Status: Chronic Qualifiers: Diabetes mellitus type: type 2 Diabetes mellitus prison insulin use: without prison use Diabetes mellitus complication status: with kidney complications Diabetes mellitus complication detail: with chronic kidney disease Chronic kidney disease stage: stage 2 (mild) Qualified Code(s): E11.22 - Type 2 diabetes mellitus with diabetic chronic kidney disease; N18.2 - Chronic kidney disease, stage 2 (mild) (10) Atrial fibrillation with rapid ventricular response: Status: Acute Reason for Visit Reason for Visit: RESP. DISTRESS Hospital Course Hospital Course 82-year male with history of COPD, reduced ejection fraction heart failure, presented to hospital for chief complaint of shortness of breath he was diagnosed with left lower lobe pneumonia, he was treated with antibiotics, cultures remain negative, afebrile, he was diagnosed with NSTEMI for which cardiology was consulted, echo showed reduced EF patient did not complain of any chest pain, he has refused coronary angiogram as per cardiology, he does have acute on chronic kidney disease secondary to CHF exacerbation which was getting better at the time of discharge, I have asked him to not to take valsartan, for intermittent A-fib RVR noted on telemetry I have added Eliquis along metoprolol. Patient went for thoracentesis 01/15 which showed atypical cells, his O2 requirement has not worsened he will be going home on 2 L of oxygen. Patient is stating that his [id number] will take care of him he does not want to go to any rehab or snf. Please see cardiology note for further details. Patient was experiencing daily bowel movement, no abdominal pain at the time of discharge she will get Augmentin which will be his sufficient for pneumonia and diverticulitis. CODE STATUS: Patient does not want to be resuscitated with CPR however agreeable for intubation in case of respiratory distress. He will be considered high risk for readmissions considering his multiple comorbid conditions Physical Exam Narrative: Awake and alert Euvolemic Currently on 2 L Pleasant and cooperative Nonfocal neuro exam Abdomen soft Trace edema of legs Urinary Catheter Management: Snider: Cath Placed During This Visit: yes Reason for Continuing Indwelling Catheter: Other Urinary Catheter Date of Insertion: 01/07/23 Urinary Catheter Time of Insertion: 02:44 Discharge Data Studies Completed and Pending Completed Studies During Hospitalization Category Date Time Status CT abdomen pelvis wo con [id number] Routine Cat Scan 01/14/23 10:[address] abdomen pelvis wo con [id number] Stat Cat Scan 01/06/23 22:[address] chest wo con [id number] Stat Cat Scan 01/06/23 22:44 Completed XR chest 1V portable [id number] Stat Exams 01/06/23 21:37 Completed XR chest 1V portable [id number] Stat Exams 01/15/23 14:20 Completed CV. echo complete* [id number] Routine Ultrasound 01/07/23 02:19 Completed US thoracentesis [id number] Routine Ultrasound 01/15/23 16:17 Completed Pending at discharge Category Date Time Status Body Fluid Culture & GS Routine Lab 01/14/23 16:27 Results CBC Auto Diff [Complete Blood Count w/Auto] AM LABS Lab 01/17/23 04:00 Ordered CMP [Comprehensive Metabolic Panel] AM LABS Lab 01/17/23 04:00 Ordered Radiology Impressions Chest CT 01/06/23 22:44 IMPRESSION: 1. Left lower lobe consolidation compatible with pneumonia. 2. Suspected minimal consolidation in the right lower lobe. 3. Bilateral pleural effusions and adjacent atelectasis. 4. Cardiomegaly and left atrial enlargement. 5. Status post CABG with advanced coronary atherosclerosis of the [place] coronary arteries. Abdomen/Pelvis CT 01/14/23 10:21 IMPRESSION: 1. Findings consistent with acute diverticulitis. 2. Cardiomegaly with large bilateral pleural effusions consistent with congestive heart failure. There is associated soft tissue edema and intraperitoneal free fluid/ascites. 3. Bladder wall appears thickened in regions and irregular in contour.This is nonspecific and may represent neoplastic process, bladder outlet obstruction, inflammation or infection. This is not optimally evaluated as the bladder is collapsed about the Snider catheter. 4. Prostate gland indents the base of the bladder consistent with median lobe enlargement. 5. Colonic constipation. COMMENTS: Consistent with the [employer] [employer]'s Incidental Findings Committee white paper (J Am [place] Radiol 2017): For any incidental adrenal lesion greater than or equal to 1 cm but less than or equal to 4 cm classified in this report as benign, likely benign, or containing fat (including classification as an adenoma or myelolipoma), no follow-up imaging is recommended per consensus recommendations based on imaging criteria. Further lab evaluation could be pursued if warranted based on clinical findings. Chest X-Ray 01/15/23 14:20 IMPRESSION: Cardiomegaly with bilateral pleural effusions and adjacent atelectasis left lower lung zones more pronounced on the left. Thoracentesis Ultrasound 01/15/23 16:17 IMPRESSION: Uncomplicated ultrasound-guided RIGHT thoracentesis. Laboratory Results WBC 6.0 10^3/uL (4.0-10.0) 01/16/23 05:00 RBC 3.82 10^6/uL (4.1-5.3) L 01/16/23 05:00 Hgb 10.8 g/dL (11.7-16.6) L 01/16/23 05:00 Hct 34.7 % (42.0-52.0) L 01/16/23 05:00 MCV 90.8 fl (80-94) 01/16/23 05:00 MCH 28.3 pg (28.0-34.0) 01/16/23 05:00 MCHC 31.1 g/dL (30.0-36.0) 01/16/23 05:00 RDW 15.5 % (12.1-15.1) H 01/16/23 05:00 Plt Count 230 10^3/cmm (130-400) 01/16/23 05:00 MPV 11.7 fL (7.4-10.4) H 01/16/23 05:00 Neut % (Auto) 67.3 % 01/16/23 05:00 Lymph % (Auto) 17.3 % 01/16/23 05:00 Hartley % (Auto) 10.5 % 01/16/23 05:00 Eos % (Auto) 4.3 % 01/16/23 05:00 Baso % (Auto) 0.3 % 01/16/23 05:00 Neut # (Auto) 4.04 10^3/uL (1.8-7.7) 01/16/23 05:00 Lymph # (Auto) 1.0 10^3/uL (0.8-4.8) 01/16/23 05:00 Hartley # (Auto) 0.6 10^3/uL (0.2-0.9) 01/16/23 05:00 Eos # (Auto) 0.3 10^3/uL (0.0-0.8) 01/16/23 05:00 Baso # (Auto) 0.0 10^3/uL (0.0-0.1) 01/16/23 05:00 Nucleated RBC % (auto) 0 % 01/16/23 05:00 Total Counted Not Reportable 01/15/23 14:35 Nucleated RBCs # 0.0 /100WBC 01/16/23 05:00 PT 14.80 SECONDS (12.1-14.9) 01/15/23 04:16 INR 1.13 (0.8-1.2) 01/15/23 04:16 Sodium 137 mmol/L (136-145) 01/16/23 05:00 Potassium 4.2 mmol/L (3.5-5.1) 01/16/23 05:00 Chloride 101 mmol/L (98-107) 01/16/23 05:00 Carbon Dioxide 25 mmol/L (22-29) 01/16/23 05:00 Anion Gap 15.2 (5-19) 01/16/23 05:00 BUN 40 mg/dL (8-23) H 01/16/23 05:00 Creatinine 2.3 mg/dL (0.7-1.2) H 01/16/23 05:00 GFR Calculation Not Reportable 01/16/23 05:00 Glucose 98 mg/dL (65-115) 01/16/23 05:00 Calculated Osmolality 294 mOsm/kg (285-295) 01/16/23 05:00 Lactate 1.9 mmol/L (0.5-2.2) 01/06/23 21:39 Calcium 9.2 mg/dL (8.5-10.5) 01/16/23 05:00 Total Bilirubin 0.2 mg/dL (0.15-1.2) 01/16/23 05:00 AST 18 U/L (0-40) 01/16/23 05:00 ALT 11 U/L (0-41) 01/16/23 05:00 Alkaline Phosphatase 45 U/L (40-130) 01/16/23 05:00 Lactate Dehydrogenase 173 U/L (135-225) 01/15/23 04:16 Troponin T Baseline 87 ng/L (0-15) H 01/06/23 21:39 Troponin T 120 Minute 89.12 ng/L (0-15) H 01/06/23 23:36 Delta Troponin T 2.12 ABS# (0-10) 01/06/23 23:36 Troponin T Hi Sens 6Hr 80.97 ng/L (0-15) H 01/07/23 03:39 Troponin T Hi Sens 6Hr Delta -6.03 ng/L (0-12) L 01/07/23 03:39 NT-Pro-B Natriuret Pep 25535 pg/mL (0-450) H 01/06/23 21:39 Total Protein 6.0 g/dL (6.6-8.7) L 01/16/23 05:00 Albumin 3.0 g/dL (3.5-5.2) L 01/16/23 05:00 Globulin 3.0 g/dL (1.3-4.6) 01/16/23 05:00 Pleural Color Pale yellow (Pale Yellow) 01/15/23 14:35 Pleural Appearance Clear (CLEAR) 01/15/23 14:35 Pleural WBC 351.000 /uL (0-1000) 01/15/23 14:35 Pleural RBC 1.000 10^3/uL 01/15/23 14:35 Pleural Other Cells Not Reportable 01/15/23 14:35 Pleural Polynuclear % 22 % 01/15/23 14:35 Pleural Mononuclear % 78 % 01/15/23 14:35 Pleural Total Protein 1.4 g/dL 01/15/23 14:35 Pleural Albumin 0.9 g/dL 01/15/23 14:35 Pleural LDH 73 U/L 01/15/23 14:35 Pleural Glucose 101.0 mg/dL 01/15/23 14:35 Vancomycin Trough 27.8 ug/mL (10-15) H* 01/12/23 02:08 Path Cons w/Slide Yes 01/15/23 14:35 Vitals Last Vital Signs Temp 97.8 F 01/16/23 08:00 Pulse 88 01/16/23 08:00 Resp 16 01/16/23 08:00 BP 135/80 01/16/23 08:00 Pulse Ox 84 L 01/16/23 09:55 O2 Del Method Nasal Cannula 01/16/23 08:00 O2 Flow Rate 2 01/16/23 09:55 Discharge Plan Discharge Patient Disposition: Home Condition: Stable Prescriptions: New amoxicillin-pot clavulanate 875-125 mg tablet 1 tab PO BID Qty: 7 0RF Eliquis 2.5 mg tablet 2.5 mg PO BID Qty: 60 2RF metoprolol tartrate 25 mg tablet 25 mg PO BID Qty: 60 0RF Continued aspirin 81 mg tablet,delayed release (DR/EC) 81 mg PO QDAY Qty: 30 2RF Hold Instructions: Resume on 08/10/22. docusate sodium [Colace] 100 mg capsule 100 mg PO DAILY fenofibrate nanocrystallized 145 mg tablet 145 mg PO DAILY Qty: 90 0RF Hold Instructions: Doctor's Order Farxiga 10 mg tablet 10 mg PO QAM Qty: 90 0RF duloxetine [Cymbalta] 60 mg capsule,delayed release(DR/EC) 60 mg PO BID Qty: 180 0RF levothyroxine 75 mcg tablet 75 mcg PO DAILY Qty: 90 0RF rosuvastatin [Crestor] 20 mg tablet 20 mg PO QDAY Qty: 90 0RF Hold Instructions: see if improve nausea sucralfate [Carafate] 1 gram tablet 1 g PO .4 times day Qty: 360 0RF pantoprazole [Protonix] 40 mg tablet,delayed release (DR/EC) 40 mg PO BID 14 Days Qty: 28 0RF Saccharomyces boulardii [Florastor] 250 mg capsule 250 mg PO BID Qty: 60 2RF albuterol sulfate 2.5 mg /3 mL (0.083 %) solution for nebulization 2.5 mg inhalation Q4H PRN (Reason: shortness of breath or wheezing) Qty: 180 0RF (DME) nebulizers Misc See Rx Instructions .ROUTE .MEDSUPPLY Qty: 1 0RF Rx Instructions: As directed (DME) oxygen concentrator See Rx Instructions .Route .MEDSUPPLY Qty: 1 0RF Rx Instructions: As directed oxygen concentrator 2 liters n/c at sleep melatonin 5 mg Tablet 5 mg PO BEDTIME Vitamin D3 50 mcg (2,000 unit) Capsule 50 mcg PO DAILY Lasix 40 mg tablet 40 mg PO DAILY Qty: 60 3RF potassium chloride 10 mEq capsule, extended release 10 meq PO DAILY Qty: 60 3RF Discontinued valsartan [Diovan] 160 mg tablet 320 mg PO DAILY Qty: 90 0RF Rx Instructions: he has at home levofloxacin 500 mg tablet 500 mg PO Q24H Qty: 10 0RF Discharge Orders: Discharge Order (Routine); Ordered 01/16/23 Ordered By: Royal Mauro Referrals: Mary Dior, PURCHASING AND CLAIMS SUPERVISORJacintaC [Primary Care Provider] - 01/19/23 8:40 am Discharge Diet: Cardiac Discharge Activity: Increase activity as tolerated Patient Instructions: Opioid Safety Discharge Attestations Time Spent in Discharge Care*: greater than 30 min Quality Metrics Clinical Quality Measures [ No reported AMI, CVA or VTE this stay] Coding Level of Care Code Acute Code for g Fwd Diagnoses Atherosclerotic heart disease of [place] coronary artery with other forms of an jon pectoris I25.118 Ischemic cardiomyopathy I25.5 Acute kidney injury superimposed on chronic kidney disease N17.9; N18.9 COPD (chronic obstructive pulmonary disease) J44.9 Left lower lobe pneumonia J18.9 Hyperlipidemia, unspecified E78.2 Hyperlipidemia type: mixed hyperlipidemia Carotid stenosis I65.29 PVD (peripheral vascular disease) I73.9 Controlled diabetes mellitus E11.22; N18.2 Diabetes mellitus type: type 2 Diabetes mellitus [place] insulin use: without prison use Diabetes mellitus complication status: with kidney complications Diabetes mellitus complication detail: with chronic kidney disease Chronic kidney disease stage: stage 2 (mild) Atrial fibrillation with rapid ventricular response I48.91
--- NOTE | 2023-01-16 14:55 | PC.NURSE ---
Patient to d/c after lunch. Snider removed waiting for patient to void post removal.
--- NOTE | 2023-01-16 15:41 | PC.NURSE ---
Patient and educated at bedside about patient not being able to urinate post wei removal and that increases risk of having to come back to emergency department. Patient attempted and was not successful and both patient and spouse acknowledge this education.
== END 2023-01-16 15:44 | disposition home or self-care (01) | DRG 280 ==
LOC: ER 23:47 → MEDSURG 01-07 01:49
PROVIDERS: Emergency Medicine; Internal Medicine; Student in an Organized Health Care Education/Training Program; Admitting Provider Family Medicine; Emergency Provider Emergency Medicine; PCP Nurse Practitioner; Visit Provider Internal Medicine
DX: I13.0 Hypertensive heart and chronic kidney disease with heart failure and stage 1 through stage 4 chronic kidney disease, or unspecified chronic kidney disease (principal); I50.43 Acute on chronic combined systolic (congestive) and diastolic (congestive) heart failure; I21.4 Non-ST elevation (NSTEMI) myocardial infarction; J18.9 Pneumonia, unspecified organism; J96.21 Acute and chronic respiratory failure with hypoxia; N13.8 Other obstructive and reflux uropathy; N17.9 Acute kidney failure, unspecified; K57.32 Diverticulitis of large intestine without perforation or abscess without bleeding; J90 Pleural effusion, not elsewhere classified; N18.2 Chronic kidney disease, stage 2 (mild); E11.22 Type 2 diabetes mellitus with diabetic chronic kidney disease; Z79.4 Long term (current) use of insulin; E03.9 Hypothyroidism, unspecified; F41.9 Anxiety disorder, unspecified; F32.A Depression, unspecified; N40.1 Benign prostatic hyperplasia with lower urinary tract symptoms; I25.118 Atherosclerotic heart disease of native coronary artery with other forms of angina pectoris; Z95.1 Presence of aortocoronary bypass graft; Z82.49 Family history of ischemic heart disease and other diseases of the circulatory system; G89.29 Other chronic pain; M54.9 Dorsalgia, unspecified; J44.9 Chronic obstructive pulmonary disease, unspecified; K21.9 Gastro-esophageal reflux disease without esophagitis; E78.2 Mixed hyperlipidemia; E11.51 Type 2 diabetes mellitus with diabetic peripheral angiopathy without gangrene; Z86.73 Personal history of transient ischemic attack (TIA), and cerebral infarction without residual deficits; I25.5 Ischemic cardiomyopathy; I48.0 Paroxysmal atrial fibrillation; D64.9 Anemia, unspecified; I65.23 Occlusion and stenosis of bilateral carotid arteries; Z99.81 Dependence on supplemental oxygen; Z66 Do not resuscitate; N52.9 Male erectile dysfunction, unspecified
CPT/HCPCS: 32555; 36415; 51702; 71045; 71250; 74176; 80048; 80053; 80202; 80503; 82042; 82945; 83605; 83615; 83880; 84157; 84484; 85025; 85610; 87040; 87070; 87075; 87205; 87641; 89050; 93005; 93306; 94640; 94664; 94760; 96365; 96372; 96375; 99285; J1650; J1940; J2405; J2543; J3370; J3490; J7040; J7614; J7626; J7644

== ENCOUNTER 2023-01-19 09:41 | Observation (INO) | payer MEDICARE, MEDICAID, SELFPAY ==
[2023-01-19] VITALS (33 sets, daily range): BP systolic 124–143; BP diastolic 75–115; PULSE 76–148; RESP 12–33; TEMP 37–37.1; O2SAT 85–97; BMI 26.5
--- NOTE | 2023-01-19 09:52 | XR_ITS ---
WS: [id number] Portable AP upright chest, 01/19/2023 Clinical Data: dyspnea/cough Comparison: Portable chest, 01/15/2023 Findings: There is dense opacification in the left lower lobe unchanged. There is partial opacificati on of the right lower lobe unchanged. These opacities probably represent effusion, atelectasis and po ssible pneumonia. The heart is probably enlarged. No pneumothorax is seen. The aortic arch shows calc ification. There are midline sternotomy sutures. Monitor leads are on the chest wall. Bilateral shoul jason arthroplasties are present. XR/XR chest 1V portable [id number] Impression: 1. No change in bilateral lower lobe opacities. 2. No change in cardiomegaly and atherosclerosis.
--- NOTE | 2023-01-19 09:52 | ECG_ITS ---
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 Measurements Intervals [place] Rate: 137 P: 0 [place]: 0 QRS: -1 QRSD: 118 T: 186 QT: 282 QTc: 427 Interpretive Statements ATRIAL FIBRILLATION WITH RAPID VENTRICULAR RESPONSE POSSIBLE ANTERIOR MYOCARDIAL INFARCTION , OF INDETERMINATE AGE [30 ms Q WAVE IN V3/V4, OR R < 0.2 mV IN V4] MODERATE T-WAVE ABNORMALITY, CONSIDER LATERAL ISCHEMIA [-0.1+ mV T-WAVE IN I/aVL/V5/V6] Compared to ECG 01/11/2023 07:54:31 No significant changes Electronically Signed On 01-19-2023 12:33:21 CDT by Denisse Goldstein M.D. [id number]
--- NOTE | 2023-01-19 09:53 | W.ED.SOB ---
HPI - SOB/Dyspnea General: Chief Complaint: Shortness of Breath/Dyspnea Stated Complaint: short of breath Time Seen by Provider: 01/19/23 09:50 Source: patient Mode of arrival: ambulatory History of Present Illness: HPI Narrative: 82-year-old male was recently hospitalized for pleural effusion and had a thoracentesis. He was discharged home on 01/16 returns today complaining of productive cough of green sputum. Normally is on 2 L by nasal cannula not requiring 4 L to maintain oxygen sats. Patient has a history of atrial fibrillation he is on Eliquis and metoprolol. He did not take his metoprolol this morning. MD elicited complaint: shortness of breath and cough Exacerbating factors: nothing Relieving factors: nothing Associated symptoms: Reports palpitations; Deny abdominal pain, chest congestion, chest pain, cough, diaphoresis, dizziness, extremity pain, fever(s), hemoptysis, lightheadedness, myalgias, nausea, orthopnea, paresthesias, polydipsia, polyuria, rash, sense of impending doom, syncope or vomiting Treatment prior to arrival: none Review of Systems Const: Reports: fatigue and malaise; Denies: fever(s), chills or diaphoresis Card: Reports: palpitations, irregular heart rhythm, edema and swelling of feet/ankles; Denies: chest pain, lightheadedness, syncope or orthopnea Resp: Reports: dyspnea and productive cough; Denies: hemoptysis or chest congestion GI: Denies: abdominal pain, nausea or vomiting Musc: Denies: extremity pain Neuro: Denies: dizziness Endo: Denies: polyuria or polydipsia PFSH ED PFSH: Medical History Adult onset hypothyroidism Anxiety and depression B12 deficiency BPH NOS w ur obs/LUTS Chronic progressive LUTS secondary to BPH/obstruction with good response to dual medical therapy. CAD (coronary artery disease) Carotid stenosis Chronic back pain CKD (chronic kidney disease) Controlled diabetes mellitus COPD (chronic obstructive pulmonary disease) Cyst, dermoid, trunk Erectile dysfunction Multifactorial. 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 Declined Trimix Gastric reflux Grade II diastolic dysfunction Hyperlipidemia, unspecified Iron deficiency OA (osteoarthritis) of hip PVD (peripheral vascular disease) Urolithiasis 6 mm RIGHT distal ureteral stone spontaneously passed 2016. Vitamin D deficiency Surgical History History of back surgery History of knee replacement right 2014 History of knee surgery right 2007 left 2003 History of rhinoplasty 1973 History of shoulder surgery Left 2016 S/p bilateral carotid endarterectomy S/P CABG (coronary artery bypass graft) 2002 Status post colonoscopy Status post laparoscopic cholecystectomy 10/04/2019 Family History Father , at age 75 CAD (coronary artery disease) Mother , at age 81 Stroke Other Heart disease Hypertension Social History Smoking and tobacco status: former smoker Second hand smoke exposure: No Smoking risk assessment/counseling performed?: No Alcohol intake: never Desire information about alcohol rehabilitation?: No Counseling given: No Substance/Drug Use: never Desire information about substance/drug rehabilitation?: No Counseling given: No Adopted: No Caregiver/support person: No Lives independently: Yes Household members: none Housing: House Marital status: / service: Yes status: Retired branch: [employer] Current occupational status: retired Current occupational exposures/hazards: No Pets and animals: No Do you think of yourself as: Straight/Heterosexual Current gender identity: Male Special tommie needs: No Physical Exam Const: GENERAL APPEARANCE: cooperative and comfortable ORIENTATION/CONSCIOUSNESS: Yes awake, Yes oriented to person, Yes oriented to place and Yes oriented to time HENMT: COMMON NORMALS: normocephalic, atraumatic and hearing grossly normal bilaterally HEAD & SCALP: normocephalic and atraumatic Resp: COMMON NORMALS: normal respiratory effort, No retractions, No use of accessory muscles and clear to auscultation bilaterally AUSCULTATION: clear to auscultation bilaterally Cardio: COMMON NORMALS: No murmurs present (Cardio) RATE: tachycardic RHYTHM: abnormal rhythm irregularly irregular GI: COMMON NORMALS: Soft to palpation and No hepatosplenomegaly present AUSCULTATION: Yes normoactive bowel sounds PALPATION: Yes Soft to palpation, No Tenderness to palpation present (GI), No Guarding due to palpation present (GI) and Yes No hepatosplenomegaly present Extremity: COMMON NORMALS: normal to inspection, capillary refill normal and no calf tenderness GENERAL: Yes edema (2+ edema lower extremities) Neuro: SENSORIUM/ORIENTATION: Yes oriented to person, Yes oriented to place and Yes oriented to time Skin: COMMON NORMALS: no rashes or lesions noted GENERAL SKIN EXAM: no rashes or lesions noted Course Vital Signs: Vital signs: Vital Signs Temperature 98.6 F 01/19/23 09:46 Pulse Rate 117 H 01/19/23 12:45 Respiratory Rate 26 H 01/19/23 12:45 Blood Pressure 143/76 01/19/23 12:45 Pulse Oximetry 94 01/19/23 13:54 Oxygen Delivery Me thod Nasal Cannula 01/19/23 13:54 Oxygen Flow Rate 3 01/19/23 13:54 MDM - SOB/Dyspnea Medical Decision Making Chest x-ray shows no pneumonia patient is requiring oxygen. Additionally we are unable to slow his heart rate down he had not taken any of his morning medicines we gave him 5 of IV Lopressor and his regular oral metoprolol he had no improvement with that. He was then started on Cardizem drip titrated up to 10 and the drip was paused he was given a 10 mg bolus and then resumed at 10. His rate did improve. He was also given Lasix 40 mg IV since he had not taken any of his morning medications. Discussed with hospitalist will admit for A-fib RVR pneumonia congestive heart failure. Medical Records I reviewed the patient's medical records. Lab Data I reviewed the patient's lab results. 01/19/23 09:56 01/19/23 09:56 Labs/Radiology: Radiology Impressions Chest X-Ray 01/19/23 09:52 Impression: 1. No change in bilateral lower lobe opacities. 2. No change in cardiomegaly and atherosclerosis. Laboratory Results WBC 12.6 10^3/uL (4.0-10.0) H 01/19/23 09:56 RBC 4.21 10^6/uL (4.1-5.3) 01/19/23 09:56 Hgb 11.7 g/dL (11.7-16.6) 01/19/23 09:56 Hct 38.3 % (42.0-52.0) L 01/19/23 09:56 MCV 91.0 fl (80-94) 01/19/23 09:56 MCH 27.8 pg (28.0-34.0) L 01/19/23 09:56 MCHC 30.5 g/dL (30.0-36.0) 01/19/23 09:56 RDW 15.9 % (12.1-15.1) H 01/19/23 09:56 Plt Count 284 10^3/cmm (130-400) 01/19/23 09:56 MPV 12.1 fL (7.4-10.4) H 01/19/23 09:56 Neut % (Auto) 86.7 % 01/19/23 09:56 Lymph % (Auto) 5.3 % 01/19/23 09:56 Nance % (Auto) 6.9 % 01/19/23 09:56 Eos % (Auto) 0.2 % 01/19/23 09:56 Baso % (Auto) 0.2 % 01/19/23 09:56 Neut # (Auto) 10.89 10^3/uL (1.8-7.7) H 01/19/23 09:56 Lymph # (Auto) 0.7 10^3/uL (0.8-4.8) L 01/19/23 09:56 Nance # (Auto) 0.9 10^3/uL (0.2-0.9) 01/19/23 09:56 Eos # (Auto) 0.0 10^3/uL (0.0-0.8) 01/19/23 09:56 Baso # (Auto) 0.0 10^3/uL (0.0-0.1) 01/19/23 09:56 Nucleated RBC % (auto) 0 % 01/19/23 09:56 Nucleated RBCs # 0.0 /100WBC 01/19/23 09:56 Sodium 137 mmol/L (136-145) 01/19/23 09:56 Potassium 4.8 mmol/L (3.5-5.1) 01/19/23 09:56 Chloride 101 mmol/L (98-107) 01/19/23 09:56 Carbon Dioxide 21 mmol/L (22-29) L 01/19/23 09:56 Anion Gap 19.8 (5-19) H 01/19/23 09:56 BUN 45 mg/dL (8-23) H 01/19/23 09:56 Creatinine 2.3 mg/dL (0.7-1.2) H 01/19/23 09:56 GFR Calculation Not Reportable 01/19/23 09:56 Glucose 87 mg/dL (65-115) 01/19/23 09:56 Calculated Osmolality 295 mOsm/kg (285-295) 01/19/23 09:56 Calcium 9.6 mg/dL (8.5-10.5) 01/19/23 09:56 Total Bilirubin 0.3 mg/dL (0.15-1.2) 01/19/23 09:56 AST 94 U/L (0-40) H 01/19/23 09:56 ALT 76 U/L (0-41) H 01/19/23 09:56 Alkaline Phosphatase 57 U/L (40-130) 01/19/23 09:56 Troponin T Baseline 84 ng/L (0-15) H 01/19/23 09:56 Troponin T 120 Minute 89.09 ng/L (0-15) H 01/19/23 12:04 Delta Troponin T 5.09 ABS# (0-10) 01/19/23 12:04 Total Protein 7.1 g/dL (6.6-8.7) 01/19/23 09:56 Albumin 3.7 g/dL (3.5-5.2) 01/19/23 09:56 Globulin 3.4 g/dL (1.3-4.6) 01/19/23 09:56 Discharge Plan Discharge Patient Disposition: Admitted As Inpatient Admit Provider: Royal Mauro Clinical Impression: Atrial fibrillation with rapid ventricular response, Ischemic cardiomyopathy, Congestive heart failure, Pneumonia Condition: Stable Coding Level of Care Code ED [employer] Skilled Maintenance Supervisor for Sami Cristina
[2023-01-19 10:01] LABS: Basophils % 0.2 %; Eosinophils % 0.2 %; Hematocrit 38.3 % (42.0-52.0); Hemoglobin 11.7 g/dL (11.7-16.6); Lymphocytes # 0.7 10^3/uL (0.8-4.8); Lymphocytes % 5.3 %; Mean Corpuscular HGB Conc 30.5 g/dL (30.0-36.0); Mean Corpuscular Hemoglobin 27.8 pg (28.0-34.0); Mean Platelet Volume 12.1 fL (7.4-10.4); Monocytes # 0.9 10^3/uL (0.2-0.9); Monocytes % 6.9 %; Neutrophils # 10.89 10^3/uL (1.8-7.7); Neutrophils % 86.7 %; Nucleated Red Blood Cells % 0 %; Platelet Count 284 10^3/cmm (130-400); Red Blood Count 4.21 10^6/uL (4.1-5.3); Red Cell Distribution Width 15.9 % (12.1-15.1); White Blood Count 12.6 10^3/uL (4.0-10.0)
[2023-01-19] MEDS: metoprolol tartrate 1 mg/1 mL SDV 5 mL 5 MG IVP (10:05)
[2023-01-19] MEDS: metoprolol tartrate 25 mg Tablet PO (10:05)
[2023-01-19 10:19] LABS: Troponin(5th) Baseline 84 ng/L (0-15)
[2023-01-19 10:20] LABS: Alanine Aminotransferase 76 U/L (0-41); Albumin Level 3.7 g/dL (3.5-5.2); Alkaline Phosphatase 57 U/L (40-130); Aspartate Amino Transferase 94 U/L (0-40); Blood Urea Nitrogen 45 mg/dL (8-23); Calcium 9.6 mg/dL (8.5-10.5); Carbon Dioxide 21 mmol/L (22-29); Chloride 101 mmol/L (98-107); Globulin 3.4 g/dL (1.3-4.6); Glucose 87 mg/dL (65-115); Osmolality Calculated 295 mOsm/kg (285-295); Sodium 137 mmol/L (136-145); Total Bilirubin 0.3 mg/dL (0.15-1.2); Total Protein 7.1 g/dL (6.6-8.7)
[2023-01-19 10:21] LABS: Anion Gap 19.8 (5-19); Creatinine Clr Calc Pharmacy 26.1624; Potassium 4.8 mmol/L (3.5-5.1)
[2023-01-19] MEDS: dilTIAZem 100 MG in sodium chloride 0.9% (add-van) 100 ML IV (11:01)
--- NOTE | 2023-01-19 11:16 | PC.NURSE ---
ED PHYSICIAN GAVE VERBAL ORDER TO STOP INFUSION AND ADMINISTER 10MG BOLUS OVER 1 MINUTE FROM IV PUMP THEN RESUME IV DRIP ADMINISTRATION. ORDER REPEATED AND CONFIRMED.
--- NOTE | 2023-01-19 11:56 | ECG_ITS ---
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 Measurements Intervals [place] Rate: 102 P: 0 [place]: 0 QRS: -8 QRSD: 125 T: 173 QT: 344 QTc: 449 Interpretive Statements ATRIAL FIBRILLATION WITH RAPID VENTRICULAR RESPONSE MODERATE INTRAVENTRICULAR CONDUCTION DELAY [105+ ms QRS DURATION, 80+ ms Q/S IN V1/V2, NO Q AND 60+ ms R IN I/aVL/V5/V6] ST DEVIATION AND MODERATE T-WAVE ABNORMALITY, CONSIDER LATERAL ISCHEMIA [-0.1+ mV T-WAVE IN I/aVL/V5/V6] Compared to ECG 01/19/2023 10:00:29 Intraventricular conduction delay now present Myocardial infarct finding no longer present T-wave abnormality still present Possible ischemia still present Electronically Signed On 01-20-2023 6:44:20 CDT by Denisse Goldstein M.D. [id number]
[2023-01-19] MEDS: FUROsemide 10 mg/mL SDV 4mL 40 MG IVP ×2 (12:13→22:26)
[2023-01-19] MEDS: levofloxacin-dextrose 5 % 500 MG/100 ML PREMIX 100 MG IV (12:13)
[2023-01-19 12:35] LABS: Troponin 5 2HR 89.09 ng/L (0-15)
[2023-01-19 12:40] LABS: Troponin 5 2HR Delta 5.09 ABS# (0-10)
--- NOTE | 2023-01-19 13:15 | PC.NURSE ---
PT STATES HE HAD SOME SLURRED SPEECH AT HIS DR'S OFFICE THIS MORNING. PT STATES IT HAS RESOLVED. PT DOCTOR OF NAPRAPATHY EQUAL. NO ARM DRIFT NOTED. ED PHYSICIAN NOTIFIED. NO NEW VERBAL ORDERS AT THIS TIME.
[2023-01-19 13:51] LABS: Add Urine Microscopic? YES; Bilirubin Urine Neg (Negative); Blood Urine Neg (Negative); Glucose Urine UA 4+ (Normal); Ketones Urine Negative (Negative); Leukocyte Esterase Urine Negative (Negative); Nitrate Urine Negative (Negative); Protein Urine 1+ (Negative); Specific Gravity, Urine 1.015 (1.005-1.030); Urine Appearance Clear (CLEAR); Urine Color Yellow (Yellow); Urobilinogen Urine Neg (Negative); pH Urine 5 (5-7)
[2023-01-19 13:55] LABS: Bacteria Urine t /hpf; Hyaline Casts Urine 0-4 /lpf; Mucus Urine 1+ /hpf; RBC Urine 0-4 /hpf (0-2); Squamous Epithelial Cell Urine 0-4 /hpf (0-5); WBC Urine 0-4 /hpf (0-5)
[2023-01-19 13:56] LABS: Add Urine Culture? No
--- NOTE | 2023-01-19 14:45 | PM.HP ---
Providers/Chief Complaint Admitting Physician: Royal Mauro MD Primary Care Provider: KLAUS Fortune-Bravo Chief Complaint: short of breath History of Present Illness Abiel Andres is a 82 year old male who recently was diagnosed with reduced ejection fraction heart failure, patient refused angiogram, DNR/DNI status postthoracentesis on last visit, A-fib RVR he was discharged on metoprolol and anticoagulating agent presented today with chief complaint of leg pain not been able to walk in the ER he was diagnosed with A-fib RVR required multiple doses of IV AV marco antonio blocking agents hence required Cardizem drip when I evaluated him he was on Cardizem 10 heart rate in 90s with blood pressure in 140s. Patient was not complaining of any chest pain shortness of breath or palpitations. Family is at the bedside patient clearly iterated that he is DNR/DNI and he is in the hospital because of leg swelling he was discharged back to his [id number]-chc's home Review of Systems Const: Denies: fever(s) Eyes: Denies: change in vision ENMT: Denies: throat pain Card: Reports: swelling of feet/ankles; Denies: chest pain Resp: Denies: dyspnea GI: Denies: abdominal pain : Denies: flank pain Musc: Denies: neck pain Skin/Breast: Denies: rash Psych: Reports: anxiety Medications/Allergies Home Medications Medication Instructions Recorded Confirmed Last Taken Type oxygen concentrator #1 ea 02/02/22 01/19/23 Unknown Rx fenofibrate nanocrystallized 145 145 mg PO DAILY #90 tabs 07/20/22 01/19/23 01/18/23 Rx mg tablet melatonin 5 mg tablet 5 mg PO BEDTIME 08/04/22 01/19/23 01/18/23 History docusate sodium 100 mg capsule 100 mg PO DAILY 08/18/22 01/19/23 01/18/23 History (Colace) dapagliflozin 10 mg tablet 10 mg PO QAM #90 tabs 10/18/22 01/19/23 01/18/23 Rx (Farxiga) duloxetine 60 mg capsule,delayed 60 mg PO BID #180 caps 10/18/22 01/19/23 01/18/23 Rx release (Cymbalta) levothyroxine 75 mcg tablet 75 mcg PO DAILY #90 tabs 10/18/22 01/19/23 01/18/23 Rx pantoprazole 40 mg tablet,delayed 40 mg PO BID 14 days #28 tabs 12/06/22 01/19/23 01/18/23 Rx release (Protonix) Saccharomyces boulardii 250 mg 250 mg PO BID #60 caps 01/02/23 01/19/23 01/18/23 Rx capsule (Florastor) albuterol sulfate 2.5 mg/3 mL 2.5 mg (3 mL) inhalation Q4H PRN 01/02/23 01/19/23 Unknown Rx (0.083 %) solution for nebulization shortness of breath or wheezing #180 mL nebulizers #1 ea 01/02/23 01/19/23 Unknown Rx cholecalciferol (vitamin D3) 50 50 mcg PO DAILY 01/07/23 01/19/23 01/18/23 History mcg (2,000 unit) capsule (Vitamin D3) amoxicillin 875 mg-potassium 1 tab PO BID #7 tabs 01/16/23 01/19/23 01/18/23 Rx clavulanate 125 mg tablet apixaban 2.5 mg tablet (Eliquis) 2.5 mg PO BID #60 tabs 01/16/23 01/19/23 01/19/23 Rx furosemide 40 mg tablet (Lasix) 40 mg PO DAILY #60 tabs 01/16/23 01/19/23 01/18/23 Rx metoprolol tartrate 25 mg tablet 25 mg PO BID #60 tabs 01/16/23 01/19/23 01/18/23 Rx potassium chloride 10 mEq 10 meq PO DAILY #60 caps 01/16/23 01/19/23 01/18/23 Rx capsule,extended release aspirin 81 mg tablet,delayed 81 mg PO DAILY 01/19/23 01/19/23 01/18/23 History release rosuvastatin 20 mg tablet (Crestor) 20 mg PO DAILY 01/19/23 01/19/23 01/18/23 History sucralfate 1 gram tablet (Carafate) 1 g PO QID 01/19/23 01/19/23 01/18/23 History Allergies Allergy/AdvReac Type Severity Reaction Status Date / Time fish oil Allergy rash Verified 01/19/23 08:23 PFSH Acute PFSH: Medical History Adult onset hypothyroidism Anxiety and depression B12 deficiency BPH NOS w ur obs/LUTS Chronic progressive LUTS secondary to BPH/obstruction with good response to dual medical therapy. CAD (coronary artery disease) Carotid stenosis Chronic back pain CKD (chronic kidney disease) Controlled diabetes mellitus COPD (chronic obstructive pulmonary disease) Cyst, dermoid, trunk Erectile dysfunction Multifactorial. 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 Declined Trimix Gastric reflux Grade II diastolic dysfunction Hyperlipidemia, unspecified Iron deficiency OA (osteoarthritis) of hip PVD (peripheral vascular disease) Urolithiasis 6 mm RIGHT distal ureteral stone spontaneously passed 2016. Vitamin D deficiency Surgical History History of back surgery History of knee replacement right 2014 History of knee surgery right 2007 left 2002 History of rhinoplasty 1973 History of shoulder surgery Left 2016 S/p bilateral carotid endarterectomy S/P CABG (coronary artery bypass graft) 2002 Status post colonoscopy Status post laparoscopic cholecystectomy 10/04/2019 Family History Father , at age 75 CAD (coronary artery disease) Mother , at age 81 Stroke Other Heart disease Hypertension Social History Smoking and tobacco status: former smoker Second hand smoke exposure: No Smoking risk assessment/counseling performed?: No Alcohol intake: never Desire information about alcohol rehabilitation?: No Counseling given: No Substance/Drug Use: never Desire information about substance/drug rehabilitation?: No Counseling given: No Adopted: No Caregiver/support person: No Lives independently: Yes Household members: none Housing: House Marital status: / service: Yes status: Retired branch: [employer] Current occupational status: retired Current occupational exposures/hazards: No Pets and animals: No Do you think of yourself as: Straight/Heterosexual Current gender identity: Male Special tommie needs: No Vitals/I&O/Wt Last Vital Signs Temp 98.6 F 01/19/23 09:46 Pulse 117 H 01/19/23 12:45 Resp 26 H 01/19/23 12:45 BP 143/76 01/19/23 12:45 Pulse Ox 94 01/19/23 13:54 O2 Del Method Nasal Cannula 01/19/23 13:54 O2 Flow Rate 3 01/19/23 13:54 01/18/23 01/19/23 01/19/23 22:59 06:59 14:59 Intake Total 101.25 / 101.25 Balance 101.25 / 101.25 Weight last 48 hrs Weight 83.915 kg Physical Exam Narrative: Clinical signs of fluid overload 2+ edema of legs Currently on 2 L A-fib RVR currently on Cardizem drip Abdomen soft Family at the bedside Patient is awake and alert, GCS 15 Nonfocal neuro exam Data 01/19/23 09:56 01/19/23 09:56 Micro: Microbiology 01/19/23 12:11 Blood Culture - Preliminary Blood SPECIMEN COLLECTED 01/19/23 12:04 Blood Culture - Preliminary Blood SPECIMEN COLLECTED A&P Assessment and plan (1) Congestive heart failure: (2) Atrial fibrillation with rapid ventricular response: (3) Acute on chronic systolic heart failure: (4) Acute kidney injury superimposed on chronic kidney disease: (5) Ischemic cardiomyopathy: Plan A-fib RVR Currently on Cardizem drip I would avoid Cardizem because of low EF I will quickly transition him to p.o. metoprolol Continue Eliquis Acute systolic CHF exacerbation EF 25% Patient refused angiogram He is DNR/DNI Currently on cardiac diet Continue diuresis Manage electrolytes monitor urine output Chronic hypoxia required 2 L of oxygen during last visit currently doing well on 2 L no acute exacerbation Lower extremity swelling which is making him uncomfortable to walk without any pain Will request venous Doppler DNR/DNI Cardiac diet Anticipating discharge within 48 hours EKG self interpretation A-fib RVR Attestations Medical Necessity Statement*: A-fib RVR management anticipating discharge within 48 hours Diagnoses Congestive heart failure I50.9 Atrial fibrillation with rapid ventricular response I48.91 Acute on chronic systolic heart failure I50.23 Acute kidney injury superimposed on chronic kidney disease N17.9; N18.9 Ischemic cardiomyopathy I25.5
--- NOTE | 2023-01-19 15:52 | ECG_ITS ---
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 Measurements Intervals [place] Rate: 82 P: 0 HI: 0 QRS: -2 QRSD: 121 T: 154 QT: 361 QTc: 423 Interpretive Statements ATRIAL FIBRILLATION POSSIBLE ANTERIOR MYOCARDIAL INFARCTION , OF INDETERMINATE AGE [30 ms Q WAVE IN V3/V4, OR R < 0.2 mV IN V4] MODERATE T-WAVE ABNORMALITY, CONSIDER LATERAL ISCHEMIA [-0.1+ mV T-WAVE IN I/aVL/V5/V6] WARNING: DATA QUALITY MAY AFFECT INTERPRETATION Compared to ECG 01/19/2023 11:56:56 Myocardial infarct finding now present Intraventricular conduction delay no longer present T-wave abnormality still present Possible ischemia still present Electronically Signed On 01-20-2023 6:19:13 CDT by Denisse Goldstein M.D. [id number]
[2023-01-19 16:47] LABS: Glucose Point of Care 95 mg/dL (70-110)
[2023-01-19] MEDS: amiodarone 200 mg Tablet 400 MG PO (17:50)
[2023-01-19] MEDS: metoprolol tartrate 50 mg Tablet 100 MG PO ×2 (17:51→21:27)
[2023-01-19 21:18] LABS: Glucose Point of Care 126 mg/dL (70-110)
[2023-01-19] MEDS: apixaban 5 mg Tablet PO (21:27)
--- NOTE | 2023-01-19 22:00 | PC.NURSE ---
Spoke with regarding patient increased SOB with any movement, desats to 82% on 2L with movement. Nurse increased patient O2 to 5L. Lung sound with crackles to bilateral lower lobes. ordered one time dose of IVP lasix 40mg and stat potable chest xray.
--- NOTE | 2023-01-19 22:15 | XRR_ITS ---
PROCEDURE INFORMATION: Exam: XR Chest Exam date and time: 01/19/2023 10:27 PM Age: 82 years old Clinical indication: Pain; On breathing; Additional info: Increased o2 demand, shortness of breath TECHNIQUE: Imaging protocol: Radiologic exam of the chest. Views: 1 view. COMPARISON: CR XR chest 1V portable [id number] 01/19/2023 9:56 AM FINDINGS: Lungs: Bilateral mid to lower lung field ground-glass airspace opacities reflecting alveolar edema and/or pneumonic infiltrates. Pleural spaces: Trace right and moderate left pleural effusion. Heart/Mediastinum: Cardiomegaly, interstitial edema and minimal pulmonary vascular congestion. Bones/joints: Sternotomy wires and bilateral shoulder arthroplasty changes. XR/XR chest 1V portable [id number] IMPRESSION: 1. Cardiomegaly, interstitial edema and minimal pulmonary vascular congestion. 2. Trace right and moderate left pleural effusion. 3. Bilateral mid to lower lung field ground-glass airspace opacities reflecting alveolar edema and/or pneumonic infiltrates. 4. Sternotomy wires and bilateral shoulder arthroplasty changes.
[2023-01-20] VITALS (126 sets, daily range): BP systolic 133–155; BP diastolic 79–103; PULSE 83–116; RESP 13–35; TEMP 36.1–36.4; O2SAT 84–98
[2023-01-20 04:24] LABS: Basophils % 0.2 %; Eosinophils % 0.1 %; Hematocrit 36.8 % (42.0-52.0); Hemoglobin 11.2 g/dL (11.7-16.6); Lymphocytes % 8.7 %; Mean Corpuscular HGB Conc 30.4 g/dL (30.0-36.0); Mean Corpuscular Hemoglobin 28.1 pg (28.0-34.0); Mean Corpuscular Volume 92.5 fl (80-94); Mean Platelet Volume 11.7 fL (7.4-10.4); Monocytes # 0.9 10^3/uL (0.2-0.9); Monocytes % 7.6 %; Neutrophils # 9.67 10^3/uL (1.8-7.7); Neutrophils % 82.9 %; Nucleated Red Blood Cells % 0 %; Platelet Count 283 10^3/cmm (130-400); Red Blood Count 3.98 10^6/uL (4.1-5.3); Red Cell Distribution Width 16.2 % (12.1-15.1); White Blood Count 11.7 10^3/uL (4.0-10.0)
[2023-01-20 04:49] LABS: Blood Urea Nitrogen 51 mg/dL (8-23); C Reactive Protein 11.2 mg/L (0.0-4.9); Calcium 9.9 mg/dL (8.5-10.5); Carbon Dioxide 19 mmol/L (22-29); Chloride 100 mmol/L (98-107); Glucose 91 mg/dL (65-115); Magnesium 2.6 mg/dL (1.7-2.3); Osmolality Calculated 295 mOsm/kg (285-295); Sodium 136 mmol/L (136-145)
[2023-01-20 05:07] LABS: Anion Gap 21.8 (5-19); Creatinine Clr Calc Pharmacy 25.0723; Potassium 4.8 mmol/L (3.5-5.1)
--- NOTE | 2023-01-20 05:27 | P.PN_ITS ---
Subjective Subjective: Patient was short of breath overnight we will proceed with 20 mg IV Lasix and x- ray showed pulm edema A-fib RVR improved Cardizem current off Blood pressure stable Oxygen requirement increased to 5 L Vitals/I&O/Wt Last Vital Signs Temp 97.6 F 01/20/23 00:00 Pulse 86 01/20/23 05:07 Resp 22 H 01/20/23 04:00 BP 147/84 01/20/23 04:00 Pulse Ox 96 01/20/23 04:00 O2 Del Method Nasal Cannula 01/20/23 04:00 O2 Flow Rate 3 01/20/23 04:00 01/19/23 01/19/23 01/20/23 14:59 22:59 06:59 Intake Total 101.25 / 101.25 725.333 / 826.583 200 / 1026.583 Output Total 1250 / 1250 700 / 1950 Balance 101.25 / 101.25 -524.667 / -423.417 -500 / -923.417 Weight last 48 hrs Weight 83.915 kg Physical Exam Narrative: Currently on 5 L Awake and alert GCS 15 Nonfocal neuro exam Clinical signs of fluid overload 2+ edema of legs Radial S1-S2 Abdomen soft but distended Crackles positive on lung auscultation Data 01/20/23 04:00 01/20/23 04:00 Micro: Microbiology 01/19/23 12:11 Blood Culture - Preliminary Blood SPECIMEN COLLECTED 01/19/23 12:04 Blood Culture - Preliminary Blood SPECIMEN COLLECTED A&P Assessment and plan (1) Congestive heart failure: (2) Atrial fibrillation with rapid ventricular response: (3) Acute on chronic systolic heart failure: (4) Acute kidney injury superimposed on chronic kidney disease: (5) Ischemic cardiomyopathy: (6) COPD (chronic obstructive pulmonary disease): (7) Respiratory failure, acute and chronic: (8) Pulmonary edema: Plan Acute on chronic hypoxia Secondary to CHF exacerbation I will give him BiPAP for today along diuretics Reduced ejection fraction heart failure exacerbation EF 25% Continue IV Lasix On previous admission patient had thoracentesis done and qualified for 2 L of oxygen Chronic kidney disease creatinine seems around baseline Goals of care discussed with the patient patient wants to remain DNR/DNI Family was aware as well was at the bedside COPD acute exacerbation related to CHF Continue diuresis, BiPAP and medical optimization A-fib RVR Cardizem turned off EF is low I would avoid Cardizem, currently patient is on amiodarone and metoprolol Attestations Medical Necessity Statement*: Continue medical management Diagnoses Congestive heart failure I50.9 Atrial fibrillation with rapid ventricular response I48.91 Acute on chronic systolic heart failure I50.23 Acute kidney injury superimposed on chronic kidney disease N17.9; N18.9 Ischemic cardiomyopathy I25.5 COPD (chronic obstructive pulmonary disease) J44.9 Respiratory failure, acute and chronic J96.20 Pulmonary edema J81.1
[2023-01-20 06:18] LABS: Glucose Point of Care 89 mg/dL (70-110)
[2023-01-20] MEDS: metoprolol tartrate 50 mg Tablet 100 MG PO ×2 (08:23→20:21)
[2023-01-20] MEDS: apixaban 5 mg Tablet PO ×2 (08:23→20:21)
[2023-01-20] MEDS: FUROsemide 10 mg/mL SDV 2mL 40 MG IVP (08:24)
[2023-01-20] MEDS: amiodarone 200 mg Tablet 400 MG PO ×2 (08:24→17:46)
[2023-01-20] MEDS: ipratropium-albuterol 3 mL Neb INHALATION ×3 (09:38→21:40)
[2023-01-20 12:41] LABS: Glucose Point of Care 93 mg/dL (70-110)
[2023-01-20 17:06] LABS: Glucose Point of Care 104 mg/dL (70-110)
[2023-01-20 20:23] LABS: Glucose Point of Care 116 mg/dL (70-110)
[2023-01-21] VITALS (111 sets, daily range): BP systolic 124–149; BP diastolic 71–108; PULSE 77–115; RESP 13–34; TEMP 36–36.2; O2SAT 73–97
--- NOTE | 2023-01-21 05:03 | PM.PN ---
Subjective Subjective: Morning labs are pending Blood pressure stable Afebrile Currently on nasal cannula No new events No chest pain or worsening of shortness of breath Patient to use BiPAP every night Hospice referral provided yesterday by the case management Vitals/I&O/Wt Last Vital Signs Temp 97.0 F L 01/20/23 20:00 Pulse 96 01/21/23 04:25 Resp 19 H 01/21/23 03:42 BP 128/95 01/21/23 03:42 Pulse Ox 96 01/21/23 03:42 O2 Del Method Nasal Cannula 01/21/23 03:42 O2 Flow Rate 3 01/21/23 03:42 FiO2 34 01/20/23 23:21 01/20/23 01/20/23 01/21/23 14:59 22:59 06:59 Intake Total 480 / 480 360 / 840 Output Total 700 / 700 275 / 975 200 / 1175 Balance -220 / -220 85 / -135 -200 / -335 Weight last 48 hrs Weight 83.915 kg Physical Exam Narrative: Signs of fluid overload present Left-sided diminished breath sounds Basilar crackles A-fib without RVR Abdomen soft Lower extremity edema Pleasant and cooperative Nonfocal neuro exam Data 01/20/23 04:00 01/20/23 04:00 Micro: Microbiology 01/19/23 19:30 Gram Stain - Final Sputum - Expectorated Sputum Sputum Culture - Preliminary 01/19/23 12:11 Blood Culture - Preliminary Blood NEGATIVE TO DATE 01/19/23 12:04 Blood Culture - Preliminary Blood NEGATIVE TO DATE A&P Assessment and plan (1) Congestive heart failure: (2) Atrial fibrillation with rapid ventricular response: (3) Acute on chronic systolic heart failure: (4) Ischemic cardiomyopathy: (5) COPD (chronic obstructive pulmonary disease): (6) B12 deficiency: (7) Iron deficiency: Plan Reduced ejection fraction heart for exacerbation Slowly improving Adequate urine output BMP is pending Change diuretics to p.o. regimen A-fib without RVR Continue high-dose of metoprolol along amiodarone Patient is also on anticoagulating agent Hospice referral provided COPD, worsening due to CHF exacerbation Left-sided diminished breath sounds Currently requiring 2 to 3 L of oxygen Recent thoracentesis consistent with CHF Afebrile DNR/DNI Cardiac diet Plan to discharge on Sunday Patient to use BiPAP every night Attestations Medical Necessity Statement*: Continue medical management Diagnoses Congestive heart failure I50.9 Atrial fibrillation with rapid ventricular response I48.91 Acute on chronic systolic heart failure I50.23 Ischemic cardiomyopathy I25.5 COPD (chronic obstructive pulmonary disease) J44.9 B12 deficiency E53.8 Iron deficiency E61.1
[2023-01-21 05:25] LABS: Blood Urea Nitrogen 66 mg/dL (8-23); Calcium 9.6 mg/dL (8.5-10.5); Carbon Dioxide 21 mmol/L (22-29); Chloride 100 mmol/L (98-107); Glucose 110 mg/dL (65-115); Osmolality Calculated 300 mOsm/kg (285-295); Sodium 135 mmol/L (136-145)
[2023-01-21 05:30] LABS: Anion Gap 18.3 (5-19); Potassium 4.3 mmol/L (3.5-5.1)
[2023-01-21 06:24] LABS: Glucose Point of Care 101 mg/dL (70-110)
[2023-01-21] MEDS: ondansetron 2 mg/ML SDV 2 mL 4 MG IVP (08:09)
[2023-01-21] MEDS: bumetanide 1 mg Tablet PO (08:47)
[2023-01-21] MEDS: metoprolol tartrate 50 mg Tablet 100 MG PO ×2 (08:48→20:26)
[2023-01-21] MEDS: apixaban 5 mg Tablet PO ×2 (08:48→20:26)
[2023-01-21] MEDS: amiodarone 200 mg Tablet 400 MG PO ×2 (08:48→17:54)
[2023-01-21] MEDS: sennosides-docusate Tablet 1 TAB PO (08:51)
[2023-01-21] MEDS: ipratropium-albuterol 3 mL Neb INHALATION (08:51)
--- NOTE | 2023-01-21 09:10 | PC.NURSE ---
pt nauseated this morning.vomited very small amt of undigested food.4 mg zofran given as ordered
[2023-01-21 11:20] LABS: Glucose Point of Care 99 mg/dL (70-110)
[2023-01-21 17:50] LABS: Glucose Point of Care 105 mg/dL (70-110)
[2023-01-21 20:22] LABS: Glucose Point of Care 109 mg/dL (70-110)
[2023-01-22] VITALS (45 sets, daily range): BP systolic 124–154; BP diastolic 71–95; PULSE 72–95; RESP 12–30; TEMP 35.9; O2SAT 81–99
[2023-01-22 06:21] LABS: Glucose Point of Care 120 mg/dL (70-110)
--- NOTE | 2023-01-22 06:32 | PM.DCS ---
Discharge Providers Date of Admission: 01/19/23 13:08 Date of Discharge: January 22, 2023 Attending Provider at Admission: Royal Mauro MD Attending Provider at Discharge: Royal Mauro MD Primary Care Provider: CIERRA Fortune Diagnoses at Discharge Discharge Diagnosis (1) Congestive heart failure: Status: Acute (2) Atrial fibrillation with rapid ventricular response: Status: Acute (3) Acute on chronic systolic heart failure: Status: Acute (4) Ischemic cardiomyopathy: Status: Acute (5) COPD (chronic obstructive pulmonary disease): Status: Chronic (6) B12 deficiency: Status: Chronic (7) Iron deficiency: Status: Chronic Reason for Visit Reason for Visit: short of breath Hospital Course Hospital Course 82-year-old male who was usually discharged from the hospital after thoracentesis related to CHF exacerbation, EF dropped from his previous normal value, patient was diagnosed with NSTEMI patient refused coronary angiogram he does have coronary artery disease, chronic kidney disease, presented back with chief complaint of not been able to walk because of leg swelling. In the ER he was diagnosed with A-fib RVR required Cardizem drip for about 8 to 10 hours with use of metoprolol and amiodarone we were able to control his heart rate, not a good candidate to be on Cardizem because of poor EF. He has been put on Eliquis, he noticed some mild hemoptysis which improved without significant drop in hemoglobin or blood pressure. Patient does not have any family members in [place] other than his [id number], who both the patient and [id number] requested hospice referral, he has been accepted by [facility] hospice. During hospitalization his symptoms improved with IV diuresis, -1.5 L balance Physical Exam Narrative: Signs of fluid overload present Lower extremity edema Patient on 2 L of oxygen Bilateral breath sounds with crackles Abdomen soft Awake and alert Pleasant to communicate Nonfocal neuro exam Discharge Data Studies Completed and Pending Completed Studies During Hospitalization Category Date Time Status XR chest 1V portable [id number] Stat Exams 01/19/23 09:52 Completed XR chest 1V portable [id number] Stat Exams 01/19/23 22:15 Completed Pending at discharge Category Date Time Status Basic Metabolic Panel AM LABS Lab 01/22/23 04:00 Ordered Blood Culture Stat Lab 01/19/23 12:11 Results Radiology Impressions Chest X-Ray 05/19/23 22:15 IMPRESSION: 1. Cardiomegaly, interstitial edema and minimal pulmonary vascular congestion. 2. Trace right and moderate left pleural effusion. 3. Bilateral mid to lower lung field ground-glass airspace opacities reflecting alveolar edema and/or pneumonic infiltrates. 4. Sternotomy wires and bilateral shoulder arthroplasty changes. Laboratory Results WBC 11.7 10^3/uL (4.0-10.0) H 01/20/23 04:00 RBC 3.98 10^6/uL (4.1-5.3) L 01/20/23 04:00 Hgb 11.2 g/dL (11.7-16.6) L 01/20/23 04:00 Hct 36.8 % (42.0-52.0) L 01/20/23 04:00 MCV 92.5 fl (80-94) 01/20/23 04:00 MCH 28.1 pg (28.0-34.0) 01/20/23 04:00 MCHC 30.4 g/dL (30.0-36.0) 01/20/23 04:00 RDW 16.2 % (12.1-15.1) H 01/20/23 04:00 Plt Count 283 10^3/cmm (130-400) 01/20/23 04:00 MPV 11.7 fL (7.4-10.4) H 01/20/23 04:00 Neut % (Auto) 82.9 % 01/20/23 04:00 Lymph % (Auto) 8.7 % 01/20/23 04:00 [place] % (Auto) 7.6 % 01/20/23 04:00 Eos % (Auto) 0.1 % 01/20/23 04:00 Baso % (Auto) 0.2 % 01/20/23 04:00 Neut # (Auto) 9.67 10^3/uL (1.8-7.7) H 01/20/23 04:00 Lymph # (Auto) 1.0 10^3/uL (0.8-4.8) 01/20/23 04:00 [place] # (Auto) 0.9 10^3/uL (0.2-0.9) 01/20/23 04:00 Eos # (Auto) 0.0 10^3/uL (0.0-0.8) 01/20/23 04:00 Baso # (Auto) 0.0 10^3/uL (0.0-0.1) 01/20/23 04:00 Nucleated RBC % (auto) 0 % 01/20/23 04:00 Nucleated RBCs # 0.0 /100WBC 01/20/23 04:00 Sodium 135 mmol/L (136-145) L 01/21/23 04:32 Potassium 4.3 mmol/L (3.5-5.1) 01/21/23 04:32 Chloride 100 mmol/L (98-107) 01/21/23 04:32 Carbon Dioxide 21 mmol/L (22-29) L 01/21/23 04:32 Anion Gap 18.3 (5-19) 01/21/23 04:32 BUN 66 mg/dL (8-23) H 01/21/23 04:32 Creatinine 2.6 mg/dL (0.7-1.2) H 01/21/23 04:32 GFR Calculation Not Reportable 01/21/23 04:32 Glucose 110 mg/dL (65-115) 01/21/23 04:32 POC Glucose 120 mg/dL (70-110) H 01/22/23 06:17 Calculated Osmolality 300 mOsm/kg (285-295) H 01/21/23 04:32 Calcium 9.6 mg/dL (8.5-10.5) 01/21/23 04:32 Magnesium 2.6 mg/dL (1.7-2.3) H 01/20/23 04:00 Total Bilirubin 0.3 mg/dL (0.15-1.2) 01/19/23 09:56 AST 94 U/L (0-40) H 01/19/23 09:56 ALT 76 U/L (0-41) H 01/19/23 09:56 Alkaline Phosphatase 57 U/L (40-130) 01/19/23 09:56 Troponin T Baseline 84 ng/L (0-15) H 01/19/23 09:56 Troponin T 120 Minute 89.09 ng/L (0-15) H 01/19/23 12:04 Delta Troponin T 5.09 ABS# (0-10) 01/19/23 12:04 C-Reactive Protein 11.2 mg/L (0.0-4.9) H 01/20/23 04:00 Total Protein 7.1 g/dL (6.6-8.7) 01/19/23 09:56 Albumin 3.7 g/dL (3.5-5.2) 01/19/23 09:56 Globulin 3.4 g/dL (1.3-4.6) 01/19/23 09:56 Urine Color Yellow (Yellow) 01/19/23 13:23 Urine Appearance Clear (CLEAR) 01/19/23 13:23 Urine pH 5 (5-7) 01/19/23 13:23 Ur Specific [place] 1.015 (1.005-1.030) 01/19/23 13:23 Urine Protein 1+ (Negative) H 01/19/23 13:23 Urine Glucose (UA) 4+ (Normal) H 01/19/23 13:23 Urine Ketones Negative (Negative) 01/19/23 13:23 Urine Blood Neg (Negative) 01/19/23 13:23 Urine Nitrate Negative (Negative) 01/19/23 13:23 Urine Bilirubin Neg (Negative) 01/19/23 13:23 Urine Urobilinogen Neg mg/dL (Negative) 01/19/23 13:23 Ur Leukocyte Esterase Negative (Negative) 01/19/23 13:23 Urine RBC 0-4 /hpf (0-2) H 01/19/23 13:23 Urine WBC 0-4 /hpf (0-5) H 01/19/23 13:23 Ur Squamous Epith Cells 0-4 /hpf (0-5) H 01/19/23 13:23 Amorphous Sediment Not Reportable 01/19/23 13:23 Urine Bacteria t /hpf (NONE) 01/19/23 13:23 Hyaline Casts 0-4 /lpf H 01/19/23 13:23 Urine Mucus 1+ /hpf 01/19/23 13:23 Vitals Last Vital Signs Temp 96.6 F L 01/22/23 03:07 Pulse 80 01/22/23 04:39 Resp 20 H 01/22/23 03:07 BP 154/95 01/22/23 03:07 Pulse Ox 96 01/22/23 04:00 O2 Del Method BiPAP 01/22/23 03:07 O2 Flow Rate 2 01/21/23 23:27 FiO2 40 01/22/23 04:00 Discharge Plan Discharge Patient Disposition: Hospice - Home Condition: Stable Prescriptions: No Action docusate sodium [Colace] 100 mg capsule 100 mg PO DAILY fenofibrate nanocrystallized 145 mg tablet 145 mg PO DAILY Qty: 90 0RF Hold Instructions: Doctor's Order Farxiga 10 mg tablet 10 mg PO QAM Qty: 90 0RF duloxetine [Cymbalta] 60 mg capsule,delayed release(DR/EC) 60 mg PO BID Qty: 180 0RF levothyroxine 75 mcg tablet 75 mcg PO DAILY Qty: 90 0RF pantoprazole [Protonix] 40 mg tablet,delayed release (DR/EC) 40 mg PO BID 14 Days Qty: 28 0RF Saccharomyces boulardii [Florastor] 250 mg capsule 250 mg PO BID Qty: 60 2RF albuterol sulfate 2.5 mg /3 mL (0.083 %) solution for nebulization 2.5 mg inhalation Q4H PRN (Reason: shortness of breath or wheezing) Qty: 180 0RF (DME) nebulizers [facility] See Rx Instructions .ROUTE .MEDSUPPLY Qty: 1 0RF Rx Instructions: As directed (DME) oxygen concentrator See Rx Instructions .Route .MEDSUPPLY Qty: 1 0RF Rx Instructions: As directed oxygen concentrator 2 liters n/c at sleep melatonin 5 mg Tablet 5 mg PO BEDTIME Carafate 1 gram tablet 1 g PO QID aspirin 81 mg tablet,delayed release (DR/EC) 81 mg PO DAILY Crestor 20 mg tablet 20 mg PO DAILY cholecalciferol (vitamin D3) [Vitamin D3] 50 mcg (2,000 unit) Capsule 50 mcg PO DAILY metoprolol tartrate 25 mg tablet 25 mg PO BID Qty: 60 0RF Eliquis 2.5 mg tablet 2.5 mg PO BID Qty: 60 2RF amoxicillin-pot clavulanate 875-125 mg tablet 1 tab PO BID Qty: 7 0RF furosemide [Lasix] 40 mg tablet 40 mg PO DAILY Qty: 60 3RF potassium chloride 10 mEq capsule, extended release 10 meq PO DAILY Qty: 60 3RF Referrals: [facility] ([facility]) [Outside] Mary Dior, [employer] MANAGER-C [Primary Care Provider] - Patient Instructions: Opioid Safety Discharge Attestations Time Spent in Discharge Care*: greater than 30 min Quality Metrics Clinical Quality Measures [ No reported AMI, CVA or VTE this stay] Coding Level of Care Code Acute Code for Chg Fwd Diagnoses Congestive heart failure I50.9 Atrial fibrillation with rapid ventricular response I48.91 Acute on chronic systolic heart failure I50.23 Ischemic cardiomyopathy I25.5 COPD (chronic obstructive pulmonary disease) J44.9 B12 deficiency E53.8 Iron deficiency E61.1
--- NOTE | 2023-01-22 08:03 | PC.SOCIAL ---
IMM Update pg 2 of IMM not updated @ this time as patient is currently in observation status.
--- NOTE | 2023-01-22 08:22 | XRR_ITS ---
PROCEDURE INFORMATION: Exam: XR Chest Exam date and time: 01/22/2023 8:35 AM Age: 82 years old Clinical indication: Shortness of breath; Additional info: SOB TECHNIQUE: Imaging protocol: Radiologic exam of the chest. Views: 1 view. COMPARISON: CR (CHEST, ) 01/19/2023 10:27 PM FINDINGS: Lungs: Right basilar ground-glass consolidation. Dense left basilar consolidation. Pleural spaces: Blunting of the left costophrenic angle and obscuration of the hemidiaphragm likely consistent with pleural effusion. Heart/Mediastinum: Postsurgical changes in the mediastinum. Cardiac silhouette is enlarged. Bones/joints: Bilateral total shoulder arthroplasties noted. Median sternotomy wires noted. XR/XR chest 1V portable [id number] IMPRESSION: 1. Findings similar to prior exam. 2. Cardiomegaly with probable left-sided pleural effusion. 3. Bibasilar consolidation could be consistent with atelectasis, pneumonia, or pulmonary edema.
[2023-01-22] MEDS: metoprolol tartrate 50 mg Tablet 100 MG PO (08:56)
[2023-01-22] MEDS: bumetanide 1 mg Tablet PO (08:56)
[2023-01-22] MEDS: sennosides-docusate Tablet 1 TAB PO (08:56)
[2023-01-22] MEDS: amiodarone 200 mg Tablet 400 MG PO (08:56)
[2023-01-22] MEDS: apixaban 5 mg Tablet PO (08:56)
[2023-01-22] MEDS: ipratropium-albuterol 3 mL Neb INHALATION ×2 (09:29→13:19)
[2023-01-22 09:53] LABS: Anion Gap 17.4 (5-19); Blood Urea Nitrogen 68 mg/dL (8-23); Calcium 9.4 mg/dL (8.5-10.5); Carbon Dioxide 23 mmol/L (22-29); Chloride 100 mmol/L (98-107); Glucose 132 mg/dL (65-115); Osmolality Calculated 304 mOsm/kg (285-295); Potassium 4.4 mmol/L (3.5-5.1); Sodium 136 mmol/L (136-145)
[2023-01-22 11:32] LABS: Glucose Point of Care 121 mg/dL (70-110)
== END 2023-01-22 14:58 | disposition hospice, home (50) ==
LOC: ER 10:15 → CSU 13:08
PROVIDERS: Admitting Provider Internal Medicine; Emergency Provider Family Medicine; PCP Nurse Practitioner; Visit Provider Internal Medicine
DX: I48.91 Unspecified atrial fibrillation (principal); I50.9 Heart failure, unspecified; I50.23 Acute on chronic systolic (congestive) heart failure; I25.5 Ischemic cardiomyopathy; J44.9 Chronic obstructive pulmonary disease, unspecified; Z79.01 Long term (current) use of anticoagulants; Z99.81 Dependence on supplemental oxygen; Z87.891 Personal history of nicotine dependence; J18.9 Pneumonia, unspecified organism; J44.1 Chronic obstructive pulmonary disease with (acute) exacerbation; N18.9 Chronic kidney disease, unspecified; J96.20 Acute and chronic respiratory failure, unspecified whether with hypoxia or hypercapnia; E78.5 Hyperlipidemia, unspecified; I25.10 Atherosclerotic heart disease of native coronary artery without angina pectoris
CPT/HCPCS: 36415; 36416; 71045; 80048; 80053; 81001; 81015; 82962; 83735; 84484; 85025; 86140; 87040; 87070; 87205; 93005; 94640; 94660; 96365; 96366; 96367; 96375; 96376; 99285; G0378; J1940; J1956; J2405; J3475; J3490